=== PATIENT | female | born 1950 | race Caucasian/White ===

== ENCOUNTER → 2023-07-27 12:04 | Outpatient (REF) | payer MEDICARE, OTHER, SELFPAY | LOC: RAD 12:04 | PROVIDERS: ATTENDING PHYSICIAN Physician Assistant; FAMILY PHYSICIAN Family Medicine | DX: D35.02 Benign neoplasm of left adrenal gland (principal) | CPT/HCPCS: 74170; Q9967 ==

== ENCOUNTER 2023-10-03 14:24 | Emergency (ER) | payer MEDICARE, OTHER, SELFPAY ==
[2023-10-03 14:31] VITALS: BP 138/65
[2023-10-03 14:33] VITALS: BP 138/65
[2023-10-03 15:04] LABS: % Basophils 0.4 % (0-2); % Eosinophils 0.7 % (0-6); % Immature Granulocytes 0.2 % (0-0.5); % Lymphocytes 28.8 % (20.5-51.1); % Monocytes 6.6 % (1.7-9.3); % Neutrophils 63.3 % (42.2-75.2); Absolute Eosinophils 0.1 10^3/uL (0-0.7); Absolute Lymphocytes 2.4 10^3/uL (1.2-3.4); Absolute Monocytes 0.5 10^3/uL (0.1-0.6); Absolute Neutrophils 5.2 10^3/uL (1.4-6.5); Hemoglobin 12.2 g/dL (12.0-16.0); Mean Corp Hgb Conc. 34.9 g/dL (33.0-37.0); Mean Corpuscular Hgb 32.2 pg (27.0-31.0); Mean Corpuscular Volume 92.3 fL (81.0-99.0); Mean Platelet Volume 11.1 fL (7.4-10.4); Nucleated Red Blood Cells % 0 %; Platelet Count 282 10^3/uL (130-400); Red Blood Cell Count 3.79 10^6/uL (4.20-5.40); Red Cell Dist. Width 12.9 % (11.5-14.5); White Blood Cell Count 8.2 10^3/uL (4.8-10.8)
[2023-10-03 15:22] LABS: ALT (SGPT) 21 U/L (0-35); AST (SGOT) 21 U/L (14-36); Albumin 4.3 g/dl (3.5-5.0); Alkaline Phosphatase 92 U/L (38-126); Blood Urea Nitrogen 35 mg/dl (7-17); Calcium 10.3 mg/dl (8.4-10.2); Carbon Dioxide 22 mmol/L (22-30); Chloride 102 mmol/L (98-107); Estimated Creatinine Clearance 41 ml/min; Glucose 392 mg/dl (70-99); Potassium 4.6 mmol/L (3.5-5.1); Sodium 135 mmol/L (135-145); Total Bilirubin 0.7 mg/dl (0.2-1.3); Total Protein 6.7 g/dl (6.3-8.2); eGFR 48.09
[2023-10-03 15:31] LABS: Troponin I < 0.012 ng/ml
[2023-10-03 16:00] VITALS: BP 136/53
[2023-10-03] MEDS: NSS 1000 IV (16:57)
[2023-10-03 17:00] VITALS: BP 148/58
--- NOTE | 2023-10-03 17:24 | ED.GENMED ---
History of Present Illness
General
Chief Complaint: Weakness
Source: patient
Time Seen by Provider: 10/03/23 16:48
History of Present Illness
History of Present Illness:
73-year-old female presents to the emergency room after having a syncopal episode. Patient states she was walking into a wall while to get milk and next thing she recalls is being on the ground. Patient has had these episodes occasionally for
years. She states over the past 7 years she has had about 1 year. However recently she has had more episodes. This is her third syncopal episode in the past month. Patient had no premonition that this was about the happened. She denied any
visual changes, dizziness, chest pain or palpitations. She had a similar episode about 3 weeks ago. She was walking across the street to me that the neighbor to go to lunch when she collapsed. She similarly had no prodromal symptoms. The third
episode that she had recently was associated with the sensation that her blood sugar was low which was confirmed by her glucose monitor. Patient states that the events are not associated with any shaking or seizure-like activity. She wakes up
quickly and is not confused. She does not see a telegraph messenger.
Past History
Past History
ED Past Medical History: COPD, HTN and IDDM
ED Past Surgical History: Other (Noncontributory)
Social History
Tobacco: Smoker
Alcohol: None
Drug: None
Personal: Single
Living: alone
Employment: Not employed
Family History
Family History: Diabetes
Phy Exam
Physical Exam
Physical Exam:
General: Awake, Alert, Oriented X3. No acute distress.
Vitals: unremarkable
Head: Atraumatic
Eyes: Pupils equal, EOMI
Throat: Airway intact, no exudates
Neck: Trachea midline
Lungs: Clear and equal b/l
Heart: Regular rate, no murmurs
Abd: Soft, Nontender, No pulsatile mass
Neuro: Cranial nerves intact, muscle strength equal bilaterally, cerebellar exam normal
Skin: Warm, dry, no rash
Extremities: pulses equal b/l, no edema
Course
Orders/Labs/Results
Orders:
Orders
10/03/23 14:32
EKG [Electrocardiogram (*1)] Urgent
Reason for Study: Syncope
10/03/23 14:33
EKG- Treatment ONCE
10/03/23 14:56
Complete Blood Count/With Diff Urgent
Comprehensive Metabolic Panel Urgent
Troponin I Urgent
10/03/23 16:49
0.9% Sodium Chloride 1000 ml [Nss] 1,000 ml IV BOLUS
Abnormal Lab Results
10/03/23
14:56
RBC 3.79 L 10^6/uL
(4.20-5.40)
Hct 35.0 L %
(37.0-47.0)
MCH 32.2 H pg
(27.0-31.0)
MPV 11.1 H fL
(7.4-10.4)
BUN 35 H mg/dl
(7-17)
Creatinine 1.2 H mg/dL
(0.6-1.0)
Glucose 392 H mg/dl
(70-99)
Calcium 10.3 H mg/dl
(8.4-10.2)
10/03/23 14:56
10/03/23 14:56
Vital Signs
Initial and Last Documented VS:
Initial Vital Signs
BP
138/65
10/03/23 14:31
Last Documented Vital Signs
Temp Pulse Resp BP Pulse Ox
98.4 F 64 21 164/61 100
10/03/23 14:33 10/03/23 18:30 10/03/23 18:30 10/03/23 18:00 10/03/23 18:30
MDM/Problems Addressed
Differential Diagnosis Includes:
Vasovagal syncope, cardiac syncope, seizure activity, orthostasis
MDM/Problems Addressed:
Patient presents for syncopal episodes. She is asymptomatic at this time. Her exam is benign. Her EKG is essentially normal. She has no known cardiac history. Physical exam she does not have any murmurs. Unclear what the cause of the patient's
events over the been going on for some time and she does not have any clear risk factors for cardiac syncope. Patient does not want to stay in the hospital. We will discharge her for close outpatient follow-up.
*Pulse Oximetry
Patient hypoxic: no
*EKG
Interpreted by ED Provider?: Yes
Heart Rate: 71
Rate: normal
Rhythm: sinus
[place]: normal axis
Interval: normal interval
QRS Pattern: normal QRS
Ischemia: no ischemia
*Document Image Technician Interpretation
Rate: normal
Interpretation: normal
Rhythm: sinus
*Critical Care Note
Total Time (30-74mins, 75-104mins- exclusive of procedures): Not Applicable
ED Attending Note
-
Portions of this chart may have been created with voice recognition software.� Occasional wrong word or��sound alike� substitutions may have occurred due to the inherent limitations of voice recognition software.
Discharge Plan
Departure
Patient Disposition: Home (Routine Discharge)
Date of Disposition: 10/03/23
Time of Disposition: 18:10
Patient with high blood pressure during this ER visit?: Yes
Condition: Good
Discharge Problem:
Syncope
Instructions: Syncope (fainting), Chest Pain DCA Follow Up, BLOOD PRESSURE
Prescriptions:
No Action
rosuvastatin 10 MG tablet
10 mg PO DAILY
aspirin 81 MG tablet,chewable
81 mg PO DAILY
duloxetine 60 MG capsule,delayed release(DR/EC)
60 mg PO DAILY
Rx Instructions:
taken w/ 30mg = 90mg
insulin lispro [Humalog U-100 Insulin] 100 UNIT/ML solution
0 sliding scale dose SC MEALS
atenolol [Tenormin] 100 MG tablet
100 mg PO DAILY
minoxidil 2.5 MG tablet
2.5 mg PO DAILY
amlodipine 10 MG tablet
10 mg PO DAILY
gabapentin 100 MG capsule
200 mg PO HS
albuterol sulfate 1 PUFF HFA aerosol inhaler
2 puff inhalation R Q4HPRN PRN (Reason: sob/wheezing)
metformin 500 MG tablet extended release 24 hr
1,000 mg PO DAILY
duloxetine 30 MG capsule,delayed release(DR/EC)
30 mg PO DAILY
Rx Instructions:
taken w/ 60mg = 90mg
Anoro Ellipta 1 EACH blister with device
1 puff inhalation R DAILY
Eylea 2 mg/0.05 mL Solution
2 mg INTRAVITREAL USEASDIRECTD
Rx Instructions:
Done at [facility]. Right Eye every 2 months, Left Eye every 3 months
cyanocobalamin (vitamin B-12) [Vitamin B-12] 500 mcg tablet
500 mcg PO DAILY
lisinopril 40 mg tablet
40 mg PO DAILY
melatonin 10 mg Tablet
30 mg PO HS
Jardiance 10 mg tablet
10 mg PO DAILY
alfalfa
1 tab PO DAILY PRN (Reason: allergies)
insulin glargine [Lantus Solostar U-100 Insulin] 300 UNITS/3 ML insulin pen
26 units SC DAILY
nicotine 21 mg/24 hr Patch 24 Hour
21 mg transdermal DAILY Qty: 14 0RF
amoxicillin-pot clavulanate 875-125 mg tablet
1 tab PO Q12H Qty: 24 0RF
Referrals:
Paige Reardon DO [Family Provider] -
Mario Correa MD [Active] -
Interventions
Interventions:
*Risk Screen - Suicide Last Done: 10/03/23 14:37
*General Assessment Last Done: 10/03/23 14:37
*Neglect/Abuse Screening Last Done: 10/03/23 14:37
*ED COVID-19 Vaccine History Last Done: 10/03/23 14:37
*Nursing Disposition Last Done: 10/03/23 18:44
ED- Cardiac Assessment Last Done: 10/03/23 14:39
ED- Neurological Assessment Last Done: 10/03/23 14:39
ED- Pulmonary Assessment Last Done: 10/03/23 14:39
Discharge Date and Time
Discharge Date/Time: 10/03/23 18:45
Print Language: DIVEHI
[2023-10-03 18:00] VITALS: BP 164/61
== END 2023-10-03 18:45 | disposition home or self-care (01) ==
LOC: EMR 14:24
PROVIDERS: Emergency Medicine; EMERGENCY PHYSICIAN Emergency Medicine; FAMILY PHYSICIAN Family Medicine
DX: R55 Syncope and collapse (principal); W18.30XA Fall on same level, unspecified, initial encounter; E11.9 Type 2 diabetes mellitus without complications; I10 Essential (primary) hypertension; J44.9 Chronic obstructive pulmonary disease, unspecified; Z79.4 Long term (current) use of insulin; F17.200 Nicotine dependence, unspecified, uncomplicated; Z91.040 Latex allergy status; Z88.5 Allergy status to narcotic agent; Z88.8 Allergy status to other drugs, medicaments and biological substances; Z91.048 Other nonmedicinal substance allergy status
CPT/HCPCS: 99284; 96360; 80053; 84484; 85025; 93005

== ENCOUNTER → 2024-02-16 11:22 | Outpatient (REF) | payer MEDICARE, OTHER, SELFPAY | LOC: HWRCS 11:22 | PROVIDERS: ATTENDING PHYSICIAN Physician Assistant Medical; FAMILY PHYSICIAN Family Medicine | DX: R55 Syncope and collapse (principal); R06.09 Other forms of dyspnea | CPT/HCPCS: 93306 ==

== ENCOUNTER → 2024-07-06 06:53 | Outpatient (REF) | payer MEDICARE, OTHER, SELFPAY | LOC: RAD 06:53 | PROVIDERS: ATTENDING PHYSICIAN Physician Assistant; FAMILY PHYSICIAN Family Medicine | DX: D35.02 Benign neoplasm of left adrenal gland (principal) | CPT/HCPCS: 74170; Q9967 ==

== ENCOUNTER 2024-07-23 14:03 | Emergency (ER) | payer MEDICARE, OTHER, SELFPAY ==
[2024-07-23] VITALS (8 sets, daily range): BP systolic 112–172; BP diastolic 54–115; PULSE 71–75
[2024-07-23 14:25] LABS: % Basophils 0.4 % (0-2); % Immature Granulocytes 0.2 % (0-0.5); % Lymphocytes 23.6 % (20.5-51.1); % Neutrophils 66.8 % (42.2-75.2); Absolute Eosinophils 0.1 10^3/uL (0-0.7); Absolute Lymphocytes 2.1 10^3/uL (1.2-3.4); Absolute Monocytes 0.7 10^3/uL (0.1-0.6); Hematocrit 35.1 % (37.0-47.0); Mean Corp Hgb Conc. 34.2 g/dL (33.0-37.0); Mean Corpuscular Hgb 32.2 pg (27.0-31.0); Mean Corpuscular Volume 94.1 fL (81.0-99.0); Mean Platelet Volume 10.5 fL (7.4-10.4); Nucleated Red Blood Cells % 0 %; Platelet Count 267 10^3/uL (130-400); Red Blood Cell Count 3.73 10^6/uL (4.20-5.40); Red Cell Dist. Width 13.2 % (11.5-14.5)
--- NOTE | 2024-07-23 14:40 | ED.GENMED ---
History of Present Illness
General
Chief Complaint: Dizziness
Source: patient
Exam Limitations: none
Time Seen by Provider: 07/23/24 14:39
Nursing documentation reviewed up to this point in time: agreed with
History of Present Illness
History of Present Illness:
73-year-old female with history of neuropathy, COPD, HTN, HLD, IBS, IDDM, Tasha's thyroiditis, anemia, ADHD presents for syncope. She has had several syncopal episodes in the past, one a year for past 7 years, similar to this one. Last was on
10/03/23 when she was evaluated here and no explanation found.
States she was walking from one room to another at her PCP office and she felt lightheaded, held onto the counter and was escorted to a chair. There was no LOC.
Denies CP, SOB, abd pain.
Past History
Past History
ED Past Medical History: COPD, HTN, IDDM and Other (several episodes syncope in past 8 years.)
ED Past Surgical History: Gynecological (R oophorectomy) and Orthopedic
Social History
Tobacco: Smoker
Alcohol: None
Drug: None
Personal: Single
Living: alone
Employment: Not employed
Family History
Family History: Diabetes
Review of Systems
Review of Systems
Allergies reviewed?: Yes
All Other Systems: ROS reviewed and negative except as documented in HPI and ROS
Constitutional: Denies fever or fatigue
Respiratory: Denies trouble breathing
Cardiac: Reports syncope; Denies chest pain, diaphoresis or palpitations
ABD/GI: Denies abdominal pain, nausea, vomiting, diarrhea or anorexia
: Denies dysuria, frequency or difficulty voiding
Musculoskeletal: Reports no symptoms
Skin: Reports no symptoms
Neurological: Reports no symptoms
Phy Exam
Physical Exam
Physical Exam:
GENERAL: No acute distress. A&Ox3.
CONSTITUTIONAL: Afebrile.
EYES: clear, conjunctivae normal
ENMT: moist mucus membranes, Pharynx nl
RESPIRATORY: Regular respirations, nonlabored, lungs clear.
CARDIOVASCULAR: Regular rate and rhythm, no murmurs, no rubs.
GI: Soft, nontender, normal BS
MUSCULOSKELETAL: Moves with ease. Well perfused.No edema
SKIN: Warm, dry, pink
PSYCH: Normal mood and affect. Well kept, interactive and appropriate
NEUROLOGIC: Awake, alert and oriented. No focal neurological deficits
Course
Orders/Labs/Results
Orders:
Orders
07/23/24 14:11
EKG [Electrocardiogram (*1)] Urgent
Reason for Study: Syncope
07/23/24 14:12
EKG- Treatment ONCE
07/23/24 14:17
CXR2 [CR Chest - 2 Views ] Urgent
Comment:
Reason For Exam: 'bubbling in chest'
07/23/24 14:18
Complete Blood Count/With Diff Urgent
Comprehensive Metabolic Panel Urgent
Troponin I Urgent
07/23/24 14:41
Orthostatic VS- Treatment ONCE
07/23/24 15:02
0.9% Sodium Chloride 1000 ml [Nss] 1,000 ml IV BOLUS
07/23/24 16:07
Urinalysis Reflex To Culture Urgent
Date Specimen was Collected: 07/23/24
Time Specimen was Collected: 16:03
Urine Microscopic Reflex Cult Urgent
Urine Culture Urgent
DAWIT Source: U
Specimen Description:
Date Specimen was Collected: 07/23/24
Time Specimen was Collected: 16:03
Abnormal Lab Results
07/23/24 07/23/24
14:18 16:07
RBC 3.73 L 10^6/uL
(4.20-5.40)
Hct 35.1 L %
(37.0-47.0)
MCH 32.2 H pg
(27.0-31.0)
MPV 10.5 H fL
(7.4-10.4)
Absolute Monos (auto) 0.7 H 10^3/uL
(0.1-0.6)
Chloride 108 H mmol/L
(98-107)
BUN 28 H mg/dl
(7-17)
Creatinine 1.4 H mg/dL
(0.6-1.0)
Glucose 181 H mg/dl
(70-99)
Calcium 10.4 H mg/dl
(8.4-10.2)
Urine Ketones 2+ A
(Negative)
Leukocyte Esterase Rfl 1+ A
(Negative)
Urine Bacteria (Reflex) Moderate A
(Negative)
Urine Glucose 4+ A
(Negative)
Urine Albumin (Reflex) 1+ A
(Neg - Trace)
07/23/24 14:18
07/23/24 14:18
Vital Signs
Initial and Last Documented VS:
Initial Vital Signs
Temp Pulse Resp BP Pulse Ox
97.9 F 68 20 136/104 98
07/23/24 14:07 07/23/24 14:07 07/23/24 14:07 07/23/24 14:07 07/23/24 14:07
Last Documented Vital Signs
Temp Pulse Resp BP Pulse Ox
97.9 F 75 21 132/115 99
07/23/24 14:07 07/23/24 16:15 07/23/24 16:15 07/23/24 16:00 07/23/24 16:00
Regional Rehabilitation Director consulted with Physician
Regional Rehabilitation Director consulted with physician?: Yes
Name of Physician Consulted: Shahzad
MDM/Problems Addressed
Differential Diagnosis Includes:
dehydration, postural hypotension
MDM/Problems Addressed:
73-year-old female with history of neuropathy, COPD, HTN, HLD, IBS, IDDM, Tasha's thyroiditis, anemia, ADHD presents for syncope. She has had several syncopal episodes in the past, one a year for past 7 years, similar to this one. Last was on
10/03/23 when she was evaluated here and no explanation found.
States she was walking from one room to another at her PCP office and she felt lightheaded, held onto the counter and was escorted to a chair. There was no LOC.
Denies CP, SOB, abd pain.
Afebrile, NAD
EKG: NSR
I witnessed pt having to suddenly sit down feeling lightheaded during standing for orthostatics:
Supine 152/68, Sitting 125/62, standing 112/62 Heart rate remained stable 71-75 (Pt on beta lauren)
CBC: with no clinically significant abnormality.
CMP: Consistent with her CKD
U/A: neg
4:20 pm.
CXR: NAD
Pt states 'as long as I'm sitting down, I'm fine.'
After NSS 1 IVFs pt OOB and ambulating well. Denies dizziness, lightheadedness.
Stable for discharge
Dr. Dao gone for the day, Case discussed with Dr. Pike who agrees with assessment and plan
*EKG
EKG Intrepretation Date: 07/23/24
Interpretation: normal
Heart Rate: 68
Rate: normal
Rhythm: sinus
[place]: normal axis
Interval: normal interval
QRS Pattern: normal QRS
Ischemia: no ischemia
*Critical Care Note
Total Time (30-74mins, 75-104mins- exclusive of procedures): Not Applicable
ED Attending Note
-
Portions of this chart may have been created with voice recognition software.� Occasional wrong word or��sound alike� substitutions may have occurred due to the inherent limitations of voice recognition software.
Discharge Plan
Departure
Patient Disposition: Home (Routine Discharge)
Date of Disposition: 07/23/24
Time of Disposition: 17:12
Patient with high blood pressure during this ER visit?: No
Condition: Good
Discharge Problem:
Near syncope, Tobacco use disorder
Instructions: Near Fainting (DC)
Prescriptions:
No Action
rosuvastatin 10 MG tablet
10 mg PO DAILY
aspirin 81 MG tablet,chewable
81 mg PO DAILY
duloxetine 60 MG capsule,delayed release(DR/EC)
60 mg PO DAILY
Rx Instructions:
taken w/ 30mg = 90mg
insulin lispro [Humalog U-100 Insulin] 100 UNIT/ML solution
0 sliding scale dose SC MEALS
atenolol [Tenormin] 100 MG tablet
100 mg PO DAILY
minoxidil 2.5 MG tablet
2.5 mg PO DAILY
amlodipine 10 MG tablet
10 mg PO DAILY
gabapentin 100 MG capsule
200 mg PO HS
albuterol sulfate 1 PUFF HFA aerosol inhaler
2 puff inhalation R Q4HPRN PRN (Reason: sob/wheezing)
metformin 500 MG tablet extended release 24 hr
1,000 mg PO DAILY
duloxetine 30 MG capsule,delayed release(DR/EC)
30 mg PO DAILY
Rx Instructions:
taken w/ 60mg = 90mg
Anoro Ellipta 1 EACH blister with device
1 puff inhalation R DAILY
Eylea 2 mg/0.05 mL Solution
2 mg INTRAVITREAL USEASDIRECTD
Rx Instructions:
Done at [facility]. Right Eye every 2 months, Left Eye every 3 months
cyanocobalamin (vitamin B-12) [Vitamin B-12] 500 mcg tablet
500 mcg PO DAILY
lisinopril 40 mg tablet
40 mg PO DAILY
melatonin 10 mg Tablet
30 mg PO HS
Jardiance 10 mg tablet
10 mg PO DAILY
alfalfa
1 tab PO DAILY PRN (Reason: allergies)
insulin glargine [Lantus Solostar U-100 Insulin] 300 UNITS/3 ML insulin pen
26 units SC DAILY
nicotine 21 mg/24 hr Patch 24 Hour
21 mg transdermal DAILY Qty: 14 0RF
amoxicillin-pot clavulanate 875-125 mg tablet
1 tab PO Q12H Qty: 24 0RF
Referrals:
Magalie Shin PA-C [Family Provider] - Call in 1-3 days for appt
Activity Restrictions/Additional Instructions:
As we discussed, drink at least six 8 ounce glasses of water/fluid daily to stay hydrated.
Ceron positions slowly so you don't get dizzy.
Interventions
Interventions:
*Risk Screen - Suicide Last Done: 07/23/24 14:07
*General Assessment Last Done: 07/23/24 14:07
*Neglect/Abuse Screening Last Done: 07/23/24 14:07
*ED- Fall Risk Assessment Last Done: 07/23/24 14:07
*ED COVID-19 Vaccine History Last Done: 07/23/24 14:18
ED- Neurological Assessment Last Done: 07/23/24 14:56
Discharge Date and Time
Print Language: AZERI
[2024-07-23 14:43] LABS: ALT (SGPT) 16 U/L (0-35); AST (SGOT) 15 U/L (14-36); Albumin 4.3 g/dl (3.5-5.0); Alkaline Phosphatase 97 U/L (38-126); Blood Urea Nitrogen 28 mg/dl (7-17); Calcium 10.4 mg/dl (8.4-10.2); Carbon Dioxide 23 mmol/L (22-30); Chloride 108 mmol/L (98-107); Estimated Creatinine Clearance 36 ml/min; Glucose 181 mg/dl (70-99); Potassium 5.1 mmol/L (3.5-5.1); Sodium 136 mmol/L (135-145); Total Bilirubin 0.9 mg/dl (0.2-1.3); Total Protein 6.6 g/dl (6.3-8.2); eGFR 39.97
[2024-07-23 14:55] LABS: Troponin I < 0.012 ng/ml
--- NOTE | 2024-07-23 14:55 | EDRN ---
VOICE DATA COMMUNICATIONS ENGINEER Day @ bedside. patient unable to stand due to dizziness when obtaining orthostatic blood pressures. VOICE DATA COMMUNICATIONS ENGINEER at bedside during dizzy episode. Patient sat back down immediately. No falls, no loss of consciousness, or trauma. Patient taken via
stretcher to xray
[2024-07-23] MEDS: NSS 1000 IV (15:11)
[2024-07-23 16:34] LABS: Urine Albumin 1+ (Neg - Trace); Urine Bilirubin Negative (Negative); Urine Color Amber; Urine Glucose 4+ (Negative); Urine Ketone 2+ (Negative); Urine Leukocyte 1+ (Negative); Urine Nitrite Negative (Negative); Urine Occult Blood Negative (Negative); Urine Urobilinogen Negative (Neg - 1+)
[2024-07-23 16:38] LABS: Urine Character Slightly Cloudy (Clear)
[2024-07-23 16:59] LABS: Urine Hyaline Cast >15 /LPF (0-2)
[2024-07-23 17:01] LABS: Urine Bacteria Moderate (Negative); Urine Red Blood Cell 0-2 /HPF (0-2)
== END 2024-07-23 18:42 | disposition home or self-care (01) ==
LOC: EMR 14:03
PROVIDERS: Registered Nurse; EMERGENCY PHYSICIAN Emergency Medicine; FAMILY PHYSICIAN Physician Assistant
DX: R55 Syncope and collapse (principal); E11.40 Type 2 diabetes mellitus with diabetic neuropathy, unspecified; F17.200 Nicotine dependence, unspecified, uncomplicated; J44.9 Chronic obstructive pulmonary disease, unspecified; D64.9 Anemia, unspecified; E11.36 Type 2 diabetes mellitus with diabetic cataract; F90.9 Attention-deficit hyperactivity disorder, unspecified type; I10 Essential (primary) hypertension; E78.5 Hyperlipidemia, unspecified; E06.3 Autoimmune thyroiditis; M19.90 Unspecified osteoarthritis, unspecified site; K58.9 Irritable bowel syndrome, unspecified; Z79.4 Long term (current) use of insulin; Z79.82 Long term (current) use of aspirin; Z91.040 Latex allergy status; Z88.5 Allergy status to narcotic agent; Z88.8 Allergy status to other drugs, medicaments and biological substances; Z91.048 Other nonmedicinal substance allergy status
CPT/HCPCS: 99284; 96360; 71046; 80053; 81003; 81015; 84484; 85025; 87086; 93005

== ENCOUNTER 2024-11-16 15:13 | Observation (INO) | payer MEDICARE, OTHER, SELFPAY ==
[2024-11-16] VITALS (8 sets, daily range): BP systolic 85–180; BP diastolic 43–73; PULSE 76–78; BMI 19.2
[2024-11-16 11:42] LABS: Hematocrit 32.6 % (37.0-47.0); Hemoglobin 10.7 g/dL (12.0-16.0); Mean Corp Hgb Conc. 32.8 g/dL (33.0-37.0); Mean Corpuscular Volume 95.3 fL (81.0-99.0); Nucleated Red Blood Cells % 0 %; Platelet Count 313 10^3/uL (130-400); Red Cell Dist. Width 13.8 % (11.5-14.5)
[2024-11-16 11:55] LABS: ALT (SGPT) 18 U/L (0-35); AST (SGOT) 16 U/L (14-36); Albumin 3.8 g/dl (3.5-5.0); Alkaline Phosphatase 95 U/L (38-126); Blood Urea Nitrogen 24 mg/dl (7-17); Calcium 10.0 mg/dl (8.4-10.2); Carbon Dioxide 26 mmol/L (22-30); Chloride 107 mmol/L (98-107); Glucose 249 mg/dl (70-99); Potassium 5.3 mmol/L (3.5-5.1); Sodium 136 mmol/L (135-145); Total Protein 6.2 g/dl (6.3-8.2); eGFR 43.42
[2024-11-16 12:06] LABS: Troponin I < 0.012 ng/ml
--- NOTE | 2024-11-16 12:27 | ED.GENMED ---
History of Present Illness
General
Chief Complaint: Dizziness
Source: patient
Exam Limitations: none
Time Seen by Provider: 11/16/24 12:06
Nursing documentation reviewed up to this point in time: agreed with
History of Present Illness
History of Present Illness:
Note:
CHIEF COMPLAINT(S)
Dizziness and leg weakness.
HISTORY OF PRESENT ILLNESS
The patient is a 74-year-old female who presents with complaints of dizziness and a sensation of her legs wanting to 'give out.' She states these symptoms began approximately one year ago. The dizziness is described as a sensation that is not
necessarily vertiginous but more as a feeling of potential leg collapse. This occurs intermittently and has been managed at home by sitting down, which she feels helps improve circulation. The patient denies any associated chest pain or new
breathing difficulties. She mentioned having Chronic Obstructive Pulmonary Disease (COPD), which is not a new diagnosis. There are no new respiratory concerns today. The patient was encouraged by her primary care provider to seek further evaluation
due to her symptoms of dizziness and said leg weakness, prompting her visit to the hospital today.
ADDITIONAL HISTORY OBTAINED FROM SOURCE OTHER THAN THE PATIENT
According to the patient, during a routine appointment with her primary care doctor, she was advised to visit the emergency department for further evaluation of her symptoms.
EXTERNAL RECORDS REVIEWED
The patient refers to a prior consultation with Dr. Mullen approximately four years ago after imaging was conducted due to concerns about possible cerebral findings. She recalls the physician describing the findings as resembling a 'raisin,'
suggesting it might be benign, and advising that there was no need to worry.
CHRONIC MEDICAL CONDITIONS SIGNIFICANTLY AFFECTING CARE
Patient has a known history of Chronic Obstructive Pulmonary Disease (COPD).
SOCIAL DETERMINANTS AFFECTING HEALTH
The patient describes requiring assistance from her primary care provider to access healthcare services for her current condition.
REVIEW OF SYSTEMS
- General: Reports dizziness and leg weakness.
- Cardiovascular: Denies chest pain.
- Respiratory: Acknowledges history of Chronic Obstructive Pulmonary Disease (COPD); no new respiratory symptoms reported.
- Neurological: Describes intermittent dizziness and leg weakness; denies specific sensation of spinning.
PHYSICAL EXAM
General: Alert, no acute distress.
Skin: Warm, dry.
Head: Normocephalic, atraumatic.
Neck: Supple, trachea midline.
Eye Ears, nose, mouth and throat: Oral mucosa moist.
Cardiovascular: Normal peripheral perfusion, No edema.
Respiratory: Respirations are non-labored.
Gastrointestinal: Abdomen nondistended.
Back: Normal range of motion, Normal alignment.
Musculoskeletal: Normal ROM, normal strength.
Neurological: Alert and oriented to person, place, time, and situation, No focal neurological deficit observed.
Psychiatric: Cooperative, appropriate mood & affect.
PROBLEM LIST
Acute: Dizziness, leg weakness.
Chronic: Chronic Obstructive Pulmonary Disease (COPD).
PLAN
- Order laboratory tests for further evaluation.
- Consider a computed tomography (CT) scan of the head to investigate the dizziness and past reported cerebral findings.
DIFFERENTIAL DIAGNOSIS
The Differential Diagnosis includes, in no particular order and is not limited to:
1. Orthostatic hypotension
2. Peripheral neuropathy
3. Vestibular dysfunction
4. Transient ischemic attack
5. Anemia
6. Medication side effects
7. Cervical spondylosis
8. Dehydration
9. Electrolyte imbalance
10. Heart failure
EKG
My independent EKG interpretation is:
- Rhythm: All signs rhythm
- Heart Rate: 69 bpm
- Notable Findings: Anterior septal infarct
- Comparative Analysis: No acute changes or differences noted from prior EKG
- Other Observations: No abnormalities or relaxations observed
CARE-UPDATE
11/16/24 - 14:31
Patient admitted for observation and further evaluation of potential hemorrhagic event seen on CT scan; neurosurgery consulted and currently no surgical intervention required. Continue monitoring neurological status and symptoms of dizziness and leg
weakness. Further imaging may be needed to determine the age and significance of the hemorrhagic findings.
Disposition:
SUMMARY OF ENCOUNTER
The patient is a 74-year-old female who presented to the emergency department with a chief complaint of dizziness and leg weakness. These symptoms have persisted intermittently for about a year, often causing a sensation of potential leg collapse.
Her dizziness is not vertiginous but associated with a feeling of leg weakness. The patient manages the symptoms by sitting down, which she believes helps improve circulation. The patient has a history of Chronic Obstructive Pulmonary Disease (COPD)
and was encouraged by her primary care provider to seek further evaluation due to the persistence of her symptoms. In the emergency department, a CT scan was performed revealing a potential hemorrhagic CVA event.
DISPOSITION
Admit
MANAGEMENT OF THE PATIENTS CARE WAS DISCUSSED WITH
Neurosurgery and neurology were consulted regarding the CT findings. Neurosurgery advised that surgical intervention was not necessary at this time.
PLAN
- The patient has been admitted to the Intermediate Medical Unit (IMU) for continued observation and further evaluation.
- Monitor neurological status and symptoms carefully.
- Perform further imaging as needed to investigate hemorrhagic findings and determine their significance and age.
INDEPENDENT REVIEW OF LABS AND INTERPRETATION OF TESTS
My independent review of the CT scan shows potential hemorrhagic events, warranting consultation with neurosurgery and neurology.
MEDICAL DECISION MAKING
1. Number and Complexity of Problems Addressed:
Chronic conditions affecting care include Chronic Obstructive Pulmonary Disease (COPD).
Differential Diagnosis: Orthostatic hypotension, peripheral neuropathy, vestibular dysfunction, transient ischemic attack, anemia, medication side effects, cervical spondylosis, dehydration, electrolyte imbalance, heart failure.
2. Data:
Category 1
- A CT scan was independently reviewed to evaluate cerebral findings and assess the potential hemorrhagic event.
Category 3
- Discussion of patients management with neurosurgery and neurology regarding the CT findings.
3. Risk:
- Given the complexity and risk associated with the patients presenting complaints and CT findings, the patient was admitted to the IMU for further observation and evaluation.
Past History
Past History
ED Past Medical History: COPD, HTN, IDDM and Other (several episodes syncope in past 8 years.)
ED Past Surgical History: Gynecological (R oophorectomy) and Orthopedic
Social History
Tobacco: Smoker
Alcohol: None
Drug: None
Personal: Single
Living: alone
Employment: Not employed
Family History
Family History: Diabetes
Phy Exam
Physical Exam
Physical Exam:
.
Course
Orders/Labs/Results
Orders:
Orders
11/16/24 11:24
ECG [Electrocardiogram (*1)] Urgent
Reason for Study: Vertigo / Dizzy
11/16/24 11:25
EKG- Treatment ONCE
11/16/24 11:33
Complete Blood Count/With Diff Urgent
Comprehensive Metabolic Panel Urgent
Troponin I Urgent
11/16/24 12:37
CT Head W/o Iv Contrast Urgent
Comment:
Reason For Exam: dizziness
Abnormal Lab Results
11/16/24
11:33
RBC 3.42 L 10^6/uL
(4.20-5.40)
Hgb 10.7 L g/dL
(12.0-16.0)
Hct 32.6 L %
(37.0-47.0)
MCH 31.3 H pg
(27.0-31.0)
MCHC 32.8 L g/dL
(33.0-37.0)
Absolute Monos (auto) 0.7 H 10^3/uL
(0.1-0.6)
Lymphocytes % 20.3 L %
(20.5-51.1)
Potassium 5.3 H mmol/L
(3.5-5.1)
BUN 24 H mg/dl
(7-17)
Creatinine 1.3 H mg/dL
(0.6-1.0)
Glucose 249 H mg/dl
(70-99)
Total Protein 6.2 L g/dl
(6.3-8.2)
11/16/24 11:33
11/16/24 11:33
Vital Signs
Initial and Last Documented VS:
Initial Vital Signs
Temp Pulse Resp BP Pulse Ox
98.0 F 69 20 85/59 99
11/16/24 11:22 11/16/24 11:22 11/16/24 11:22 11/16/24 11:22 11/16/24 11:22
Last Documented Vital Signs
Temp Pulse Resp BP Pulse Ox
98.0 F 68 20 152/67 99
11/16/24 11:22 11/16/24 12:07 11/16/24 11:22 11/16/24 12:07 11/16/24 12:30
*Pulse Oximetry
SaO2: 99
Oxygen Mode of Delivery: Room air
Patient hypoxic: no
*Critical Care Note
Total Time (30-74mins, 75-104mins- exclusive of procedures): Not Applicable
ED Attending Note
-
Portions of this chart may have been created with voice recognition software.� Occasional wrong word or��sound alike� substitutions may have occurred due to the inherent limitations of voice recognition software.
Discharge Plan
Departure
Patient Disposition: Admit
Date of Disposition: 11/16/24
Time of Disposition: 14:08
Admit to: IMU
Presentation/result/management discussed w/ accepting MD/DO: Hospitalist
Patient with high blood pressure during this ER visit?: Yes
Condition: Good
Discharge Problem:
Acute hemorrhagic infarction of brain
Prescriptions:
No Action
rosuvastatin 10 MG tablet
10 mg PO DAILY
aspirin 81 MG tablet,chewable
81 mg PO DAILY
duloxetine 60 MG capsule,delayed release(DR/EC)
60 mg PO DAILY
Rx Instructions:
take w/ 30mg = 90mg
gabapentin 100 MG capsule
300 mg PO HS
duloxetine 30 MG capsule,delayed release(DR/EC)
30 mg PO DAILY
Rx Instructions:
take w/ 60mg = 90mg
cyanocobalamin (vitamin B-12) [Vitamin B-12] 500 mcg tablet
500 mcg PO DAILY
melatonin 10 mg Tablet
10 mg PO HSPRN PRN (Reason: sleep)
famotidine [Pepcid] 40 mg Tablet
40 mg PO BID
labetalol 200 mg Tablet
200 mg PO BID
lisinopril 20 mg Tablet
20 mg PO DAILY
amlodipine [Norvasc] 5 mg Tablet
5 mg PO DAILY
umeclidinium-vilanterol [Anoro Ellipta] 62.5-25 mcg/actuation Blister With Device
1 inh INHALATION R DAILY
Patient Own Insulin Pump
1 sliding scale dose SC .VIA INSULIN PUMP
Referrals:
UNKNOWN - PT DOES,NOT KNOW [Family Provider]
Interventions
Interventions:
*General Assessment Last Done: 11/16/24 11:22
Discharge Date and Time
Print Language: CYPRIOT
--- NOTE | 2024-11-16 14:09 | HPS.HSE ---
Family Physician
-
Family Physician: NOT KNOW UNKNOWN - PT DOES
Chief Complaint
-
difficulty ambulating
History of Present Illness
Patient is a 74-year-old female with past medical history significant for hypertension, hypercholesterolemia, type II diabetes, COPD, depression and chronic pericardial effusion who presented to [facility] ED for evaluation of difficulty getting around at
endocrinology office. Patient reports that she was a routine visit at endocrinology office when her doctor recommended she come to ED for evaluation r/t difficulty getting around in their office. She reports increased generalized weakness and
dizziness over the past few months to a year. She describes as intermittent and dizziness is more feeling off balance then room spinning. She reports weakness is bilateral and equal on both sides. She does believe lower extremities are weaker than
upper extremities. She denies any confusion, difficulty word finding, facial droop, headache, numbness or tingling.
Medical History
Past Medical History
Past Medical History: Reports Other
Additional Past Medical History:
hypertension
hypercholesterolemia
type II diabetes
neuropathy
COPD
depression
chronic kidney disease
chronic pericardial effusion
Past Surgical History: Reports Other
Additional Past Surgical History:
Ovarian Cystectomy
Bilateral Cataracts Extraction
Trigger Finger Release
Social History
Tobacco: Smoker (1 pack a day, approximate 50 pack year history )
Alcohol: None
Drug: Marijuana (gummies daily to help increase appetite )
Personal: Single
Living: Alone
Employment: Retired
Family History
Family History: Other (Mother: CAD; Father: CAD; Sister: ovarian cancer and congenital heart defect )
Allergies / Home Medications
Allergies reflects when Allergies were last updated in [employer].
Home Medications with original date entered in [employer]
Allergy/Medication List:
Allergies
Allergy/AdvReac Type Severity Reaction Status Date / Time
adhesive Allergy TAPE-RASH Verified 11/16/24 11:22
atorvastatin calcium (From Allergy Swelling Verified 11/16/24 11:22
Lipitor) and hives
codeine (Codeine) Allergy nausea and Verified 11/16/24 11:22
vomiting
latex (Latex) Allergy Rash,ithcy Verified 11/16/24 11:22
and burning
Home Medications
aspirin 81 mg chewable tablet 81 mg PO DAILY Blood clot prevention/tx 10/30/13
duloxetine 60 mg capsule,delayed release 60 mg PO DAILY Neurological Condition 10/30/13
rosuvastatin 10 mg tablet 10 mg PO DAILY High cholesterol 10/30/13
duloxetine 30 mg capsule,delayed release 30 mg PO DAILY Neurological Condition 03/11/21
gabapentin 100 mg capsule 300 mg PO HS Neurological Condition 03/11/21
cyanocobalamin (vitamin B-12) 500 mcg tablet (Vitamin B-12) 500 mcg PO DAILY Supplement 01/13/23
melatonin 10 mg tablet 10 mg PO HSPRN PRN sleep 01/13/23
Patient Own Insulin Pump 1 sliding scale dose SC .VIA INSULIN PUMP 11/16/24
amlodipine 5 mg tablet (Norvasc) 5 mg PO DAILY 11/16/24
famotidine 40 mg tablet (Pepcid) 40 mg PO BID 11/16/24
labetalol 200 mg tablet 200 mg PO BID 11/16/24
lisinopril 20 mg tablet 20 mg PO DAILY 11/16/24
umeclidinium 62.5 mcg-vilanterol 25 mcg/actuation powdr for inhalation (Anoro Ellipta) 1 inh inhalation R DAILY 11/16/24
Review of Systems
-
History Source: Patient
Constitutional: Denies Fever or Chills
EENT: Denies Sore Throat
Respiratory: Denies Cough or Trouble Breathing
Cardiac: Denies Chest Pain, Diaphoresis or Palpitations
Abdomen/GI: Reports Anorexia (no appetite, using marijuana gummies to help stimulate appetite ); Denies Abdominal Pain, Nausea or Vomiting
: Denies Dysuria, Frequency, Difficulty Voiding or Urgency
Musculoskeletal: Denies Muscle Pain
Skin: Denies Rash
Neurological: Reports Dizzy, Weakness and Numbness (known bilateral lower extremity neuropathy ); Denies Headache
Physical Exam
Vital Signs
Vital Signs
Temp Pulse Resp BP Pulse Ox
98.0 F 68 20 152/67 99
11/16/24 11:22 11/16/24 12:07 11/16/24 11:22 11/16/24 12:07 11/16/24 12:30
Physical Exam
General: Well Developed, Well Nourished, No Apparent Distress, Comfortable and Conversant
HEENT: NormoCephalic, Moist mucous membranes, Atraumatic, Nose Appears Normal and Ears Appear Normal
Respiratory: Clear and Non Labored Respirations
Cardiac: S1/S2 and Regular Rhythm; No Murmur, Rub or Gallop
Breast: Deferred by me
GI: Soft, Non Tender, Non Distended and Normal Bowel Sounds; No Organomegaly
Rectal: Deferred by Provider
Genito-urinary: Deferred by me
Musculoskeletal: No Clubbing, No Cyanosis and No Edema
Skin: Warm and IV/Catheter Site; No Rash
Neuro: Awake, AO x 3 and Nonfocal/grossly intact
Hematologic/Lymphatic: No Lymphadenopathy
Psych: Intact Judgment/Insight
Laboratory Results
-
11/16/24 11:33
11/16/24 11:33
Laboratory Results
Total Bilirubin 0.7 mg/dl (0.2-1.3) 11/16/24 11:33
AST 16 U/L (14-36) 11/16/24 11:33
ALT 18 U/L (0-35) 11/16/24 11:33
Alkaline Phosphatase 95 U/L (38-126) 11/16/24 11:33
Troponin I < 0.012 ng/ml 11/16/24 11:33
Data Reviewed
-
CT Scan: Report Reviewed by me (Head: There is a high attenuation focus in the left thalamus likely an area of hemorrhage, possibly hemorrhagic infarct.)
Medical Tests (Nuc Med, Echo, EKG etc): Report Reviewed by me (EKG: NORMAL SINUS RHYTHM ANTEROSEPTAL INFARCT (CITED ON OR BEFORE 11-Mar-2021))
Lab Data: Labs Reviewed by me (K+ 5.3, BUN 24, Creat 1.3, eGFR 43.42)
Impression/Plan
-
IMPRESSION/PLAN:
#dizziness/weakness 2/2 deconditioning vs. CVA/TIA vs. infectious process
EKG: NORMAL SINUS RHYTHM
ANTEROSEPTAL INFARCT (CITED ON OR BEFORE 11-Mar-2021)
Head CT: There is a high attenuation focus in the left thalamus likely an area of hemorrhage, possibly hemorrhagic infarct.
- Admit to telemetry
- Consult Neurology
- NIH and neuro checks per protocol
- MRI in morning
#hypertension
- continue amlodipine
- hold labetalol and lisinopril
#hypercholesterolemia
- continue aspirin and rosuvastatin
#type II diabetes
- AccuCheck AC & HS
- SSI
- own insulin pump
#neuropathy
- continue gabapentin
#COPD
- continue Ellipta
#chronic kidney disease
K+ 5.3, BUN 24, Creat 1.3, eGFR 43.42
- appears to be baseline
- monitor BMP
#depression
- continue duloxetine
#nicotine dependency
current pack per day smoker
approximate 50 pack year history
- nicotine patch daily
- encourage cessation
#chronic pericardial effusion
Code status: full code
DVT prophylaxis: heparin sq
--- NOTE | 2024-11-16 14:31 | CON.NEURO4 ---
Documented by User: Laura Zarate NP 11/16/24 15:36
Consultation - Neurology 4
-
CONSULTING PHYSICIAN: Asif Trujillo MD
REFERRING PHYSICIAN: ER/Dr. Galvan
DICTATED BY: ERI Stovall
DATE/TIME OF REQUEST: 11/16/24
DATE/TIME OF CONSULTATION: 11/16/24
Reason for Consultation: Abnormal CT head
History of Present Illness:
This is a 74-year-old right-handed female who has presented to the hospital with report of recurrent episodes of dizziness, legs giving out, and syncope. Patient reports that about 4 years ago at a doctor's appointment bilateral lower extremities
became weak and she passed out. She was evaluated at [facility] at that time and reports she had an MRI brain that demonstrated a 'raisin-like' abnormality. She was evaluated by neurovascular surgery at that time and reports having a repeat
MRI brain 8 weeks later that was stable, and notes they said did not require any additional follow-up. Since then she reports initially having about 2 episodes per year of passing out. Recently, it has become more frequent, almost every time she
leaves the house to do errands she get a fainting and leg weakness sensation. If she crouches over in a ball or lies down in her recliner the sensation resolves. She also notes severe lower back pain starting early in 2024 that has been progressing.
She notes years of slight issues with urinary incontinence, denies any bowel incontinence. She also notes that she has been having GI issues; pain with eating. She had a CT of her abdomen in June 2024 for follow-up on an adrenal mass, and notes that
they saw an abnormality in her esophagus. She reports that she has been undergoing a workup for this and is due to have an endoscopy. She denies any headaches, vision changes, speech difficulty, and numbness.
Past Medical History: Orthostatic hypotension, syncope, HTN, HLD, COPD, NIDDM, CAD, PAD, pericardial effusion, pulmonary nodules, adrenal tumor, Tasha's thyroiditis, anemia, ADHD
Surgical History: b/l cataract removal, ovarian cyst removal, right middle finger trigger finger release
Family History: Reviewed and noncontributory.
Social History: Current smoker 1 PPD for 50 years.
Allergies: Atorvastatin, latex, codeine, adhesive.
Home Medications: See below.
Review of Symptoms:
Patient denies any fever, headache, chest pain, shortness of breath, GI or symptoms.
�Per the HPI.�All systems are reviewed negative except above.
Physical Exam:
The patient is afebrile, abdomen is nondistended, breathing is unlabored, skin is warm and dry, no edema.
NIH Stroke Scale:
I performed the NIH stroke scale on the patient on 11/16/24 at 1445. The patient scored 1 points on the NIH stroke scale assessment, which were assigned as follows: slight left ptosis.
Neurologic Examination:
The patient is awake, alert and oriented x 3. She is able to follow commands and answer questions appropriately. There is no aphasia or dysarthria. On cranial nerve assessment, pupils are 3 mm bilateral, round and reactive to light and
accommodation. Visual de anda are full. Denies diplopia. Extraocular movements are intact. Facial sensations are intact and bilaterally symmetrical. There is slight left eye ptosis. Hearing is intact bilaterally to normal conversation volume. Tongue
palate and uvula are midline. Sternocleidomastoid strengths are full bilaterally. Motor strengths are 5/5 bilateral upper and lower extremities on medical research Alborn scale. There is no drift or involuntary movement noted. Deep tendon reflexes
are 2+ bilateral upper and lower extremities and Babinski is absent bilaterally. There was no extinction noted on double simultaneous stimulation. Coordination is intact by finger to nose bilaterally.
Lab Results: See below.
Neuro Imaging:
1. CT Head 11/16/24: There is a high attenuation focus in the left thalamus likely an area of hemorrhage, possibly hemorrhagic infarct.
Differentials for the patient's presentation include:
1. Orthostatic hypotension likely producing recurrent weakness, dizziness, and syncope. Etiology of autonomic dysfunction is concerning for paraneoplastic syndrome.
2. Left thalamic abnormality on CT head imaging is a chronic finding, possibly old hemorrhage. Not contributing to current symptomatology.
Patient has the following risk factors for their symptoms: Smoker, orthostasis
Recommendations:
-Check orthostatic vital signs as ordered.
-Abdominal binder when OOB. Increase water intake, slow position changes.
-No further imaging needed for thalamic abnormality.
-Eventual lumbar spine imaging.
-DVT prophylaxis.
-PT evaluation.
Discussed patient care with: Dr. Trujillo, the patient
Vital Signs and Labs
-
Vital Signs and Labs:
Vital Signs
Temp Pulse Resp BP Pulse Ox
98.0 F 71 20 170/59 95
11/16/24 11:22 11/16/24 13:00 11/16/24 13:00 11/16/24 13:00 11/16/24 13:00
Lab Results
11/16/24 11:33
11/16/24 11:33
Sodium 136 mmol/L (135-145) 11/16/24 11:33
Potassium 5.3 mmol/L (3.5-5.1) H 11/16/24 11:33
BUN 24 mg/dl (7-17) H 11/16/24 11:33
Glucose 249 mg/dl (70-99) H 11/16/24 11:33
Calcium 10.0 mg/dl (8.4-10.2) 11/16/24 11:33
Medications
-
Home Medications
�Medication �Instructions �Recorded
aspirin 81 mg chewable tablet 81 mg PO DAILY Blood clot 10/30/13
prevention/tx
duloxetine 60 mg capsule,delayed 60 mg PO DAILY Neurological 10/30/13
release Condition
rosuvastatin 10 mg tablet 10 mg PO DAILY High cholesterol 10/30/13
duloxetine 30 mg capsule,delayed 30 mg PO DAILY Neurological 03/11/21
release Condition
gabapentin 100 mg capsule 300 mg PO HS Neurological Condition 03/11/21
cyanocobalamin (vitamin B-12) 500 500 mcg PO DAILY Supplement 01/13/23
mcg tablet (Vitamin B-12)
melatonin 10 mg tablet 10 mg PO HSPRN PRN sleep 01/13/23
Patient Own Insulin Pump 1 sliding scale dose SC .VIA 11/16/24
INSULIN PUMP
amlodipine 5 mg tablet (Norvasc) 5 mg PO DAILY 11/16/24
famotidine 40 mg tablet (Pepcid) 40 mg PO BID 11/16/24
labetalol 200 mg tablet 200 mg PO BID 11/16/24
lisinopril 20 mg tablet 20 mg PO DAILY 11/16/24
umeclidinium 62.5 mcg-vilanterol 1 inh inhalation R DAILY 11/16/24
25 mcg/actuation powdr for
inhalation (Anoro Ellipta)
NIH Stroke Score
Subsequent NIH Scale
Date of Subsequent NIH Scale: 11/16/24
Time of Subsequent NIH Scale: 14:45
NIH Stroke Score
Level of Consciousness: 0 - Alert
LOC Questions: 0-Answers both correctly
LOC Commands: 0-Performs both correctly
Best Horizontal Gaze: 0-Normal
Visual [place]: 0=Normal, no visual loss
Facial Palsy: 1=Minor paralysis
Motor - Right Arm: 0=No drift 10 seconds
Motor - Left Arm: 0=No drift 10 seconds
Motor - Right Le-No drift 5 seconds
Motor - Left Le-No drift 5 seconds
Limb Ataxia: 0-Absent
Sensation: 0-Normal
Best Language: 0-No aphasia
Dysarthria: 0-Normal
Extinction and Inattention: 0-No abnormality
NIH Total Score:: 1
Modified [place] (mRS) Score
Modified [place] Scale (mRS): No symptoms
Score: 0

Documented by User: Asif Trujillo MD 11/16/24 15:43
NIH Stroke Score
NIH Stroke Score
NIH Total Score:: 1
Modified [place] (mRS) Score
Score: 0
--- NOTE | 2024-11-16 15:40 | W.PN.UPDATE ---
Update Note
Progress Note Update
I saw and examined the patient.
The MARINE FUEL DOCK ATTENDANT or PA's note was reviewed and I agree with the note.
Comment:
74-year-old female with past medical history of hypertension, hyperlipidemia, type 2 diabetes, COPD and active smoker, depression and chronic pericardial Effusion presents for ambulation issues. 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
office and noted to have difficulty ambulating. Physician at the office recommended her to come to the hospital. Of note has had increased generalized weakness and dizziness over the past few months. Does also acknowledge feeling more off balance
and the room spinning at times. Please lower extremities are weaker than upper extremities. Otherwise denies fever, chills, headache, word finding, aphasia, numbness or tingling. No sensorimotor neuro loss. Blood pressure 128/47, respiratory
rate 27, pulse 83, afebrile. Labs remarkable for potassium of 5.3. CT head suspected hemorrhagic infarct in the left thalamus. ED spoke to [facility] with no surgical itnervention at this time. Neuro consulted. Plan - CT head in 6 months; MRI abd; BP
parameters as per Neuro; Smoking cessation. Lipid panel, a1c.
--- NOTE | 2024-11-16 15:43 | W.PN.UPDATE ---
Update Note
Progress Note Update
Studies reviewed.
I have personally examined the patient. I reviewed and agree with the YIELD ENGINEER's Note.
My addenda:
Awake, alert, interactive. No acute distress.
Speech intact.
Follows 2-step requests w/o difficulty. No tremor.
Extra-ocular movements grossly intact.
Facial movements full and symmetric. Hearing intact to normal conversational volume.
Normal UE movements bilaterally.
Neck: full ROM.
Chest: no dyspnea
Heart: no JVD
Ext: (-) Clubbing, (-) Cyanosis, (-) Edema
IMPRESSIONS/RECOMMENDATIONS:
Abrupt onset of dizziness with longstanding history of syncope. Patient was found to have on CT of the head suggested left thalamic hemorrhagic changes
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
Check orthostatic blood pressures
Recheck CAT scan of the head 6 hours after initial testing to confirm that lesion is not expansile
Obtain records regarding patient's neoplasia or suggested neoplasia
D/W patient
All questions answered.
Will continue to follow patient.
[2024-11-16 17:48] LABS: Glucose - Point of Care 252 mg/dl (70-99)
[2024-11-16] MEDS: MELATONIN 10 MG PO (20:07)
[2024-11-16] MEDS: NEURONTIN 300 MG PO (20:07)
[2024-11-16] MEDS: TYLENOL 650 MG PO (20:08)
[2024-11-16 21:35] LABS: Glucose - Point of Care 257 mg/dl (70-99)
[2024-11-17] VITALS (9 sets, daily range): BP systolic 117–194; BP diastolic 52–89; PULSE 83; O2SAT 95–97
[2024-11-17] MEDS: CYMBALTA DELAYED RELEASE 60 MG PO (07:40)
[2024-11-17] MEDS: CYMBALTA DELAYED RELEASE 30 MG PO (07:40)
[2024-11-17] MEDS: STRIVERDI RESPIMAT 2 PUFF INH (07:40)
[2024-11-17] MEDS: CRESTOR 10 MG PO (07:40)
[2024-11-17] MEDS: SPIRIVA RESPIMAT 2.5 MCG 2 PUFF INH (07:40)
[2024-11-17] MEDS: NICODERM TRANSDERMAL 21 MG TRANSDERM (07:41)
[2024-11-17] MEDS: PEPCID 20 MG PO (07:41)
[2024-11-17] MEDS: NORVASC 5 MG PO (07:42)
[2024-11-17 08:09] LABS: Glucose - Point of Care 145 mg/dl (70-99)
[2024-11-17 08:11] LABS: Hematocrit 32.1 % (37.0-47.0); Hemoglobin 10.7 g/dL (12.0-16.0); Mean Corp Hgb Conc. 33.3 g/dL (33.0-37.0); Mean Corpuscular Volume 93.6 fL (81.0-99.0); Platelet Count 308 10^3/uL (130-400); Red Cell Dist. Width 13.7 % (11.5-14.5)
[2024-11-17] MEDS: TYLENOL 650 MG PO (08:37)
[2024-11-17 08:45] LABS: Blood Urea Nitrogen 19 mg/dl (7-17); Calcium 10.6 mg/dl (8.4-10.2); Carbon Dioxide 27 mmol/L (22-30); Chloride 109 mmol/L (98-107); Estimated Creatinine Clearance 47 ml/min; Glucose 127 mg/dl (70-99); HDL Cholesterol 47 mg/dl; LDL Cholesterol, Calculated 56 mg/dl; Potassium 4.9 mmol/L (3.5-5.1); Sodium 140 mmol/L (135-145); Very Low Density Lipoprotein 18 mg/dl (0-30); eGFR 59.49
[2024-11-17 09:29] LABS: Glycohemoglobin (HgbA1c) 7.8 % (4.0-5.6)
--- NOTE | 2024-11-17 10:01 | CM ---
Reviewed the chart notes and spoke with the patient at the bedside. The patient is admitted under observational status. The [facility] letter was provided and explained.
The patient resides alone in a mobile home with three steps to enter and a ramp. The patient reports no DME/VN/SNF in the past. The patient confirmed her pharmacy of choice is [facility]. CM continues to be available to patient/family and is
monitoring medical plan for needs at discharge.
Plan: Discharge to home when medically stable.
[2024-11-17 12:02] LABS: Glucose - Point of Care 303 mg/dl (70-99)
[2024-11-17] MEDS: NOVOLOG FLEXPEN-LOW RESISTANCE 4 UNITS SC (13:01)
--- NOTE | 2024-11-17 13:13 | W.PN.HOSP.TC ---
Today's Communication/Plan
-
PT/OT
abd binder
fluids
Resume lisinopril if needed
Assessment / Plan
Assessment / Plan
Physical Exam
General: Well Developed, Well Nourished, No Apparent Distress, Comfortable and Conversant
HEENT: NormoCephalic, Moist mucous membranes, Atraumatic, Nose Appears Normal and Ears Appear Normal
Respiratory: Clear and Non Labored Respirations
Cardiac: S1/S2 and Regular Rhythm; No Murmur, Rub or Gallop
Breast: Deferred by me
GI: Soft, Non Tender, Non Distended and Normal Bowel Sounds; No Organomegaly
Rectal: Deferred by Provider
Genito-urinary: Deferred by me
Musculoskeletal: No Clubbing, No Cyanosis and No Edema
Skin: Warm and IV/Catheter Site; No Rash
Neuro: Awake, AO x 3 and Nonfocal/grossly intact
Hematologic/Lymphatic: No Lymphadenopathy
Psych: Intact Judgment/Insight
#dizziness/weakness
#hemorrhagic infarct
-likely related to orthostatics along with less likely hemorrhagic infarct
- MRI: 8 mm focus of signal alteration in the left thalamus possible chronic
-LR bolus
-Abdominal binder
-PT/OT/ST
- Admit to telemetry
- Consult Neurology
- NIH and neuro checks per protocol
-LDL 56; A1c 7.8
#hypertension
- continue amlodipine
- hold labetalol; Can add back lisinopril if persistently hypertensive
#hypercholesterolemia
- continue aspirin and rosuvastatin
#Pain with eating
-has been going on outpt
-June 2024 for follow-up on an adrenal mass, and notes that they saw an abnormality in her esophagus.
-She reports that she has been undergoing a workup for this and is due to have an endoscopy.
#type II diabetes
- AccuCheck AC & HS
- SSI
- own insulin pump
#neuropathy
- continue gabapentin
#COPD
- continue Ellipta
#chronic kidney disease
K+ 5.3, BUN 24, Creat 1.3, eGFR 43.42
- appears to be baseline
- monitor BMP
#depression
- continue duloxetine
#nicotine dependency
current pack per day smoker
approximate 50 pack year history
- nicotine patch daily
- encourage cessation
#chronic pericardial effusion
Code status: full code
DVT prophylaxis: scd
Anticipated Discharge: Within 24 hours
Subjective/Interval History
-
Date of Service: November 17, 2024
no acute events overnight
Objective Data
-
Labs:
Laboratory Results
11/17/24
07:40
WBC 7.9
Hgb 10.7 L
Hct 32.1 L
Plt Count 308
Sodium 140
Potassium 4.9
Chloride 109 H
Carbon Dioxide 27
BUN 19 H
Creatinine 1.0
Glucose 127 H
Calcium 10.6 H
Vital Signs:
Vital Signs
Temp Pulse Resp BP Pulse Ox
98.2 F 79 16 178/74 99
11/17/24 11:48 11/17/24 11:48 11/17/24 11:48 11/17/24 11:48 11/17/24 11:48
Review of Systems
-
History Source: Patient
All other systems: Not reviewed unless documented
Data Reviewed
-
CT Scan: Report Reviewed by me
MRI: Report Reviewed by me
Labs: Labs Reviewed by me
[2024-11-17] MEDS: LR 1000 IV (14:16)
[2024-11-17] MEDS: ZESTRIL 20 MG PO (16:46)
[2024-11-17 17:04] LABS: Glucose - Point of Care 255 mg/dl (70-99)
[2024-11-17] MEDS: NOVOLOG FLEXPEN-LOW RESISTANCE 3 UNITS SC (17:17)
[2024-11-17] MEDS: APRESOLINE 10 MG IV (18:31)
--- NOTE | 2024-11-17 19:45 | PTOTSP ---
ST Acute Care Evaluation
Pt presents with clinical signs of a functional oropharyngeal swallow. Pt does not demonstrate any clinical signs of any penetration/aspiration at bedside. Please note that silent aspiration cannot be ruled out at bedside.
Pt exhibits/reports clinical signs of esophageal dysfunction characterized by discomfort with very cold liquids, discomfort with consuming a lot at once, early satiety, pain/discomfort at distal esophagus with coarse/dense foods, and symptoms of
reflux/regurgitation at least a few times a month that cause her to have to restrict her diet, all of which are likely related to her recently dx esophageal ulcer as well as her likely/suspected esophageal cancer (pt stated GI took biopsies and now
she is scheduled with oncology).
Recommendations:
- Continue regular solids (choose softer), thin liquids, meds as tolerated.
- General aspiration and reflux precautions.
- GI follow-up as an OP.
- PERSONAL LOAN SPECIALIST to sign off as no skilled services are warranted at this time.
Guidelines for Discharge:
- Choose softer, less dense/fibrous foods as able (e.g. avoid bagels and tough meat).
- Avoid acidic foods/drinks (e.g. tomato-based, orange-based, items with caffeine, items with mint).
- Avoid greasy and fried foods.
- Chew food thoroughly before swallowing; alternate bites of foods with sips of things to drink.
- Eat slowly. Take small bites and take small sips.
- Take all reflux medications as prescribed.
- Sit up for at least an hour after eating. Do not lay down fully at night - keep your head up at least 30 degrees at a gradual incline (use a wedge pillow).
- Do not over-eat. Stop eating when you are full.
- Consider eating several small meals throughout the day.
[2024-11-17] MEDS: NEURONTIN 300 MG PO (19:59)
[2024-11-17] MEDS: MELATONIN 10 MG PO (21:23)
[2024-11-17 22:15] LABS: Glucose - Point of Care 316 mg/dl (70-99)
[2024-11-18] VITALS (10 sets, daily range): BP systolic 86–186; BP diastolic 43–106; PULSE 78–88
[2024-11-18 06:08] LABS: Hematocrit 31.5 % (37.0-47.0); Hemoglobin 10.8 g/dL (12.0-16.0); Mean Corp Hgb Conc. 34.3 g/dL (33.0-37.0); Mean Corpuscular Volume 92.1 fL (81.0-99.0); Platelet Count 284 10^3/uL (130-400); Red Cell Dist. Width 13.4 % (11.5-14.5)
[2024-11-18 06:33] LABS: ALT (SGPT) 17 U/L (0-35); AST (SGOT) 17 U/L (14-36); Albumin 3.4 g/dl (3.5-5.0); Alkaline Phosphatase 87 U/L (38-126); Blood Urea Nitrogen 21 mg/dl (7-17); Calcium 9.7 mg/dl (8.4-10.2); Carbon Dioxide 24 mmol/L (22-30); Chloride 108 mmol/L (98-107); Estimated Creatinine Clearance 53 ml/min; Glucose 330 mg/dl (70-99); Potassium 4.6 mmol/L (3.5-5.1); Sodium 135 mmol/L (135-145); Total Protein 5.8 g/dl (6.3-8.2); eGFR > 60.00
[2024-11-18 07:54] LABS: Glucose - Point of Care 359 mg/dl (70-99)
[2024-11-18] MEDS: SPIRIVA RESPIMAT 2.5 MCG 2 PUFF INH (08:05)
[2024-11-18] MEDS: STRIVERDI RESPIMAT 2 PUFF INH (08:06)
[2024-11-18] MEDS: NICODERM TRANSDERMAL 21 MG TRANSDERM (09:04)
[2024-11-18] MEDS: PEPCID 20 MG PO (09:04)
[2024-11-18] MEDS: CYMBALTA DELAYED RELEASE 30 MG PO (09:04)
[2024-11-18] MEDS: CYMBALTA DELAYED RELEASE 60 MG PO (09:04)
[2024-11-18] MEDS: CRESTOR 10 MG PO (09:04)
[2024-11-18] MEDS: NOVOLOG FLEXPEN-LOW RESISTANCE 5 UNITS SC (09:05)
[2024-11-18] MEDS: NORVASC 5 MG PO (09:05)
--- NOTE | 2024-11-18 10:14 | W.PN.NEURO.1 ---
Today's Communication / Plan
-
.
Subjective/Objective
Subjective Data
Date of Service: November 18, 2024
Neurology Consultation Note.
HPI: This is a 74-year-old woman who presented to [facility] on 11/16/2024 with recurrent spells.
Ms. Ibanez reports 10-year history of intermittent spells of presyncope and syncope that have now become more frequent. The episodes are typically triggered by getting up from a seated position. She describes being able to sense when an episode is
coming on, which allows her to take preventive action.
Ms. Ibanez has had progressive bilateral action hand tremor over the last several years. There is no family history of tremor.
The patient also reports dry mouth, recent weight loss from her usual 140-145 pounds to 132-136 pounds, and states she can sweat normally.
ER VS: 85/59, 69, afebrile.
EKG:NSR, QTcB Int : 441 ms
Labs: Hemoglobin�10.7, glucose�249, LDL�56, hemoglobin A1c�7.8.
Brain MRI without mel�left thalamic calcifications.
PMH: HTN, DLP, DM, CKD, COPD, polyneuropathy, PUD, chronic pericardial effusion, MDD, insomnia
PSH: Ovarian cystectomy, bilateral cataract surgery, Trigger Finger Release
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
FH:- Father: of heart attack at age 52
- Mother: at age 71
All: Lipitor, codeine, latex.
ROS: General: Positive for weight loss.
HEENT: Positive for dry mouth, negative for dry eyes.
Cardiovascular: Positive for dizziness and episodes of passing out.
Neurological: Positive for tremors.
General: Slim in no acute distress.
Cardio: Regular rate and rhythm. Extremities are without cyanosis or edema.
Neuro:
Mental Status: Alert, oriented to person, place, and date. Normal attention and recall. Good fund of knowledge. Follows complex requests across the midline. Comprehension, naming, and repetition intact.
Cranial Nerves: Pupils are equally round, surgical. EOMs full. Visual barrera full to confrontation. Left ptosis. No nystagmus. V1-V3 intact to light touch and pinprick bilaterally, symmetric. Face symmetric. Impaired hearing AU. The palate
elevated well. SCMs and traps 5/5. Tongue midline. No dysarthria.
Motor: Normal bulk and tone. No pronator or arm drift. Strength 5/5 throughout. No clonus.
Reflexes: Trace throughout
Sensory: Absent vibration at the toes ankles and knees.
Coordination: Action bilateral hand tremor, voice tremor.
Gait: deferred
Assessment and Plan:
I. Autonomic dysfunction. Orthostatic hypotension may affect up to 20 percent of patients over the age of 65 years.
II. Chronic progressive action hand tremor
III. Distal symmetric large fiber polyneuropathy.
IV. Chronic left thalamic calcification.
V. Nicotine addiction
-Fall precautions
-Use of custom-fitted elastic stockings permits the application of graded pressure to the lower extremities and lower abdomen, to minimize peripheral blood pooling. It is essential that such stockings extend to the waist since most peripheral
pooling occurs in the splanchnic circulation.
-Drink water with meals
-Strict glycemic control
-Please check TFTs, PTH, vitamin D, phosphorus, vit B1, SPEP, ESTHER
-Titrate Neurontin by 100 mg to target dose of 300 mg 3 times daily as tolerated for symptomatic tremor relief. May consider primidone based on clinical course.
-DVT prophylaxis.
-PT
-Outpatient neurology follow-up
I personally reviewed all radiology and labs along with past medical records pertinent to current medical problems. Total time spent in patient care is 40 minutes.
Thank you for allowing us to participate in the care of this patient. Please do not hesitate to contact us with any questions or concerns.
Objective Data
Vital Signs
Temp Pulse Resp BP Pulse Ox
36.6 C 86 15 134/58 98
11/18/24 07:35 11/18/24 09:05 11/18/24 08:09 11/18/24 09:05 11/18/24 08:09
Lab Results
11/18/24 05:26
11/18/24 05:26
Sodium 135 mmol/L (135-145) 11/18/24 05:26
Potassium 4.6 mmol/L (3.5-5.1) 11/18/24 05:26
BUN 21 mg/dl (7-17) H 11/18/24 05:26
Glucose 330 mg/dl (70-99) H 11/18/24 05:26
Calcium 9.7 mg/dl (8.4-10.2) 11/18/24 05:26
LDL Cholesterol, Calc 56 mg/dl 11/17/24 07:40
Patient Allergies
adhesive Allergy (Verified 11/16/24 11:22)
TAPE-RASH
atorvastatin calcium (From Lipitor) Allergy (Verified 11/16/24 11:22)
Swelling and hives
codeine (Codeine) Allergy (Verified 11/16/24 11:22)
nausea and vomiting
latex (Latex) Allergy (Verified 11/16/24 11:22)
Rash,ithcy and burning
Vital Signs and Labs
-
Vital Signs and Labs:
Vital Signs
Temp Pulse Resp BP Pulse Ox
36.6 C 86 15 134/58 98
11/18/24 07:35 11/18/24 09:05 11/18/24 08:09 11/18/24 09:05 11/18/24 08:09
Lab Results
11/18/24 05:26
11/18/24 05:26
Sodium 135 mmol/L (135-145) 11/18/24 05:26
Potassium 4.6 mmol/L (3.5-5.1) 11/18/24 05:26
BUN 21 mg/dl (7-17) H 11/18/24 05:26
Glucose 330 mg/dl (70-99) H 11/18/24 05:26
Calcium 9.7 mg/dl (8.4-10.2) 11/18/24 05:26
LDL Cholesterol, Calc 56 mg/dl 11/17/24 07:40
Medications
-
Medications:
Generic Name Dose Route Start Last Admin
Trade Name Freq PRN Reason Stop Dose Admin
Acetaminophen 650 mg 11/16/24 17:42 11/17/24 08:37
Acetaminophen 325 Mg Tablet PO 12/14/24 17:41 650 mg
Q4HPRN PRN Administration
mild pain/PIZANO/temp> 100.4F
Amlodipine Besylate 5 mg 11/17/24 08:00 11/18/24 09:05
Amlodipine 5 Mg Tablet PO 12/15/24 07:59 5 mg
DAILY JAKUB Administration
Dextrose 12.5 grams 11/16/24 17:42
Dextrose 50% (0.5 Grams/Ml) 50 Ml Syringe IV 12/14/24 17:41
[id number] PRN
hypoglycemia
Protocol
Duloxetine HCl 60 mg 11/17/24 08:00 11/18/24 09:04
Duloxetine Delayed Release 60 Mg Capsule PO 12/15/24 07:59 60 mg
DAILY JAKUB Administration
Duloxetine HCl 30 mg 11/17/24 08:00 11/18/24 09:04
Duloxetine Delayed Release 30 Mg Capsule PO 12/15/24 07:59 30 mg
DAILY JAKUB Administration
Famotidine 20 mg 11/17/24 08:00 11/18/24 09:04
Famotidine 20 Mg Tablet PO 12/15/24 07:59 20 mg
DAILY AJKUB Administration
Gabapentin 300 mg 11/16/24 22:00 11/17/24 19:59
Gabapentin 300 Mg Capsule PO 12/14/24 21:59 300 mg
HS JAKUB Administration
Glucagon 1 mg 11/16/24 17:42
Glucagon 1 Mg Vial IM 12/14/24 17:41
PRN PRN
hypoglycemia
Protocol
Hydralazine HCl 10 mg 11/17/24 18:08 11/17/24 18:31
Hydralazine 20 Mg/Ml Vial IV 12/15/24 18:07 10 mg
Q4HPRN PRN Administration
SBP >180 OR DBP >110
Insulin Aspart 0 units 11/17/24 13:00 11/18/24 09:05
Insulin Aspart Low Resistance 300 Units/3 Ml Pen.Injctr SC 12/15/24 12:59 5 units
AC JAKUB Administration
Protocol
Melatonin 10 mg 11/16/24 17:54 11/17/24 21:23
Melatonin 5 Mg Tablet PO 12/14/24 17:53 10 mg
HSPRN PRN Administration
sleep
Nicotine 21 mg 11/17/24 08:00 11/18/24 09:04
Nicotine 21 Mg Patch TRANSDERM 12/15/24 07:59 21 mg
DAILY JAKUB Administration
Olodaterol 2 puff 11/17/24 08:00 11/18/24 08:06
Olodaterol (Striverdi Respimat) 2.5 Mcg Inhaler INH 12/15/24 07:59 2 puff
R DAILY JAKUB Administration
Rosuvastatin Calcium 10 mg 11/17/24 08:00 11/18/24 09:04
Rosuvastatin (Crestor) 10 Mg Tablet PO 12/15/24 07:59 10 mg
DAILY JAKUB Administration
Tiotropium Sabin 2 puff 11/17/24 08:00 11/18/24 08:05
Tiotropium (Spiriva Respimat) 2.5 Mcg Inhaler INH 12/15/24 07:59 2 puff
R DAILY JAKUB Administration
Home Medications
-
Home Medications
aspirin 81 mg chewable tablet 81 mg PO DAILY Blood clot prevention/tx 10/30/13
duloxetine 60 mg capsule,delayed release 60 mg PO DAILY Neurological Condition 10/30/13
rosuvastatin 10 mg tablet 10 mg PO DAILY High cholesterol 10/30/13
duloxetine 30 mg capsule,delayed release 30 mg PO DAILY Neurological Condition 03/11/21
gabapentin 100 mg capsule 300 mg PO HS Neurological Condition 03/11/21
cyanocobalamin (vitamin B-12) 500 mcg tablet (Vitamin B-12) 500 mcg PO DAILY Supplement 01/13/23
melatonin 10 mg tablet 10 mg PO HSPRN PRN sleep 01/13/23
Patient Own Insulin Pump 1 sliding scale dose SC .VIA INSULIN PUMP Diabetes 11/16/24
amlodipine 5 mg tablet (Norvasc) 5 mg PO DAILY Blood Pressure 11/16/24
famotidine 40 mg tablet (Pepcid) 40 mg PO BID Gastrointestinal Issue 11/16/24
labetalol 200 mg tablet 200 mg PO BID Blood Pressure 11/16/24
lisinopril 20 mg tablet 20 mg PO DAILY Blood Pressure 11/16/24
umeclidinium 62.5 mcg-vilanterol 25 mcg/actuation powdr for inhalation (Anoro Ellipta) 1 inh inhalation R DAILY Lung/Breathing Issues 11/16/24
[2024-11-18 11:32] LABS: Calcium 10.6 mg/dl (8.4-10.2)
[2024-11-18] MEDS: LR 1000 IV (12:01)
[2024-11-18 12:12] LABS: Glucose - Point of Care 333 mg/dl (70-99)
[2024-11-18] MEDS: NOVOLOG FLEXPEN-LOW RESISTANCE 4 UNITS SC (12:13)
[2024-11-18 12:22] LABS: Vitamin B12 825 pg/ml (239-931)
--- NOTE | 2024-11-18 12:46 | W.PN.HOSP.TC ---
Addendum entered and electronically signed by Fredo Hassan MD 11/18/24 14:44:
Still symptomatic orthostatics despite LR bolus, abdominal binder and THANH stockings. Will resume labetalol as noted hypertension and add on midodrine to assess if this blunts the orthostatic response. Will hold on discharge as patient is not
stable with orthostatic symptoms while ambulating as per PT.
Original Note:
Today's Communication/Plan
-
Orthostatic Education
PT/ot
f/u TFTs
F/u neuro, gi, onc, pcp outpt
Abd binder, SCDs
Assessment / Plan
Assessment / Plan
Physical Exam
General: Well Developed, Well Nourished, No Apparent Distress, Comfortable and Conversant
HEENT: NormoCephalic, Moist mucous membranes, Atraumatic, Nose Appears Normal and Ears Appear Normal
Respiratory: Clear and Non Labored Respirations
Cardiac: S1/S2 and Regular Rhythm; No Murmur, Rub or Gallop
Breast: Deferred by me
GI: Soft, Non Tender, Non Distended and Normal Bowel Sounds; No Organomegaly
Rectal: Deferred by Provider
Genito-urinary: Deferred by me
Musculoskeletal: No Clubbing, No Cyanosis and No Edema
Skin: Warm and IV/Catheter Site; No Rash
Neuro: Awake, AO x 3 and Nonfocal/grossly intact
Hematologic/Lymphatic: No Lymphadenopathy
Psych: Intact Judgment/Insight
#dizziness/weakness
#hemorrhagic infarct
-likely related to orthostatics along with less likely hemorrhagic infarct
-likely autonomic orthostatics
-Abd binder and SCDs placed - improvement
- MRI: 8 mm focus of signal alteration in the left thalamus possible chronic
-LR bolus
-Educated on slowly getting up
-PT/OT/ST
-F/u TFTs, PTH, vitamin D, phosphorus, vit B1, SPEP, ESTHER - can be followed up outpt
-Neurology f/u outpt
-LDL 56; A1c 7.8
#hypertension
- continue amlodipine
- labetalol; Can add back lisinopril
#hypercholesterolemia
- continue aspirin and rosuvastatin
#Pain with eating
-has been going on outpt
-June 2024 for follow-up on an adrenal mass, and notes that they saw an abnormality in her esophagus.
-She reports that she has been undergoing a workup for this and is due to have an endoscopy.
-f/u outpt
#type II diabetes
- AccuCheck AC & HS
- SSI
- own insulin pump
#neuropathy
- continue gabapentin
#COPD
- continue Ellipta
#chronic kidney disease
K+ 5.3, BUN 24, Creat 1.3, eGFR 43.42
- appears to be baseline
- monitor BMP
#depression
- continue duloxetine
#nicotine dependency
current pack per day smoker
approximate 50 pack year history
- nicotine patch daily
- cessation advised
#chronic pericardial effusion
-is hypertensive, not short of breath - no indication for worsening cardiac etiology or hemodynamic compromise
Code status: full code
DVT prophylaxis: scd
More than 30 minutes spent in discharge including
Final examination of the patient
Summarizing hospital stay
Instructions for continuing care to all relevant caregivers
Preparation of discharge records, prescriptions, and referral forms
Total time spent (in minutes): 36
Anticipated Discharge: Today
Subjective/Interval History
-
Date of Service: November 18, 2024
orthostatic - abd binder and scds placed
Objective Data
-
Labs:
Laboratory Results
11/18/24 11/18/24
05:26 10:53
WBC 9.0
Hgb 10.8 L
Hct 31.5 L
Plt Count 284
Sodium 135
Potassium 4.6
Chloride 108 H
Carbon Dioxide 24
BUN 21 H
Creatinine 0.9
Glucose 330 H
Calcium 9.7 10.6 H
Total Bilirubin 0.7
AST 17
ALT 17
Alkaline Phosphatase 87
Vital Signs:
Vital Signs
Temp Pulse Resp BP Pulse Ox
98.4 F 82 16 171/82 99
11/18/24 11:36 11/18/24 11:36 11/18/24 11:36 11/18/24 11:36 11/18/24 11:36
I&O
11/17/24 11/18/24 11/19/24
06:59 06:59 06:59
Intake Total 1660 / 1660 1000 / 1000
Balance 1660 / 1660 1000 / 1000
Review of Systems
-
History Source: Patient
All other systems: Not reviewed unless documented
Data Reviewed
-
CT Scan: Report Reviewed by me
MRI: Report Reviewed by me
Labs: Labs Reviewed by me
--- NOTE | 2024-11-18 12:52 | W.DS.TRANS ---
DC Summary - Patient Educator
-
Discharge Instructions:
Discharge Diagnosis/Procedures Orthostatic hypotension
Presyncope/syncope
Autonomic dysfunction
Diet Diabetic, Carb Controlled,Low Fat,Low
Cholesterol
Blood Work cbc and cmp in 1 week with pcp
Others Tests as per GI/Oncology/Neurology outpatient
Instructions: Orthostatic hypotension
Stand-Alone Forms:
Changes to Home Medications: Yes
Discharge Medications:
DC Medications w/original date entered in [facility]
aspirin 81 mg chewable tablet 81 mg PO DAILY Blood clot prevention/tx 10/30/13
duloxetine 60 mg capsule,delayed release 60 mg PO DAILY Neurological Condition 10/30/13
rosuvastatin 10 mg tablet 10 mg PO DAILY High cholesterol 10/30/13
duloxetine 30 mg capsule,delayed release 30 mg PO DAILY Neurological Condition 03/11/21
gabapentin 100 mg capsule 300 mg PO HS Neurological Condition 03/11/21
cyanocobalamin (vitamin B-12) 500 mcg tablet (Vitamin B-12) 500 mcg PO DAILY Supplement 01/13/23
melatonin 10 mg tablet 10 mg PO HSPRN PRN sleep 01/13/23
Patient Own Insulin Pump 1 sliding scale dose SC .VIA INSULIN PUMP Diabetes 11/16/24
amlodipine 5 mg tablet (Norvasc) 5 mg PO DAILY Blood Pressure 11/16/24
famotidine 40 mg tablet (Pepcid) 40 mg PO BID Gastrointestinal Issue 11/16/24
labetalol 200 mg tablet 200 mg PO BID Blood Pressure 11/16/24
lisinopril 20 mg tablet 20 mg PO DAILY Blood Pressure 11/16/24
umeclidinium 62.5 mcg-vilanterol 25 mcg/actuation powdr for inhalation (Anoro Ellipta) 1 inh inhalation R DAILY Lung/Breathing Issues 11/16/24
gabapentin 100 mg capsule 100 mg PO DAILY 30 days #30 caps 11/18/24
Home Medication Changes
gabapentin 100 mg capsule 100 mg PO DAILY 30 days #30 caps 11/18/24
Pending Results: No
[2024-11-18] MEDS: TRANDATE 200 MG PO (15:02)
[2024-11-18 16:30] LABS: Glucose - Point of Care 357 mg/dl (70-99)
[2024-11-18 18:40] LABS: Glucose - Point of Care 406 mg/dl (70-99)
[2024-11-18] MEDS: NOVOLOG FLEXPEN-LOW RESISTANCE SC (18:42)
--- NOTE | 2024-11-18 18:45 | PTCARENOTE ---
Pt's dinner accu check 357, checked a while before pt ate dinner. Went to recheck blood sugar, but pt had already eaten dinner. Rechecked blood sugar and accu check out of range high with glucometer. Placed stat glucose lab order, will dose insulin
on lab draw result.
[2024-11-18 19:17] LABS: Glucose 387 mg/dl (70-99)
[2024-11-18] MEDS: NEURONTIN 300 MG PO (21:03)
[2024-11-18] MEDS: MELATONIN 10 MG PO (21:30)
[2024-11-18 21:59] LABS: Glucose - Point of Care 458 mg/dl (70-99)
[2024-11-18 22:35] LABS: Glucose 410 mg/dl (70-99)
[2024-11-18] MEDS: NOVOLOG FLEXPEN 10 UNITS SC (22:44)
[2024-11-18] MEDS: NOVOLOG FLEXPEN-MODERATE RESISTANCE SC (23:08)
[2024-11-19] VITALS (8 sets, daily range): BP systolic 92–198; BP diastolic 50–87; PULSE 78–83
[2024-11-19 00:41] LABS: Glucose - Point of Care 280 mg/dl (70-99)
[2024-11-19] MEDS: TYLENOL 650 MG PO (00:43)
[2024-11-19 06:55] LABS: Glucose - Point of Care 253 mg/dl (70-99)
[2024-11-19] MEDS: STRIVERDI RESPIMAT 2 PUFF INH (07:47)
[2024-11-19] MEDS: SPIRIVA RESPIMAT 2.5 MCG 2 PUFF INH (07:47)
--- NOTE | 2024-11-19 08:21 | PN.DE.MGMTRT ---
Insulin Management
- -
11/19/2024: Diabetes Management Consult
74 year old female who presented from her Endo office with dizziness and weakness.
PMH: HTN, HLD, Neuropathy, COPD, Depression, CKD, Chronic kidney disease and T2DM, A1C 7.8%, Cr 0.9, eGFR >60. Follows with Endocrine PA- Pravin Curran. She uses a Medtronic 780G insulin pump with Guardian sensor and Humalog insulin.
Pt states that her insulin pump was taken off on Tuesday for MRI and was not able to put it back on due to lack on supplies at insulin.
She is currently on corrective insulin only and is noted for persistent Hyperglycemia, 333 to 406, premeal and 458 @ HS yesterday. FBG is 250.
Will start basal bolus regimen while in the hospital.
Give Lantus 12 units NOW and start daily. Start premeal insulin NovoLog 6 units AC.
Will monitor glucose trend and adjust insulin dose if necessary.
Discussed with Nurse. Will cont to monitor. Pt will resume her insulin pump upon arrival home.
Diabetes History
- -
Type of Diabetes: 2 requiring insulin
Pre-Admission Diabetes Regimen
Lab Results
Hemoglobin A1c 7.8 % (4.0-5.6) H 11/17/24 07:40
Insulin Pump Settings
IP Diabetes Regimen
11/18/24 11/18/24 11/18/24
12:06 16:28 18:39
Glucose
POC Glucose 333 H 357 H 406 H
11/18/24 11/18/24 11/18/24
18:51 21:58 22:16
Glucose 387 H 410 H
POC Glucose 458 H*
11/19/24 11/19/24
00:40 06:53
Glucose
POC Glucose 280 H 253 H
Patient Education
[2024-11-19 08:25] LABS: Hematocrit 31.0 % (37.0-47.0); Hemoglobin 10.5 g/dL (12.0-16.0); Mean Corp Hgb Conc. 33.9 g/dL (33.0-37.0); Mean Corpuscular Volume 91.2 fL (81.0-99.0); Platelet Count 289 10^3/uL (130-400); Red Cell Dist. Width 13.7 % (11.5-14.5)
[2024-11-19 08:55] LABS: ALT (SGPT) 16 U/L (0-35); AST (SGOT) 14 U/L (14-36); Albumin 3.6 g/dl (3.5-5.0); Alkaline Phosphatase 91 U/L (38-126); Blood Urea Nitrogen 19 mg/dl (7-17); Calcium 10.0 mg/dl (8.4-10.2); Carbon Dioxide 26 mmol/L (22-30); Chloride 110 mmol/L (98-107); Estimated Creatinine Clearance 59 ml/min; Glucose 238 mg/dl (70-99); Potassium 4.1 mmol/L (3.5-5.1); Sodium 138 mmol/L (135-145); Total Protein 6.0 g/dl (6.3-8.2); eGFR > 60.00
[2024-11-19] MEDS: CYMBALTA DELAYED RELEASE 30 MG PO (09:11)
[2024-11-19] MEDS: CRESTOR 10 MG PO (09:11)
[2024-11-19] MEDS: PEPCID 20 MG PO (09:11)
[2024-11-19] MEDS: NORVASC 5 MG PO (09:11)
[2024-11-19] MEDS: CYMBALTA DELAYED RELEASE 60 MG PO (09:11)
[2024-11-19] MEDS: NEURONTIN 100 MG PO (09:12)
[2024-11-19] MEDS: NICODERM TRANSDERMAL 21 MG TRANSDERM (09:13)
[2024-11-19] MEDS: NOVOLOG FLEXPEN-MODERATE RESISTANCE 5 UNITS SC (09:13)
--- NOTE | 2024-11-19 10:41 | W.PN.HOSP.TC ---
Today's Communication/Plan
-
see A/P
Assessment / Plan
Assessment / Plan
MRI brain:
8 mm focus of signal alteration in the left thalamus. Signal characteristics are most compatible with either subacute blood products or an isolated focus of thalamic mineralization.
No restricted diffusion to indicate an acute or subacute infarct.
A/P:
# dizziness/weakness
# MRI noted left thalamus signal, possibly chronic
per Neuro, symptoms likely related to autonomic orthostasis, less likely hemorrhagic infarct
Cont Abd binder and compression therapy. Pt states that she has compression stocking at home.
Midodrine was added, then stopped
s/p IVF bolus
Educated on slowly getting up and changing position
PT/OT eval
TSH 0.55
vit B1 level, SPEP, ESTHER were sent, can follow up outpt
Neurology on board
LDL 56; A1c 7.8
# hypertension
continue [employer] amlodipine
add back lisinopril low dose at 5 mg ([employer] 20 mg daily)
Off [employer] labetalol
# hypercholesterolemia
continue aspirin and rosuvastatin
# Pain with eating, chronic
She reports that she has been undergoing workup for esophageal mass and is due to have an endoscopy.
f/u outpt
# type II diabetes
A1c 7.8
Pt has own insulin pump
SSI
# neuropathy
continue gabapentin
# COPD
continue Ellipta
# chronic kidney disease ruled out
SCr at 0.8 today
# Depression
continue duloxetine
# nicotine dependency
current pack per day smoker, approximate 50 pack year history
nicotine patch daily
cessation advised
# chronic pericardial effusion
not short of breath, no indication of worsening cardiac etiology or hemodynamic compromise
Code status: full code
DVT prophylaxis: SCD
Anticipated Discharge: Within 24 hours
Subjective/Interval History
-
Date of Service: November 19, 2024
Objective Data
-
Labs:
Laboratory Results
11/19/24
07:19
WBC 7.6
Hgb 10.5 L
Hct 31.0 L
Plt Count 289
Sodium 138
Potassium 4.1
Chloride 110 H
Carbon Dioxide 26
BUN 19 H
Creatinine 0.8
Glucose 238 H
Calcium 10.0
Total Bilirubin 0.6
AST 14
ALT 16
Alkaline Phosphatase 91
Vital Signs:
Vital Signs
Temp Pulse Resp BP Pulse Ox
36.6 C 16 14 170/75 98
11/19/24 07:00 11/19/24 09:11 11/19/24 07:52 11/19/24 09:11 11/19/24 07:52
I&O
11/18/24 11/19/24 11/20/24
06:59 06:59 06:59
Intake Total 1660 / 1660 1720 / 1720
Balance 1660 / 1660 1720 / 1720
Review of Systems
-
History Source: Patient
All other systems: Reviewed and negative
Physical Exam
-
General: Well Developed, Well Nourished, No Apparent Distress, Comfortable and Conversant; Negative Respiratory Distress
HEENT: Normocephalic, Atraumatic, Nose Appears Normal and Ears Appear Normal; Negative Oxygen
Respiratory: Clear to Auscultation and Non Labored Respirations; Negative Accessory Resp Muscle Use
Cardiac: Regular Rhythm and S1/S2
GI: Soft, Nontender, Nondistended and Normal Bowel Sounds
Skin: Warm and Dry
Neuro: Awake and Alert
Psych: Calm and Intact Judgement/Insight
Data Reviewed
-
Labs: Labs Reviewed by me
[2024-11-19 11:39] LABS: Glucose - Point of Care 311 mg/dl (70-99)
[2024-11-19] MEDS: ZESTRIL 5 MG PO (12:14)
[2024-11-19] MEDS: LANTUS 0.12 UNITS SC (12:15)
[2024-11-19] MEDS: NOVOLOG FLEXPEN 6 UNITS SC ×2 (12:16→16:52)
[2024-11-19] MEDS: NOVOLOG FLEXPEN-MODERATE RESISTANCE 7 UNITS SC (12:17)
--- NOTE | 2024-11-19 16:07 | CM ---
Spoke with patient in her room.
She said she hopes to be dc soon. She said her sister Maddie will drive her home
She is wearing Teds stockings and binder as instructed.
Offered VN she declined need.
PLAN Home no needs .
[2024-11-19 16:29] LABS: Glucose - Point of Care 158 mg/dl (70-99)
[2024-11-19] MEDS: NOVOLOG FLEXPEN-MODERATE RESISTANCE 1 UNITS SC (16:54)
[2024-11-19] MEDS: NEURONTIN 300 MG PO (21:19)
[2024-11-19 21:54] LABS: Glucose - Point of Care 106 mg/dl (70-99)
[2024-11-20 03:01] VITALS: BP 132/84
[2024-11-20 06:53] LABS: Glucose - Point of Care 187 mg/dl (70-99)
[2024-11-20 07:00] VITALS: BP 122/69; BP 136/68; BP 156/76; PULSE 84; PULSE 85; PULSE 88
[2024-11-20] MEDS: ZESTRIL 5 MG PO (07:55)
[2024-11-20] MEDS: CYMBALTA DELAYED RELEASE 60 MG PO (07:55)
[2024-11-20] MEDS: PEPCID 20 MG PO (07:56)
[2024-11-20] MEDS: CRESTOR 10 MG PO (07:56)
[2024-11-20] MEDS: NICODERM TRANSDERMAL 21 MG TRANSDERM (07:56)
[2024-11-20] MEDS: NEURONTIN 100 MG PO (07:56)
[2024-11-20] MEDS: NORVASC 5 MG PO (07:56)
[2024-11-20] MEDS: NOVOLOG FLEXPEN-MODERATE RESISTANCE 1 UNITS SC (07:57)
[2024-11-20] MEDS: LANTUS 0.12 UNITS SC (07:57)
[2024-11-20] MEDS: NOVOLOG FLEXPEN 6 UNITS SC ×2 (07:58→13:09)
--- NOTE | 2024-11-20 08:00 | PN.DE.MGMTRT ---
Insulin Management
- -
11/20/2024: Diabetes Management Consult Follow up
Patient admitted 11/16 from her Endo office with c/o dizziness and weakness. PMH: HTN, HLD, Neuropathy, COPD, Depression, CKD, Chronic kidney disease and T2DM, A1C 7.8%, Cr 0.9, eGFR >60. Follows with Endocrine PA- Pravin Curran. She uses a
Medtronic 780G insulin pump with Guardian sensor and Humalog insulin.
Pt states that her insulin pump was taken off on Tuesday for MRI and was not able to put it back on due to lack on supplies at insulin.
Lantus 12 units daily started yesterday with 6 units NovoLog AC. Glucose improved to 156. Fasting glucose today 187.
Patient for discharge to home; will resume her insulin pump upon arrival home.
Discussed with Nurse. Will cont to monitor.
Diabetes History
- -
Pre-Admission Diabetes Regimen
11/19/24
07:19
Creatinine 0.8
Lab Results
Hemoglobin A1c 7.8 % (4.0-5.6) H 11/17/24 07:40
Insulin Pump Settings
IP Diabetes Regimen
11/19/24 11/19/24 11/19/24
07:19 11:35 16:28
Glucose 238 H
POC Glucose 311 H 158 H
11/19/24 11/20/24
21:53 06:52
Glucose
POC Glucose 106 H 187 H
Meal type: Lunch
Meal type: Breakfast
Amount consumed: 50%
Amount consumed: 50%
Patient Education
[2024-11-20] MEDS: CYMBALTA DELAYED RELEASE 30 MG PO (08:13)
[2024-11-20] MEDS: SPIRIVA RESPIMAT 2.5 MCG 2 PUFF INH (08:21)
[2024-11-20] MEDS: STRIVERDI RESPIMAT 2 PUFF INH (08:21)
--- NOTE | 2024-11-20 08:34 | W.PN.HOSP.TC ---
Today's Communication/Plan
-
DC today
Assessment / Plan
Assessment / Plan
MRI brain:
8 mm focus of signal alteration in the left thalamus. Signal characteristics are most compatible with either subacute blood products or an isolated focus of thalamic mineralization.
No restricted diffusion to indicate an acute or subacute infarct.
A/P:
# dizziness/weakness
# MRI noted left thalamus signal, possibly chronic
per Neuro, symptoms likely related to autonomic orthostasis, less likely hemorrhagic infarct
Cont Abd binder and compression therapy. Pt states that she has compression stocking at home.
Midodrine was added, then stopped
s/p IVF bolus
Educated on slowly getting up and changing position
PT/OT eval
TSH 0.55
vit B1 level, SPEP, ESTHER were sent, can follow up outpt
Neurology on board
LDL 56; A1c 7.8
# hypertension
continue [employer] amlodipine
added back lisinopril low dose at 5 mg ([employer]CHIT[employer] 20 mg daily)
Off [employer]CH[employer] labetalol
BP better controlled
# hypercholesterolemia
continue aspirin and rosuvastatin
# Pain with eating, chronic
She reports that she has been undergoing workup for esophageal mass and is due to have an endoscopy.
f/u outpt
# type II diabetes
A1c 7.8
Pt has own insulin pump
SSI
# neuropathy
continue gabapentin
# COPD
continue Ellipta
# chronic kidney disease ruled out
SCr at 0.8 today
# Depression
continue duloxetine
# nicotine dependency
current pack per day smoker, approximate 50 pack year history
nicotine patch daily
cessation advised
# chronic pericardial effusion
not short of breath, no indication of worsening cardiac etiology or hemodynamic compromise
Code status: full code
DVT prophylaxis: SCD
DW CM
Anticipated Discharge: Today
Subjective/Interval History
-
Date of Service: November 20, 2024
Objective Data
-
Vital Signs:
Vital Signs
Temp Pulse Resp BP Pulse Ox
36.6 C 85 18 136/68 97
11/20/24 07:00 11/20/24 07:55 11/20/24 07:00 11/20/24 07:55 11/20/24 07:00
I&O
11/19/24 11/20/24 11/21/24
06:59 06:59 06:59
Intake Total 1720 / 1720 480 / 480
Balance 1720 / 1720 480 / 480
Review of Systems
-
History Source: Patient
All other systems: Reviewed and negative
Physical Exam
-
General: Well Developed, Well Nourished, No Apparent Distress, Comfortable and Conversant; Negative Respiratory Distress
HEENT: Normocephalic, Atraumatic, Nose Appears Normal and Ears Appear Normal; Negative Oxygen
Respiratory: Clear to Auscultation and Non Labored Respirations; Negative Accessory Resp Muscle Use
Cardiac: Regular Rhythm and S1/S2
GI: Soft, Nontender, Nondistended and Normal Bowel Sounds
Skin: Warm and Dry
Neuro: Awake and Alert
Psych: Calm and Intact Judgement/Insight
Data Reviewed
-
Labs: Labs Reviewed by me
[2024-11-20 11:00] VITALS: BP 164/78
[2024-11-20 11:01] LABS: Glucose - Point of Care 279 mg/dl (70-99)
--- NOTE | 2024-11-20 11:23 | CM ---
Addendum entered by Layla Carlos RN 11/20/24 13:25:
Margret from [facility] visited patient prior to dc. Margret aware pt refused home care and is dc today.
Original Note:
MD entered order for discharge.
Spoke with patient in room. She said she is ready for discharge.
She said she will call [employer] at dc to take her home.
Walker issued by PT therapist.
Offered VN she declined need.
PLAN Home no needs .
[2024-11-20 11:35] VITALS: BP 136/71; PULSE 71
--- NOTE | 2024-11-20 11:43 | W.DCSUMMARY ---
Discharge Summary
Discharge Data
Date of Admission: 11/16/24
Date of Discharge: 11/20/24
Total time spent discharging patient (in min): 40
-
Pending Results: No
Hospital Course
Principal Diagnosis:
Dizziness/weakness likely autonomic orthostasis
Chronic Diagnoses:�
MRI noted left thalamus signal, likely chronic
Hypertension, continue RN [employer] amlodipine and lisinopril low dose at 5 mg (RN [employer]ATIONS 20 mg daily). Taken off labetalol this admission.
Hypercholesterolemia
Pain with eating, chronic
Type II diabetes, A1c 7.8%
Neuropathy, on gabapentin
COPD, on Ellipta
Depression, on duloxetine
Nicotine dependency
Chronic pericardial effusion
Consultations:�
Neurology
Procedures:�
None
Clinical course:�
This is a 74-year-old female, with past medical history as stated above, who presented with dizziness and weakness.
Problem 1:
Dizziness/weakness likely autonomic orthostasis.
Interestingly, her MRI brain noted left thalamus signal, which is felt likely chronic.
She has been informed to continue with abdominal binder and compression therapy for her orthostasis.
She has been educated on slowly getting up and changing body position.
Her prior to admission labetalol was discontinued.
She can continue with prior to admission Norvasc 5 mg and decreased dose of lisinopril at 5 mg daily for blood pressure control.
She was recommended by PT OT to return home with home health, however she declined home health.
Her vitamin B1 level, SPEP, ESTHER were sent, and the results of these can be followed up outpatient.
As for the rest of her medical problems, they were stable during her hospital stay.
Discharge Plan
-
Patient Disposition: Home (Routine Discharge)
Discharge Diagnosis/Procedures: Orthostatic hypotension with Presyncope/syncope;
Autonomic dysfunction
Condition: Fair
Diet: Low Fat, Low Cholesterol and Diabetic, Carb Controlled
Activity: As tolerated
Driving Restrictions: Not until seen by your Dr
Others Tests: as per GI/Oncology/Neurology outpatient
Activity Restrictions/Additional Instructions:
vit B1 level, SPEP, ESTHER were sent, can follow up outpatient
Instructions: Orthostatic hypotension
Referrals:
Primary care, provider [Other] - in less than 1 week
Gastroenterology, provider [Other] - in one to two weeks
Oncology, provider [Other] - in one to two weeks
Asif Trujillo MD [Active, Neurology] - in one to two weeks
Referral Note: Or neurologist of your preference
UNKNOWN - PT DOES,NOT KNOW [Family Provider] - in less than 1 week
Additional Discharge Medication Instructions: Continue decreased dose lisinopril at 5 mg (previously at 20 mg daily)
Stop labetalol
Prescriptions:
New
gabapentin 100 mg Capsule
100 mg PO DAILY 30 Days Qty: 30 0RF
lisinopril 5 mg Tablet
5 mg PO DAILY Qty: 30 0RF
Continued
rosuvastatin 10 MG tablet
10 mg PO DAILY
aspirin 81 MG tablet,chewable
81 mg PO DAILY
duloxetine 60 MG capsule,delayed release(DR/EC)
60 mg PO DAILY
Rx Instructions:
take w/ 30mg = 90mg
gabapentin 100 MG capsule
300 mg PO HS
duloxetine 30 MG capsule,delayed release(DR/EC)
30 mg PO DAILY
Rx Instructions:
take w/ 60mg = 90mg
cyanocobalamin (vitamin B-12) [Vitamin B-12] 500 mcg tablet
500 mcg PO DAILY
melatonin 10 mg Tablet
10 mg PO HSPRN PRN (Reason: sleep)
famotidine [Pepcid] 40 mg Tablet
40 mg PO BID
amlodipine [Norvasc] 5 mg Tablet
5 mg PO DAILY
umeclidinium-vilanterol [Anoro Ellipta] 62.5-25 mcg/actuation Blister With Device
1 inh INHALATION R DAILY
Patient Own Insulin Pump
1 sliding scale dose SC .VIA INSULIN PUMP
Patient Comments:
insulin lispro
Discontinued
labetalol 200 mg Tablet
200 mg PO BID
lisinopril 20 mg Tablet
20 mg PO DAILY
Discharge Orders:
Discharge Patient (As Directed); Ordered 11/20/24
Ordered By: Celina Cazares
Discharge Date and Time
Print Language: [place]OOK ISLAND[place]
[2024-11-20] MEDS: NOVOLOG FLEXPEN-MODERATE RESISTANCE 5 UNITS SC (13:10)
[2024-11-21 02:04] LABS: ANA, IgG Reflex to HEp-2 Detected (None Detected)
[2024-11-21 19:37] LABS: Vitamin B1, Whole Blood 87 nmol/L (70-180)
[2024-11-22 01:49] LABS: Albumin 3.56 g/dL (3.75-5.01); SPEP IFE Reflex Not Done; Total Protein-Electrophoresis 6.1 g/dL (6.3-8.2)
== END 2024-11-20 14:21 | disposition home or self-care (01) ==
LOC: 4 EAST ACU 15:13
PROVIDERS: Nurse Practitioner Family; Psychiatry & Neurology Neurology; ADMITTING PHYSICIAN Internal Medicine; ATTENDING PHYSICIAN Internal Medicine; CONSULT PHYSICIAN Psychiatry & Neurology Neurology; EMERGENCY PHYSICIAN Emergency Medicine
DX: R42 Dizziness and giddiness (principal); R53.1 Weakness; J44.9 Chronic obstructive pulmonary disease, unspecified; E11.22 Type 2 diabetes mellitus with diabetic chronic kidney disease; E11.43 Type 2 diabetes mellitus with diabetic autonomic (poly)neuropathy; I12.9 Hypertensive chronic kidney disease with stage 1 through stage 4 chronic kidney disease, or unspecified chronic kidney disease; R26.2 Difficulty in walking, not elsewhere classified; F32.A Depression, unspecified; E78.00 Pure hypercholesterolemia, unspecified; E11.649 Type 2 diabetes mellitus with hypoglycemia without coma; I31.39 Other pericardial effusion (noninflammatory); N18.9 Chronic kidney disease, unspecified; F17.210 Nicotine dependence, cigarettes, uncomplicated; I25.2 Old myocardial infarction; I95.1 Orthostatic hypotension; I25.10 Atherosclerotic heart disease of native coronary artery without angina pectoris; G89.29 Other chronic pain; E27.9 Disorder of adrenal gland, unspecified; R25.1 Tremor, unspecified; R63.4 Abnormal weight loss; R68.2 Dry mouth, unspecified; E06.3 Autoimmune thyroiditis; R94.31 Abnormal electrocardiogram [ECG] [EKG]; R91.1 Solitary pulmonary nodule; G47.00 Insomnia, unspecified; F90.9 Attention-deficit hyperactivity disorder, unspecified type; Z83.3 Family history of diabetes mellitus; Z79.82 Long term (current) use of aspirin; Z79.4 Long term (current) use of insulin; Z96.41 Presence of insulin pump (external) (internal); Z90.721 Acquired absence of ovaries, unilateral; Z98.41 Cataract extraction status, right eye; Z98.42 Cataract extraction status, left eye; Z82.49 Family history of ischemic heart disease and other diseases of the circulatory system; Z80.41 Family history of malignant neoplasm of ovary; Z91.040 Latex allergy status; Z88.5 Allergy status to narcotic agent; Z88.8 Allergy status to other drugs, medicaments and biological substances; Z91.048 Other nonmedicinal substance allergy status; Z79.899 Other long term (current) drug therapy; Z87.11 Personal history of peptic ulcer disease; Z60.2 Problems related to living alone
CPT/HCPCS: 70450; 70551; 80048; 80053; 80061; 82607; 82947; 82962; 83036; 83970; 84100; 84155; 84165; 84425; 84443; 84484; 85025; 85027; 86038; 86039; 92610; 93005; 94640; 97116; 97163; 97167; 97530; 99285; G0378

== ENCOUNTER 2024-12-20 06:05 | Day surgery (SDC) | payer MEDICARE, OTHER, SELFPAY ==
[2024-12-20 07:05] VITALS: BMI 18.4
[2024-12-20 07:10] VITALS: BP 127/62
[2024-12-20 07:15] LABS: Glucose - Point of Care 207 mg/dl (70-99)
[2024-12-20 07:29] VITALS: BMI 18.4
[2024-12-20 09:07] VITALS: BP 112/67
[2024-12-20 09:14] LABS: Glucose - Point of Care 178 mg/dl (70-99)
[2024-12-20 09:15] VITALS: BP 92/63
[2024-12-20 09:30] VITALS: BP 136/68
[2024-12-20 09:38] VITALS: BP 143/73
== END 2024-12-20 09:45 | disposition home or self-care (01) ==
LOC: SDS 06:05
PROVIDERS: ATTENDING PHYSICIAN Internal Medicine Gastroenterology
DX: C15.5 Malignant neoplasm of lower third of esophagus (principal); K22.2 Esophageal obstruction; K86.9 Disease of pancreas, unspecified; R59.0 Localized enlarged lymph nodes
CPT/HCPCS: 43259; 82962

== ENCOUNTER 2024-12-21 22:07 | Inpatient (IN) | payer MEDICARE, OTHER, SELFPAY ==
[2024-12-21 12:54] VITALS: BP 110/71
[2024-12-21 13:22] LABS: Hematocrit 36.9 % (37.0-47.0); Hemoglobin 12.0 g/dL (12.0-16.0); Mean Corp Hgb Conc. 32.5 g/dL (33.0-37.0); Mean Corpuscular Volume 96.6 fL (81.0-99.0); Nucleated Red Blood Cells % 0 %; Platelet Count 363 10^3/uL (130-400); Red Cell Dist. Width 14.0 % (11.5-14.5)
[2024-12-21 14:02] LABS: ALT (SGPT) 14 U/L (0-35); AST (SGOT) 16 U/L (14-36); Albumin 4.2 g/dl (3.5-5.0); Alkaline Phosphatase 95 U/L (38-126); Blood Urea Nitrogen 21 mg/dl (7-17); Calcium 10.7 mg/dl (8.4-10.2); Carbon Dioxide 26 mmol/L (22-30); Chloride 104 mmol/L (98-107); Glucose 149 mg/dl (70-99); Lipase 19 U/L (23-300); Potassium 4.6 mmol/L (3.5-5.1); Sodium 139 mmol/L (135-145); Total Protein 6.8 g/dl (6.3-8.2); eGFR 53.06
--- NOTE | 2024-12-21 15:11 | ED.GENMED ---
History of Present Illness
<ERI Mak - Last Filed: 12/21/24 19:36>
General
Chief Complaint: Abdominal Pain
Source: patient
Exam Limitations: none
Time Seen by Provider: 12/21/24 14:56
Nursing documentation reviewed up to this point in time: agreed with
History of Present Illness
History of Present Illness:
Patient is a 74-year-old female past medical history of COPD hypertension IDDM presents to the ER for evaluation. Patient was recently diagnosed with esophageal cancer and saw [facility] Dr. Luna in [place]. She was scheduled
for PET scan today however presents to the ER complaining of extreme weakness nausea and dry heaves. Patient complained of abdominal pain in triage however on my exam complains mostly of nausea and dry heaves. Yesterday patient had an upper
endoscopic ultrasound: Report impression shows malignant appearing esophageal stenosis no gross lesions in the stomach normal duodenal bulb a mass in the lower third of the esophagus adenocarcinoma.
Past History
<ERI Mak - Last Filed: 12/21/24 19:36>
Past History
ED Past Medical History: COPD, HTN, IDDM and Other (several episodes syncope in past 8 years.)
ED Past Surgical History: Gynecological (R oophorectomy) and Orthopedic
Social History
Tobacco: Smoker
Alcohol: None
Drug: None
Personal: Single
Living: alone
Employment: Not employed
Family History
Family History: Diabetes
Phy Exam
<ERI Mak - Last Filed: 12/21/24 19:36>
General Physical Exam
General Presentation: no apparent distress
General age: appears stated age and appears older than age
General Skin: warm and dry
General Habitus: normal
General Mental: alert
General Hydration: appears well hydrated
Cardiovascular Exam
Cardiovascular Exam: regular rate/rhythm, no murmur and normal peripheral pulses
Pulmonary Exam
Pulmonary Exam: lungs clear and no respiratory distress
Gastrointestinal Exam
Gastrointestinal Exam: soft and other (minimal epigastric tenderness )
Neurological Exam
Neurological Exam: alert and oriented x3
Musculoskeletal Exam
Musculoskeletal Exam: full ROM
Skin Exam
Skin Exam: normal color and warm/dry
Psychiatric Exam
Psychiatric Exam: normal mood/affect
Course
<ERI Mak - Last Filed: 12/21/24 19:36>
Orders/Labs/Results
Orders:
Orders
12/21/24 13:09
Complete Blood Count/With Diff Urgent
Comprehensive Metabolic Panel Urgent
Lipase Urgent
12/21/24 15:22
0.9% Sodium Chloride 1000 ml [Nss] 1,000 ml IV BOLUS
Ondansetron Injectable [Zofran] 4 mg IV NOW STA
12/21/24 16:20
CT Abd/pelvis W Iv Cont Urgent
Comment:
Reason For Exam: epigastric pain had endoscopy US yesterday
12/21/24 16:36
Chest [CR Chest - 2 Views ] Urgent
Comment:
Reason For Exam: cp
12/21/24 20:47
Admit/Transfer Patient As Directed
Co-Sign Provider:
Level of Care: Inpatient admission
Assign to:: Medical/Surgical
Physician / Group: Hospitalist
Diagnosis: Esophageal stricture
Reason for Hospitalization: Esophageal stricture
Expected length of stay greater than two midnights?: Yes
ELOS- Estimated Length of Stay in days: 3
I certify the patient meets the requirements for IP care: Yes
PRN Pain Medication Management As Directed
May give lesser potent ordered pain med per pt: Yes
preference::
Protocol:: Medication orders for pain may be administered in a
manner that supports deferring to patient preference
when the pt is:
- Requesting an ordered lesser potent pain medication.
Least to most potent pain medications are defined
as: acetaminophen < NSAID < tramadol < opioids
(morphine, oxycodone, hydromorphone).
- Requesting a lesser dose of the same medication IF
ORDERED.
- Requesting a less intrusive route of administration
if both routes are prescribed by the provider (PO <
IV).
12/21/24 20:48
Code Status As Directed
Resuscitation Status: Do not resuscitate
Reached after discussion with pt or family/Healthcare POA: Yes
Physician note:: Patient stated she had cancer and that she had a living will.
12/21/24 20:51
DNR Bracelet Application ONCE
12/21/24 21:14
HYDROmorphone [Dilaudid] 0.5 mg IV Q4HPRN PRN
12/22/24 00:03
0.9% Sodium Chloride 1000 ml [Nss] 1,000 ml IV 150 mls/hr
Acetaminophen 1000MG/100Ml [Ofirmev] 1,000 mg in 100 ml IV Q6HPRN
Acetaminophen IV Indication:: No NC & No Enteral Access
Ondansetron Injectable [Zofran] 4 mg IV Q6HPRN PRN
12/22/24 00:03
GASTROINTESTINAL CONSULT Routine
Consulting Provider: Marquez Damian
Was physician already notified: Yes
Reason for consult: esophageal stricture
Activity As Directed
Activity Level: Ambulate
Activity As Directed
Activity Level: Ambulate
INT (Intravenous Needle Therapy) As Directed
Comment: Place 2 IV catheters of the largest bore possible until stable
Orthostatic Vital Signs As Directed
Orthostatic VS Frequency: Now
Comment: then every four hours for twenty-four hours
Pneumatic Compression Sleeves As Directed
Type: Knee high
Vital Signs As Directed
Frequency: Per unit guidelines
Vital Signs As Directed
Frequency: Per unit guidelines
DX Deep Vein Thrombosis Video Routine
12/22/24 Breakfast
NPO
Allow oral meds: No
Allow clear liquids: Sips of Clears
Complete Blood Count/No Diff IN AM
Comprehensive Metabolic Panel IN AM
Abnormal Lab Results
12/21/24
13:09
RBC 3.82 L 10^6/uL
(4.20-5.40)
Hct 36.9 L %
(37.0-47.0)
MCH 31.4 H pg
(27.0-31.0)
MCHC 32.5 L g/dL
(33.0-37.0)
BUN 21 H mg/dl
(7-17)
Creatinine 1.1 H mg/dL
(0.6-1.0)
Glucose 149 H mg/dl
(70-99)
Calcium 10.7 H mg/dl
(8.4-10.2)
Lipase 19 L U/L
(23-300)
12/21/24 13:09
12/21/24 13:09
Vital Signs
Initial and Last Documented VS:
Initial Vital Signs
Temp Pulse Resp BP Pulse Ox
97.6 F 87 16 110/71 98
12/21/24 12:54 12/21/24 12:54 12/21/24 12:54 12/21/24 12:54 12/21/24 12:54
Last Documented Vital Signs
Temp Pulse Resp BP Pulse Ox
98 F 84 18 159/80 98
12/21/24 23:00 12/21/24 23:00 12/21/24 23:00 12/21/24 23:00 12/21/24 23:00
Contract Paralegal consulted with Physician
Contract Paralegal consulted with physician?: Yes
Name of Physician Consulted: Ryder
<Randy Ardon, - Last Filed: 12/22/24 01:01>
Orders/Labs/Results
Orders:
Orders
12/21/24 13:09
Complete Blood Count/With Diff Urgent
Comprehensive Metabolic Panel Urgent
Lipase Urgent
12/21/24 15:22
0.9% Sodium Chloride 1000 ml [Nss] 1,000 ml IV BOLUS
Ondansetron Injectable [Zofran] 4 mg IV NOW STA
12/21/24 16:20
CT Abd/pelvis W Iv Cont Urgent
Comment:
Reason For Exam: epigastric pain had endoscopy US yesterday
12/21/24 16:36
Chest [CR Chest - 2 Views ] Urgent
Comment:
Reason For Exam: cp
12/21/24 20:47
Admit/Transfer Patient As Directed
Co-Sign Provider:
Level of Care: Inpatient admission
Assign to:: Medical/Surgical
Physician / Group: Hospitalist
Diagnosis: Esophageal stricture
Reason for Hospitalization: Esophageal stricture
Expected length of stay greater than two midnights?: Yes
ELOS- Estimated Length of Stay in days: 3
I certify the patient meets the requirements for IP care: Yes
PRN Pain Medication Management As Directed
May give lesser potent ordered pain med per pt: Yes
preference::
Protocol:: Medication orders for pain may be administered in a
manner that supports deferring to patient preference
when the pt is:
- Requesting an ordered lesser potent pain medication.
Least to most potent pain medications are defined
as: acetaminophen < NSAID < tramadol < opioids
(morphine, oxycodone, hydromorphone).
- Requesting a lesser dose of the same medication IF
ORDERED.
- Requesting a less intrusive route of administration
if both routes are prescribed by the provider (PO <
IV).
12/21/24 20:48
Code Status As Directed
Resuscitation Status: Do not resuscitate
Reached after discussion with pt or family/Healthcare POA: Yes
Physician note:: Patient stated she had cancer and that she had a living will.
12/21/24 20:51
DNR Bracelet Application ONCE
12/21/24 21:14
HYDROmorphone [Dilaudid] 0.5 mg IV Q4HPRN PRN
12/22/24 00:03
0.9% Sodium Chloride 1000 ml [Nss] 1,000 ml IV 150 mls/hr
Acetaminophen 1000MG/100Ml [Ofirmev] 1,000 mg in 100 ml IV Q6HPRN
Acetaminophen IV Indication:: No NC & No Enteral Access
Ondansetron Injectable [Zofran] 4 mg IV Q6HPRN PRN
12/22/24 00:03
GASTROINTESTINAL CONSULT Routine
Consulting Provider: Marquez Damian
Was physician already notified: Yes
Reason for consult: esophageal stricture
Activity As Directed
Activity Level: Ambulate
Activity As Directed
Activity Level: Ambulate
INT (Intravenous Needle Therapy) As Directed
Comment: Place 2 IV catheters of the largest bore possible until stable
Orthostatic Vital Signs As Directed
Orthostatic VS Frequency: Now
Comment: then every four hours for twenty-four hours
Pneumatic Compression Sleeves As Directed
Type: Knee high
Vital Signs As Directed
Frequency: Per unit guidelines
Vital Signs As Directed
Frequency: Per unit guidelines
DX Deep Vein Thrombosis Video Routine
12/22/24 Breakfast
NPO
Allow oral meds: No
Allow clear liquids: Sips of Clears
Complete Blood Count/No Diff IN AM
Comprehensive Metabolic Panel IN AM
Abnormal Lab Results
12/21/24
13:09
RBC 3.82 L 10^6/uL
(4.20-5.40)
Hct 36.9 L %
(37.0-47.0)
MCH 31.4 H pg
(27.0-31.0)
MCHC 32.5 L g/dL
(33.0-37.0)
BUN 21 H mg/dl
(7-17)
Creatinine 1.1 H mg/dL
(0.6-1.0)
Glucose 149 H mg/dl
(70-99)
Calcium 10.7 H mg/dl
(8.4-10.2)
Lipase 19 L U/L
(23-300)
12/21/24 13:09
12/21/24 13:09
Vital Signs
Initial and Last Documented VS:
Initial Vital Signs
Temp Pulse Resp BP Pulse Ox
97.6 F 87 16 110/71 98
12/21/24 12:54 12/21/24 12:54 12/21/24 12:54 12/21/24 12:54 12/21/24 12:54
Last Documented Vital Signs
Temp Pulse Resp BP Pulse Ox
98 F 84 18 159/80 98
12/21/24 23:00 12/21/24 23:00 12/21/24 23:00 12/21/24 23:00 12/21/24 23:00
<ERI Mak - Last Filed: 12/21/24 19:36>
MDM/Problems Addressed
Differential Diagnosis Includes:
Not limited to dehydration
MDM/Problems Addressed:
74-year-old female with recent diagnosis of esophageal cancer had endoscopic ultrasound done yesterday I did review this this does show malignant appearing esophageal stenosis mass in the lower third esophagus. Patient today presents for feeling
very nauseous dry heaves weak. Mild epigastric discomfort on exam. CAT scan concerning for food material in the distal thoracic esophagus suggesting mass obstruction at the gastroesophageal junction. Patient admits to only eating half of a cookie
since her procedure. She is able to swallow her own secretions and was able to drink. I did review this with GI, Dr. Damian, does not sound like patient needs emergent procedure at this time.
Will require admission
Chronic conditions affecting care:
Smoker COPD recent diagnosis of esophageal cancer
<ERI Mak - Last Filed: 12/21/24 19:36>
*Radiology
Radiology exam reviewed: radiology read reviewed
*Pulse Oximetry
SaO2: 98
Oxygen Mode of Delivery: Room air
Patient hypoxic: no
*Critical Care Note
Total Time (30-74mins, 75-104mins- exclusive of procedures): Not Applicable
Data Reviewed
Review of Other/Old Records Reveals: Radiology Studies and Operative Reports
Source: patient
<ERI Mak - Last Filed: 12/21/24 19:36>
Patient Management
Discussion with other providers: Ore Sampler (GI DR Damian )
ED Attending Note
<ERI Mak - Last Filed: 12/21/24 19:36>
-
Portions of this chart may have been created with voice recognition software.� Occasional wrong word or��sound alike� substitutions may have occurred due to the inherent limitations of voice recognition software.
<Randy Ardon DO - Last Filed: 12/22/24 01:01>
ED Attending Note
Patient seen and examined by attending physician: Yes
I performed the substantive portion of visit, reviewed & personally made and approve the management plan that is documented in note by myself or FREIDA.: Yes
ED Attending Note:
Unfortunate history of esophageal CA. She is a smoker. Now with discomfort in her subxiphoid region. CT shows suspected foreign body versus debris. Admit. GI consultation
Discharge Plan
Departure
Patient Disposition: Admit
Date of Disposition: 12/21/24
Time of Disposition: 19:35
Admit to: Med/Surg
Admit to doctor: hospitalist
Presentation/result/management discussed w/ accepting MD/DO: Hospitalist
Patient with high blood pressure during this ER visit?: Yes
Condition: Fair
Covid-19: Not Applicable
Discharge Problem:
Nausea, Weakness, Esophageal cancer
Interventions
Interventions:
*Risk Screen - Suicide Last Done: 12/21/24 12:54
*General Assessment Last Done: 12/21/24 17:23
*Neglect/Abuse Screening Last Done: 12/21/24 12:54
*ED COVID-19 Vaccine History Last Done: 12/21/24 17:23
*ED Influenza Vaccine History Last Done: 12/21/24 17:23
*Nursing Disposition Last Done: 12/21/24 23:51
ZW-Hmeogx-Kwowwmgjwf Assessment Last Done: 12/21/24 18:20
Discharge Date and Time
Discharge Date/Time: 12/21/24 23:51
[2024-12-21 15:38] VITALS: BMI 19.2
[2024-12-21] MEDS: ZOFRAN 4 MG IV (15:38)
[2024-12-21] MEDS: NSS 1000 IV (15:39)
[2024-12-21 19:07] VITALS: BP 146/71
--- NOTE | 2024-12-21 20:24 | HPS.HSE ---
Family Physician
-
Family Physician: INTERVIEWE UNKNOWN - PT NOT
Chief Complaint
-
Weakness, nausea, dry heaves.
History of Present Illness
74-year-old woman presents to the ER for evaluation of weakness, nausea. Patient was recently diagnosed with esophageal cancer and saw [facility] Dr. Luna in [place]. She was scheduled for PET scan today but had extreme weakness
nausea and dry heaves. She also complained of abdominal pain.
Yesterday she had an upper endoscopic ultrasound:
malignant appearing esophageal stenosis,
no gross lesions in the stomach normal duodenal bulb
a mass in the lower third of the esophagus adenocarcinoma.
Virtually completely resolved pericardial effusion in comparison to prior CT.
CT today showed:
Incompletely included on this study is large volume food material seen within the distal thoracic esophagus suggesting mass/obstruction at the gastroesophageal junction.
Malignancy is the diagnosis of exclusion.
Cannot exclude some small distal periesophageal varices.
At the time of my exam she was able to speak in full sentences and was not drooling.
Medical History
Past Medical History
Past Medical History: Reports Other
Additional Past Medical History:
COPD,
essential HTN,
IDDM
several episodes syncope in past 8 years
R oophorectomy
Orthopedic surgery
Smoker
esophageal cancer
stroke
pericardial effusion
Past Surgical History: Reports Other
Additional Past Surgical History:
See above
Social History
Tobacco: Smoker
Alcohol: None
Drug: None
Family History
Family History: Not pertinent
Allergies / Home Medications
Allergies reflects when Allergies were last updated in [facility].
Home Medications with original date entered in [facility]
Allergy/Medication List:
Allergies
Allergy/AdvReac Type Severity Reaction Status Date / Time
atorvastatin calcium (From Allergy Swelling Verified 12/21/24 12:53
Lipitor) and hives
latex (Latex) Allergy Rash,ithcy Verified 12/21/24 12:53
and burning
Home Medications
aspirin 81 mg chewable tablet 81 mg PO DAILY Blood clot prevention/tx 10/30/13
duloxetine 60 mg capsule,delayed release 60 mg PO DAILY Neurological Condition 10/30/13
rosuvastatin 10 mg tablet 10 mg PO DAILY High cholesterol 10/30/13
duloxetine 30 mg capsule,delayed release 30 mg PO DAILY Neurological Condition 03/11/21
gabapentin 100 mg capsule 300 mg PO HS Neurological Condition 03/11/21
melatonin 10 mg tablet 10 mg PO HSPRN PRN sleep 01/13/23
Patient Own Insulin Pump 1 sliding scale dose SC .INSULIN LISPRO Diabetes 11/16/24
amlodipine 5 mg tablet (Norvasc) 5 mg PO DAILY Blood Pressure 11/16/24
famotidine 40 mg tablet (Pepcid) 40 mg PO BID Gastrointestinal Issue 11/16/24
umeclidinium 62.5 mcg-vilanterol 25 mcg/actuation powdr for inhalation (Anoro Ellipta) 1 inh inhalation R DAILY Lung/Breathing Issues 11/16/24
gabapentin 100 mg capsule 100 mg PO DAILY 30 days #30 caps 11/18/24
lisinopril 5 mg tablet 5 mg PO DAILY #30 tabs 11/20/24
Review of Systems
-
History Source: Patient
A 12 point ROS was completed and negative except as noted: Yes
Abdomen/GI: Reports Abdominal Pain and Nausea
Physical Exam
Vital Signs
Vital Signs
Temp Pulse Resp BP Pulse Ox
98.5 F 88 20 146/71 98
12/21/24 19:07 12/21/24 19:07 12/21/24 19:07 12/21/24 19:07 12/21/24 19:07
Physical Exam
General: Well Developed, Well Nourished, No Apparent Distress, Comfortable and Appears Chronically Ill
HEENT: NormoCephalic, Moist mucous membranes, Nose Appears Normal and Ears Appear Normal
Respiratory: Clear
Cardiac: S1/S2 and Regular Rhythm
GI: Soft and Tender
Musculoskeletal: No Clubbing, No Cyanosis and No Edema
Skin: Warm and Dry
Neuro: Awake, Alert, Oriented and AO x 3
Psych: Calm
Laboratory Results
-
12/21/24 13:09
12/21/24 13:09
Laboratory Results
Total Bilirubin 1.3 mg/dl (0.2-1.3) 12/21/24 13:09
AST 16 U/L (14-36) 12/21/24 13:09
ALT 14 U/L (0-35) 12/21/24 13:09
Alkaline Phosphatase 95 U/L (38-126) 12/21/24 13:09
Lipase 19 U/L (23-300) L 12/21/24 13:09
Data Reviewed
-
Lab Data: Labs Reviewed by me
Impression/Plan
-
IMPRESSION:
74 woman with probable throat cancer, esophageal blockage.
PLAN:
1. Esophageal stricture
NPO - hold PO meds for tonight
IVF
Nausea control
GI consult in am to review options
2. IDDM with insulin pump
Continue to use own pump
Will need lower dosages given that she is npo for now
3. Ca 10.7
IV fluids
Recehck in am
Code DNR
VCD for DVTp
[2024-12-21] MEDS: DILAUDID 0.5 MG IV (21:18)
[2024-12-21 23:00] VITALS: BP 159/80; BMI 18.6
--- NOTE | 2024-12-21 23:30 | PTCARENOTE ---
Pt arrived to floor from ed via stretcher and transferred over to bed. Pt aox3 vss. Pt drowsy and nauseous. pt oriented to room, call w/i reach. Will review chart and continue to monitor.
[2024-12-22] MEDS: ZOFRAN 4 MG IV ×3 (00:37→20:51)
[2024-12-22] MEDS: OFIRMEV 100 IV ×3 (00:38→18:42)
[2024-12-22] MEDS: NSS 1000 IV ×4 (00:39→20:58)
[2024-12-22 01:01] LABS: Glucose - Point of Care 102 mg/dl (70-99)
[2024-12-22 05:58] LABS: Glucose - Point of Care 95 mg/dl (70-99)
[2024-12-22 07:00] VITALS: BP 152/72
--- NOTE | 2024-12-22 08:29 | W.PN.HOSP.TC ---
Today's Communication/Plan
-
Clear Liquids Diet
See plan
Assessment / Plan
Assessment / Plan
Physical Exam
General: Not in acute distress
HEENT: Normocephalic, Moist mucous membranes
Respiratory: Clear to Auscultation Bilaterally
Cardiac: S1/S2 and Regular Rhythm
GI: Soft and Tender. Positive bowel sounds.
Musculoskeletal: No Cyanosis and No Edema
Skin: Warm and Dry
Neuro: Awake, Alert, Oriented and AO x 3
Psych: Calm
Assessment/Plan
74-year-old female who presented to the emergency room for evaluation of weakness and nausea. Patient was recently diagnosed with esophageal cancer and saw [facility] Dr. Luna in [place]. She was scheduled for PET scan on 12/21/24
but had extreme weakness nausea and dry heaves. She also complained of abdominal pain.
On 12/20/24, patient had an upper endoscopic ultrasound:
malignant appearing esophageal stenosis,
no gross lesions in the stomach normal duodenal bulb
a mass in the lower third of the esophagus adenocarcinoma.
Virtually completely resolved pericardial effusion in comparison to prior CT.
CT Abdomen/Pelvis showed (as per radiologist's report):
Incompletely included on this study is large volume food material seen within the distal thoracic esophagus suggesting mass/obstruction at the gastroesophageal junction. Malignancy is the diagnosis of exclusion. Cannot exclude some small distal
periesophageal varices. Findings discussed by telephone with FABY Cabello QUARRYING SPECIALIST at 1855 hours on December 21, 2024
Virtually completely resolved pericardial effusion in comparison to prior CT.
Small Simple Right Renal Cyst plus an additional subcentimeter low-attenuation right renal lesion too small to characterize
Abdominal aorta with calcific atherosclerotic changes
Moderate to large volume widespread colonic stool
Moderate to large volume stool is seen in the rectosigmoid region
Degenerative changes most prominent in the lower lumbar spine
#Chest discomfort/nausea -- likely some local irritation after endoscopic ultrasound
#Esophageal stricture
Okay to start Clear Liquids Diet as per GI
IV fluids
Nausea control
GI consult
#IDDM with insulin pump
Continue to use own Insulin pump -- pump adjust amount given based on what her sugars are
#Hypercalcemia
IV fluids
Improved
Code DNR
Lovenox DVTp
Anticipated Discharge: 24 - 48 hours
Subjective/Interval History
-
Date of Service: December 22, 2024
Patient was seen and examined. She reported no new symptoms, she is trying to eat and drink.
Objective Data
-
Labs:
Laboratory Results
12/22/24
08:00
WBC Pending
Hgb Pending
Hct Pending
Plt Count Pending
Sodium Pending
Potassium Pending
Chloride Pending
Carbon Dioxide Pending
BUN Pending
Creatinine Pending
Glucose Pending
Calcium Pending
Total Bilirubin Pending
AST Pending
ALT Pending
Alkaline Phosphatase Pending
Vital Signs:
Vital Signs
Temp Pulse Resp BP Pulse Ox
98.1 F 81 18 152/72 97
12/22/24 07:00 12/22/24 07:00 12/22/24 07:00 12/22/24 07:00 12/22/24 07:00
[2024-12-22 08:43] LABS: Hematocrit 31.5 % (37.0-47.0); Hemoglobin 10.4 g/dL (12.0-16.0); Mean Corp Hgb Conc. 33.0 g/dL (33.0-37.0); Mean Corpuscular Volume 92.9 fL (81.0-99.0); Platelet Count 299 10^3/uL (130-400); Red Cell Dist. Width 14.1 % (11.5-14.5)
[2024-12-22 09:15] LABS: ALT (SGPT) 11 U/L (0-35); AST (SGOT) 15 U/L (14-36); Albumin 3.5 g/dl (3.5-5.0); Alkaline Phosphatase 82 U/L (38-126); Blood Urea Nitrogen 17 mg/dl (7-17); Calcium 10.0 mg/dl (8.4-10.2); Carbon Dioxide 25 mmol/L (22-30); Chloride 111 mmol/L (98-107); Estimated Creatinine Clearance 45 ml/min; Glucose 79 mg/dl (70-99); Potassium 4.2 mmol/L (3.5-5.1); Sodium 138 mmol/L (135-145); Total Protein 5.9 g/dl (6.3-8.2); eGFR 59.49
--- NOTE | 2024-12-22 10:14 | CON.GI ---
Consultation
-
Date/Time Consultation Performed: 12/22/24
Performing Provider: Shakeel Damian MD
Reason for Consultation: nausea
Medical History
Chief Complaint / HPI
Chief Complaint: nausea
History of Present Illness:
The patient is a 74-year-old female past medical history as noted with nausea and chest discomfort. She has recently diagnosed esophageal cancer, and had endoscopic ultrasound for staging on December 20, which showed a 4 cm mass which was traversed,
and celiac lymphadenopathy. No biopsies or FNA was done. Since then she has been having some mild chest discomfort as well as some nausea. Upon presentation to the emergency room CT scan showed what looked like retained esophageal food contents.
She has been able to swallow her secretions without difficulty, and has had no regurgitation. She does have some discomfort when swallowing, though again no regurgitation. She denies any melena or hematochezia. After her endoscopic ultrasound
she said she had scrambled eggs and 1 bite of canned chicken though no other significant food she usually supplements with Ensure given her recent dysphagia. For me with a liquid trial she was able to tolerate with some discomfort though no
regurgitation.
Past Medical History
Past Medical History: Other (COPD, essential HTN, IDDM several episodes syncope in past 8 years R oophorectomy Orthopedic surgery Smoker esophageal cancer stroke pericardial effusion)
Past Surgical History: Other (Oophorectomy, orthopedic surgery)
Social History
Tobacco: Smoker
Alcohol: None
Family History
Family History: Reviewed & Not Pertinent
Allergies / Home Medications
Allergy/AdvReac Type Severity Reaction Status Date / Time
atorvastatin calcium (From Allergy Swelling Verified 12/21/24 12:53
Lipitor) and hives
latex (Latex) Allergy Rash,ithcy Verified 12/21/24 12:53
and burning
�Medication �Instructions �Recorded
aspirin 81 mg chewable tablet 81 mg PO DAILY Blood clot 10/30/13
prevention/tx
duloxetine 60 mg capsule,delayed 60 mg PO DAILY Neurological 10/30/13
release Condition
rosuvastatin 10 mg tablet 10 mg PO DAILY High cholesterol 10/30/13
duloxetine 30 mg capsule,delayed 30 mg PO DAILY Neurological 03/11/21
release Condition
gabapentin 100 mg capsule 300 mg PO HS Neurological Condition 03/11/21
melatonin 10 mg tablet 10 mg PO HSPRN PRN sleep 01/13/23
Patient Own Insulin Pump 1 sliding scale dose SC .INSULIN 11/16/24
LISPRO Diabetes
amlodipine 5 mg tablet (Norvasc) 5 mg PO DAILY Blood Pressure 11/16/24
famotidine 40 mg tablet (Pepcid) 40 mg PO BID Gastrointestinal Issue 11/16/24
umeclidinium 62.5 mcg-vilanterol 1 inh inhalation R DAILY 11/16/24
25 mcg/actuation powdr for Lung/Breathing Issues
inhalation (Anoro Ellipta)
gabapentin 100 mg capsule 100 mg PO DAILY 30 days #30 caps 11/18/24
lisinopril 5 mg tablet 5 mg PO DAILY #30 tabs 11/20/24
Review of Systems
-
All other systems: A 12 pt ROS was Negative except as stated above in HPI
Vital Signs
Temp Pulse Resp BP Pulse Ox
98.1 F 81 18 152/72 97
12/22/24 07:00 12/22/24 07:00 12/22/24 07:00 12/22/24 07:00 12/22/24 09:28
Physical Exam
Exam
General: NAD
HEENT: MMM, anicteric, no lymphadenopathy
Heart: Regular, no murmurs
Lungs: CTA bilaterally
Abdomen: normal bowel sounds, soft, no tenderness, no rebound or guarding, no masses, bruits or ascites
Extremeties: no edema
Skin: no rashes
Results
WBC 10.0 10^3/uL (4.8-10.8) 12/22/24 08:00
Hgb 10.4 g/dL (12.0-16.0) L 12/22/24 08:00
Hct 31.5 % (37.0-47.0) L 12/22/24 08:00
MCV 92.9 fL (81.0-99.0) 12/22/24 08:00
Plt Count 299 10^3/uL (130-400) 12/22/24 08:00
Absolute Neuts (auto) 6.4 10^3/uL (1.4-6.5) 12/21/24 13:09
Sodium 138 mmol/L (135-145) 12/22/24 08:00
Potassium 4.2 mmol/L (3.5-5.1) 12/22/24 08:00
Chloride 111 mmol/L (98-107) H 12/22/24 08:00
Carbon Dioxide 25 mmol/L (22-30) 12/22/24 08:00
BUN 17 mg/dl (7-17) 12/22/24 08:00
Creatinine 1.0 mg/dL (0.6-1.0) 12/22/24 08:00
Calcium 10.0 mg/dl (8.4-10.2) 12/22/24 08:00
Total Bilirubin 1.0 mg/dl (0.2-1.3) 12/22/24 08:00
AST 15 U/L (14-36) 12/22/24 08:00
ALT 11 U/L (0-35) 12/22/24 08:00
Alkaline Phosphatase 82 U/L (38-126) 12/22/24 08:00
Lipase 19 U/L (23-300) L 12/21/24 13:09
Diagnostic Image Results:
CT:
IMPRESSION:
Incompletely included on this study is large volume food material seen within the distal thoracic esophagus suggesting mass/obstruction at the gastroesophageal junction. Malignancy is the diagnosis of exclusion. Cannot exclude some small distal
periesophageal varices. Findings discussed by telephone with FABY Cabello EMERGENCY ROOM PHYSICIAN ASSISTANT at 1855 hours on December 21, 2024
Virtually completely resolved pericardial effusion in comparison to prior CT.
Prior GI Procedures:
EGD/EUS:
Impression:
- Malignant-appearing esophageal stenosis.
- No gross lesions in the entire stomach.
- Normal duodenal bulb, first portion of the duodenum and second
portion of the duodenum.
- A mass was found in the lower third of the esophagus. A tissue
diagnosis was obtained prior to this exam. This is of
adenocarcinoma. This was staged T3 NX by endosonographic criteria.
- Two enlarged lymph nodes were visualized in the celiac region
(level 20).
- Two enlarged lymph nodes were visualized in the lower
paraesophageal mediastinum (level 8L), adjacent to the esophageal
mass.
- Pancreatic parenchymal abnormalities consisting of hyperechoic
strands and hyperechoic foci were noted in the pancreatic body and
pancreatic tail.
- There was no evidence of significant pathology in the left lobe
of the liver and in the visualized portion of the liver.
- No specimens collected.
Colonoscopy:
Assessment / Plan
-
1. Chest discomfort/nausea: Likely some local irritation after endoscopic ultrasound. CT scan suggested significant retained food, though clinically she is able to swallow her secretions and only had scrambled eggs and 1 bite of canned chicken
after her procedure on the . On a liquid challenge for me she is able to swallow with no regurgitations does have some chest discomfort. CT scan did not show any perforation. At this point we will start a clear liquid diet and observe,
clinically again doubt food impaction though definitely has delayed transit given her significant distal esophageal mass.
-
-
Thank you for consultation and allowing me to participate in the patient's care. Please call the concrete polisher GI physician during the after hours with any questions or concerns.
[2024-12-22 11:07] VITALS: BMI 18.6
[2024-12-22] MEDS: PT'S OWN INSULIN PUMP - HumaLOG 0.5 UNIT SC (11:48)
[2024-12-22] MEDS: PT'S OWN INSULIN PUMP - HumaLOG 0.55 UNIT SC (11:53)
[2024-12-22] MEDS: PT'S OWN INSULIN PUMP - HumaLOG 0.2 UNIT SC (11:58)
[2024-12-22 12:03] LABS: Glucose - Point of Care 92 mg/dl (70-99)
[2024-12-22] MEDS: PT'S OWN INSULIN PUMP - HumaLOG 0.325 UNIT SC (13:48)
[2024-12-22] MEDS: LOW STRENGTH ASPIRIN 81 MG PO (14:20)
[2024-12-22] MEDS: PT'S OWN INSULIN PUMP - HumaLOG 0.125 UNIT SC (14:48)
[2024-12-22 15:00] VITALS: BP 169/73
--- NOTE | 2024-12-22 15:46 | CM ---
Patient seen bedside, initial assessment completed. Patient is a 74-year-old woman presents to the ER for evaluation of weakness, nausea.
Patient resides alone in a single story mobile home, 3 steps to enter. Ramp access as well, patient stated ramp was installed by previous owners.
Patient is independent w/ ambulation, no device required. Patient has a grab bar and shower chair in bathroom. Patient has inhaler. Drives (+) short distances. Denies SNF/HC hx. Patient uses [facility] if she needs assistance.
Address, point of contact and insurance verified
PCP: Magalie Rodas. Patient attempting to change back to her previous PCP
Pharmacy: [facility]
Plan: Home, no needs anticipated
[2024-12-22] MEDS: PT'S OWN INSULIN PUMP - HumaLOG 0.15 UNIT SC (16:00)
[2024-12-22 16:58] LABS: Glucose - Point of Care 97 mg/dl (70-99)
[2024-12-22] MEDS: NOVOLOG FLEXPEN-LOW RESISTANCE SC (16:59)
[2024-12-22] MEDS: LOVENOX 40 MG SC (17:21)
[2024-12-22 18:36] VITALS: BP 138/55
[2024-12-22 19:15] LABS: Hepatitis C Antibody Negative (Negative)
[2024-12-22 21:20] LABS: Glucose - Point of Care 107 mg/dl (70-99)
[2024-12-22 23:00] VITALS: BP 159/62
[2024-12-22] MEDS: NEURONTIN 300 MG PO (23:01)
[2024-12-23] VITALS (14 sets, daily range): BP systolic 125–181; BP diastolic 42–77; BMI 18.9; BMI 19.2
[2024-12-23] MEDS: NSS 1000 IV ×2 (02:16→21:32)
[2024-12-23] MEDS: ZOFRAN 4 MG IV ×2 (02:20→09:19)
[2024-12-23] MEDS: COMPAZINE 5 MG IV (04:29)
[2024-12-23] MEDS: CYMBALTA DELAYED RELEASE PO ×2 (07:39)
[2024-12-23] MEDS: LOW STRENGTH ASPIRIN PO (07:39)
[2024-12-23] MEDS: CRESTOR PO (07:39)
[2024-12-23] MEDS: NORVASC PO (07:40)
[2024-12-23] MEDS: ZESTRIL PO (07:40)
[2024-12-23] MEDS: NEURONTIN PO (07:40)
[2024-12-23] MEDS: PEPCID PO (07:40)
[2024-12-23] MEDS: SPIRIVA RESPIMAT 2.5 MCG 2 PUFF INH (07:41)
[2024-12-23] MEDS: STRIVERDI RESPIMAT 2 PUFF INH (07:41)
[2024-12-23 07:42] LABS: Hematocrit 32.0 % (37.0-47.0); Hemoglobin 10.5 g/dL (12.0-16.0); Mean Corp Hgb Conc. 32.8 g/dL (33.0-37.0); Mean Corpuscular Volume 97.0 fL (81.0-99.0); Platelet Count 296 10^3/uL (130-400); Red Cell Dist. Width 13.9 % (11.5-14.5)
[2024-12-23 07:52] LABS: Glucose - Point of Care 212 mg/dl (70-99)
[2024-12-23 08:03] LABS: Blood Urea Nitrogen 15 mg/dl (7-17); Calcium 9.5 mg/dl (8.4-10.2); Carbon Dioxide 14 mmol/L (22-30); Chloride 112 mmol/L (98-107); Estimated Creatinine Clearance 51 ml/min; Glucose 184 mg/dl (70-99); Potassium 4.0 mmol/L (3.5-5.1); Sodium 142 mmol/L (135-145); eGFR > 60.00
--- NOTE | 2024-12-23 08:25 | W.PN.HOSP.TC ---
Today's Communication/Plan
-
Transferred to ICU/IMU given DKA, starvation ketoacidosis
Given euglycemic (less than 250 mg/dL glucose) DKA, started D5 1/2 NS+Insulin Drip, repeat labs showing improvement
Continue to monitor in ICU/IMU
Continue IV fluids and monitor frequent accuchecks and BMPs
Assessment / Plan
Assessment / Plan
Physical Exam
General: Not in acute distress
HEENT: Normocephalic, Moist mucous membranes
Respiratory: Clear to Auscultation Bilaterally
Cardiac: S1/S2 and Regular Rhythm
GI: Soft and Tender. Positive bowel sounds.
Musculoskeletal: No Cyanosis and No Edema
Skin: Warm and Dry
Neuro: Awake, Alert, Oriented and AO x 3
Psych: Calm
Assessment/Plan
74-year-old female who presented to the emergency room for evaluation of weakness and nausea. Patient was recently diagnosed with esophageal cancer and saw [facility] Dr. Luna in [place]. She was scheduled for PET scan on 12/21/24
but had extreme weakness nausea and dry heaves. She also complained of abdominal pain.
On 12/20/24, patient had an upper endoscopic ultrasound:
malignant appearing esophageal stenosis,
no gross lesions in the stomach normal duodenal bulb
a mass in the lower third of the esophagus adenocarcinoma.
Virtually completely resolved pericardial effusion in comparison to prior CT.
CT Abdomen/Pelvis showed (as per radiologist's report):
Incompletely included on this study is large volume food material seen within the distal thoracic esophagus suggesting mass/obstruction at the gastroesophageal junction. Malignancy is the diagnosis of exclusion. Cannot exclude some small distal
periesophageal varices. Findings discussed by telephone with FABY Cabello NP at 1855 hours on December 21, 2024
Virtually completely resolved pericardial effusion in comparison to prior CT.
Small Simple Right Renal Cyst plus an additional subcentimeter low-attenuation right renal lesion too small to characterize
Abdominal aorta with calcific atherosclerotic changes
Moderate to large volume widespread colonic stool
Moderate to large volume stool is seen in the rectosigmoid region
Degenerative changes most prominent in the lower lumbar spine
#Chest discomfort/nausea -- likely some local irritation after endoscopic ultrasound
#Esophageal stricture
Okay to contiue Clear Liquids Diet as per GI
IV fluids
Nausea control
GI consult
#Euglycemic Diabetic Ketoacidosis and Starvation Ketoacidosis
#Anion Gap Metabolic Acidosis secondary to the above
- Lactic acid was normal
- Suspected DKA from running out of insulin in pump together with reduction in PO intake given esophageal issues above
- D5 IV fluids (given sugars in the 200s)+Insulin Drip
- Monitor in ICU/IMU
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
#IDDM with insulin pump
- Patient Insulin pump has run out of Insulin
- Diabetes [employer] consulted
#Hypercalcemia
IV fluids
Improved
Code DNR
Lovenox DVTp
Euglycemia DKA and anion gap metabolic acidosis needing Insulin Drip is a high risk encounter.
Anticipated Discharge: > 48 hours
Subjective/Interval History
-
Date of Service: December 23, 2024
Patient was seen and examined. She vomited overnight, was not feeling well.
Objective Data
-
Labs:
Laboratory Results
12/23/24 12/23/24 12/23/24
06:52 08:19 08:21
WBC 18.8 H
Hgb 10.5 L
Hct 32.0 L
Plt Count 296
HCO3 Pending
Sodium 142 Pending
Potassium 4.0 Pending
Chloride 112 H Pending
Carbon Dioxide 14 L* Pending
BUN 15 Pending
Creatinine 0.9 Pending
Glucose 184 H Pending
Calcium 9.5 Pending
Total Bilirubin Pending
AST Pending
ALT Pending
Alkaline Phosphatase Pending
Vital Signs:
Vital Signs
Temp Pulse Resp BP Pulse Ox
98.3 F 86 16 132/59 93
12/23/24 07:00 12/23/24 07:44 12/23/24 07:44 12/23/24 07:00 12/23/24 07:44
I&O
12/22/24 12/23/24 12/24/24
06:59 05:59 06:59
Intake Total 720 / 720
Balance 720 / 720
[2024-12-23 08:51] LABS: Albumin 3.5 g/dl (3.5-5.0)
[2024-12-23 09:13] LABS: ALT (SGPT) 13 U/L (0-35); AST (SGOT) 17 U/L (14-36); Albumin 3.5 g/dl (3.5-5.0); Alkaline Phosphatase 85 U/L (38-126); Blood Urea Nitrogen 16 mg/dl (7-17); Calcium 9.4 mg/dl (8.4-10.2); Carbon Dioxide 14 mmol/L (22-30); Chloride 112 mmol/L (98-107); Estimated Creatinine Clearance 51 ml/min; Glucose 210 mg/dl (70-99); Potassium 4.0 mmol/L (3.5-5.1); Sodium 139 mmol/L (135-145); Total Protein 5.8 g/dl (6.3-8.2); eGFR > 60.00
[2024-12-23] MEDS: NOVOLOG FLEXPEN-LOW RESISTANCE 2 UNITS SC (09:19)
[2024-12-23 09:20] LABS: B.E. -11.3 mmol/L; O2 Saturation % 86.7 % (94-98); O2 Therapy 90; PCO2 24 mmHg (32-35)
[2024-12-23 09:23] LABS: HCO3 12.9 mmol/L (21-28); PO2 53 mmHg (83-108)
[2024-12-23 10:47] LABS: Glucose - Point of Care 255 mg/dl (70-99)
--- NOTE | 2024-12-23 10:56 | CON.INTV ---
Consultation
Consultation Request
Date/Time Consultation Requested: 12/23
Date/Time Consultation Performed: 12/23
Reason for Consultation: Critical care
Medical History
-
History of Present Illness:
History obtained from the patient, reviewing both inpatient and outpatient records. Patient is a 74-year-old female with history of COPD, ongoing tobacco use, diabetes with insulin pump, history of syncope with falls, presents with weakness,
dysphagia, odynohasia. She was recently diagnosed with esophageal cancer via upper endoscopy involving the lower third of her esophagus. She had poor p.o. intake because of this. She was admitted to the floor, developed elevated blood sugars,
increased anion gap. She was transferred to ICU for further management for DKA, possible HHNK.
Presently she describes chronic shortness of breath which is unchanged, chronic cough. She does have a history of falls in the past, none recent. Prior records suggest falls from orthostasis and possibly hypoglycemia. She has lost about 15 pounds
over the past 6 months. She denies any fevers, diarrhea, blood in urine or stool. Unfortunately she continues to smoke at least a pack to a pack and a half a day. She lives alone in a mobile home
.
PMH: COPD, hypertension, hyperlipidemia, diabetes with insulin pump, history of renal artery stenosis, peripheral arterial disease, hypothyroidism with history of Tasha's, history of syncope secondary to hypoglycemia
Past Medical History
Past Medical History: None (See above)
Past Surgical History: None (See above)
Social History
Tobacco: Smoker ([id number], ongoing 1 pack a day)
Alcohol: None
Drug: None
Personal: Single
Living: Alone (Lives in a mobile home)
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
Family History
Family History: Other (No children. 1 sister alive)
Allergies / Home Medications
Allergies
Allergy/AdvReac Type Severity Reaction Status Date / Time
atorvastatin calcium (From Allergy Swelling Verified 12/21/24 12:53
Lipitor) and hives
latex (Latex) Allergy Rash,ithcy Verified 12/21/24 12:53
and burning
Home Medications
�Medication �Instructions �Recorded �Confirmed �Last Taken �Type
aspirin 81 mg chewable tablet 81 mg PO DAILY Blood clot 10/30/13 12/21/24 12/19/24 06:00 History
prevention/tx
duloxetine 60 mg capsule,delayed 60 mg PO DAILY Neurological 10/30/13 12/21/24 12/19/24 06:00 History
release Condition
rosuvastatin 10 mg tablet 10 mg PO DAILY High cholesterol 10/30/13 12/21/24 12/19/24 06:00 History
duloxetine 30 mg capsule,delayed 30 mg PO DAILY Neurological 03/11/21 12/21/24 12/19/24 06:00 History
release Condition
gabapentin 100 mg capsule 300 mg PO HS Neurological Condition 03/11/21 12/21/24 12/20/24 History
melatonin 10 mg tablet 10 mg PO HSPRN PRN sleep 01/13/23 12/21/24 12/19/24 15:00 History
Patient Own Insulin Pump 1 sliding scale dose SC .INSULIN 11/16/24 12/21/24 12/20/24 History
LISPRO Diabetes
amlodipine 5 mg tablet (Norvasc) 5 mg PO DAILY Blood Pressure 11/16/24 12/21/24 12/19/24 06:00 History
famotidine 40 mg tablet (Pepcid) 40 mg PO BID Gastrointestinal Issue 11/16/24 12/21/24 12/20/24 History
umeclidinium 62.5 mcg-vilanterol 1 inh inhalation R DAILY 11/16/24 12/21/24 12/19/24 History
25 mcg/actuation powdr for Lung/Breathing Issues
inhalation (Anoro Ellipta)
gabapentin 100 mg capsule 100 mg PO DAILY 30 days #30 caps 11/18/24 12/21/24 12/19/24 08:00 Rx
lisinopril 5 mg tablet 5 mg PO DAILY #30 tabs 11/20/24 12/21/24 12/19/24 06:00 Rx
Review of Systems
-
All other systems: Negative unless noted
Vitals / Labs / Diagnostic Testing
Vital Signs
Temp Pulse Resp BP Pulse Ox
98.3 F 86 16 132/59 98
12/23/24 07:00 12/23/24 07:44 12/23/24 07:44 12/23/24 07:00 12/23/24 08:54
Lab Data
12/23/24 06:52
12/23/24 08:28
Laboratory Results
12/23/24
08:56
pH 7.34 L
pCO2 24 L
pO2 53 L*
HCO3 12.9 L*
O2 Delivery Level 90
Diagnostic Testing:
Physical Exam
-
HEENT: Normocephalic and Anicteric
Cardiovascular: S1/S2, Regular Rhythm, Murmur (n), Rub (n), Peripheral Edema (n) and Calf Tenderness (n)
Respiratory: Wheeze (few), Rales (n), Rhonchi (few) and Non-Labored Respirations
GI: Soft, Non Distended and Tender (Mild midepigastric, no rebound or guarding)
Neurology: Awake, Alert and No Motor Deficits (Able to sit up without assistance)
Skin: Good Color
General: Comfortable
Assessment
-
74-year-old female with recently diagnosed esophageal cancer, with mass in the lower third of her esophagus, diabetes, presents with poor p.o. intake, weakness, nausea and abdominal discomfort. She was initially admitted to the floor, and developed
DKA/HHNK, elevated anion gap, hyperglycemia, transferred to ICU for further management 12/23
Hyperglycemia (DKA/HHNK)
Blood sugar 250
Elevated anion gap, 17
Poor p.o. intake
Dysphagia/odynophagia
Progressive
Recently diagnosed esophageal cancer, mass with obstruction of lower third of esophagus
Diabetes with insulin pump
Leukocytosis
Anemia
Respiratory insufficiency, chronic
Conditions present prior to admission
Hypertension/hyperlipidemia
History of COPD/emphysema
DLCO 50%
History of syncope
Orthostasis and evidence of hypoglycemia in the past
Peripheral arterial disease
History of pulm nodules, waxing and waning
15 pound weight loss
45+ pack-year history of smoking, ongoing
Plan/recommendations
At this time, patient appears to be stable.
Hyperglycemia, poor p.o. intake, elevated anion gap noted
Present blood sugar 255
Moving forward
Will provide IV fluids
Recent Seems to be improving
Continue with insulin coverage, may require insulin drip
Clears per GI
Patient describes chronic shortness of breath
History of COPD/emphysema. She denies any changes in her breathing
Reviewed outpatient pulmonary evaluation. DLCO around 50%
Will provide nebulized therapy [id number], hold maintenance inhaler therapy for now (Anoro)
Patient would be considered high risk for thromboembolic disease
Recommend mechanical and pharmacological DVT prophylaxis
Continue per GI recommendations
Reviewed with critical care nursing, primary service, GI
TCCT 31 min
--- NOTE | 2024-12-23 11:05 | W.PN.GI.CBS2 ---
Today's Communication / Plan
-
Please see assessment and plan for details.
Assessment / Plan
-
1. Chest discomfort/nausea: Likely some local irritation after endoscopic ultrasound. CT scan suggested significant retained food, though she has been able to tolerate her secretions some clears, doubt complete obstruction. Given her metabolic
changes today we will hold on endoscopy as she is able again to tolerate secretions and clears. Will continue close observation, okay for clears from my standpoint. If still no significant improvement and she does have improved metabolic status
possible EGD tomorrow, though we also discussed would likely require general anesthesia which given her COPD is not optimal.
Subjective
Subjective
Date of Service: December 23, 2024
Events noted, hyperglycemia with anion gap and low bicarb. She did tolerate her secretions and some clears overnight. She 1 episode of regurgitation though otherwise is feeling feeling okay with some nausea and discomfort, though again tolerating
clears.
Objective
Data Reviewed
Laboratory Data:
Laboratory Results
12/23/24 06:52
12/23/24 08:28
Laboratory Results
Phosphorus 4.2 mg/dl (2.5-4.5) 12/23/24 08:28
Total Bilirubin 1.3 mg/dl (0.2-1.3) 12/23/24 08:28
AST 17 U/L (14-36) 12/23/24 08:28
ALT 13 U/L (0-35) 12/23/24 08:28
Alkaline Phosphatase 85 U/L (38-126) 12/23/24 08:28
Lipase 19 U/L (23-300) L 12/21/24 13:09
Vital Signs and I&O:
Vital Signs
Temp Pulse Resp BP Pulse Ox
98.6 F 86 16 132/59 98
12/23/24 11:03 12/23/24 07:44 12/23/24 07:44 12/23/24 07:00 12/23/24 08:54
I&O
12/22/24 12/23/24 12/24/24
06:59 05:59 06:59
Intake Total 720 / 720
Balance 720 / 720
Physical Exam
Physical Exam
General: NAD
Abdomen: normal bowel sounds, soft, no tenderness, no masses or bruits, no ascites
[2024-12-23 11:16] LABS: Glycohemoglobin (HgbA1c) 7.7 % (4.0-5.9)
[2024-12-23] MEDS: LR 1000 IV (11:22)
--- NOTE | 2024-12-23 12:00 | PTCARENOTE ---
Transfer:
- Patient transfer from 3rd floor room 336/2 secondary to DKA. Transfer via bed.
- Awake and oriented x 3 C/o of chronic back pain
- Normal Sinus Rhythm 80; BP elevated 180/75 MAP 104 unable to swallow PO am medications per report; No edema pedal pulses palatable
- Voiding with no difficulties denies discomfort
-abdomen soft. C/o of ongoing nausea,. No vomiting no dry heaves bowel sounds present all 4 quadrants. on Clear liquid diet
-LR bolus 1L given ; Will start on D5/0.45 and Regular insulin qtt; [facility] send results pending
[2024-12-23 12:07] LABS: Blood Urea Nitrogen 17 mg/dl (7-17); Calcium 9.4 mg/dl (8.4-10.2); Carbon Dioxide 16 mmol/L (22-30); Chloride 112 mmol/L (98-107); Estimated Creatinine Clearance 52 ml/min; Glucose 222 mg/dl (70-99); Potassium 4.0 mmol/L (3.5-5.1); Sodium 138 mmol/L (135-145); eGFR > 60.00
[2024-12-23 12:20] LABS: Glucose - Point of Care 237 mg/dl (70-99)
[2024-12-23] MEDS: NOVOLIN R INSULIN INFUSION 100 IV (12:32)
[2024-12-23] MEDS: D5/0.45%NSS with KCL 20 MEQ 1000 IV (12:39)
[2024-12-23 13:33] LABS: Glucose - Point of Care 288 mg/dl (70-99)
[2024-12-23] MEDS: DILAUDID 0.5 MG IV (13:45)
[2024-12-23 14:30] LABS: Glucose - Point of Care 296 mg/dl (70-99)
[2024-12-23 15:32] LABS: Glucose - Point of Care 279 mg/dl (70-99)
[2024-12-23] MEDS: DUONEB 3 ML INH ×2 (15:38→19:14)
[2024-12-23 16:30] LABS: Glucose - Point of Care 255 mg/dl (70-99)
[2024-12-23 17:17] LABS: Blood Urea Nitrogen 19 mg/dl (7-17); Calcium 9.7 mg/dl (8.4-10.2); Carbon Dioxide 20 mmol/L (22-30); Chloride 113 mmol/L (98-107); Estimated Creatinine Clearance 52 ml/min; Glucose 211 mg/dl (70-99); Potassium 3.6 mmol/L (3.5-5.1); Sodium 138 mmol/L (135-145); eGFR > 60.00
[2024-12-23] MEDS: OFIRMEV 100 IV (17:25)
[2024-12-23] MEDS: LOVENOX 40 MG SC (17:26)
[2024-12-23 17:31] LABS: Glucose - Point of Care 201 mg/dl (70-99)
--- NOTE | 2024-12-23 17:52 | PTCARENOTE ---
BMP resulted. Anion Gap closed x 2; Dr Hardy (cross coverage ) order Lantus 12 units order. Insulin qtt will be turned off after 2 hours of Lantus adm
[2024-12-23 18:30] LABS: Glucose - Point of Care 216 mg/dl (70-99)
--- NOTE | 2024-12-23 19:01 | PTCARENOTE ---
BMP results reported to Dr Hardy. Lantus 12 units. Turn Insulin qtt off after 2 hours after Lantus administration; D/C D5 0.45% w K; Start 0.9% 75/hour. Continue to check accu check Q 2 hours. Report results to over night coverage .
[2024-12-23] MEDS: PULMICORT 0.5 MG INH (19:14)
[2024-12-23] MEDS: LANTUS 0.12 UNITS SC (19:38)
[2024-12-23 19:42] LABS: Glucose - Point of Care 195 mg/dl (70-99)
[2024-12-23 20:37] LABS: Blood Urea Nitrogen 18 mg/dl (7-17); Calcium 9.3 mg/dl (8.4-10.2); Carbon Dioxide 21 mmol/L (22-30); Chloride 114 mmol/L (98-107); Estimated Creatinine Clearance 52 ml/min; Glucose 191 mg/dl (70-99); Potassium 3.9 mmol/L (3.5-5.1); Sodium 136 mmol/L (135-145); eGFR > 60.00
[2024-12-23 20:38] LABS: Glucose - Point of Care 195 mg/dl (70-99)
[2024-12-23] MEDS: NEURONTIN 300 MG PO (21:30)
[2024-12-23] MEDS: MIRALAX 17 GRAMS PO (21:31)
--- NOTE | 2024-12-23 21:35 | PTCARENOTE ---
Report received from previous shift RN [id number]. Pt in bed, AAO3. Pt reports MEDRANO, frequent moist productive cough (clear sputum), lung sounds are decreased/coarse throughout w scattered rhonchi throughout. Pox 98% on 10L midflow O2 nasal cannula; RT
tapered O2 flow down to 6L, pox remained >95%. Telemetry rhythm reveals SR, HR 70-80's, no edema noted, palpable peripheral pulses present, knee high SCDs placed per order. +BS, abdomen soft round nontender. Pt denies current nausea, reports poor
appetite. Pt states her last bm was approx (12/20), usually has bm Q3D; pt denies current constipation discomfort. Spoke w KARLEY Quinones NP placed order for PRN Miralax, administered per order. Pt denies urge to void at this time. Skin
intact. L hand int flushed and patent, capped. L FA int received with IVF per order and Insulin infusion per order (received at 3 units/hr). Lantus ordered and received from pharmacy, administered at 1938. Will turn insulin infusion off and change
IVF solution in 2 hrs, per MD order. Call jamila and Roger within reach, safe environment maintained, bed alarm on and monitoring for pt safety. Will continue to monitor closely.
[2024-12-23 21:39] LABS: Glucose - Point of Care 186 mg/dl (70-99)
--- NOTE | 2024-12-23 23:11 | PTCARENOTE ---
Insulin infusion turned off at 2134, IVF solution changed to NSS per MD order. Complete bed bath provided, pt performed oral/denture care. Assisted pt OOB to BSC, voided yellow urine without difficulty. No change in pt assessment. Will continue to
monitor closely.
[2024-12-23 23:31] LABS: Glucose - Point of Care 231 mg/dl (70-99)
[2024-12-23] MEDS: NOVOLOG FLEXPEN 2 UNITS SC (23:56)
[2024-12-24] VITALS (10 sets, daily range): BP systolic 118–158; BP diastolic 42–75; BMI 19.4
[2024-12-24 01:49] LABS: Glucose - Point of Care 211 mg/dl (70-99)
[2024-12-24] MEDS: NOVOLOG FLEXPEN 2 UNITS SC (02:14)
--- NOTE | 2024-12-24 02:46 | PTCARENOTE ---
Pt sleeping when undisturbed. Pt turning self in bed. Titrating O2 flow between 6-8L O2 via midflow nasal cannula throughout shift; pt will occasionally desaturate into the low-mid 80's%. Encouraging pt with coughing/deep breathing as well as IS and
acapella use.
Checking pt's bedside glucose levels Q2H per MD order, discussing results w KARLEY Quinones.
No change in pt assessment. Will continue to monitor closely.
[2024-12-24 03:37] LABS: Glucose - Point of Care 228 mg/dl (70-99)
[2024-12-24 03:49] LABS: Hematocrit 28.7 % (37.0-47.0); Hemoglobin 9.2 g/dL (12.0-16.0); Mean Corp Hgb Conc. 32.1 g/dL (33.0-37.0); Mean Corpuscular Volume 97.3 fL (81.0-99.0); Platelet Count 237 10^3/uL (130-400); Red Cell Dist. Width 14.2 % (11.5-14.5)
[2024-12-24] MEDS: NOVOLOG FLEXPEN 4 UNITS SC (03:56)
[2024-12-24 04:10] LABS: Blood Urea Nitrogen 17 mg/dl (7-17); Calcium 9.3 mg/dl (8.4-10.2); Carbon Dioxide 24 mmol/L (22-30); Chloride 116 mmol/L (98-107); Estimated Creatinine Clearance 52 ml/min; Glucose 167 mg/dl (70-99); Magnesium 1.6 mg/dl (1.6-2.3); Potassium 3.5 mmol/L (3.5-5.1); Sodium 142 mmol/L (135-145); eGFR > 60.00
[2024-12-24 05:21] LABS: Glucose - Point of Care 120 mg/dl (70-99)
--- NOTE | 2024-12-24 05:42 | W.PN.GI.CBS2 ---
Today's Communication / Plan
-
Please see assessment and plan for details.
Assessment / Plan
-
1. Chest discomfort/nausea: Likely some local irritation after endoscopic ultrasound, with some retained esophageal contents though no obstruction given was tolerating her secretions and clears, now much improved. She is feeling much better today,
tolerating much more clears with less discomfort, no regurgitation. This point we will advance to full liquid diet send discussed soft diet going forward with supplementation.
We will sign off for now, please go back with any further questions.
Subjective
Subjective
Date of Service: December 24, 2024
Patient feeling much better overall, metabolically bicarb is now normal, glucose better controlled. She was tolerating clears without difficulty, feels that her swallowing is much better.
Objective
Data Reviewed
Laboratory Data:
Laboratory Results
12/24/24 03:36
12/24/24 03:36
Laboratory Results
Phosphorus 4.2 mg/dl (2.5-4.5) 12/23/24 08:28
Magnesium 1.6 mg/dl (1.6-2.3) 12/24/24 03:36
Total Bilirubin 1.3 mg/dl (0.2-1.3) 12/23/24 08:28
AST 17 U/L (14-36) 12/23/24 08:28
ALT 13 U/L (0-35) 12/23/24 08:28
Alkaline Phosphatase 85 U/L (38-126) 12/23/24 08:28
Lipase 19 U/L (23-300) L 12/21/24 13:09
Vital Signs and I&O:
Vital Signs
Temp Pulse Resp BP Pulse Ox
99.6 F 71 29 158/60 95
12/24/24 03:22 12/24/24 04:00 12/24/24 04:00 12/24/24 02:00 12/24/24 04:00
I&O
12/22/24 12/23/24 12/24/24
06:59 05:59 06:59
Intake Total 720 / 720 3049.5 / 3049.5
Output Total 600 / 600
Balance 720 / 720 2449.5 / 2449.5
Physical Exam
Physical Exam
General: NAD
Abdomen: normal bowel sounds, soft, no tenderness, no masses or bruits, no ascites
--- NOTE | 2024-12-24 07:15 | W.PN.HOSP.TC ---
Today's Communication/Plan
-
See plan
Assessment / Plan
Assessment / Plan
Physical Exam
General: Not in acute distress
HEENT: Normocephalic, Moist mucous membranes
Respiratory: Clear to Auscultation Bilaterally
Cardiac: S1/S2 and Regular Rhythm
GI: Soft and Tender. Positive bowel sounds.
Musculoskeletal: No Cyanosis and No Edema
Skin: Warm and Dry
Neuro: Awake, Alert, Oriented and AO x 3
Psych: Calm
Assessment/Plan
74-year-old female who presented to the emergency room for evaluation of weakness and nausea. Patient was recently diagnosed with esophageal cancer and saw [facility] Dr. Luna in [place]. She was scheduled for PET scan on 12/21/24
but had extreme weakness nausea and dry heaves. She also complained of abdominal pain.
On 12/20/24, patient had an upper endoscopic ultrasound:
malignant appearing esophageal stenosis,
no gross lesions in the stomach normal duodenal bulb
a mass in the lower third of the esophagus adenocarcinoma.
Virtually completely resolved pericardial effusion in comparison to prior CT.
CT Abdomen/Pelvis showed (as per radiologist's report):
Incompletely included on this study is large volume food material seen within the distal thoracic esophagus suggesting mass/obstruction at the gastroesophageal junction. Malignancy is the diagnosis of exclusion. Cannot exclude some small distal
periesophageal varices. Findings discussed by telephone with FABY Cabello NP at 1855 hours on December 21, 2024
Virtually completely resolved pericardial effusion in comparison to prior CT.
Small Simple Right Renal Cyst plus an additional subcentimeter low-attenuation right renal lesion too small to characterize
Abdominal aorta with calcific atherosclerotic changes
Moderate to large volume widespread colonic stool
Moderate to large volume stool is seen in the rectosigmoid region
Degenerative changes most prominent in the lower lumbar spine
#Acute Hypoxic Respiratory Failure developed on 12/24/24
-Developed on 12/24/24
-Suspected aspiration
-Start Antibiotics
-Pulmonary toilet, bronchodilators
-Aspiration precautions
-Continue high flow oxygen; wean as tolerated
-No meds via oral means (given issues with esophagus), but can continue clear liquids via oral means
#Chest discomfort/nausea -- likely some local irritation after endoscopic ultrasound
#Esophageal stricture from esophageal cancer
Okay to continue Clear Liquids Diet as per GI
IV fluids
Nausea control
GI consult
Oncology consulted: patient wishes to pursue treatment and would potentially still be curative depending on the level of mets. No procedures at this time given hypoxia and acuity.
#Euglycemic Diabetic Ketoacidosis and Starvation Ketoacidosis
#Anion Gap Metabolic Acidosis secondary to the above
- Lactic acid was normal
- Suspected DKA from running out of insulin in pump together with reduction in PO intake given esophageal issues above
- D5 IV fluids (given sugars in the 200s)+Insulin Drip were given
- Monitor in ICU/IMU
- Appreciate lock setter
- DKA resolved
#IDDM with insulin pump
- Patient Insulin pump has run out of Insulin
- Diabetes RELAY OPERATOR consulted
#Hypercalcemia
IV fluids
Improved
#Orthostatic hypotension, syncope,
#HTN
-Holding Lisinopril and Amlodipine as unsafe to swallow
-prn order for hydralazine 5mg Q6hprn for SBP >160
#HLD
-Rosuvastatin cannot be crushed and does not have a liquid form as per clinical pharmacist
COPD, NIDDM, CAD,
#PAD
-Continue Aspirin 300 mg rectally (since patient cannot safely swallow Aspirin 81 mg daily)
-Duloxetine cannot be crushed and does not have a liquid form as per clinical pharmacist
pericardial effusion, pulmonary nodules, adrenal tumor, Tasha's thyroiditis, anemia, ADHD
Insomnia
-Melatonin cannot be crushed and does not have a liquid form as per clinical pharmacist
Code DNR
Lovenox DVTp
No Dobhoff tube yet, as per discussion with gastroenterology
Acute Hypoxia needing high flow oxygen is a high risk encounter.
Anticipated Discharge: > 48 hours
Subjective/Interval History
-
Date of Service: December 24, 2024
Patient was seen and examined. Patient was coughing and became more hypoxic this morning.
Objective Data
-
Labs:
Laboratory Results
12/23/24 12/24/24
20:06 03:36
WBC 11.5 H
Hgb 9.2 L
Hct 28.7 L
Plt Count 237
Sodium 136 142
Potassium 3.9 3.5
Chloride 114 H 116 H
Carbon Dioxide 21 L 24
BUN 18 H 17
Creatinine 0.9 0.9
Glucose 191 H 167 H
Calcium 9.3 9.3
Vital Signs:
Vital Signs
Temp Pulse Resp BP Pulse Ox
99.6 F 71 29 158/60 95
12/24/24 03:22 12/24/24 04:00 12/24/24 04:00 12/24/24 02:00 12/24/24 04:00
I&O
12/23/24 12/24/24 12/25/24
05:59 06:59 06:59
Intake Total 720 / 720 3049.5 / 3049.5
Output Total 600 / 600
Balance 720 / 720 2449.5 / 2449.5
--- NOTE | 2024-12-24 07:24 | PN.DE.MGMTRT ---
Insulin Management
- -
12/24/2024: Diabetes Management Consult
74 year old female who lives alone in a mobile home, was recently diagnosed with esophageal cancer via upper endoscopy involving the lower third of her esophagus. PMH: HTN, HLD, Neuropathy, COPD, Depression, CKD, Chronic kidney disease syncope with
falls, and diabetes with insulin pump, A1C 7.7%, Cr 0.9, eGFR >60. Follows with Endocrine VIRGIL Curran. She uses a Medtronic 780G insulin pump with Guardian sensor and Humalog insulin, which was taken off on Tuesday when she run out of
insulin. She was admitted to the floor, developed elevated blood sugars of 255, anion gap 17, She was transferred to ICU for further management for DKA, possible HHNK.
12/23 transitioned off insulin infusion to Lantus 12 units and NovoLog 6 units AC with corrective insulin
She does not have insulin for her insulin pump or any of her pump supplies at this time.
Glucose has ranged from 211 to 231 since transitioning off insulin infusion. She has been started on full liquid diet
Will increase NovoLog to 6 units AC. Continue Lantus 12 units and low corrective with meals
Will monitor glucose trend and adjust insulin dose if necessary.
Discussed with Nurse. Will cont to monitor. Pt will resume her insulin pump upon arrival home.
Diabetes History
- -
Type of Diabetes: 2 requiring insulin
Pre-Admission Diabetes Regimen
12/23/24 12/23/24 12/23/24
06:52 08:28 11:30
Creatinine 0.9 0.9 0.9
12/23/24 12/23/24 12/24/24
16:54 20:06 03:36
Creatinine 0.9 0.9 0.9
Lab Results
Hemoglobin A1c 7.7 % (4.0-5.9) H 12/23/24 06:52
Insulin Pump Settings
IP Diabetes Regimen
12/23/24 12/23/24 12/23/24
06:52 07:51 08:28
Glucose 184 H 210 H
POC Glucose 212 H
12/23/24 12/23/24 12/23/24
10:46 11:30 12:18
Glucose 222 H
POC Glucose 255 H 237 H
12/23/24 12/23/24 12/23/24
13:31 14:28 15:31
Glucose
POC Glucose 288 H 296 H 279 H
12/23/24 12/23/24 12/23/24
16:29 16:54 17:30
Glucose 211 H
POC Glucose 255 H 201 H
12/23/24 12/23/24 12/23/24
18:29 19:30 20:06
Glucose 191 H
POC Glucose 216 H 195 H
12/23/24 12/23/24 12/23/24
20:36 21:37 23:30
Glucose
POC Glucose 195 H 186 H 231 H
12/24/24 12/24/24 12/24/24
01:47 03:35 03:36
Glucose 167 H
POC Glucose 211 H 228 H
12/24/24
05:20
Glucose
POC Glucose 120 H
Meal type: Dinner
Amount consumed: Patient refused
Patient Education
--- NOTE | 2024-12-24 07:36 | W.PN.INTV ---
Today's Communication / Plan
Recommendations
Aspiration precautions
Clear liquids
Increase FiO2
Eventual oncology evaluation
Antibiotics if aspiration pneumonia suspected
Assessment
-
74-year-old female with recently diagnosed esophageal cancer, with mass in the lower third of her esophagus, diabetes, presents with poor p.o. intake, weakness, nausea and abdominal discomfort. She was initially admitted to the floor, and developed
DKA/HHNK, elevated anion gap, hyperglycemia, transferred to ICU for further management 12/23
Hyperglycemia (DKA/HHNK)
Blood sugar 250
Elevated anion gap, 17
Poor p.o. intake
Dysphagia/odynophagia
Progressive
Recently diagnosed esophageal cancer, mass with obstruction of lower third of esophagus-able to pass liquids
Diabetes with insulin pump
Leukocytosis
Anemia
Respiratory insufficiency, chronic
Conditions present prior to admission:
Hypertension/hyperlipidemia
History of COPD/emphysema
DLCO 50%
History of syncope
Orthostasis and evidence of hypoglycemia in the past
Peripheral arterial disease
History of pulm nodules, waxing and waning
15 pound weight loss
45+ pack-year history of smoking, ongoing
Plan
Remains critically ill with significant desaturations and now on high flow oxygen and nonrebreather
Supplemental oxygen as needed-moved from nasal cannula to high flow oxygen and nonrebreather-attempt to wean
Aspiration precautions
Speech therapy evaluation
Nebulizers-hold inhalers-was on Anoro as an outpatient
Incentive spirometry
Mucus clearing devices if needed
Suspect significant COPD-has DLCO of 50%
Monitor blood sugar
Insulin supplementation as needed
Diabetic nurse practitioner consultation
A1c if not obtained recently
Intravenous fluids
Reviewed with GI-able to pass small scope beyond esophageal obstruction-okay for clear liquids
No need for gastrostomy tube at this point
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
Oncology following patient-[facility]
Performance status quite poor at this point-ideally would require chemoradiation prior to resection-currently not a resection candidate
Will need to discuss with patient the level of aggressive care she desires
Smoking cessation counseling-smoking 1-1/2 packs a day prior to admission
Nicotine patch if needed
DVT prophylaxis
GI prophylaxis per gastroenterology
Nutrition
Early mobilization
Critical care statement: A total of 45 minutes of critical care time was provided for this patient today. This includes management of unstable vital signs, evaluation of the patient at bedside, reviewing the patient�s pertinent medical records
including radiographs, microbiology, laboratory evaluations, and��discussion with primary team, consultants, pharmacy, nutrition, physical therapy, case management, charge nurse, critical care nursing, and respiratory therapy.
Patient follows with Dr. Farrell as outpatient
Subjective Dataa
Subjective Data
Date of Service:
Date of Service: December 24, 2024
Chief Complaint: Rn Iv Therapy Follow Up and Pulmonary Follow Up
Subjective:
Patient deteriorated this morning with increased hypoxemia,? Aspiration event, difficulties swallowing with retention in esophagus, currently no chest pain, shortness of breath and improved on high flow oxygen, no abdominal pain
Review of Systems
General: Other (Per HPI)
Objective Data
Data Reviewed
Vital Signs / I&O / Oxygen:
Vital Signs
Temp Pulse Resp BP Pulse Ox
99.6 F 71 29 158/60 95
12/24/24 03:22 12/24/24 04:00 12/24/24 04:00 12/24/24 02:00 12/24/24 04:00
Intake and Output
12/23/24 12/24/24 12/25/24
05:59 06:59 06:59
Intake Total 720 / 720 3049.5 / 3049.5
Output Total 600 / 600
Balance 720 / 720 2449.5 / 2449.5
SaO2 95
Nasal Cannula flow liters per 6
minute
Physical Exam
General: Respiratory Distress (n) and Comfortable
HEENT: Normocephalic, Anicteric and Moist Mucous Membranes
Cardiovascular: Regular Rhythm
Respiratory: Wheeze (n), Crackles (n), Rhonchi (n), Non-Labored Respirations, Accessory Resp Muscle Use and Stridor
GI: Soft, Non Distended and Non Tender
Neurology: Awake, Alert and No Motor Deficits
Skin: Warm, Good Color, Cyanosis (n), Jaundice and Rash (n)
Labs/Micro/Reports
Lab Data
12/24/24 03:36
12/24/24 03:36
Laboratory Results
12/23/24
08:56
pH 7.34 L
pCO2 24 L
pO2 53 L*
HCO3 12.9 L*
O2 Delivery Level 90
[2024-12-24 07:46] LABS: Glucose - Point of Care 123 mg/dl (70-99)
[2024-12-24] MEDS: PULMICORT 0.5 MG INH ×2 (07:46→19:23)
[2024-12-24] MEDS: STRIVERDI RESPIMAT INH (07:46)
[2024-12-24] MEDS: SPIRIVA RESPIMAT 2.5 MCG INH (07:46)
[2024-12-24] MEDS: DUONEB 3 ML INH ×4 (07:46→19:23)
[2024-12-24] MEDS: ZESTRIL 5 MG PO (07:54)
[2024-12-24] MEDS: CYMBALTA DELAYED RELEASE 60 MG PO (07:54)
[2024-12-24] MEDS: CYMBALTA DELAYED RELEASE 30 MG PO (07:54)
[2024-12-24] MEDS: PEPCID 20 MG PO (07:54)
[2024-12-24] MEDS: CRESTOR 10 MG PO (07:54)
[2024-12-24] MEDS: LOW STRENGTH ASPIRIN 81 MG PO (07:55)
[2024-12-24] MEDS: NORVASC 5 MG PO (07:55)
[2024-12-24] MEDS: NEURONTIN 100 MG PO (07:56)
--- NOTE | 2024-12-24 09:29 | W.PN.INTV ---
Today's Communication / Plan
Recommendations
Continue clear liquid diet
Start Ceftriaxone, azithromycin
Wean O2 as tolerated
HOLD home inhalers
Assessment
-
Assessment:
This is a 74 y/o female with pmhx of recently diagnosed esophageal cancer following with [facility] who presented to the ED on 12/21/2024 with poor PO intake, nausea and weakness, and who developed new DKA vs HHS and was subsequently
transferred to the ICU on 12/23/2024
Plan:
Acute on Chronic Respiratory Insufficiency
COPD/Emphysema
Pneumonia, concern for Aspiration vs Community-Acquired
Tobacco Use (45+ pack years, 1-1/2 ppd)
Chest X-ray 12/24 (6AM): New bibasilar airspace opacity, greater on the left, aspiration is a consideration given the change from the previous exam and the esophageal findings. This could also be related to pneumonia.
Chest X-ray 12/24 (9AM): Interval significant worsening of the right basilar consolidation.
Chest X-ray 12/21: No acute cardiopulmonary process
Increased WBC since 12/23 with new increased O2 requirements suggestive of pneumonia, onset time would favor either aspiration or community-acquired over hospital acquired
Currently patient is on high flow oxygen with nonrebreather (From nasal cannula). Wean as tolerated, keeping O2 saturation >92%
Continue aspiration precautions, keeping head of the bed >30-45 degrees
Continue nebulizers, hold home inhalers
Continue incentive spirometry
Recommend smoking cessation, may add nicotine patch if needed
Continue clear liquid diet for now, will not advance diet at this time due to concern for aspiration with new chest x-ray findings
START Ceftriaxone 1g IV daily, Azithromycin 500mg IV daily
Recommend early out of bed ambulation as tolerated
DKA vs HHS
Diabetes with Insulin Dependence
BG 250, anion gap 17, now closed
a1c 12/23/24: 7.7
Now off insulin drip and on subcutaneous insulin with clear liquid diet
Diabetic nurse practitioner is following, will appreciate their insight into this case
Dysphagia
Esophageal Cancer
Patient with recent diagnosis of esophageal adenocarcinoma with probable local lymph node involvement, with mass obstructing the lower 1/3rd of the esophagus and recent 15lb weight loss
Follows with [facility]
Gastroenterology is following, will appreciate their insight into her case
Spoke to Hematology/Oncology, who states based upon their conversations with her today that at this time she wishes to pursue treatment and would potentially still be curative depending on the level of mets. However, at this time due to acute
respiratory status and hospitalization requiring ICU-level care, she would not be able to tolerate the resection or the pre-resection chemoradiation.
Short term goals include improvement of respiratory status and addressing her nutritional needs as able
Continue clear liquid diet for now.
Subjective Dataa
Subjective Data
Date of Service:
Date of Service: December 24, 2024
Chief Complaint: Mailroom Clerk Follow Up and Pulmonary Follow Up
Subjective:
Patient was sleeping when I arrived but awoke easily to the sound of my voice. She states she is feeling much better after receiving medications for pain and nausea this morning. She is currently free of nausea, chest pain, abdominal pain, fevers or
chills. She does continue to report coughing and shortness of breath which are chronic for her. Overall she feels better today than she did yesterday.
Review of Systems
General: Fever (Denies) and Chills (Denies)
Cardiopulmonary: Dyspnea, Cough, Wheezing (Denies) and Chest Pain (Denies)
GI: Abdominal Pain (Denies) and Nausea (Denies)
Objective Data
Data Reviewed
Vital Signs / I&O / Oxygen:
Vital Signs
Temp Pulse Resp BP Pulse Ox
98.9 F 87 23 134/46 94
12/24/24 11:01 12/24/24 10:00 12/24/24 10:00 12/24/24 08:00 12/24/24 10:00
Intake and Output
12/23/24 12/24/24 12/25/24
05:59 06:59 06:59
Intake Total 720 / 720 3049.5 / 3049.5
Output Total 600 / 600 325 / 325
Balance 720 / 720 2449.5 / 2449.5 -325 / -325
SaO2 94
Nasal Cannula flow liters per 60
minute
Physical Exam
General: Comfortable and Other (Supplemental Oxygen in place)
HEENT: Normocephalic and Anicteric
Cardiovascular: S1-S2 and Regular Rhythm
Respiratory: Rhonchi (few, bilateral) and Non-Labored Respirations
GI: Soft, Non Distended and Non Tender
Neurology: Awake, Alert and Oriented
Skin: Warm and Good Color
Labs/Micro/Reports
Lab Data
12/24/24 03:36
12/24/24 03:36
[2024-12-24] MEDS: DILAUDID 0.5 MG IV (09:30)
[2024-12-24] MEDS: ZOFRAN 4 MG IV ×2 (09:31→18:27)
--- NOTE | 2024-12-24 10:18 | W.PN.UPDATE ---
Update Note
Progress Note Update
Events noted. Patient was doing well this morning, again tolerating liquids without difficulty. When she took her medications with applesauce she then had coughing and hypoxia. Again, she is still tolerating her secretions and liquids without any
difficulty and overall has been feeling much better. I did discuss with Dr. Garland, the mass was not completely obstructing was able to be passed with US scope. Given events we will continue to follow for now, hold on endoscopy for now as she is
tolerating secretions and liquids, now on high flow oxygen.
--- NOTE | 2024-12-24 10:30 | PTOTSP ---
Speech Therapy Evaluation
Pt is at an increased risk of aspiration given new abnormal airspace opacity over the bilateral lung bases (per CXR 12/24), esophageal stenosis and lower third esophagus adenocarcinoma (per 12/20 upper endoscopic ultrasound), increased oxygen needs
(15L) and PMH of COPD, pharyngeal dysphagia (following L thalamic ICH), and general weakness. Pt managed 3 sips of thins with no overt s/sx of aspiration, clear vocal quality, and no changes in respiratory status. Cannot rule out silent aspiration
at bedside. Additional trials deferred due to chest discomfort. Esophageal dysfunction > ?pharyngeal dysphagia.�
Recommendation:
1. NPO until GI re-consult. Can restart thins if cleared by GI.
2. Meds nonorally�
3. Standard aspiration and reflux precautions
4. FRANCHISE MANAGER to follow due to recent CXR findings with possible aspiration PNA
[2024-12-24] MEDS: NSS 1000 IV (10:41)
--- NOTE | 2024-12-24 11:39 | CON.ONC ---
Consultation
-
Date Consultation Requested: 12/24/24
Date Consultation Performed: 12/24/24
Requesting Provider: Dr. Neo Avina
Performing Provider: Dr. Arianne Olea
Reason for Consultation: esphageal cancer
Impression
Impression
EUS with regional esophageal cancer
20lb+ weight loss
aspiration
RLL pneumonia
smoker, stopped 1 week ago
Plan
Plan
abx per primary service
advance diet per speech/swallow recommendations -if unable to meet nutritional needs orally then would consider J tube placement
goals remain restorative -optimize nutrition and performance status in anticipation of outpatient antineoplastic therapy
DM per primary service/DM [employer]
check CT chest closer to discharge once pneumonia/pneumonitis from aspiration has improved-missed PET 12/21
Pending radiation oncology consult outpatient
smoking cessation
symptoms support with antiemetic, bowel regimen, and pain management
Has OP follow up with Dr. Nunez on 01/03/2025
Patient History
History of Present Illness
74yo F presented with nausea, abdominal pain, and weakness 12/21/2024. Her CT ab/pelvis large volume food material seen within the distal thoracic esophagus suggesting mass/obstruction at the gastroesophageal junction.
In brief, Kasey has newly diagnosed esophageal cancer for which she has been seeing Dr. Nunez. She underwent a CT of her ab/pelvis in June 2024 to follow up a left adrenal gland nodule. This imaging revealed that the left adrenal gland nodule was
stable. However, it also noted some circumferential thickening of the distal esophagus along with a 4mm focus in mayur left hepatic lobe, possibly a small shunt or flash filling hemangioma. The patent underwent EGD on 10/23/2024 that revealed 1 cratered
ulcer in the distal esophagus with necrotic debris, 30mm in largest dimension. Biopsies revealed adenocarcinoma, poorly differentiated. On 12/20, she underwent an EUS that showed a malignant appearing esophageal stenosis, a mass in the lower third
of the esophagus and [address] in the celiac region.
She is tolerating liquids without difficulty, however, taking her medications crushed in applesauce this morning caused coughing and hypoxia. She has lost a significant amount of weight, reports that prior to malignancy that she weighed
approximately 140lb. She reports chronic SOB. She denies fever, chills, vomiting, diarrhea, constipation, or abdominal pain.
Tmax 100.2F, mid flow oxygen, no hypotension
Past-Medical/Surgical History
PMH DM, peripheral neuropathies, HTN, HLD, adrenal adenoma, osteopenia, , CKD, Tasha, anxiety, anemia, COPD
PMH trigger finger, ovarian cyst removal 2009,
Social smoker, denies ETOH x 4 years or recreational drugs. Retired. Lives alone
Family Father NHL, sister ovarian cancer
Patient Medication
�Medication �Instructions �Recorded �Confirmed �Last Taken �Type
aspirin 81 mg chewable tablet 81 mg PO DAILY Blood clot 10/30/13 12/21/24 12/19/24 06:00 History
prevention/tx
duloxetine 60 mg capsule,delayed 60 mg PO DAILY Neurological 10/30/13 12/21/24 12/19/24 06:00 History
release Condition
rosuvastatin 10 mg tablet 10 mg PO DAILY High cholesterol 10/30/13 12/21/24 12/19/24 06:00 History
duloxetine 30 mg capsule,delayed 30 mg PO DAILY Neurological 03/11/21 12/21/24 12/19/24 06:00 History
release Condition
gabapentin 100 mg capsule 300 mg PO HS Neurological Condition 03/11/21 12/21/24 12/20/24 History
melatonin 10 mg tablet 10 mg PO HSPRN PRN sleep 01/13/23 12/21/24 12/19/24 15:00 History
Patient Own Insulin Pump 1 sliding scale dose SC .INSULIN 11/16/24 12/21/24 12/20/24 History
LISPRO Diabetes
amlodipine 5 mg tablet (Norvasc) 5 mg PO DAILY Blood Pressure 11/16/24 12/21/24 12/19/24 06:00 History
famotidine 40 mg tablet (Pepcid) 40 mg PO BID Gastrointestinal Issue 11/16/24 12/21/24 12/20/24 History
umeclidinium 62.5 mcg-vilanterol 1 inh inhalation R DAILY 11/16/24 12/21/24 12/19/24 History
25 mcg/actuation powdr for Lung/Breathing Issues
inhalation (Anoro Ellipta)
gabapentin 100 mg capsule 100 mg PO DAILY 30 days #30 caps 11/18/24 12/21/24 12/19/24 08:00 Rx
lisinopril 5 mg tablet 5 mg PO DAILY #30 tabs 11/20/24 12/21/24 12/19/24 06:00 Rx
Active Medications
Generic Name Dose Route Start Last Admin
Trade Name Freq PRN Reason Stop Dose Admin
Albuterol/Ipratropium 3 ml 12/23/24 16:00 12/24/24 11:26
Ipratropium 0.5/Albuterol 3 Mg (3 Ml Ampul) INH 3 ml
R QID JAKUB Administration
Protocol
Amlodipine Besylate 5 mg 12/23/24 08:00 12/24/24 07:55
Amlodipine 5 Mg Tablet PO 01/20/25 07:59 5 mg
On Hold: 12/24/24 10:46 DAILY JAKUB Administration
Aspirin 81 mg 12/22/24 14:00 12/24/24 07:55
Aspirin 81 Mg Chewable Tablet PO 01/19/25 13:59 81 mg
On Hold: 12/24/24 11:22 DAILY JAKUB Administration
Aspirin 300 mg 12/25/24 08:00
Aspirin 300 Mg Rectal Suppository RECTAL 01/22/25 07:59
DAILY JAKUB
Budesonide 0.5 mg 12/23/24 20:00 12/24/24 07:46
Budesonide (Pulmicort Respules) 0.5 Mg/2 Ml INH 0.5 mg
R BID JAKUB Administration
Protocol
Dextrose 12.5 grams 12/24/24 07:52
Dextrose 50% (0.5 Grams/Ml) 50 Ml Syringe IV 01/21/25 07:51
[id number] PRN
BLOOD GLUCOSE < 70
Duloxetine HCl 30 mg 12/23/24 08:00 12/24/24 07:54
Duloxetine Delayed Release 30 Mg Capsule PO 01/20/25 07:59 30 mg
On Hold: 12/24/24 10:46 DAILY JAKUB Administration
Duloxetine HCl 60 mg 12/23/24 08:00 12/24/24 07:54
Duloxetine Delayed Release 60 Mg Capsule PO 01/20/25 07:59 60 mg
On Hold: 12/24/24 10:46 DAILY JAKUB Administration
Enoxaparin Sodium 40 mg 12/22/24 18:00 12/23/24 17:26
Enoxaparin Sodium 40 Mg/0.4 Ml Syringe SC 01/19/25 17:59 40 mg
QPM JAKUB Administration
Famotidine 20 mg 12/25/24 08:00
Famotidine 20 Mg Iv Push Daily IV 01/22/25 07:59
DAILY JAKUB
Gabapentin 300 mg 12/22/24 22:00 12/23/24 21:30
Gabapentin Solution 600 Mg/12 Ml Cup PO 01/19/25 21:59 300 mg
HS JAKUB Administration
Gabapentin 100 mg 12/23/24 08:00 12/24/24 07:56
Gabapentin Solution 600 Mg/12 Ml Cup PO 01/20/25 07:59 100 mg
DAILY JAKUB Administration
Glucagon 1 mg 12/24/24 07:52
Glucagon 1 Mg Vial IM 01/21/25 07:51
PRN PRN
hypoglycemia
Protocol
Hydralazine HCl 5 mg 12/23/24 12:58
Hydralazine 20 Mg/Ml Vial IV 01/20/25 12:57
Q6HPRN PRN
SBP>160
Hydromorphone HCl 0.5 mg 12/21/24 21:14 12/24/24 09:30
Hydromorphone 0.5 Mg/0.5 Ml Syringe IV 01/04/25 21:13 0.5 mg
Q4HPRN PRN Administration
severe pain
Acetaminophen 1,000 mg in 100 mls @ 400 mls/hr 12/23/24 12:56 12/23/24 17:25
Ofirmev IV 12/24/24 12:55 100 mls
Q6HPRN PRN Administration
MILD TO MODERALTE pain
Protocol
Sodium Chloride 1,000 mls @ 75 mls/hr 12/23/24 18:45 12/24/24 10:41
Nss IV 1,000 mls
.[id number] JAKUB Administration
Insulin Glargine 12 units/ 0.12 mls @ 0 mls/hr 12/24/24 22:00
Device SC 01/21/25 21:59
HS JAKUB
As Directed
Insulin Aspart 6 units 12/24/24 11:30
Insulin Aspart (Novolog) 100 Units/Ml 3 Ml Flexpen SC 01/21/25 11:29
AC JAKUB
Insulin Aspart 0 units 12/24/24 11:30
Insulin Aspart Low Resistance 300 Units/3 Ml Pen.Injctr SC 01/21/25 11:29
AC JAKUB
Protocol
Lisinopril 5 mg 12/23/24 08:00 12/24/24 07:54
Lisinopril 5 Mg Tablet PO 01/20/25 07:59 5 mg
On Hold: 12/24/24 10:46 DAILY JAKUB Administration
Melatonin 10 mg 12/22/24 14:10
Melatonin 5 Mg Tablet PO 01/19/25 14:09
On Hold: 12/24/24 10:46 HSPRN PRN
sleep
Ondansetron HCl 4 mg 12/22/24 00:03 12/24/24 09:31
Ondansetron 4 Mg/2 Ml Vial IV 01/19/25 00:02 4 mg
Q6HPRN PRN Administration
nausea and vomiting
Patient Own Medication 0 unit 12/22/24 04:47 12/22/24 16:00
Insulin Pump - Patient's Own Humalog (Lispro) SC 01/19/25 04:46 0.15 unit
On Hold: 12/23/24 11:20 PRN PRN Administration
Comment: SPOKE TO LAUREN (PT'S hyperglycemia
NURSE)- PUMP IS OFF
Polyethylene Glycol 17 grams 12/23/24 20:13 12/23/24 21:31
Polyethylene Glycol Powder 17 Grams Packet PO 01/20/25 20:12 17 grams
On Hold: 12/24/24 10:46 DAILYPRN PRN Administration
constipation
Rosuvastatin Calcium 10 mg 12/23/24 08:00 12/24/24 07:54
Rosuvastatin (Crestor) 10 Mg Tablet PO 01/20/25 07:59 10 mg
On Hold: 12/24/24 10:46 DAILY JAKUB Administration
Sodium Chloride 0 flush 12/22/24 15:00
Sodium Chloride 0.9% (Flush) Syringe IV 01/19/25 14:59
PER PROTOCOL JAKUB
Sodium Chloride 8 ml 12/25/24 08:00
Nss 8 Ml Daily IV 01/22/25 07:59
DAILY JAKUB
Review of Systems
-
ROS is notable for HPI, otherwise negative
Physical Exam
-
General: No Apparent Distress
HEENT: Moist Mucous Membranes; Negative Jaundice
Pulmonary: Other (unlabored)
GI: Soft
Extremities: Pulses Present; Negative Edema
Neurology: Non Focal and Other (tremor)
Skin: Warm
Psych: Calm
Labs
Lab Results
WBC 11.5 10^3/uL (4.8-10.8) H 12/24/24 03:36
RBC 2.95 10^6/uL (4.20-5.40) L 12/24/24 03:36
Hgb 9.2 g/dL (12.0-16.0) L 12/24/24 03:36
Hct 28.7 % (37.0-47.0) L 12/24/24 03:36
MCV 97.3 fL (81.0-99.0) 12/24/24 03:36
MCH 31.2 pg (27.0-31.0) H 12/24/24 03:36
MCHC 32.1 g/dL (33.0-37.0) L 12/24/24 03:36
RDW 14.2 % (11.5-14.5) 12/24/24 03:36
Plt Count 237 10^3/uL (130-400) 12/24/24 03:36
MPV 10.7 fL (7.4-10.4) H 12/24/24 03:36
Abs Immat Gran (auto) 0.0 10^3/uL (0-0.05) 12/21/24 13:09
Absolute Neuts (auto) 6.4 10^3/uL (1.4-6.5) 12/21/24 13:09
Absolute Lymphs (auto) 2.1 10^3/uL (1.2-3.4) 12/21/24 13:09
Absolute Monos (auto) 0.6 10^3/uL (0.1-0.6) 12/21/24 13:09
Absolute Eos (auto) 0.1 10^3/uL (0-0.7) 12/21/24 13:09
Absolute Basos (auto) 0.1 10^3/uL (0-0.2) 12/21/24 13:09
Immature Gran % 0.2 % (0-0.5) 12/21/24 13:09
Neutrophils % 68.7 % (42.2-75.2) 12/21/24 13:09
Lymphocytes % 22.5 % (20.5-51.1) 12/21/24 13:09
Monocytes % 6.7 % (1.7-9.3) 12/21/24 13:09
Eosinophils % 1.3 % (0-6) 12/21/24 13:09
Basophils % 0.6 % (0-2) 12/21/24 13:09
Creatinine 0.9 mg/dL (0.6-1.0) 12/24/24 03:36
Vital Signs
Vital Signs
Temp Pulse Resp BP Pulse Ox
98.9 F 81 18 134/46 98
12/24/24 11:01 12/24/24 11:30 12/24/24 11:30 12/24/24 08:00 12/24/24 11:30
[2024-12-24 12:17] LABS: Glucose - Point of Care 175 mg/dl (70-99)
[2024-12-24] MEDS: NOVOLOG FLEXPEN-LOW RESISTANCE 1 UNITS SC (12:46)
[2024-12-24] MEDS: NOVOLOG FLEXPEN 6 UNITS SC ×2 (12:46→17:52)
[2024-12-24] MEDS: ROCEPHIN 1000 MG IV (13:44)
[2024-12-24] MEDS: ZITHROMAX INFUSION 250 IV (13:44)
--- NOTE | 2024-12-24 14:25 | PTCARENOTE ---
Patient received this am from night RN. AAOx3 reports no discomfort at that time. Lungs coarse, rhonchi and diminished. Pt currently on 6L NC. Head to toe assessment completed. Patient SPo2 80% on 6L increased to midflow 10L. Respiratory paged and
placed patient on high flow. Treatment plan discussed in great length with patient.
Within the hr, patient spo2 94%. Patient administered her morning Meds crushed in applesauce and tolerated well. 10 mins later patient calls that she if feeling N/V symptoms. Spo2 desats into 70%. Respiratory placed patient on nonrebreather and high
flow. Dilaudid given for pain and Zofran given for nausea. Dr Canchola,Dr. Damian, and Dr. Avina made aware.
--- NOTE | 2024-12-24 16:06 | CM ---
Newly diagnosed esophageal cancer, DNR, aspiration precautions, clear liquid diet, progressive dysphagia, IV/Rocephin and Zithromax, Onc Eval. Discharge PO: TBD.
[2024-12-24] MEDS: LOVENOX 40 MG SC (17:04)
[2024-12-24 17:22] LABS: Glucose - Point of Care 85 mg/dl (70-99)
[2024-12-24] MEDS: NOVOLOG FLEXPEN-LOW RESISTANCE SC (17:42)
--- NOTE | 2024-12-24 20:00 | PTCARENOTE ---
Received pt OOB and sitting in chair. While on High Flow pt began to desat to 87% pulse ox. NRB mask 15L O2 placed and ambulated pt back to bed. After treatment pt satting 99% pulse ox. Pt expresses fatigue and fell asleep after episode.
[2024-12-24 21:11] LABS: Glucose - Point of Care 139 mg/dl (70-99)
--- NOTE | 2024-12-24 21:20 | PTCARENOTE ---
NRB mask removed. Pt tolerating High Flow O2 settings and satting at 99% pulse ox. Pt resting comfortably.
[2024-12-24] MEDS: NEURONTIN PO ×2 (23:03→23:11)
[2024-12-24] MEDS: LANTUS 0.12 UNITS SC (23:03)
[2024-12-25] VITALS (18 sets, daily range): BP systolic 134–178; BP diastolic 50–134
[2024-12-25] MEDS: NSS 1000 IV (03:13)
[2024-12-25 04:25] LABS: Hematocrit 29.4 % (37.0-47.0); Hemoglobin 9.4 g/dL (12.0-16.0); Mean Corp Hgb Conc. 32.0 g/dL (33.0-37.0); Mean Corpuscular Volume 97.7 fL (81.0-99.0); Platelet Count 232 10^3/uL (130-400); Red Cell Dist. Width 14.4 % (11.5-14.5)
[2024-12-25 04:35] LABS: INR 1.03; PT 13.8 Sec (11.4-14.6)
[2024-12-25 04:36] LABS: APTT 42.4 Sec (23.4-35.0)
[2024-12-25 04:39] LABS: Blood Urea Nitrogen 16 mg/dl (7-17); Calcium 9.5 mg/dl (8.4-10.2); Carbon Dioxide 25 mmol/L (22-30); Chloride 116 mmol/L (98-107); Estimated Creatinine Clearance 52 ml/min; Glucose 85 mg/dl (70-99); Potassium 3.9 mmol/L (3.5-5.1); Sodium 146 mmol/L (135-145); eGFR > 60.00
--- NOTE | 2024-12-25 05:00 | PTCARENOTE ---
Pt c/o 8 out of 10 whole body pain. PRN dose of dilaudid administered by this RN.
[2024-12-25] MEDS: DILAUDID 0.5 MG IV ×2 (05:19→09:20)
--- NOTE | 2024-12-25 07:15 | PTCARENOTE ---
Received patient in sleep, A&Ox3, NSR, BP WNL, HFNC 50L 100%, Clear liquid diet, poor appetite, w/ Bedside commode.
--- NOTE | 2024-12-25 07:25 | W.PN.INTV ---
Today's Communication / Plan
Recommendations
Wean FiO2
Antibiotics
Nebulizers
Increase activity
Consider transferring out of ICU if able to wean FiO2 a bit-pulmonary will follow
Assessment
-
74-year-old female with recently diagnosed esophageal cancer, with mass in the lower third of her esophagus, diabetes, presents with poor p.o. intake, weakness, nausea and abdominal discomfort. She was initially admitted to the floor, and developed
DKA/HHNK, elevated anion gap, hyperglycemia, transferred to ICU for further management 12/23
Hyperglycemia (DKA/HHNK)
Blood sugar 250
Elevated anion gap, 17
Poor p.o. intake
Dysphagia/odynophagia
Progressive
Recently diagnosed esophageal cancer, mass with obstruction of lower third of esophagus-able to pass liquids
Diabetes with insulin pump
Leukocytosis
Anemia
Respiratory insufficiency, chronic
Weight loss-unintentional
Conditions present prior to admission:
Hypertension/hyperlipidemia
History of COPD/emphysema
DLCO 50%
History of syncope
Orthostasis and evidence of hypoglycemia in the past
Peripheral arterial disease
History of pulm nodules, waxing and waning
15 pound weight loss
45+ pack-year history of smoking, ongoing
Plan
Remains critically ill with significant desaturations and now on high flow oxygen and nonrebreather
Supplemental oxygen as needed-moved from nasal cannula to high flow oxygen and nonrebreather-attempt to wean
Aspiration precautions
Speech therapy evaluation
Nebulizers-hold inhalers-was on Anoro as an outpatient-currently on DuoNebs and Pulmicort
Incentive spirometry
Mucus clearing devices if needed
Suspect significant COPD-has DLCO of 50%
Monitor blood sugar
Insulin supplementation as needed
Diabetic nurse practitioner consultation appreciated
A1c if not obtained recently
Intravenous fluids
Follow cultures
Sputum culture pending
Empiric antibiotics for pneumonia-ceftriaxone and azithromycin
Reviewed with GI-able to pass small scope beyond esophageal obstruction-okay for clear liquids
Will likely need feeding tube prior to discharge
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
Oncology following [id number] reviewed
Performance status quite poor at this point-ideally would require chemoradiation prior to resection-currently not a resection candidate
The patient wishes aggressive therapy including chemoradiation and potential resection at some point
Smoking cessation counseling-smoking 1-1/2 packs a day prior to admission
Nicotine patch if needed
DVT prophylaxis
GI prophylaxis per gastroenterology
Nutrition
Early mobilization
Patient has appointment with Dr. Nunez-oncology 01/03/2025
Patient follows with Dr. Farrell as outpatient
If FiO2 able to be weaned and off pressors could be transferred to telemetry-pulmonary will continue to follow
Critical care statement: A total of 40 minutes of critical care time was provided for this patient today. This includes management of unstable vital signs, evaluation of the patient at bedside, reviewing the patient�s pertinent medical records
including radiographs, microbiology, laboratory evaluations, and��discussion with primary team, consultants, pharmacy, nutrition, physical therapy, case management, charge nurse, critical care nursing, and respiratory therapy.
Subjective Dataa
Subjective Data
Date of Service:
Date of Service: December 25, 2024
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
Subjective:
Still on high flow oxygen, no complaints of worsening shortness of breath, chest pain, abdominal pain
Review of Systems
General: Other (Per HPI)
Objective Data
Data Reviewed
Vital Signs / I&O / Oxygen:
Vital Signs
Temp Pulse Resp BP Pulse Ox
98.6 F 92 34 134/53 98
12/25/24 07:15 12/25/24 07:00 12/25/24 07:00 12/25/24 06:00 12/25/24 07:00
Intake and Output
12/24/24 12/25/24 12/26/24
06:59 06:59 06:59
Intake Total 3049.5 / 3049.5 910 / 910
Output Total 600 / 600 625 / 625
Balance 2449.5 / 2449.5 285 / 285
SaO2 98
Nasal Cannula flow liters per 50
minute
Physical Exam
General: Respiratory Distress (n), Comfortable and Other (Supplemental Oxygen in place)
HEENT: Normocephalic and Anicteric
Cardiovascular: Regular Rhythm
Respiratory: Rhonchi (few, bilateral) and Non-Labored Respirations
GI: Soft, Non Distended and Non Tender
Neurology: Awake, Alert and Oriented
Skin: Warm, Good Color, Cyanosis (n), Jaundice (n) and Rash (n)
Labs/Micro/Reports
Lab Data
12/25/24 04:01
12/25/24 04:01
Laboratory Results
12/25/24
04:01
PT 13.8
INR 1.03
APTT 42.4 H
[2024-12-25] MEDS: PULMICORT 0.5 MG INH ×2 (07:48→20:34)
[2024-12-25] MEDS: DUONEB 3 ML INH ×4 (07:48→20:34)
--- NOTE | 2024-12-25 07:50 | W.PN.INTV ---
Today's Communication / Plan
Recommendations
Added thiamine supplementation
Converted rectal aspirin to chewable to be dissolved in liquid due to patient refusal of rectal aspirin
Calorie Counts
Potential for downgrade to IMU today
Stop miralax, add scheduled senna syrup
Assessment
-
Assessment:
This is a 74 y/o female with pmhx of recently diagnosed esophageal cancer following with [facility] who presented to the ED on 12/21/2024 with poor PO intake, nausea and weakness, and who developed new DKA vs HHS and was subsequently
transferred to the ICU on 12/23/2024
Plan:
Acute on Chronic Respiratory Insufficiency
COPD/Emphysema
Pneumonia, concern for Aspiration vs Community-Acquired
Tobacco Use (45+ pack years, 1-1/2 ppd)
Chest X-ray 12/24 (6AM): New bibasilar airspace opacity, greater on the left, aspiration is a consideration given the change from the previous exam and the esophageal findings. This could also be related to pneumonia.
Chest X-ray 12/24 (9AM): Interval significant worsening of the right basilar consolidation.
Chest X-ray 12/21: No acute cardiopulmonary process
Increased WBC since 12/23 with new increased O2 requirements suggestive of pneumonia, onset time would favor either aspiration or community-acquired over hospital acquired
Currently patient is on high flow oxygen with nonrebreather (From nasal cannula). Wean as tolerated, keeping O2 saturation >92%
Continue aspiration precautions, keeping head of the bed >30-45 degrees
Continue nebulizers, hold home inhalers
Continue incentive spirometry
Recommend smoking cessation, may add nicotine patch if needed
Continue clear liquid diet for now, will consult nutrition for calorie counts
Continue Ceftriaxone 1g IV daily, Azithromycin 500mg IV daily
Recommend early out of bed ambulation as tolerated
DKA vs HHS
Diabetes with Insulin Dependence
BG 250, anion gap 17, now closed
a1c 12/23/24: 7.7
Now off insulin drip and on subcutaneous insulin with clear liquid diet
Diabetic nurse practitioner is following, will appreciate their insight into this case
Dysphagia
Esophageal Cancer
Patient with recent diagnosis of esophageal adenocarcinoma with probable local lymph node involvement, with mass obstructing the lower 1/3rd of the esophagus and recent 15lb weight loss
Follows with [facility]
Gastroenterology is following, will appreciate their insight into her case
Spoke to Hematology/Oncology, who states based upon their conversations with her today that at this time she wishes to pursue treatment and would potentially still be curative depending on the level of mets. However, at this time due to acute
respiratory status and hospitalization requiring ICU-level care, she would not be able to tolerate the resection or the pre-resection chemoradiation.
Short term goals include improvement of respiratory status and addressing her nutritional needs as able
Continue clear liquid diet for now, will consult nutrition for calorie counts
Thiamine supplementation added today
Constipation
Converted PRN miralax to scheduled senna syrup
Subjective Dataa
Subjective Data
Date of Service:
Date of Service: December 25, 2024
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
Subjective:
Patient is doing well today. She states she feels a little better than yesterday, and while taking deep breaths for my physical exam reports they came easier to her. She does have little appetite but has been able to tolerate clear liquids without
choking or coughing.
Review of Systems
General: Fever (Denies) and Chills (Denies)
Cardiopulmonary: Dyspnea, Cough and Chest Pain (Denies)
GI: Abdominal Pain (Denies), Nausea (Denies) and Constipation
Objective Data
Data Reviewed
Vital Signs / I&O / Oxygen:
Vital Signs
Temp Pulse Resp BP Pulse Ox
98.6 F 92 34 134/53 98
12/25/24 07:15 12/25/24 07:00 12/25/24 07:00 12/25/24 06:00 12/25/24 07:00
Intake and Output
12/24/24 12/25/24 12/26/24
06:59 06:59 06:59
Intake Total 3049.5 / 3049.5 910 / 910
Output Total 600 / 600 625 / 625
Balance 2449.5 / 2449.5 285 / 285
SaO2 98
Nasal Cannula flow liters per 50
minute
Physical Exam
General: Comfortable and Other (Supplemental Oxygen in place)
HEENT: Normocephalic and Anicteric
Cardiovascular: S1-S2 and Regular Rhythm
Respiratory: Clear and Non-Labored Respirations
GI: Soft, Non Distended and Non Tender
Neurology: Awake, Alert and Oriented
Skin: Warm and Good Color
Labs/Micro/Reports
Lab Data
12/25/24 04:01
12/25/24 04:01
Laboratory Results
12/25/24
04:01
PT 13.8
INR 1.03
APTT 42.4 H
--- NOTE | 2024-12-25 08:01 | W.PN.HOSP.TC ---
Today's Communication/Plan
-
See plan
Assessment / Plan
Assessment / Plan
Physical Exam
General: Not in acute distress
HEENT: Normocephalic, Moist mucous membranes
Respiratory: Clear to Auscultation Bilaterally
Cardiac: S1/S2 and Regular Rhythm
GI: Soft and Tender. Positive bowel sounds.
Musculoskeletal: No Cyanosis and No Edema
Skin: Warm and Dry
Neuro: Awake, Alert, Oriented and AO x 3
Psych: Calm
Assessment/Plan
74-year-old female who presented to the emergency room for evaluation of weakness and nausea. Patient was recently diagnosed with esophageal cancer and saw [facility] Dr. Luna in [place]. She was scheduled for PET scan on 12/21/24
but had extreme weakness nausea and dry heaves. She also complained of abdominal pain.
On 12/20/24, patient had an upper endoscopic ultrasound:
malignant appearing esophageal stenosis,
no gross lesions in the stomach normal duodenal bulb
a mass in the lower third of the esophagus adenocarcinoma.
Virtually completely resolved pericardial effusion in comparison to prior CT.
CT Abdomen/Pelvis showed (as per radiologist's report):
Incompletely included on this study is large volume food material seen within the distal thoracic esophagus suggesting mass/obstruction at the gastroesophageal junction. Malignancy is the diagnosis of exclusion. Cannot exclude some small distal
periesophageal varices. Findings discussed by telephone with FABY Cabello LAY BROTHER at 1855 hours on December 21, 2024
Virtually completely resolved pericardial effusion in comparison to prior CT.
Small Simple Right Renal Cyst plus an additional subcentimeter low-attenuation right renal lesion too small to characterize
Abdominal aorta with calcific atherosclerotic changes
Moderate to large volume widespread colonic stool
Moderate to large volume stool is seen in the rectosigmoid region
Degenerative changes most prominent in the lower lumbar spine
#Acute Hypoxic Respiratory Failure developed on 12/24/24
#COPD
#Pneumonia, concern for Aspiration vs Community-Acquired
-Developed on 12/24/24
-Suspected aspiration
-Start Antibiotics
-Pulmonary toilet, bronchodilators
-Aspiration precautions
-Continue high flow oxygen; wean as tolerated
-No meds via oral means (given issues with esophagus), but can continue clear liquids (with Ensure protein supplement) via oral means - if patient is unable to meet nutritional needs orally then would consider J tube placement
-Surgery consulted for possible J tube placement (GI said no Dobhoff tube placement)
-Calorie Counts, thiamine and multivitamin supplementation
#Chest discomfort/nausea -- likely some local irritation after endoscopic ultrasound
#Esophageal stricture from esophageal cancer
Okay to continue Clear Liquids Diet as per GI
IV fluids
Nausea control
GI consult
Oncology consulted: patient wishes to pursue treatment and would potentially still be curative depending on the level of mets. No procedures at this time given hypoxia and acuity.
Goals remain restorative - optimize nutrition and performance status in anticipation of outpatient antineoplastic therapy
Check CT chest closer to discharge once pneumonia/pneumonitis from aspiration has improved-missed PET 12/21
Pending radiation oncology consult outpatient
Smoking cessation
Patient has outpatient follow-up with Dr. Nunez on 01/03/2025
#Euglycemic Diabetic Ketoacidosis and Starvation Ketoacidosis
#Anion Gap Metabolic Acidosis secondary to the above
- Lactic acid was normal
- Suspected DKA from running out of insulin in pump together with reduction in PO intake given esophageal issues above
- D5 IV fluids (given sugars in the 200s)+Insulin Drip were given, later transitioned to subq Insulin as DKA resolved
- Monitor in ICU/IMU
- Appreciate digital strategy specialist
- DKA resolved
#IDDM with insulin pump
- Patient Insulin pump had run out of Insulin on 12/22/24-12/23/24
- Diabetes LAY BROTHER consulted
- Continue subq Insulin
#Hypercalcemia
IV fluids were given
Improved
#Orthostatic hypotension, syncope
#Hypertension
-Holding Lisinopril and Amlodipine as unsafe to swallow
-prn order for hydralazine 5mg Q6hprn for SBP >160
#Hyperlipidemia
-Rosuvastatin cannot be crushed and does not have a liquid form as per clinical pharmacist
#Coronary Artery Disease
#PAD
-Rectal Aspirin converted to chewable to be dissolved in liquid due to patient refusal of rectal aspirin
-Duloxetine cannot be crushed and does not have a liquid form as per clinical pharmacist
#History of pericardial effusion
#History of: pulmonary nodules, adrenal tumor, Tasha's thyroiditis, anemia, ADHD
#Insomnia
-Melatonin cannot be crushed and does not have a liquid form as per clinical pharmacist
Code DNR
Lovenox DVTp
Acute Hypoxia needing high flow oxygen is a high risk encounter.
Anticipated Discharge: > 48 hours
Subjective/Interval History
-
Date of Service: December 25, 2024
Patient was seen and examined. She reported feeling better and said her shortness of breath is better today.
Objective Data
-
Labs:
Laboratory Results
12/25/24
04:01
WBC 8.8
Hgb 9.4 L
Hct 29.4 L
Plt Count 232
PT 13.8
INR 1.03
APTT 42.4 H
Sodium 146 H
Potassium 3.9
Chloride 116 H
Carbon Dioxide 25
BUN 16
Creatinine 0.9
Glucose 85
Calcium 9.5
Vital Signs:
Vital Signs
Temp Pulse Resp BP Pulse Ox
98.6 F 96 20 134/53 96
12/25/24 07:15 12/25/24 07:51 12/25/24 07:51 12/25/24 06:00 12/25/24 07:51
I&O
12/24/24 12/25/24 12/26/24
06:59 06:59 06:59
Intake Total 3049.5 / 3049.5 910 / 910
Output Total 600 / 600 625 / 625
Balance 2449.5 / 2449.5 285 / 285
[2024-12-25] MEDS: PEPCID 20 MG IV (08:05)
[2024-12-25] MEDS: NSS (PRESERVATIVE FREE) 8 ML IV (08:05)
[2024-12-25] MEDS: NEURONTIN 100 MG PO (08:05)
[2024-12-25] MEDS: NOVOLOG FLEXPEN-LOW RESISTANCE SC (08:10)
[2024-12-25 08:21] LABS: Glucose - Point of Care 94 mg/dl (70-99)
[2024-12-25] MEDS: NOVOLOG FLEXPEN 3 UNITS SC ×2 (08:50→17:13)
--- NOTE | 2024-12-25 09:18 | PN.DE.MGMTRT ---
Insulin Management
- -
12/25/2024: Diabetes Management Consult Follow up
Patient admitted 12/21 with c/o nausea, abdominal pain and weakness. PMH: HTN, HLD, Neuropathy, COPD, Depression, CKD, Chronic kidney disease syncope with falls, and diabetes. Patient lives alone in a mobile home, was recently diagnosed with
esophageal cancer via upper endoscopy involving the lower third of her esophagus. Prior to admission was using a Medtronic 780G insulin pump with Guardian sensor and Humalog insulin. A1C 7.7%, Cr 0.9, eGFR >60. Follows with Endocrine VIRGIL Costello
Magdy.
Her insulin pump ran out of insulin on Friday 12/22 so was removed. She developed elevated blood sugars of 255, anion gap 17, was transferred to ICU for further management for DKA, possible HHNK.
12/23 Transitioned from insulin infusion.
12/24 Glucose range 85 to 175. Received 12 units lantus, 6 units novolog AC.
12/25 Fasting glucose 94. Patient appetite is very poor, will decrease AC novolog to 3 units and decrease HS lantus to 10 units.
Discussed with Nurse. Will cont to monitor.
Pt will resume her insulin pump upon arrival home.
Diabetes History
- -
Type of Diabetes: 2 requiring insulin
Pre-Admission Diabetes Regimen
12/25/24
04:01
Creatinine 0.9
Lab Results
Hemoglobin A1c 7.7 % (4.0-5.9) H 12/23/24 06:52
Insulin Pump Settings
IP Diabetes Regimen
12/24/24 12/24/24 12/24/24
12:06 17:21 21:09
Glucose
POC Glucose 175 H 85 139 H
12/25/24 12/25/24
04:01 08:09
Glucose 85
POC Glucose 94
Patient Education
--- NOTE | 2024-12-25 09:47 | W.PN.ONC2 ---
Today's Communication / Plan
-
.
Impression
Impression
EUS with regional esophageal cancer
20lb+ weight loss
aspiration
RLL pneumonia
smoker, stopped 1 week ago
Plan
Plan
abx per primary service
advance diet per speech/swallow recommendations -if unable to meet nutritional needs orally then would consider J tube placement
goals remain restorative -optimize nutrition and performance status in anticipation of outpatient antineoplastic therapy
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
check CT chest closer to discharge once pneumonia/pneumonitis from aspiration has improved-missed PET 12/21
Pending radiation oncology consult outpatient
smoking cessation
symptoms support with antiemetic, bowel regimen, and pain management
Has OP follow up with Dr. Nunez on 01/03/2025
Subjective/Objective
Subjective
afebrile, no hypotension, high flow supplemental O2
feels like she is able to take more deep breaths today
pushing oral ensure intake
Vital Signs:
Vital Signs
Temp Pulse Resp BP Pulse Ox
98.6 F 96 20 134/53 96
12/25/24 07:15 12/25/24 07:51 12/25/24 07:51 12/25/24 06:00 12/25/24 07:51
Lab Results:
Laboratory Data
WBC 8.8 10^3/uL (4.8-10.8) 12/25/24 04:01
Hgb 9.4 g/dL (12.0-16.0) L 12/25/24 04:01
Plt Count 232 10^3/uL (130-400) 12/25/24 04:01
PT 13.8 Sec (11.4-14.6) 12/25/24 04:01
INR 1.03 12/25/24 04:01
APTT 42.4 Sec (23.4-35.0) H 12/25/24 04:01
eGFR > 60.00 12/25/24 04:01
Physical Exam
HEENT: No Jaundice
Pulmonary: Other (high flow)
GI: Soft
Extremities: Pulses Present
Neuro: Non Focal
[2024-12-25] MEDS: NOVOLOG FLEXPEN SC (11:45)
[2024-12-25] MEDS: LOW STRENGTH ASPIRIN 81 MG PO (11:57)
[2024-12-25] MEDS: SENNA SYRUP 8.8 MG PO ×2 (11:57→21:30)
[2024-12-25] MEDS: THIAMINE INJECTION 100 MG IV (11:57)
[2024-12-25] MEDS: NOVOLOG FLEXPEN-LOW RESISTANCE 1 UNITS SC (12:02)
[2024-12-25 12:12] LABS: Glucose - Point of Care 199 mg/dl (70-99)
--- NOTE | 2024-12-25 12:30 | PTCARENOTE ---
Reassessed the patient, HFNC FiO2 down to 80%, no SOB observed, no other changes from previous assessments.
[2024-12-25] MEDS: TYLENOL ORAL SOLUTION 650 MG PO (13:55)
[2024-12-25] MEDS: ROCEPHIN 1000 MG IV (13:55)
[2024-12-25] MEDS: STERILE WATER FOR INJECTION 10 ML IV (13:56)
--- NOTE | 2024-12-25 15:03 | W.PN.GI.CBS2 ---
Today's Communication / Plan
-
continue clears with ensure
Assessment / Plan
-
Pt with regional esophageal cancer recently diagnosed
1. continue clears with ensure bid (ordered); speech recommends as well
2. oncology f/u
3. hgb stable
will sign off call with questions
Subjective
Subjective
Date of Service: December 25, 2024
pt tolerating clears, no vomiting
Objective
Data Reviewed
Laboratory Data:
Laboratory Results
12/25/24 04:01
12/25/24 04:01
Laboratory Results
PT 13.8 Sec (11.4-14.6) 12/25/24 04:01
INR 1.03 12/25/24 04:01
APTT 42.4 Sec (23.4-35.0) H 12/25/24 04:01
Phosphorus 4.2 mg/dl (2.5-4.5) 12/23/24 08:28
Magnesium 1.6 mg/dl (1.6-2.3) 12/24/24 03:36
Total Bilirubin 1.3 mg/dl (0.2-1.3) 12/23/24 08:28
AST 17 U/L (14-36) 12/23/24 08:28
ALT 13 U/L (0-35) 12/23/24 08:28
Alkaline Phosphatase 85 U/L (38-126) 12/23/24 08:28
Lipase 19 U/L (23-300) L 12/21/24 13:09
Vital Signs and I&O:
Vital Signs
Temp Pulse Resp BP Pulse Ox
98.5 F 98 16 168/67 95
12/25/24 12:00 12/25/24 14:00 12/25/24 14:00 12/25/24 14:00 12/25/24 14:00
I&O
12/24/24 12/25/24 12/26/24
06:59 06:59 06:59
Intake Total 3049.5 / 3049.5 910 / 910
Output Total 600 / 600 625 / 625 650 / 650
Balance 2449.5 / 2449.5 285 / 285 -650 / -650
Physical Exam
Physical Exam
GI: Soft and Non Distended
[2024-12-25] MEDS: APRESOLINE 5 MG IV (15:05)
--- NOTE | 2024-12-25 15:25 | PN.CDI ---
CDI
- -
CDI:
Physician Documentation Request
Admit Date: 12/21/24 22:07
Dear Doctor Kailyn,
Patient admitted with esophageal stricture.
12/22 Nutrition note, 'Pt meets criteria for severe protein calorie malnutrition of chronic illness with >7.5% weight loss x 3 months, prolonged poor intake prior to admit >75% for > 1 month, severe loss subcutaneous fat (triceps, orbital) & severe
muscle loss (buccal, clavicle).
Please provide in your progress note the diagnosis associated with the above nutritional findings and your assessment:
Severe protein calorie malnutrition of chronic illness
Other
[place] Criteria ([facility] Hospitalist 2017)
2 or more criteria must be present for either
non severe or severe malnutrition
Note that the criteria differs related to the
presence of an acute or chronic illness
Chronic Illness
Energy Intake Non Severe: <75% for >1 month
Severe: <75% for >1 month
Weight Loss Non Severe: 5% over 1 month
7.5% over 3 months
10% over 6 months
20% over 1 year
Severe: >5% over 1 month
>7.5% over 3 months
>10% over 6 months
>20% over 1 year
Body Fat Non Severe: Mild Loss
Severe: Severe Loss
Muscle Mass Non Severe: Mild Loss
Severe: Severe Loss
Fluid Accumulation Non Severe: Mild Accumulation
Severe: Moderate to severe
accumulation
Reduced Senior Managing Director Strength Non Severe: N/A
Severe: Measurably reduced
Use of terms such as suspected, likely, concern for, or probable (associated with a specific diagnosis that is being evaluated, monitored, or treated as if it exists) are acceptable and can be coded in the inpatient setting, when documented at the
time of discharge.
Thank you,
Agata YANEZN,RN,CCDS
CDI Specialist
Available via tiger text
Please use your independent medical judgment in providing your response.
--- NOTE | 2024-12-25 16:00 | PTCARENOTE ---
Reassessed the patient, vomited out small Gelatin chunks when trialed for lunch, no issues with thin liquids. Continue weaning on HFNC FiO2.
[2024-12-25] MEDS: MAGNESIUM SULFATE 50 IV (16:13)
[2024-12-25] MEDS: ZITHROMAX INFUSION 250 IV (16:23)
[2024-12-25 16:42] LABS: Glucose - Point of Care 396 mg/dl (70-99)
[2024-12-25] MEDS: LOVENOX 40 MG SC (17:13)
[2024-12-25] MEDS: NOVOLOG FLEXPEN-LOW RESISTANCE 5 UNITS SC (17:14)
[2024-12-25] MEDS: NEURONTIN 300 MG PO (21:30)
[2024-12-25] MEDS: LANTUS 0.1 UNITS SC (21:30)
[2024-12-26] VITALS (21 sets, daily range): BP systolic 134–170; BP diastolic 48–95; BMI 19.8
--- NOTE | 2024-12-26 01:12 | PTCARENOTE ---
Pt alert/oriented/cooperative. No c/o pain. Afebrile. NSR on monitor. Pulses palpable, no edema. 50L/50% high flow. Decreased at bases, no SOB reported or seen. 94%. Tolerating clear liquids. Calorie count appreciated. BSC for urination with X1
assist. Will monitor.
[2024-12-26 02:40] LABS: Hematocrit 26.6 % (37.0-47.0); Hemoglobin 9.1 g/dL (12.0-16.0); Mean Corp Hgb Conc. 34.2 g/dL (33.0-37.0); Mean Corpuscular Volume 94.0 fL (81.0-99.0); Platelet Count 213 10^3/uL (130-400); Red Cell Dist. Width 14.1 % (11.5-14.5)
[2024-12-26 03:08] LABS: Blood Urea Nitrogen 17 mg/dl (7-17); Calcium 9.5 mg/dl (8.4-10.2); Carbon Dioxide 26 mmol/L (22-30); Chloride 113 mmol/L (98-107); Estimated Creatinine Clearance 52 ml/min; Glucose 263 mg/dl (70-99); Magnesium 2.2 mg/dl (1.6-2.3); Potassium 3.2 mmol/L (3.5-5.1); Sodium 144 mmol/L (135-145); eGFR > 60.00
[2024-12-26] MEDS: KCL ELIXIR 40 MEQ PO (05:18)
[2024-12-26] MEDS: APRESOLINE 5 MG IV (05:18)
[2024-12-26] MEDS: DUONEB 3 ML INH ×4 (07:11→19:06)
[2024-12-26] MEDS: PULMICORT 0.5 MG INH ×2 (07:11→19:06)
--- NOTE | 2024-12-26 07:23 | PN.DE.MGMTRT ---
Insulin Management
- -
12/26/2024: Diabetes Management Consult Follow up
Patient admitted 12/21 with c/o nausea, abdominal pain and weakness. PMH: HTN, HLD, Neuropathy, COPD, Depression, CKD, Chronic kidney disease syncope with falls, and diabetes. Patient lives alone in a mobile home, was recently diagnosed with
esophageal cancer via upper endoscopy involving the lower third of her esophagus. Prior to admission was using a Medtronic 780G insulin pump with Guardian sensor and Humalog insulin. A1C 7.7%, Cr 0.9, eGFR >60. Follows with Endocrine VIRGIL Costello
Magdy.
Her insulin pump ran out of insulin on Friday 12/22 so was removed. She developed elevated blood sugars of 255, anion gap 17, was transferred to ICU for further management for DKA, possible HHNK.
12/23 Transitioned from insulin infusion.
12/24 Glucose range 85 to 175. Received 12 units lantus, 6 units novolog AC.
12/25 Fasting glucose 94. Patient appetite is very poor, will decrease AC novolog to 3 units and decrease HS lantus to 10 units.
12/26 Fasting glucose 333. Will increase HS lantus to 12 units. Yesterday appetite improved, able to take Ensure and clear liquids, glucose trended up to 396 pre dinner. Overnight PULP GRINDER AND BLENDER resumed 6 units novolog AC. Will continue current regimen.
Discussed with Nurse. Will cont to monitor.
Pt will resume her insulin pump upon arrival home.
Diabetes History
- -
Type of Diabetes: 2 requiring insulin
Pre-Admission Diabetes Regimen
12/26/24
02:32
Creatinine 0.9
Lab Results
Hemoglobin A1c 7.7 % (4.0-5.9) H 12/23/24 06:52
Insulin Pump Settings
IP Diabetes Regimen
12/25/24 12/25/24 12/25/24
08:09 12:01 16:41
Glucose
POC Glucose 94 199 H 396 H
12/26/24
02:32
Glucose 263 H
POC Glucose
Meal type: Dinner
Meal type: Lunch
Meal type: Breakfast
Amount consumed: 100%
Amount consumed: 25%
Amount consumed: 50%
Patient Education
[2024-12-26] MEDS: ZOFRAN 4 MG IV ×2 (07:25→23:06)
[2024-12-26] MEDS: THIAMINE INJECTION 100 MG IV (07:26)
[2024-12-26] MEDS: NEURONTIN 100 MG PO (07:26)
[2024-12-26] MEDS: PEPCID 20 MG IV (07:26)
[2024-12-26] MEDS: NSS (PRESERVATIVE FREE) 8 ML IV (07:26)
--- NOTE | 2024-12-26 07:26 | W.PN.INTV ---
Today's Communication / Plan
Recommendations
Wean FiO2
Increase activity
Finite course of antibiotics
Transfer out of ICU-recreational sports director will sign off-pulmonary will continue to follow
Assessment
-
74-year-old female with recently diagnosed esophageal cancer, with mass in the lower third of her esophagus, diabetes, presents with poor p.o. intake, weakness, nausea and abdominal discomfort. She was initially admitted to the floor, and developed
DKA/HHNK, elevated anion gap, hyperglycemia, transferred to ICU for further management 12/23
Hyperglycemia (DKA/HHNK)
Blood sugar 250
Elevated anion gap, 17
Poor p.o. intake
Dysphagia/odynophagia
Progressive
Recently diagnosed esophageal cancer, mass with obstruction of lower third of esophagus-able to pass liquids
Diabetes with insulin pump
Leukocytosis
Anemia
Respiratory insufficiency, chronic
Weight loss-unintentional
Conditions present prior to admission:
Hypertension/hyperlipidemia
History of COPD/emphysema
DLCO 50%
History of syncope
Orthostasis and evidence of hypoglycemia in the past
Peripheral arterial disease
History of pulm nodules, waxing and waning
15 pound weight loss
45+ pack-year history of smoking, ongoing
Plan
Remains critically ill with significant desaturations and now on high flow oxygen
Supplemental oxygen as needed-moved from nasal cannula to high flow oxygen and nonrebreather-attempt to wean
Aspiration precautions
Speech therapy evaluation
Nebulizers-hold inhalers-was on Anoro as an outpatient-currently on DuoNebs and Pulmicort
Incentive spirometry
Mucus clearing devices if needed
Has significant COPD-has DLCO of 50%
Consider steroids if does not improve
Monitor blood sugar
Insulin supplementation as needed
Diabetic nurse practitioner consultation appreciated
A1c if not obtained recently
Intravenous fluids
Follow cultures
Sputum culture pending-unable to produce
Empiric antibiotics for pneumonia-ceftriaxone and azithromycin-finite course
Reviewed with GI-able to pass small scope beyond esophageal obstruction-okay for clear liquids
Will likely need feeding tube prior to discharge
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
Oncology following [id number] reviewed
Performance status quite poor at this point-ideally would require chemoradiation prior to resection-currently not a resection candidate
The patient wishes aggressive therapy including chemoradiation and potential resection at some point
Smoking cessation counseling ongoing-smoking 1-1/2 packs a day prior to admission
Nicotine patch if needed
DVT prophylaxis
GI prophylaxis per gastroenterology
Nutrition
Early mobilization
Patient has appointment with Dr. Nunez-oncology 01/03/2025
Patient follows with Dr. Farrell as outpatient
Patient stable to be transferred out of ICU to IMU-pulmonary will continue to follow
Reviewed the patient�s pertinent medical records including radiographs, microbiology, laboratory evaluations, and��discussion with primary team, consultants, pharmacy, nutrition, physical therapy, case management, charge nurse, critical care
nursing, and respiratory therapy.
Subjective Dataa
Subjective Data
Date of Service:
Date of Service: December 26, 2024
Chief Complaint: Muskrat Trapper Follow Up and Pulmonary Follow Up
Subjective:
Still tenuous respiratory status, overall feels better, still has some mild chest congestion, minimal cough, no chest pain, pleurisy, abdominal pain or leg swelling
Review of Systems
General: Other (Per HPI)
Objective Data
Data Reviewed
Vital Signs / I&O / Oxygen:
Vital Signs
Temp Pulse Resp BP Pulse Ox
99.1 F 92 18 155/65 92
12/26/24 03:09 12/26/24 07:12 12/26/24 07:12 12/26/24 06:00 12/26/24 07:15
Intake and Output
12/25/24 12/26/24 12/27/24
06:59 06:59 06:59
Intake Total 910 / 910 2069
Output Total 625 / 625 1625 / 1625
Balance 285 / 285 445 / 445
SaO2 92
Nasal Cannula flow liters per 50
minute
Physical Exam
General: Respiratory Distress (n), Comfortable and Other (Supplemental Oxygen in place)
HEENT: Normocephalic and Anicteric
Cardiovascular: Regular Rhythm
Respiratory: Clear and Non-Labored Respirations
GI: Soft, Non Distended and Non Tender
Neurology: Awake, Alert and Oriented
Skin: Warm, Good Color, Cyanosis (n), Jaundice (n) and Rash (n)
Labs/Micro/Reports
Lab Data
12/26/24 02:32
12/26/24 02:32
[2024-12-26] MEDS: SENNA SYRUP 8.8 MG PO ×2 (07:27→19:57)
[2024-12-26] MEDS: NOVOLOG FLEXPEN-LOW RESISTANCE 4 UNITS SC ×2 (08:02→17:24)
[2024-12-26] MEDS: NOVOLOG FLEXPEN 6 UNITS SC (08:03)
[2024-12-26 08:04] LABS: Glucose - Point of Care 333 mg/dl (70-99)
[2024-12-26] MEDS: LOW STRENGTH ASPIRIN 81 MG PO (08:11)
--- NOTE | 2024-12-26 08:15 | W.PN.INTV ---
Today's Communication / Plan
Recommendations
Continue calorie counts
Resume home meds, crushed
Set end dates for antibiotics
Downgrade to IMU
Add docusate syrup
Assessment
-
Assessment:
This is a 74 y/o female with pmhx of recently diagnosed esophageal cancer following with [facility] who presented to the ED on 12/21/2024 with poor PO intake, nausea and weakness, and who developed new DKA vs HHS and was subsequently
transferred to the ICU on 12/23/2024
Plan:
Acute on Chronic Respiratory Insufficiency
COPD/Emphysema
Pneumonia, concern for Aspiration vs Community-Acquired
Tobacco Use (45+ pack years, 1-1/2 ppd)
Chest X-ray 12/24 (6AM): New bibasilar airspace opacity, greater on the left, aspiration is a consideration given the change from the previous exam and the esophageal findings. This could also be related to pneumonia.
Chest X-ray 12/24 (9AM): Interval significant worsening of the right basilar consolidation.
Chest X-ray 12/21: No acute cardiopulmonary process
Increased WBC since 12/23 with new increased O2 requirements suggestive of pneumonia, onset time would favor either aspiration or community-acquired over hospital acquired
Currently patient is on high flow oxygen with nonrebreather (From nasal cannula). Wean as tolerated, keeping O2 saturation >92%
Continue aspiration precautions, keeping head of the bed >30-45 degrees
Continue nebulizers, hold home inhalers
Continue incentive spirometry
Recommend smoking cessation, may add nicotine patch if needed
Continue clear liquid diet for now, continue calorie counts
Continue Ceftriaxone 1g IV daily (5 days total), Azithromycin 500mg IV daily (3 days total)
Recommend early out of bed ambulation as tolerated
DKA vs HHS
Diabetes with Insulin Dependence
BG 250, anion gap 17, now closed
a1c 12/23/24: 7.7
Now off insulin drip and on subcutaneous insulin with clear liquid diet
Diabetic nurse practitioner is following, will appreciate their insight into this case
Dysphagia
Esophageal Cancer
Patient with recent diagnosis of esophageal adenocarcinoma with probable local lymph node involvement, with mass obstructing the lower 1/3rd of the esophagus and recent 15lb weight loss
Follows with [facility]
Gastroenterology is following, will appreciate their insight into her case
Spoke to Hematology/Oncology, who states based upon their conversations with her today that at this time she wishes to pursue treatment and would potentially still be curative depending on the level of mets. However, at this time due to acute
respiratory status and hospitalization requiring ICU-level care, she would not be able to tolerate the resection or the pre-resection chemoradiation.
Short term goals include improvement of respiratory status and addressing her nutritional needs as able
Continue clear liquid diet for now, will consult nutrition for calorie counts
Thiamine supplementation added today
Constipation
Continue senna syrup
Start docusate syrup
Essential Hypertension
Hyperlipidemia
Neuropathy
Resumed home meds (Rosuvastatin, amlodipine, lisinopril, duloxetine), crushed
Subjective Dataa
Subjective Data
Date of Service:
Date of Service: December 26, 2024
Chief Complaint: Enterprise Architect Follow Up and Pulmonary Follow Up
Subjective:
Patient reports feeling well today. She still has a cough and unchanged shortness of breath. She continues to take ensure for dietary needs. By staff report, she has not consumed many of them since yesterday as it can take her some time to drink all
of them. She is currently free of pain, though notes she occasionally feels some tight groin pain when she coughs deeply.
Review of Systems
General: Fever (Denies) and Pain (Denies)
Cardiopulmonary: Dyspnea, Cough and Chest Pain (Denies)
GI: Abdominal Pain (Denies), Nausea (Denies) and Vomiting (Denies)
Objective Data
Data Reviewed
Vital Signs / I&O / Oxygen:
Vital Signs
Temp Pulse Resp BP Pulse Ox
99.5 F 98 35 150/55 92
12/26/24 07:36 12/26/24 08:05 12/26/24 08:05 12/26/24 08:05 12/26/24 08:05
Intake and Output
12/25/24 12/26/24 12/27/24
06:59 06:59 06:59
Intake Total 910 / 910 2070 / 0 120 / 120
Output Total 625 / 625 1625 / 1625
Balance 285 / 285 445 / 445 120 / 120
SaO2 92
Nasal Cannula flow liters per 50
minute
Physical Exam
General: Comfortable and Other (Supplemental Oxygen in place)
HEENT: Normocephalic and Anicteric
Cardiovascular: Regular Rhythm
Respiratory: Rhonchi (Trace bilaterally, L>R) and Non-Labored Respirations
GI: Soft, Non Distended and Non Tender
Neurology: Awake, Alert and Oriented
Skin: Warm and Good Color
Labs/Micro/Reports
Lab Data
12/26/24 02:32
12/26/24 02:32
--- NOTE | 2024-12-26 08:39 | PTCARENOTE ---
Pt rec'd from night RN, AOx3, pleasant and cooperative, complains of mild nausea. Medicated with PRN Zofran with good effect. Assisted oob to chair with x1 and RW. Hi flow 02 at 50L/50% with sat stable 88-92%, minimal desat with activity...quickly
recovered. Lungs coarse/dim with scatt rhonchi. +BS, no BM, but poor intake. Pt on calorie count x5 days. Pt only able to drink clear liquids, very small sips at a time. Took meds with few sips orange juice this am. Ensure clear ordered and given,
pt taking slowly-she stated it usually takes her all day to drink. Gen surgery MD Dr. Lees in room to see pt and discuss possibility of J tube placement. Magnetometer Operator, resident, and attending also rounded on pt. Pt verbalized understanding of
plan. Oral care provided, linens changed. Pt for possible downgrade to IMU today.Call marino in reach.
--- NOTE | 2024-12-26 10:13 | PTCARENOTE ---
Hi flow weaned. pt maintaining sat in 90s. Pt stood to reposition, use bsc, washed with bathing cloths. Pericare and back rub provided. Pt returned to chair, laying back, sleeping at this time. No complaints. Orders rec'd for downgrade to IMU level
of care. Call marino in hand.
--- NOTE | 2024-12-26 11:26 | W.PN.ONC2 ---
Today's Communication / Plan
-
Cont supportive care.
Impression
Impression
EUS with regional esophageal cancer
20lb+ weight loss
aspiration
RLL pneumonia
smoker, stopped 1 week ago
Plan
Plan
abx per primary service
advance diet per speech/swallow recommendations -if unable to meet nutritional needs orally then would consider J tube placement
Pending radiation oncology consult outpatient
Has OP follow up with Dr. Nunez on 01/03/2025
Subjective/Objective
Chief Complaint
ACS Heme Onc
Subjective
Breathing improved. Resting in bedside chair.
Vital Signs:
Vital Signs
Temp Pulse Resp BP Pulse Ox
99.5 F 89 18 154/60 91
12/26/24 07:36 12/26/24 11:18 12/26/24 11:18 12/26/24 10:00 12/26/24 11:21
Lab Results:
Laboratory Data
WBC 9.5 10^3/uL (4.8-10.8) 12/26/24 02:32
Hgb 9.1 g/dL (12.0-16.0) L 12/26/24 02:32
Plt Count 213 10^3/uL (130-400) 12/26/24 02:32
PT 13.8 Sec (11.4-14.6) 12/25/24 04:01
INR 1.03 12/25/24 04:01
APTT 42.4 Sec (23.4-35.0) H 12/25/24 04:01
eGFR > 60.00 12/26/24 02:32
Physical Exam
High flow O2
Cardiology: S1 and S2
Pulmonary: Clear
[2024-12-26 11:47] LABS: Glucose - Point of Care 384 mg/dl (70-99)
[2024-12-26] MEDS: NOVOLOG FLEXPEN SC (11:58)
[2024-12-26] MEDS: CYMBALTA DELAYED RELEASE 90 MG PO (12:02)
[2024-12-26] MEDS: COLACE LIQUID 100 MG PO ×2 (12:02→19:57)
--- NOTE | 2024-12-26 12:03 | CON.GS ---
Consultation
-
Date/Time Consultation Requested: 12/25/2024 5 PM
Date/Time Consultation Performed: 12/25/2024 9 AM
Requesting Provider: Hospitalist
Performing Provider: Dr. Oakes
Reason for Consultation: Enteral access
Medical History
-
Chief Complaint: Nausea vomiting
History of Present Illness:
This is a 74-year-old female smoker who presents with nausea vomiting abdominal pain on 12/21/[address] imaging with a bolus of food in the distal esophagus secondary to a known biopsy-proven esophageal adenocarcinoma. She was due for a PET scan
to complete staging but has not had that yet as far as I can tell. As of now, she can tolerate clear liquids only and has difficulty with even things like soup or full liquids. She is tolerating clear Ensure but this takes her several hours to
finish. She is currently on a calorie count with speech. She endorses a significant weight loss over the past several months. She has quit smoking. She is currently in the ICU for what appears to be aspiration pneumonitis likely secondary to her
GE junction obstruction. General surgery has been consulted for enteral access.
Past Medical History
Past Medical History: Other (Diabetes, hypertension, hyperlipidemia, adrenal adenoma, osteopenia, CKD, COPD)
Past Surgical History: Reviewed & Noncontributory
Social History
Tobacco: Smoker
Alcohol: None
Drug: None
Personal: Single
Living: Alone
Family History
Family History: Reviewed & Not Pertinent
Allergies / Home Medications
Allergy/AdvReac Type Severity Reaction Status Date / Time
atorvastatin calcium (From Allergy Swelling Verified 12/21/24 12:53
Lipitor) and hives
latex (Latex) Allergy Rash,ithcy Verified 12/21/24 12:53
and burning
�Medication �Instructions �Recorded �Confirmed �Type
aspirin 81 mg chewable tablet 81 mg PO DAILY Blood clot 10/30/13 12/21/24 History
prevention/tx
duloxetine 60 mg capsule,delayed 60 mg PO DAILY Neurological 10/30/13 12/21/24 History
release Condition
rosuvastatin 10 mg tablet 10 mg PO DAILY High cholesterol 10/30/13 12/21/24 History
duloxetine 30 mg capsule,delayed 30 mg PO DAILY Neurological 03/11/21 12/21/24 History
release Condition
gabapentin 100 mg capsule 300 mg PO HS Neurological Condition 03/11/21 12/21/24 History
melatonin 10 mg tablet 10 mg PO HSPRN PRN sleep 01/13/23 12/21/24 History
Patient Own Insulin Pump 1 sliding scale dose SC .INSULIN 11/16/24 12/21/24 History
LISPRO Diabetes
amlodipine 5 mg tablet (Norvasc) 5 mg PO DAILY Blood Pressure 11/16/24 12/21/24 History
famotidine 40 mg tablet (Pepcid) 40 mg PO BID Gastrointestinal Issue 11/16/24 12/21/24 History
umeclidinium 62.5 mcg-vilanterol 1 inh inhalation R DAILY 11/16/24 12/21/24 History
25 mcg/actuation powdr for Lung/Breathing Issues
inhalation (Anoro Ellipta)
gabapentin 100 mg capsule 100 mg PO DAILY 30 days #30 caps 11/18/24 12/21/24 Rx
lisinopril 5 mg tablet 5 mg PO DAILY #30 tabs 11/20/24 12/21/24 Rx
Review of Systems
-
All other systems: Negative unless noted
A 10 point review of systems was completed, and was negative except as per HPI.
Physical Exam
Vital Signs
Temp Pulse Resp BP Pulse Ox
98.1 F 89 18 154/60 91
12/26/24 11:33 12/26/24 11:18 12/26/24 11:18 12/26/24 10:00 12/26/24 11:21
12/25/24 12/26/24 12/27/24
06:59 06:59 06:59
Actual Weight 60.8 kg
Body Mass Index (BMI) 19.8
Lab Results
12/26/24 02:32
12/26/24 02:32
WBC 9.5 10^3/uL (4.8-10.8) 12/26/24 02:32
Hgb 9.1 g/dL (12.0-16.0) L 12/26/24 02:32
Hct 26.6 % (37.0-47.0) L 12/26/24 02:32
Plt Count 213 10^3/uL (130-400) 12/26/24 02:32
Abs Immat Gran (auto) 0.0 10^3/uL (0-0.05) 12/21/24 13:09
Neutrophils % 68.7 % (42.2-75.2) 12/21/24 13:09
Physical Exam
General: Well Developed and Comfortable
Respiratory: Other (Requiring supplemental oxygen.)
GI: Soft and Non Tender
Data Reviewed
-
CT Scan: Image Personally Visualized and interpreted, Report Reviewed by me, Discussed with Physician and Discussed with Patient
Labs: Labs Reviewed by me
Total Time Spent with Patient (in minutes): 20
Assessment / Plan
-
This is a 74-year-old female with recently diagnosed biopsy-proven esophageal adenocarcinoma with narrowing at the GE junction, currently in the ICU for respiratory support in the setting of aspiration pneumonia in the setting of underlying COPD.
General surgery consulted for enteral access. Generally would favor a G-tube if there is evidence of metastatic disease and surgical resection unlikely but if surgical resection is an option for her, happy to move forward with a laparoscopic J-tube
placement next week, to allow further time for her lungs to heal before general anesthesia.
Reasonable to move forward with calorie count for now but I have a low suspicion that she will be able to hit 1800 peng/day. Could consider TPN as well.
General surgery will follow peripherally. Please call with any questions or concerns.
[2024-12-26] MEDS: NOVOLOG FLEXPEN-LOW RESISTANCE 5 UNITS SC (12:04)
[2024-12-26] MEDS: NORVASC 5 MG PO (12:08)
[2024-12-26] MEDS: CRESTOR 10 MG PO (12:09)
[2024-12-26] MEDS: ZESTRIL 5 MG PO (12:10)
[2024-12-26] MEDS: NOVOLOG FLEXPEN 15 UNITS SC ×2 (12:10→17:24)
[2024-12-26] MEDS: ZITHROMAX INFUSION 250 IV (12:56)
--- NOTE | 2024-12-26 13:05 | PTCARENOTE ---
Pt tolerated sitting in chair for approx 5 hours. Back in bed at this time. Pt had a water ice for lunch along with iced tea. Also finished first ensure clear avila flavor and is working now on drinking second one. Calorie count ongoing. Safe
environment continues.
[2024-12-26] MEDS: STERILE WATER FOR INJECTION 10 ML IV (14:06)
[2024-12-26] MEDS: ROCEPHIN 1000 MG IV (14:06)
--- NOTE | 2024-12-26 14:09 | W.PN.HOSP.TC ---
Today's Communication/Plan
-
See plan
Assessment / Plan
Assessment / Plan
Physical Exam
General: Not in acute distress
HEENT: Normocephalic, Moist mucous membranes
Respiratory: Clear to Auscultation Bilaterally
Cardiac: S1/S2 and Regular Rhythm
GI: Soft and Tender. Positive bowel sounds.
Musculoskeletal: No Cyanosis and No Edema
Skin: Warm and Dry
Neuro: Awake, Alert, Oriented and AO x 3
Psych: Calm
Assessment/Plan
74-year-old female who presented to the emergency room for evaluation of weakness and nausea. Patient was recently diagnosed with esophageal cancer and saw [facility] Dr. Luna in [place]. She was scheduled for PET scan on 12/21/24
but had extreme weakness nausea and dry heaves. She also complained of abdominal pain.
On 12/20/24, patient had an upper endoscopic ultrasound:
malignant appearing esophageal stenosis,
no gross lesions in the stomach normal duodenal bulb
a mass in the lower third of the esophagus adenocarcinoma.
Virtually completely resolved pericardial effusion in comparison to prior CT.
CT Abdomen/Pelvis showed (as per radiologist's report):
Incompletely included on this study is large volume food material seen within the distal thoracic esophagus suggesting mass/obstruction at the gastroesophageal junction. Malignancy is the diagnosis of exclusion. Cannot exclude some small distal
periesophageal varices. Findings discussed by telephone with FABY Cabello BLOW UP OPERATOR at 1855 hours on December 21, 2024
Virtually completely resolved pericardial effusion in comparison to prior CT.
Small Simple Right Renal Cyst plus an additional subcentimeter low-attenuation right renal lesion too small to characterize
Abdominal aorta with calcific atherosclerotic changes
Moderate to large volume widespread colonic stool
Moderate to large volume stool is seen in the rectosigmoid region
Degenerative changes most prominent in the lower lumbar spine
#Acute Hypoxic Respiratory Failure developed on 12/24/24
#COPD
#Pneumonia, concern for Aspiration vs Community-Acquired
-Developed on 12/24/24
-Suspected aspiration
-Completed 3 days of Azithromycin
-Has been getting Ceftriaxone
-Pulmonary toilet, bronchodilators
-Aspiration precautions
-Continue high flow oxygen; wean as tolerated
-No meds via oral means (given issues with esophagus), but can continue clear liquids (with Ensure protein supplement) via oral means - if patient is unable to meet nutritional needs orally then would consider J tube placement
-Surgery consulted for possible J tube placement (GI said no Dobhoff tube placement): move forward with a laparoscopic J-tube placement next week, to allow further time for her lungs to heal before general anesthesia
-Discussed TPN with patient and possible associated adverse effects, but at this time, patient has declined TPN
-Calorie Counts, thiamine and multivitamin supplementation
#Fever on 12/24/24 and 12/26/24
- Blood cultures x2
- Check COVID, Influenza tests
- Change antibiotics from Ceftriaxone to Unasyn
- If patient continues to have fevers, may need to broaden antibiotics
#Chest discomfort/nausea -- likely some local irritation after endoscopic ultrasound
#Esophageal stricture from esophageal cancer
Okay to continue Clear Liquids Diet as per GI
Thiamine supplementation
IV fluids
Nausea control
GI consult
Oncology consulted: patient wishes to pursue treatment and would potentially still be curative depending on the level of mets. No procedures at this time given hypoxia and acuity.
Goals remain restorative - optimize nutrition and performance status in anticipation of outpatient antineoplastic therapy
Check CT chest closer to discharge once pneumonia/pneumonitis from aspiration has improved-missed PET 12/21
Pending radiation oncology consult outpatient
Smoking cessation
Patient has outpatient follow-up with Dr. Nunez on 01/03/2025
#Euglycemic Diabetic Ketoacidosis and Starvation Ketoacidosis
#Anion Gap Metabolic Acidosis secondary to the above
- Lactic acid was normal
- Suspected DKA from running out of insulin in pump together with reduction in PO intake given esophageal issues above
- D5 IV fluids (given sugars in the 200s)+Insulin Drip were given, later transitioned to subq Insulin as DKA resolved
- Monitor in ICU/IMU
- Appreciate electronic system engineer
- DKA resolved
#IDDM with insulin pump
- Patient Insulin pump had run out of Insulin on 12/22/24-12/23/24
- Diabetes BLOW UP OPERATOR consulted
- Continue subq Insulin -- has been increased due to high blood sugars overnight
#Hypercalcemia
IV fluids were given
Improved
#Orthostatic hypotension, syncope
#Hypertension
-Holding Lisinopril and Amlodipine as unsafe to swallow
-prn order for hydralazine 5mg Q6hprn for SBP >160
#Hyperlipidemia
-Rosuvastatin cannot be crushed and does not have a liquid form as per clinical pharmacist
#Coronary Artery Disease
#PAD
-Rectal Aspirin converted to chewable to be dissolved in liquid due to patient refusal of rectal aspirin
-Duloxetine cannot be crushed and does not have a liquid form as per clinical pharmacist
#History of pericardial effusion
#History of: pulmonary nodules, adrenal tumor, Tasha's thyroiditis, anemia, ADHD
#Insomnia
-Melatonin cannot be crushed and does not have a liquid form as per clinical pharmacist
#Severe protein calorie malnutrition of chronic illness
Code DNR
Lovenox DVTp
Acute Hypoxia needing high flow oxygen is a high risk encounter.
Anticipated Discharge: > 48 hours
Subjective/Interval History
-
Date of Service: December 26, 2024
Patient was seen and examined. She reported feeling better today, she still has shortness of breath but overall she feels better.
Objective Data
-
Labs:
Laboratory Results
12/26/24
02:32
WBC 9.5
Hgb 9.1 L
Hct 26.6 L
Plt Count 213
Sodium 144
Potassium 3.2 L
Chloride 113 H
Carbon Dioxide 26
BUN 17
Creatinine 0.9
Glucose 263 H
Calcium 9.5
Vital Signs:
Vital Signs
Temp Pulse Resp BP Pulse Ox
98.1 F 92 26 151/60 91
12/26/24 11:33 12/26/24 13:01 12/26/24 13:01 12/26/24 13:01 12/26/24 13:01
I&O
12/25/24 12/26/24 12/27/24
06:59 06:59 06:59
Intake Total 910 / 910 2069 / 0 1450 / 1450
Output Total 625 / 625 1625 / 1625 350 / 350
Balance 285 / 285 445 / 445 1100 / 1100
[2024-12-26] MEDS: LOVENOX 40 MG SC (16:25)
[2024-12-26] MEDS: TYLENOL ORAL SOLUTION 650 MG PO (16:26)
--- NOTE | 2024-12-26 16:47 | CM ---
Wean FiO2, IV/Rocephin, speech increased diet, calorie count, if does not meet nutritional requirements consider peg, surgical consult for peg, aspiration precautions, RLL PNA. Discharge POC: Await therapy eval. Follow up with Oncology and
Radiology as outpatient.
[2024-12-26 17:28] LABS: Glucose - Point of Care 318 mg/dl (70-99)
[2024-12-26 18:56] LABS: COVID-19 Antigen Negative (Negative)
[2024-12-26] MEDS: NEURONTIN 300 MG PO (19:57)
[2024-12-26] MEDS: UNASYN IV (19:57)
[2024-12-26 21:50] LABS: Glucose - Point of Care 94 mg/dl (70-99)
--- NOTE | 2024-12-26 22:38 | PTCARENOTE ---
patient blood glucose at 1700 was 318. 2100 blood glucose was 94. TT MARKETING PRODUCTION MANAGER about holding 2200 lantus 12 units for patient. MARKETING PRODUCTION MANAGER agreed to hold. continuing to monitor. call marino in reach.
[2024-12-27] VITALS (14 sets, daily range): BP systolic 142–184; BP diastolic 54–71; BMI 20.3
[2024-12-27] MEDS: UNASYN IV ×5 (01:46→23:35)
[2024-12-27] MEDS: ZOFRAN 4 MG IV ×3 (05:27→23:35)
[2024-12-27 05:48] LABS: Hematocrit 24.8 % (37.0-47.0); Hemoglobin 8.6 g/dL (12.0-16.0); Mean Corp Hgb Conc. 34.7 g/dL (33.0-37.0); Mean Corpuscular Volume 91.9 fL (81.0-99.0); Platelet Count 237 10^3/uL (130-400); Red Cell Dist. Width 13.8 % (11.5-14.5)
[2024-12-27] MEDS: APRESOLINE 5 MG IV (06:04)
[2024-12-27 06:11] LABS: Blood Urea Nitrogen 15 mg/dl (7-17); Calcium 9.3 mg/dl (8.4-10.2); Carbon Dioxide 24 mmol/L (22-30); Chloride 110 mmol/L (98-107); Estimated Creatinine Clearance 61 ml/min; Glucose 253 mg/dl (70-99); Magnesium 1.9 mg/dl (1.6-2.3); Potassium 3.5 mmol/L (3.5-5.1); Sodium 136 mmol/L (135-145); eGFR > 60.00
[2024-12-27] MEDS: PULMICORT 0.5 MG INH ×2 (07:36→19:14)
[2024-12-27] MEDS: DUONEB 3 ML INH ×4 (07:36→19:14)
[2024-12-27 08:12] LABS: Glucose - Point of Care 328 mg/dl (70-99)
--- NOTE | 2024-12-27 08:24 | PTCARENOTE ---
Patient is complaining of nausea at this time. Zofran administered at 0530. Unable to take oral mediations at this time. Will discuss insulin dose with hospitalist.
[2024-12-27] MEDS: NOVOLOG FLEXPEN SC ×2 (08:47→18:00)
[2024-12-27] MEDS: NOVOLOG FLEXPEN-LOW RESISTANCE 4 UNITS SC (08:53)
[2024-12-27] MEDS: LANTUS 0.15 UNITS SC (08:53)
[2024-12-27] MEDS: THIAMINE INJECTION 100 MG IV (08:55)
--- NOTE | 2024-12-27 09:53 | W.PN.PUL3 ---
Today's Communication / Plan
-
Continue oxygen supplementation-mid flow 12 L-high flow discontinued
Continue antibiotics-Unasyn
Follow cultures-so far negative
Follow fever curve
Chest x-ray as needed depending on clinical situation
Aspiration precaution
Nutritional support
Will follow
Assessment
-
This is a 74 y/o female with pmhx of recently diagnosed esophageal cancer following with [facility] who presented to the ED on 12/21/2024 with poor PO intake, nausea and weakness, and who developed new DKA vs HHS and was subsequently
transferred to the ICU on 12/23/2024
Pulmonary following 12/27/2024 regarding pneumonia and respiratory failure.
Plan:
Acute hypoxemic respiratory failure: High flow oxygen has been discontinued-currently on mid flow 12 L - 99% at rest per
Mild respiratory distress without activity-
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 Not bronchospastic on exam.
Tobacco Use (45+ pack years, 1-1/2 ppd)
Pneumonia, concern for Aspiration vs Community-Acquired
-
Leukocytosis noted/last fever 12/26/2024
Continue to monitor
Chest X-ray 12/24 (6AM): New bibasilar airspace opacity, greater on the left, aspiration is a consideration given the change from the previous exam and the esophageal findings. This could also be related to pneumonia.
Chest X-ray 12/24 (9AM): Interval significant worsening of the right basilar consolidation.
Chest X-ray 12/21: No acute cardiopulmonary process
Continue Unasyn-given esophageal issues aspiration a possibility also location in the right lower lobe
Continue aspiration precautions, keeping head of the bed >30-45 degrees
Continue nebulizers-DuoNebs/Pulmicort, hold home inhalers--> no indication for systemic corticosteroids.
Continue incentive spirometry-encourage p.o.
Recommend smoking cessation--encourage.
--Aspiration precautions
Continue clear liquid diet for now, continue calorie counts
Recommend early out of bed ambulation as tolerated
-
DKA vs HHS-resolved
Continue diabetes management per primary team
-
Dysphagia
Esophageal Cancer
Patient with recent diagnosis of esophageal adenocarcinoma with probable local lymph node involvement, with mass obstructing the lower 1/3rd of the esophagus and recent 15lb weight loss
Follows with [facility]
Gastroenterology is following, will appreciate their insight into her case
Spoke to Hematology/Oncology, who states based upon their conversations with her today that at this time she wishes to pursue treatment and would potentially still be curative depending on the level of mets. However, at this time due to acute
respiratory status and hospitalization requiring ICU-level care, she would not be able to tolerate the resection or the pre-resection chemoradiation.
Short term goals include improvement of respiratory status and addressing her nutritional needs as able
Other medical problems:
Essential Hypertension
Hyperlipidemia
Neuropathy
Resumed home meds (Rosuvastatin, amlodipine, lisinopril, duloxetine), crushed
Subjective Data
-
Date of Service:
Date of Service: December 27, 2024
Chief Complaint: Pulmonary Follow Up (Pneumonia/likely aspiration-hypoxemic respiratory failure)
Subjective:
Shortness of breath with activity
Currently resting comfortably almost flat in bed
Remains on mid flow oxygen-12 L
Denies hemoptysis
Denies chest
Review of Systems
General: Fever (n)
Cardiopulmonary: Dyspnea, Dyspnea on Exertion and Cough
Objective Data
Data Reviewed
Vital Signs / I&O / Oxygen:
Vital Signs
Temp Pulse Resp BP Pulse Ox
99.5 F 90 20 184/70 92
12/27/24 07:12 12/27/24 07:38 12/27/24 07:38 12/27/24 06:04 12/27/24 08:28
Intake and Output
12/26/24 12/27/24 12/28/24
06:59 06:59 06:59
Intake Total 2069 193 / 193
Output Total 1625 / 1625 350 / 350
Balance 445 / 445 1580 / 1580
SaO2 92
Nasal Cannula flow liters per 15
minute
Physical Exam
General: Respiratory Distress (mild at rest)
HEENT: Normocephalic
Cardiovascular: S1-S2
Respiratory: Crackles (right base)
GI: Soft and Non Distended
Neurology: Awake and Alert
Skin: Warm
Labs/Micro/Reports
Lab Data
12/27/24 05:24
12/27/24 05:24
Microbiology
12/26/24 18:07 Nasal Swab Influenza Types A & B (AMANDA) - Final
Negative for Influenza A & B, NAAT
Negative results must be combined with clinical observations
and patient history.
Nucleic Acid Amplification test (NAAT)performed on the
[employer] NOW platform.
[2024-12-27] MEDS: PEPCID IV (10:43)
[2024-12-27] MEDS: NSS (PRESERVATIVE FREE) IV (10:43)
--- NOTE | 2024-12-27 10:52 | W.PN.ONC2 ---
Today's Communication / Plan
-
consult surgery for jtube placement
Impression
Impression
EUS with regional esophageal cancer
20lb+ weight loss
aspiration
RLL pneumonia
smoker, stopped 1 week ago
Plan
Plan
abx per primary service
advance diet per speech/swallow recommendations -if unable to meet nutritional needs orally then would consider J tube placement
Pending radiation oncology consult outpatient
Has OP follow up with Dr. Nunez on 01/03/2025
Subjective/Objective
Subjective
poor oral intake
nausea
denies pain or bleeding
Vital Signs:
Vital Signs
Temp Pulse Resp BP Pulse Ox
99.5 F 90 20 184/70 92
12/27/24 07:12 12/27/24 07:38 12/27/24 07:38 12/27/24 06:04 12/27/24 08:28
Lab Results:
Laboratory Data
WBC 13.5 10^3/uL (4.8-10.8) H 12/27/24 05:24
Hgb 8.6 g/dL (12.0-16.0) L 12/27/24 05:24
Plt Count 237 10^3/uL (130-400) 12/27/24 05:24
PT 13.8 Sec (11.4-14.6) 12/25/24 04:01
INR 1.03 12/25/24 04:01
APTT 42.4 Sec (23.4-35.0) H 12/25/24 04:01
eGFR > 60.00 12/27/24 05:24
Physical Exam
HEENT: Moist Mucous Membranes; No Jaundice
Pulmonary: Other (unlabored)
GI: Soft
Extremities: Pulses Present
Neuro: Non Focal
--- NOTE | 2024-12-27 11:15 | PTCARENOTE ---
Received report and assumed care. Chart, labs and orders reviewed. See assessment rn charted on worklist flowsheet. Denies pain but c/o nausea. Zofran given prn, see MAR. Pedal pulses diminished with trace pedal edema. Hypoactive bowel sounds with
positive flatus. Refuses am oral meds at this time due to nausea. BBS clear but diminished t/o and right base crackles. On 8L midflow oxygen. Tachypneic but denies SOB. Poor eye contact, minimally conversational, withdrawn. Emotional support and
encouragement given. Refuses to get OOB. Bed in low and locked position, call marino within reach.
--- NOTE | 2024-12-27 11:50 | PN.DE.MGMTRT ---
Insulin Management
- -
12/27/2024: Diabetes Management Consult Follow up
Patient admitted 12/21 with c/o nausea, abdominal pain and weakness. PMH: HTN, HLD, Neuropathy, COPD, Depression, CKD, Chronic kidney disease syncope with falls, and diabetes. Patient lives alone in a mobile home, was recently diagnosed with
esophageal cancer via upper endoscopy involving the lower third of her esophagus. Prior to admission was using a Medtronic 780G insulin pump with Guardian sensor and Humalog insulin. A1C 7.7%, Cr 0.9, eGFR >60. Follows with Endocrine VIRGIL Costello
[facility].
Her insulin pump ran out of insulin on Friday 12/22 so was removed. She developed elevated blood sugars of 255, anion gap 17, was transferred to ICU for further management for DKA, possible HHNK.
12/23 Transitioned from insulin infusion.
12/24 Glucose range 85 to 175. Received 12 units lantus, 6 units novolog AC.
12/25 Fasting glucose 94. Patient appetite is very poor, will decrease AC novolog to 3 units and decrease HS lantus to 10 units.
12/26 Fasting glucose 333. Will increase HS lantus to 12 units. Yesterday appetite improved, able to take Ensure and clear liquids, glucose trended up to 396 pre dinner. Overnight MASK DESIGN ENGINEER resumed 6 units novolog AC. Will continue current regimen.
12/27 Yesterday glucose range 318 to 384 then 94 @ HS. Patient received no lantus - HELD. Fasting glucose this AM 253. Will give lantus 15 units this AM and continue daily moving forward. Patient had nausea and is unable to take liquids.
Discussed with nurse to give corrective insulin only. If able to take liquids will resume AC novolog with corrective insulin.
Discussed with Nurse. Will cont to monitor.
Pt will resume her insulin pump upon arrival home.
Diabetes History
- -
Type of Diabetes: 2 requiring insulin
Pre-Admission Diabetes Regimen
12/27/24
05:24
Creatinine 0.8
Lab Results
Hemoglobin A1c 7.7 % (4.0-5.9) H 12/23/24 06:52
Insulin Pump Settings
IP Diabetes Regimen
12/26/24 12/26/24 12/27/24
17:16 21:37 05:24
Glucose 253 H
POC Glucose 318 H 94
12/27/24
08:00
Glucose
POC Glucose 328 H
Meal type: Lunch
Amount consumed: 100%
Patient Education
[2024-12-27] MEDS: NOVOLOG FLEXPEN 15 UNITS SC (12:31)
[2024-12-27] MEDS: NOVOLOG FLEXPEN-LOW RESISTANCE SC ×2 (12:31→18:00)
[2024-12-27 12:33] LABS: Glucose - Point of Care 281 mg/dl (70-99)
--- NOTE | 2024-12-27 13:09 | W.PN.HOSP.TC ---
Today's Communication/Plan
-
See plan
Assessment / Plan
Assessment / Plan
Physical Exam
General: Not in acute distress
HEENT: Normocephalic, Moist mucous membranes
Respiratory: Clear to Auscultation Bilaterally
Cardiac: S1/S2 and Regular Rhythm
GI: Soft and Tender. Positive bowel sounds.
Musculoskeletal: No Cyanosis and No Edema
Skin: Warm and Dry
Neuro: Awake, Alert, Oriented and AO x 3
Psych: Calm
Assessment/Plan
74-year-old female who presented to the emergency room for evaluation of weakness and nausea. Patient was recently diagnosed with esophageal cancer and saw [facility] Dr. Luna in [place]. She was scheduled for PET scan on 12/21/24
but had extreme weakness nausea and dry heaves. She also complained of abdominal pain.
On 12/20/24, patient had an upper endoscopic ultrasound:
malignant appearing esophageal stenosis,
no gross lesions in the stomach normal duodenal bulb
a mass in the lower third of the esophagus adenocarcinoma.
Virtually completely resolved pericardial effusion in comparison to prior CT.
CT Abdomen/Pelvis showed (as per radiologist's report):
Incompletely included on this study is large volume food material seen within the distal thoracic esophagus suggesting mass/obstruction at the gastroesophageal junction. Malignancy is the diagnosis of exclusion. Cannot exclude some small distal
periesophageal varices. Findings discussed by telephone with FABY Cabello SHOE STITCHER ODD at 1855 hours on December 21, 2024
Virtually completely resolved pericardial effusion in comparison to prior CT.
Small Simple Right Renal Cyst plus an additional subcentimeter low-attenuation right renal lesion too small to characterize
Abdominal aorta with calcific atherosclerotic changes
Moderate to large volume widespread colonic stool
Moderate to large volume stool is seen in the rectosigmoid region
Degenerative changes most prominent in the lower lumbar spine
#Acute Hypoxic Respiratory Failure developed on 12/24/24
#COPD
#Pneumonia, concern for Aspiration vs Community-Acquired
-Developed on 12/24/24
-Suspected aspiration
-Completed 3 days of Azithromycin
-Has been getting Ceftriaxone
-Pulmonary toilet, bronchodilators
-Aspiration precautions
-Continue high flow oxygen; wean as tolerated
-No meds via oral means (given issues with esophagus), but can continue clear liquids (with Ensure protein supplement) via oral means - if patient is unable to meet nutritional needs orally then would consider J tube placement
-Surgery consulted for possible J tube placement (GI said no Dobhoff tube placement): move forward with a laparoscopic J-tube placement next week, to allow further time for her lungs to heal before general anesthesia
-Discussed TPN with patient and possible associated adverse effects, but at this time, patient has declined TPN
-Calorie Counts, thiamine and multivitamin supplementation
#Fever on 12/24/24 and 12/26/24
- Blood cultures x2
- COVID, Influenza tests, Strep Pneumo and Legionella all negative
- Changed antibiotics from Ceftriaxone to Unasyn on 12/27/24
- If patient continues to have fevers, may need to broaden antibiotics
#Chest discomfort/nausea -- likely some local irritation after endoscopic ultrasound
#Esophageal stricture from esophageal cancer
Okay to continue Clear Liquids Diet as per GI
Thiamine supplementation
IV fluids
Nausea control
GI consult
Oncology consulted: patient wishes to pursue treatment and would potentially still be curative depending on the level of mets. No procedures at this time given hypoxia and acuity.
Goals remain restorative - optimize nutrition and performance status in anticipation of outpatient antineoplastic therapy
Check CT chest closer to discharge once pneumonia/pneumonitis from aspiration has improved-missed PET 12/21
Pending radiation oncology consult outpatient
Smoking cessation
Patient has outpatient follow-up with Dr. Nunez on 01/03/2025
Unasyn antibiotics may also be contributing to nausea
Check abdominal x-ray given increased nausea
#Euglycemic Diabetic Ketoacidosis and Starvation Ketoacidosis
#Anion Gap Metabolic Acidosis secondary to the above
- Lactic acid was normal
- Suspected DKA from running out of insulin in pump together with reduction in PO intake given esophageal issues above
- D5 IV fluids (given sugars in the 200s)+Insulin Drip were given, later transitioned to subq Insulin as DKA resolved
- Monitor in ICU/IMU
- Appreciate nursing coordinator
- DKA resolved
#IDDM with insulin pump
- Patient Insulin pump had run out of Insulin on 12/22/24-12/23/24
- Diabetes SHOE STITCHER ODD consulted
- Continue subq Insulin -- has been increased due to high blood sugars overnight
#Hypercalcemia
IV fluids were given
Improved
#Orthostatic hypotension, syncope
#Hypertension
-Holding Lisinopril and Amlodipine as unsafe to swallow
-prn order for hydralazine 5mg Q6hprn for SBP >160
#Hyperlipidemia
-Rosuvastatin cannot be crushed and does not have a liquid form as per clinical pharmacist
#Coronary Artery Disease
#PAD
-Rectal Aspirin converted to chewable to be dissolved in liquid due to patient refusal of rectal aspirin
-Duloxetine cannot be crushed and does not have a liquid form as per clinical pharmacist
#History of pericardial effusion
#History of: pulmonary nodules, adrenal tumor, Tasha's thyroiditis, anemia, ADHD
#Insomnia
-Melatonin cannot be crushed and does not have a liquid form as per clinical pharmacist
#Severe protein calorie malnutrition of chronic illness
Code DNR
Lovenox DVTp
Acute Hypoxia needing midflow oxygen, and nausea is a high risk encounter.
Anticipated Discharge: > 48 hours
Subjective/Interval History
-
Date of Service: December 27, 2024
Patient was seen and examined. She reported nausea.
Objective Data
-
Labs:
Laboratory Results
12/27/24
05:24
WBC 13.5 H
Hgb 8.6 L
Hct 24.8 L
Plt Count 237
Sodium 136 D
Potassium 3.5
Chloride 110 H
Carbon Dioxide 24
BUN 15
Creatinine 0.8
Glucose 253 H
Calcium 9.3
Vital Signs:
Vital Signs
Temp Pulse Resp BP Pulse Ox
99.5 F 91 36 149/65 94
12/27/24 11:05 12/27/24 12:06 12/27/24 12:06 12/27/24 12:06 12/27/24 12:06
I&O
12/26/24 12/27/24 12/28/24
06:59 06:59 06:59
Intake Total 2069 / 1929
Output Total 1625 / 1625 350 / 350
Balance 445 / 445 1580 / 1580
[2024-12-27] MEDS: COLACE LIQUID PO (15:29)
[2024-12-27] MEDS: CYMBALTA DELAYED RELEASE PO ×2 (15:29)
[2024-12-27] MEDS: CRESTOR PO (15:29)
[2024-12-27] MEDS: SENNA SYRUP PO (15:30)
[2024-12-27] MEDS: NEURONTIN PO ×2 (15:30→20:21)
[2024-12-27] MEDS: NORVASC PO (15:30)
[2024-12-27] MEDS: LOW STRENGTH ASPIRIN PO (15:30)
[2024-12-27] MEDS: ZESTRIL PO (15:30)
[2024-12-27] MEDS: DILAUDID 0.25 MG IV (16:04)
[2024-12-27 17:51] LABS: Glucose - Point of Care 137 mg/dl (70-99)
[2024-12-27] MEDS: NEUTRA-PHOS POWDER PACKET PO (18:03)
[2024-12-27] MEDS: D5LR 1000 IV (18:05)
[2024-12-27] MEDS: LOVENOX 40 MG SC (18:06)
--- NOTE | 2024-12-27 19:07 | PTCARENOTE ---
Report given verbally to oncoming shift, Sandra WILLIAMSON. Bedside rounds completed. Questions answered.
[2024-12-27] MEDS: COLACE LIQUID 100 MG PO (20:21)
[2024-12-27] MEDS: SENNA SYRUP 8.8 MG PO (20:21)
[2024-12-27] MEDS: NEUTRA-PHOS POWDER PACKET 250 MG PO (20:25)
[2024-12-27 21:22] LABS: Glucose - Point of Care 251 mg/dl (70-99)
[2024-12-28] VITALS (13 sets, daily range): BP systolic 132–177; BP diastolic 57–126; BMI 20.4
[2024-12-28 01:34] LABS: Blood Urea Nitrogen 15 mg/dl (7-17); Calcium 9.3 mg/dl (8.4-10.2); Chloride 110 mmol/L (98-107); Estimated Creatinine Clearance 55 ml/min; Glucose 236 mg/dl (70-99); Potassium 3.4 mmol/L (3.5-5.1); Sodium 139 mmol/L (135-145); eGFR > 60.00
[2024-12-28 01:45] LABS: Carbon Dioxide 27 mmol/L (22-30)
[2024-12-28] MEDS: COMPAZINE 5 MG IV (03:20)
[2024-12-28 04:49] LABS: Hematocrit 24.4 % (37.0-47.0); Hemoglobin 8.4 g/dL (12.0-16.0); Mean Corp Hgb Conc. 34.4 g/dL (33.0-37.0); Mean Corpuscular Volume 92.8 fL (81.0-99.0); Platelet Count 245 10^3/uL (130-400); Red Cell Dist. Width 13.7 % (11.5-14.5)
[2024-12-28 05:12] LABS: Blood Urea Nitrogen 15 mg/dl (7-17); Calcium 9.1 mg/dl (8.4-10.2); Carbon Dioxide 26 mmol/L (22-30); Chloride 110 mmol/L (98-107); Estimated Creatinine Clearance 62 ml/min; Glucose 261 mg/dl (70-99); Potassium 3.4 mmol/L (3.5-5.1); Sodium 139 mmol/L (135-145); eGFR > 60.00
[2024-12-28] MEDS: UNASYN IV ×3 (06:13→17:04)
[2024-12-28] MEDS: D5LR 1000 IV ×2 (06:14→22:25)
--- NOTE | 2024-12-28 06:35 | PTCARENOTE ---
Caring for pt overnight. aaox3, pleasant. Seems tired but did not complain about pain or SOB. Increased to 12LMF overnight for desating, lowest to 82% when awake and talking. Now on 10LMF. OOB to BSCX1. NSR. Continues on clear liquids, able to take
liquid medications. K 3.4 this morning but due for oral supp in am. afebrile overnight. VSS. Will monitor.
[2024-12-28] MEDS: DUONEB 3 ML INH ×3 (07:13→19:59)
[2024-12-28] MEDS: PULMICORT 0.5 MG INH ×2 (07:17→19:59)
--- NOTE | 2024-12-28 07:46 | PN.DE.MGMTRT ---
Insulin Management
- -
12/28/2024: Diabetes Management Follow up
Patient admitted 12/21 with c/o nausea, abdominal pain and weakness. PMH: HTN, HLD, Neuropathy, COPD, Depression, CKD, Chronic kidney disease syncope with falls, and diabetes. Patient lives alone in a mobile home, was recently diagnosed with
esophageal cancer via upper endoscopy involving the lower third of her esophagus. Prior to admission was using a Medtronic 780G insulin pump with Guardian sensor and Humalog insulin. A1C 7.7%, Cr 0.9, eGFR >60. Follows with Endocrine VIRGIL Costello
[facility].
Her insulin pump ran out of insulin on Friday 12/22 so was removed. She developed elevated blood sugars of 255, anion gap 17, was transferred to ICU for further management for DKA, possible HHNK.
Pt awake, alert, oriented, sitting up in chair, about to got to CT, offers no complaints.
12/23 Transitioned from insulin infusion to Lantus and NovoLog AC. Noted for poor appetite which has now improved
12/27 pre-dinner glucose was 137, pt received no dinner time NovoLog- was HELD. HS glucose up to 251 and fasting 333 today
Currently NPO for tests. Nurse HELD breakfast NovoLog dose, adm corrective 4 units for glucose of 333
Will continue current regimen Lantus 15 units in AM and AC NovoLog 15 units with corrective insulin.
Discussed with Nurse. Will cont to monitor.
Pt will resume her insulin pump upon arrival home.
Diabetes History
- -
Type of Diabetes: 2 requiring insulin
Pre-Admission Diabetes Regimen
12/28/24 12/28/24
00:55 04:35
Creatinine 0.9 0.8
Lab Results
Hemoglobin A1c 7.7 % (4.0-5.9) H 12/23/24 06:52
Insulin Pump Settings
IP Diabetes Regimen
12/27/24 12/27/24 12/27/24
08:00 12:22 17:40
Glucose
POC Glucose 328 H 281 H 137 H
12/27/24 12/28/24 12/28/24
21:10 00:55 04:35
Glucose 236 H 261 H
POC Glucose 251 H
Meal type: Breakfast
Amount consumed: Patient refused
Patient Education
--- NOTE | 2024-12-28 07:48 | W.PN.HOSP.TC ---
Today's Communication/Plan
-
SEE CDI
Assessment / Plan
Assessment / Plan
Physical Exam
General: Not in acute distress
HEENT: Normocephalic, Moist mucous membranes
Respiratory: Clear to Auscultation Bilaterally
Cardiac: S1/S2 and Regular Rhythm
GI: Soft and Tender. Positive bowel sounds.
Musculoskeletal: No Cyanosis and No Edema
Skin: Warm and Dry
Neuro: Awake, Alert, Oriented and AO x 3
Psych: Calm
Assessment/Plan
74-year-old female who presented to the emergency room for evaluation of weakness and nausea. Patient was recently diagnosed with esophageal cancer and saw [facility] Dr. Luna in [place]. She was scheduled for PET scan on 12/21/24
but had extreme weakness nausea and dry heaves. She also complained of abdominal pain.
On 12/20/24, patient had an upper endoscopic ultrasound:
malignant appearing esophageal stenosis,
no gross lesions in the stomach normal duodenal bulb
a mass in the lower third of the esophagus adenocarcinoma.
Virtually completely resolved pericardial effusion in comparison to prior CT.
CT Abdomen/Pelvis showed (as per radiologist's report):
Incompletely included on this study is large volume food material seen within the distal thoracic esophagus suggesting mass/obstruction at the gastroesophageal junction. Malignancy is the diagnosis of exclusion. Cannot exclude some small distal
periesophageal varices. Findings discussed by telephone with FABY Cabello NUCLEAR POWERPLANT SUPERVISOR at 1855 hours on December 21, 2024
Virtually completely resolved pericardial effusion in comparison to prior CT.
Small Simple Right Renal Cyst plus an additional subcentimeter low-attenuation right renal lesion too small to characterize
Abdominal aorta with calcific atherosclerotic changes
Moderate to large volume widespread colonic stool
Moderate to large volume stool is seen in the rectosigmoid region
Degenerative changes most prominent in the lower lumbar spine
#Acute Hypoxic Respiratory Failure developed on 12/24/24
#COPD
#Pneumonia, concern for Aspiration vs Community-Acquired
#Bilateral Pleural Effusions (moderate right and small left)
-Developed on 12/24/24, CT Chest done later in hospitalization on 12/28/24 confirmed Multifocal Pneumonia
-Suspected aspiration
-Completed 3 days of Azithromycin
-Has been getting Ceftriaxone
-Pulmonary toilet, bronchodilators
-Aspiration precautions
-Continue high flow oxygen; wean as tolerated
-No meds via oral means (given issues with esophagus), but can continue clear liquids (with Ensure protein supplement) via oral means - if patient is unable to meet nutritional needs orally then would consider J tube placement
-Surgery consulted for possible J tube placement (GI said no Dobhoff tube placement): move forward with a laparoscopic J-tube placement next week, to allow further time for her lungs to heal before general anesthesia
-Discussed TPN with patient and possible associated adverse effects, but at this time, patient has declined TPN
-Calorie Counts, thiamine and multivitamin supplementation
-Patient will need IR consult for right-sided thoracentesis
#Fever on 12/24/24 and 12/26/24
- Blood cultures x2
- COVID, Influenza tests, Strep Pneumo and Legionella all negative
- Changed antibiotics from Ceftriaxone to Unasyn on 12/27/24
- If patient continues to have fevers, may need to broaden antibiotics
- Last fever of 101.1 F was on 12/26/24
#Chest discomfort/nausea -- likely some local irritation after endoscopic ultrasound
#Esophageal stricture from esophageal cancer
Okay to continue Clear Liquids Diet as per GI
Thiamine supplementation
IV fluids
Nausea control
GI consult
Oncology consulted: patient wishes to pursue treatment and would potentially still be curative depending on the level of mets. No procedures at this time given hypoxia and acuity.
Goals remain restorative - optimize nutrition and performance status in anticipation of outpatient antineoplastic therapy
CT Chest done for staging purposes showed esophageal carcinoma with circumferential wall thickening again noted at the gastroesophageal junction; mild bilateral hilar and subcarinal lymphadenopathy, which may be
reactive or metastatic.
Pending radiation oncology consult outpatient
Smoking cessation
Patient has outpatient follow-up with Dr. Nunez on 01/03/2025
Unasyn antibiotics may also be contributing to nausea
Abdominal X-ray 12/28/24 with large volume colonic stool suggesting constipation --> this could certainly be contributing to nausea
#Poor to minimal PO intake given nausea and esophageal obstruction
- Patient added on for laparoscopic feeding tube placement on Tuesday12/31/24 -- once oncology looks at CT Chest and confirms no metastases, then J tube would be preferred (but if metastasis, then
PEG tube) -- high risk for prolonged post-op intubation but she isn't eating or drinking anything so she really may need it.
- Consider TPN if patient not meeting her calorie needs -- Dr. Oakes said surgery team is happy to start TPN if that is in the patient's wishes
#Large Volume Colonic Stool/Constipation
- Patient was having nausea 12/27/24 and 12/28/24 after Unasyn antibiotics started, abdominal x-ray was done on 12/28/24, showed significant constipation
- Since patient is having a hard time tolerating PO, ordered Dulcolax suppository
- Will also consider ordering an enema
#Euglycemic Diabetic Ketoacidosis and Starvation Ketoacidosis
#Anion Gap Metabolic Acidosis secondary to the above
- Lactic acid was normal
- Suspected DKA from running out of insulin in pump together with reduction in PO intake given esophageal issues above
- D5 IV fluids (given sugars in the 200s)+Insulin Drip were given, later transitioned to subq Insulin as DKA resolved
- Monitor in ICU/IMU
- Appreciate load planner
- DKA resolved
#IDDM with insulin pump
- Patient Insulin pump had run out of Insulin on 12/22/24-12/23/24
- Diabetes NUCLEAR POWERPLANT SUPERVISOR consulted
- Continue subq Insulin -- has been increased due to high blood sugars overnight
#Hypercalcemia
IV fluids were given
Improved
#Orthostatic hypotension, syncope
#Hypertension
-Holding Lisinopril and Amlodipine as unsafe to swallow
-prn order for hydralazine 5mg Q6hprn for SBP >160
#Hyperlipidemia
-Rosuvastatin cannot be crushed and does not have a liquid form as per clinical pharmacist
#Coronary Artery Disease
#PAD
-Rectal Aspirin converted to chewable to be dissolved in liquid due to patient refusal of rectal aspirin
-Duloxetine cannot be crushed and does not have a liquid form as per clinical pharmacist
#History of pericardial effusion
#History of: pulmonary nodules, adrenal tumor, Tasha's thyroiditis, anemia, ADHD
#Bilateral pleural effusions, right greater than left
#Insomnia
-Melatonin cannot be crushed and does not have a liquid form as per clinical pharmacist
#Severe protein calorie malnutrition of chronic illness
Code DNR. PATIENT TO BE INTUBATED TEMPORARILY IF NEEDED.
Lovenox DVTp
Acute Hypoxia needing midflow oxygen, and nausea is a high risk encounter.
On 12/28/24, since patient needed help obtaining her Living Will, I spoke with patient's sister Maddie to find out more about patient's Living Will (i.e. to see if I could start TPN) and I updated her, and answered all of her questions and concerns
to satisfaction.
I discussed patient's case with nurse today.
Anticipated Discharge: > 48 hours
Subjective/Interval History
-
Date of Service: December 28, 2024
Patient was seen and examined. She reported still having significant nausea.
Objective Data
-
Labs:
Laboratory Results
12/28/24 12/28/24
00:55 04:35
WBC 11.4 H
Hgb 8.4 L
Hct 24.4 L
Plt Count 245
Sodium 139 139
Potassium 3.4 L 3.4 L
Chloride 110 H 110 H
Carbon Dioxide 27 26
BUN 15 15
Creatinine 0.9 0.8
Glucose 236 H 261 H
Calcium 9.3 9.1
Vital Signs:
Vital Signs
Temp Pulse Resp BP Pulse Ox
98.1 F 83 20 157/63 93
12/28/24 06:43 12/28/24 07:16 12/28/24 07:16 12/28/24 06:00 12/28/24 07:16
I&O
12/27/24 12/28/24 12/29/24
06:59 06:59 06:59
Intake Total 1930 / 1929 375 / 375
Output Total 350 / 350 400 / 400
Balance 1580 / 158 -
[2024-12-28 07:56] LABS: Glucose - Point of Care 333 mg/dl (70-99)
--- NOTE | 2024-12-28 07:59 | W.PN.UPDATE ---
Update Note
Progress Note Update
Brief General Surgery update note:
Patient added on for laparoscopic feeding tube placement on Tuesday.
Consider TPN if patient not meeting her calorie needs.
Will discuss with hospitalist/oncology regarding ordering a CT chest with IV contrast to complete staging
[2024-12-28] MEDS: NOVOLOG FLEXPEN-LOW RESISTANCE 4 UNITS SC ×2 (08:11→13:08)
[2024-12-28] MEDS: NEUTRA-PHOS POWDER PACKET 250 MG PO ×2 (08:12→13:09)
[2024-12-28] MEDS: SENNA SYRUP 8.8 MG PO (08:12)
[2024-12-28] MEDS: THIAMINE INJECTION 100 MG IV (08:12)
[2024-12-28] MEDS: COLACE LIQUID 100 MG PO (08:12)
[2024-12-28] MEDS: KCL 260 MEQ IV (08:54)
--- NOTE | 2024-12-28 09:23 | W.PN.ONC2 ---
Documented by User: ERI Fink 12/28/24 12:02
Today's Communication / Plan
-
would consider J tube placement, appreciate surgery input
Impression
Impression
EUS with regional esophageal cancer
malnutrition
aspiration
pneumonia
smoker, stopped 1 week ago
Plan
Plan
abx per primary service
speech/swallow and nutrition following
CT chest with IVC to complete staging since missed OP PET
Pending radiation oncology consult outpatient
OP follow up with Dr. Nunez upon hospital recovery
Subjective/Objective
Subjective
on midflow O2, afebrile, no hypotension
denies pain, last pain meds yesterday
having some nausea, has not taken any antiemetics today
continues with cough
continues with poor oral intake
Vital Signs:
Vital Signs
Temp Pulse Resp BP Pulse Ox
98.1 F 83 20 157/63 93
12/28/24 06:43 12/28/24 07:16 12/28/24 07:16 12/28/24 06:00 12/28/24 07:16
Lab Results:
Laboratory Data
WBC 11.4 10^3/uL (4.8-10.8) H 12/28/24 04:35
Hgb 8.4 g/dL (12.0-16.0) L 12/28/24 04:35
Plt Count 245 10^3/uL (130-400) 12/28/24 04:35
PT 13.8 Sec (11.4-14.6) 12/25/24 04:01
INR 1.03 12/25/24 04:01
APTT 42.4 Sec (23.4-35.0) H 12/25/24 04:01
eGFR > 60.00 12/28/24 04:35
Physical Exam
HEENT: Moist Mucous Membranes; No Jaundice
Pulmonary: unlabored
GI: Soft
Extremities: Pulses Present
Neuro: Non Focal

Documented by User: Marquez Nunez MD 12/28/24 14:48
Plan
Plan
abx per primary service
speech/swallow and nutrition following
CT chest with IVC to complete staging since missed OP PET
Pending radiation oncology consult outpatient
OP follow up with Dr. Nunez upon hospital recovery
Oncology Addendum:
Patient seen and evaluated and agree w/ FLY WINDER note and plan as outlined
-CT chest w/ multifocal pneumonia, bilateral pleural effusions, moderate right and small left, circumferential wall thickening again noted at EG junction, along w/ mild bilateral hilar and subcarinal lymphadenopathy
-w/ ongoing pneumonia - unclear if hilar/ mediastinal adenopathy is reactive or malignant in nature
-w/o definitive evidence for metastatic disease - would consider J-tube as a better option at this time
-surgery is following w/ planned J-tube placement procedure - Tuesday
-optimize nutrition
-outpt PET - pending recovery from ongoing illness w/ f/u for further discussion of treatment plan
-outpt f/u w/ XRT
Will continue to follow with you.
--- NOTE | 2024-12-28 10:33 | W.PN.PUL3 ---
Today's Communication / Plan
-
Continue oxygen supplementation-continue to wean down as able currently on mid flow 10 L
Continue antibiotics for aspiration pneumonia
Incentive spirometry as able
Nutritional support
Patient to get GI access-surgery following.
Assessment
-
This is a 74 y/o female with pmhx of recently diagnosed esophageal cancer following with [facility] who presented to the ED on 12/21/2024 with poor PO intake, nausea and weakness, and who developed new DKA vs HHS and was subsequently
transferred to the ICU on 12/23/2024
Pulmonary following 12/27/2024 regarding pneumonia and respiratory failure.
Plan:
Acute hypoxemic respiratory failure: High flow oxygen has been discontinued-currently on mid flow 12 L - 99% at rest.
Hypoxemia likely due to pneumonia/aspiration-extensive infiltrate of the right lower lobe which is new compared to prior and most recent chest x-ray 11/23/2024.
-
Down to 10 L nasal cannula-pulse ox 93%. Continue to wean down as able. 12/28/2024
Mild respiratory distress at rest. Not worsening.
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 Not bronchospastic on exam.
Tobacco Use (45+ pack years, 1-1/2 ppd)
Pneumonia, concern for Aspiration vs Community-Acquired
-
No longer febrile
Leukocytosis trending lower
Continue to monitor
Chest X-ray 12/24 (6AM): New bibasilar airspace opacity, greater on the left, aspiration is a consideration given the change from the previous exam and the esophageal findings. This could also be related to pneumonia.
Chest X-ray 12/21: No acute cardiopulmonary process
Continue Unasyn-given esophageal issues aspiration a possibility also location in the right lower lobe
Continue aspiration precautions, keeping head of the bed >30-45 degrees
-
Continue nebulizers-DuoNebs/Pulmicort, hold home inhalers--> no indication for systemic corticosteroids.
Continue incentive spirometry-encourage p.o.
Recommend smoking cessation--encourage.
--Aspiration precautions
Continue clear liquid diet for now, continue calorie counts
Recommend early out of bed ambulation as tolerated
-
DKA vs HHS-resolved
Continue diabetes management per primary team
-
Dysphagia
Esophageal Cancer
Patient with recent diagnosis of esophageal adenocarcinoma with probable local lymph node involvement, with mass obstructing the lower 1/3rd of the esophagus and recent 15lb weight loss
Follows with [facility].
Hematology/Oncology, who states based upon their conversations with her today that at this time she wishes to pursue treatment and would potentially still be curative depending on the level of mets. However, at this time due to acute respiratory
status and hospitalization requiring ICU-level care, she would not be able to tolerate the resection or the pre-resection chemoradiation.
-
Dysphagia/aspiration risk: Surgery evaluating patient for GI access
Other medical problems:
Essential Hypertension
Hyperlipidemia
Neuropathy
Subjective Data
-
Date of Service:
Date of Service: December 28, 2024
Chief Complaint: Pulmonary Follow Up (Pneumonia/likely aspiration-hypoxemic respiratory failure)
Subjective:
Patient feels fatigue
Denies shortness of breath at rest
Remains on oxygen supplementation 10 L mid flow
Review of Systems
General: Fever (n)
Cardiopulmonary: Dyspnea and Cough
Objective Data
Data Reviewed
Vital Signs / I&O / Oxygen:
Vital Signs
Temp Pulse Resp BP Pulse Ox
98.1 F 83 20 157/63 93
12/28/24 06:43 12/28/24 07:16 12/28/24 07:16 12/28/24 06:00 12/28/24 07:16
Intake and Output
12/27/24 12/28/24 12/29/24
06:59 06:59 06:59
Intake Total 1930 / 1930 375 / 375
Output Total 350 / 350 400 / 400
Balance 1580 / 1580 -25 / 25
SaO2 93
Nasal Cannula flow liters per 6
minute
Physical Exam
General: Respiratory Distress (mild at rest)
HEENT: Normocephalic
Cardiovascular: S1-S2
Respiratory: Crackles (right base)
GI: Soft and Non Distended
Neurology: Awake and Alert
Skin: Warm
Labs/Micro/Reports
Lab Data
12/28/24 04:35
12/28/24 04:35
Microbiology
12/26/24 18:07 Nose MRSA Screen - Final
No Methicillin Resistant Staphylococcus aureus isolated.
12/26/24 18:17 Blood/Venous Blood Culture - Preliminary
No Growth in 24 hours- Final report to follow
12/26/24 18:18 Blood/Venous Blood Culture - Preliminary
No Growth in 24 hours- Final report to follow
12/27/24 15:59 Urine Legionella Urinary Antigen - Final
Negative for Legionella pneumophila Serogroup 1 antigen.
A negative result does not rule out the possiblity of
Legionella infection due to other serogroups or species of
Legionella. Clinical correlation is recommended.
12/27/24 15:59 Urine Streptococcus pneumoniae Antigen (M - Final
Negative for Streptococcus pneumoniae antigen.
A negative result does not exclude infection with
Streptococcus pneumoniae. Clinical correlation is
recommended.
12/26/24 18:07 Nasal Swab Influenza Types A & B (AMANDA) - Final
Negative for Influenza A & B, NAAT
Negative results must be combined with clinical observations
and patient history.
Nucleic Acid Amplification test (NAAT)performed on the
[employer] platform.
[2024-12-28] MEDS: LANTUS 0.15 UNITS SC (10:36)
[2024-12-28] MEDS: NOVOLOG FLEXPEN SC ×3 (10:45→17:06)
[2024-12-28] MEDS: CYMBALTA DELAYED RELEASE PO ×2 (10:46→10:47)
[2024-12-28] MEDS: CRESTOR PO (10:46)
[2024-12-28] MEDS: NORVASC PO (10:47)
[2024-12-28] MEDS: LOW STRENGTH ASPIRIN PO (10:47)
[2024-12-28] MEDS: ZESTRIL PO (10:47)
[2024-12-28] MEDS: NEURONTIN PO (10:47)
--- NOTE | 2024-12-28 11:14 | PTCARENOTE ---
Assumed care of patient at beginning of this shift from previous RN; POx fluctuating between 84-88% on 10L midflow. Oxygen increased to 12L with POx 91-94%. OOB to commode and chair x1 assist; POx maintained 91-93% with activity. Currently off unit
for CT and CXR; RN accompanied d/t patient with increased oxygen demand. Transferred with 15L as oxygen tank only has option for 15L after 8L.
Dr Avina up to see patient; reviewed with him that po meds are still ordered but patient NPO, no meds and sips of clears. He stated to hold po meds and he will adjust orders. She was able to take liquid meds without difficulty.
Accu check this morning 333; patient received SSI coverage as per order and lantus but mealtime insulin held and patient did not want breakfast.
K+ 3.2; potassium infusion ordered and given.
Patient Ox3 but states she feels 'mixed up' at times and requested physician speak with her sister. Dr Avina stated he did call patient's sister this morning.
See worklist for full assessment and vital signs.
[2024-12-28] MEDS: DUONEB INH (11:28)
[2024-12-28 11:51] LABS: Glucose - Point of Care 309 mg/dl (70-99)
[2024-12-28] MEDS: DILAUDID 0.5 MG IV ×2 (12:45→22:24)
--- NOTE | 2024-12-28 13:20 | PN.CDI ---
CDI
- -
CDI:
Physician Documentation Request
Admit Date: 12/21/24 22:[address] Avina,
Patient was admitted pneumonia.
12/28 PN, 'Acute Hypoxic Respiratory Failure developed on 12/24/24....Pneumonia...Changed antibiotics from Ceftriaxone to Unasyn on 12/27/24.'
12/23 WBC 18.8
[facility] is using an adapted version of the 2016 Third International Consensus Definitions for Sepsis and Septic Shock (Sepsis-3) where sepsis is defined as life threatening organ dysfunction caused by a deregulated host response to infection.
Please reference the official [facility] Sepsis Recognition Tool for further information, which can be found on the Intranet under Infection Prevention.
Based on your medical judgment, can you please clarify whether or not the above organ dysfunction is related to or due to sepsis?
-- Sepsis due to pneumonia with organ dysfunction of acute hypoxic respiratory failure
-- Pneumonia only
-- Other
Use of terms such as suspected, likely, concern for, or probable (associated with a specific diagnosis that is being evaluated, monitored, or treated as if it exists) are acceptable and can be coded in the inpatient setting when documented at the
time of discharge.
Please use your independent medical judgement in providing your response.
Thank you,
Agata YANEZN,RN,CCDS
CDI Specialist
Available via tiger text
--- NOTE | 2024-12-28 15:40 | PTCARENOTE ---
Patient with episode of afib vs svt vs tachycardia. EKG ordered prior to episode; completed just after. Patient stated she did feel her heart race during episode. EKG printed interpretation showed normal sinus rhythm. Picture of EKG and telemetry
strip sent to Dr Avina via TT.
[2024-12-28] MEDS: DULCOLAX 10 MG RECTAL (16:51)
[2024-12-28] MEDS: NOVOLOG FLEXPEN-LOW RESISTANCE 2 UNITS SC (16:58)
[2024-12-28] MEDS: LOVENOX 40 MG SC (17:00)
[2024-12-28 17:08] LABS: Glucose - Point of Care 245 mg/dl (70-99)
--- NOTE | 2024-12-28 18:21 | CM ---
F/U: Patient may need surgery so will follow for DC needs. PLAN: Anticipte SNF vs. Home PT.
[2024-12-28] MEDS: ZOFRAN 4 MG IV (18:34)
[2024-12-28] MEDS: DILAUDID 0.25 MG IV (21:00)
[2024-12-28 22:17] LABS: Glucose - Point of Care 204 mg/dl (70-99)
[2024-12-29] VITALS (19 sets, daily range): BP systolic 115–180; BP diastolic 52–87; BMI 20.9
[2024-12-29] MEDS: UNASYN IV ×5 (00:01→23:59)
--- NOTE | 2024-12-29 00:42 | PTCARENOTE ---
Pt AOOx3. Pt currently on 12L midflow spo2 92% respiration even unlabored. Pt states she does not feel sob at this time. Pt has repeat labs due, Pt requesting to do all in the morning. Assessment care and vitals as charted.
[2024-12-29 04:17] LABS: Hematocrit 23.5 % (37.0-47.0); Hemoglobin 7.8 g/dL (12.0-16.0); Mean Corp Hgb Conc. 33.2 g/dL (33.0-37.0); Mean Corpuscular Volume 91.4 fL (81.0-99.0); Nucleated Red Blood Cells % 0 %; Platelet Count 263 10^3/uL (130-400); Red Cell Dist. Width 13.9 % (11.5-14.5)
[2024-12-29] MEDS: DUONEB 3 ML INH ×5 (04:18→20:07)
[2024-12-29 04:38] LABS: Blood Urea Nitrogen 13 mg/dl (7-17); Calcium 9.2 mg/dl (8.4-10.2); Carbon Dioxide 28 mmol/L (22-30); Chloride 111 mmol/L (98-107); Estimated Creatinine Clearance 55 ml/min; Glucose 192 mg/dl (70-99); Potassium 3.2 mmol/L (3.5-5.1); Sodium 143 mmol/L (135-145); eGFR > 60.00
[2024-12-29] MEDS: DILAUDID 0.5 MG IV ×3 (04:42→17:46)
--- NOTE | 2024-12-29 04:47 | PTCARENOTE ---
Addendum entered by Jaycee Colón RN 12/29/24 06:17:
Pt continued to be sob. CXR ordered.
Original Note:
Pt feeling sob this morning. RT to bed side, CENTRAL OFFICE EQUIPMENT ENGINEER made aware order for neb placed. spo2 88% on 12L. Now 94% on 14L. Lung sounds course and diminished through out B/L. Pain medication given per order.
[2024-12-29] MEDS: KCL 270 MEQ IV (05:56)
[2024-12-29] MEDS: APRESOLINE 5 MG IV (05:57)
--- NOTE | 2024-12-29 06:44 | W.PN.UPDATE ---
Update Note
Progress Note Update
Patient with increased SOB with wheeze. PRN duoneb given overnight. PCXR this am. Will add dose morphine iv and Lasix 20 mg IV for now. Likely will need high flow NC had been tapered down to midflow yesterday.
[2024-12-29] MEDS: MORPHINE SULFATE 1 MG IV (06:48)
[2024-12-29] MEDS: LASIX 20 MG IV (06:48)
--- NOTE | 2024-12-29 07:24 | W.PN.HOSP.TC ---
Today's Communication/Plan
-
Continue to monitor in IMU
Continue antibiotics
Right Sided Thoracentesis today
Intubate if needed
TPN started
Assessment / Plan
Assessment / Plan
Physical Exam
General: Not in acute distress
HEENT: Normocephalic, Moist mucous membranes
Respiratory: Clear to Auscultation Bilaterally
Cardiac: S1/S2 and Regular Rhythm
GI: Soft and Tender. Positive bowel sounds.
Musculoskeletal: No Cyanosis and No Edema
Skin: Warm and Dry
Neuro: Awake, Alert, Oriented and AO x 3
Psych: Calm
Assessment/Plan
74-year-old female who presented to the emergency room for evaluation of weakness and nausea. Patient was recently diagnosed with esophageal cancer and saw [facility] Dr. Luna in [place]. She was scheduled for PET scan on 12/21/24
but had extreme weakness nausea and dry heaves. She also complained of abdominal pain.
On 12/20/24, patient had an upper endoscopic ultrasound:
malignant appearing esophageal stenosis,
no gross lesions in the stomach normal duodenal bulb
a mass in the lower third of the esophagus adenocarcinoma.
Virtually completely resolved pericardial effusion in comparison to prior CT.
CT Abdomen/Pelvis showed (as per radiologist's report):
Incompletely included on this study is large volume food material seen within the distal thoracic esophagus suggesting mass/obstruction at the gastroesophageal junction. Malignancy is the diagnosis of exclusion. Cannot exclude some small distal
periesophageal varices. Findings discussed by telephone with FABY Cabello PREFORMING MACHINE OPERATOR at 1855 hours on December 21, 2024
Virtually completely resolved pericardial effusion in comparison to prior CT.
Small Simple Right Renal Cyst plus an additional subcentimeter low-attenuation right renal lesion too small to characterize
Abdominal aorta with calcific atherosclerotic changes
Moderate to large volume widespread colonic stool
Moderate to large volume stool is seen in the rectosigmoid region
Degenerative changes most prominent in the lower lumbar spine
#Acute Hypoxic Respiratory Failure developed on 12/24/24
#COPD
#Pneumonia, concern for Aspiration vs Community-Acquired
#Bilateral Pleural Effusions (moderate right and small left)
-Developed on 12/24/24, CT Chest done later in hospitalization on 12/28/24 confirmed Multifocal Pneumonia
-Suspected aspiration
-Completed 3 days of Azithromycin
-Has been getting Ceftriaxone
-Pulmonary toilet, bronchodilators
-Aspiration precautions
-Continue high flow oxygen; wean as tolerated
-No meds via oral means (given issues with esophagus), but can continue clear liquids (with Ensure protein supplement) via oral means - if patient is unable to meet nutritional needs orally then would consider J tube placement
-Surgery consulted for possible J tube placement (GI said no Dobhoff tube placement): move forward with a laparoscopic J-tube placement next week, to allow further time for her lungs to heal before general anesthesia
-Discussed TPN with patient and possible associated adverse effects, patient would like TPN -- surgery ordered TPN on 12/29/24
-Calorie Counts, thiamine and multivitamin supplementation
-Shortness of breath with wheezing overnight 12/28/24 to 12/29/24 -- suspected further aspiration -- CXR showed B/L pleural effusions (R>L) and multifocal pneumonia
-Patient got right-sided thoracentesis on 12/29/24 with return 1350 cc straw colored pleural fluid -- exudative
#Fever on 12/24/24 and 12/26/24
- Blood cultures x2
- COVID, Influenza tests, Strep Pneumo and Legionella all negative
- Changed antibiotics from Ceftriaxone to Unasyn on 12/27/24
- If patient continues to have fevers, may need to broaden antibiotics
- Last fever of 101.1 F was on 12/26/24
#Chest discomfort/nausea -- likely some local irritation after endoscopic ultrasound
#Esophageal stricture from esophageal cancer
Okay to continue Clear Liquids Diet as per GI
Thiamine supplementation
IV fluids
Nausea control
GI consult
Oncology consulted: patient wishes to pursue treatment and would potentially still be curative depending on the level of mets. No procedures at this time given hypoxia and acuity.
Goals remain restorative - optimize nutrition and performance status in anticipation of outpatient antineoplastic therapy
CT Chest done for staging purposes showed esophageal carcinoma with circumferential wall thickening again noted at the gastroesophageal junction; mild bilateral hilar and subcarinal lymphadenopathy, which may be
reactive or metastatic.
Pending radiation oncology consult outpatient
Smoking cessation
Patient has outpatient follow-up with Dr. Nunez on 01/03/2025
Abdominal X-ray 12/28/24 with large volume colonic stool suggesting constipation --> this could certainly be contributing to nausea, (treatment as below)
#Poor to minimal PO intake given nausea and esophageal obstruction
- Patient added on for laparoscopic feeding tube placement on Tuesday12/31/24 -- once oncology looks at CT Chest and confirms no metastases, then J tube would be preferred (but if metastasis, then
PEG tube) -- high risk for prolonged post-op intubation but she isn't eating or drinking anything so she really may need it.
- TPN started on 12/29/24
#Large Volume Colonic Stool/Constipation
- Patient was having nausea 12/27/24 and 12/28/24 after Unasyn antibiotics started, abdominal x-ray was done on 12/28/24, showed significant constipation
- Since patient is having a hard time tolerating PO, ordered Dulcolax suppository -- no BM yet as of 12/29/24 morning
- Will also consider ordering an enema
#Euglycemic Diabetic Ketoacidosis and Starvation Ketoacidosis
#Anion Gap Metabolic Acidosis secondary to the above
- Lactic acid was normal
- Suspected DKA from running out of insulin in pump together with reduction in PO intake given esophageal issues above
- D5 IV fluids (given sugars in the 200s)+Insulin Drip were given, later transitioned to subq Insulin as DKA resolved
- Monitor in ICU/IMU
- Appreciate software design engineer
- DKA resolved
#Anemia
- Hgb drop to 7.8 on 12/29/24
- Appreciate hem/onc evaluation (they are already involved for patient's esophageal cancer)
#IDDM with insulin pump
- Patient Insulin pump had run out of Insulin on 12/22/24-12/23/24
- Diabetes PREFORMING MACHINE OPERATOR consulted
- Continue subq Insulin -- will likely need to be increased further depending on glucose trends now that patient is on TPN
#Hypercalcemia
IV fluids were given
Improved
#Orthostatic hypotension, syncope
#Hypertension
-Holding Lisinopril and Amlodipine as unsafe to swallow
-prn order for hydralazine increased to 10 mg from 5 mg for better IV blood pressure control
#Hyperlipidemia
-Rosuvastatin cannot be crushed and does not have a liquid form as per clinical pharmacist
#Coronary Artery Disease
#PAD
-Rectal Aspirin converted to chewable to be dissolved in liquid due to patient refusal of rectal aspirin
-Duloxetine cannot be crushed and does not have a liquid form as per clinical pharmacist
#History of pericardial effusion
#History of: pulmonary nodules, adrenal tumor, Tasha's thyroiditis, anemia, ADHD
#Bilateral pleural effusions, right greater than left
#Insomnia
-Melatonin cannot be crushed and does not have a liquid form as per clinical pharmacist
#Severe protein calorie malnutrition of chronic illness
Code DNR. PATIENT TO BE INTUBATED TEMPORARILY IF NEEDED.
Lovenox DVTp
Acute Hypoxia needing midflow oxygen, and nausea is a high risk encounter.
On 12/28/24, since patient needed help obtaining her Living Will, I spoke with patient's sister Maddie as well.
I discussed patient's case with nurse today.
Anticipated Discharge: > 48 hours
Subjective/Interval History
-
Date of Service: December 29, 2024
Patient was seen and examined. Her shortness of breath is better than it was last night. She denied any chest pain. She denied any abdominal pain except when she coughs (which is when she gets abdominal wall pain).
Objective Data
-
Labs:
Laboratory Results
12/29/24 12/29/24
03:25 03:35
WBC 12.1 H
Hgb 7.8 L
Hct 23.5 L
Plt Count 263
Sodium 143
Potassium 3.2 L
Chloride 111 H
Carbon Dioxide 28
BUN 13
Creatinine 0.9
Glucose 192 H
Calcium 9.2
Vital Signs:
Vital Signs
Temp Pulse Resp BP Pulse Ox
98.4 F 89 20 179/65 92
12/29/24 03:34 12/29/24 06:48 12/29/24 06:18 12/29/24 06:48 12/29/24 06:18
I&O
12/28/24 12/29/24 12/30/24
06:59 06:59 06:59
Intake Total 375 / 375 1015 / 1015
Output Total 400 / 400 750 / 750
Balance - 265 / 265
[2024-12-29] MEDS: PULMICORT 0.5 MG INH ×2 (07:39→20:07)
[2024-12-29] MEDS: NOVOLOG FLEXPEN SC ×3 (07:47→15:24)
[2024-12-29 08:05] LABS: Glucose - Point of Care 282 mg/dl (70-99)
[2024-12-29] MEDS: LOW STRENGTH ASPIRIN 81 MG PO (08:56)
[2024-12-29] MEDS: NOVOLOG FLEXPEN-LOW RESISTANCE 3 UNITS SC ×2 (08:56→11:32)
[2024-12-29] MEDS: THIAMINE INJECTION 100 MG IV (08:56)
[2024-12-29] MEDS: LANTUS 0.15 UNITS SC (08:58)
[2024-12-29] MEDS: CYMBALTA DELAYED RELEASE PO (08:58)
--- NOTE | 2024-12-29 09:32 | W.PN.PUL.V3 ---
Today's Communication / Plan
-
Aspiration suspected
Chest x-ray with probable moderate right pleural effusion
Right sided thoracentesis
Wean FiO2
Antibiotics
TPN
Tentative 1 day laparoscopic jejunostomy tube placement
Assessment
-
74-year-old female with recently diagnosed esophageal cancer, with mass in the lower third of her esophagus, diabetes, presents with poor p.o. intake, weakness, nausea and abdominal discomfort. She was initially admitted to the floor, and developed
DKA/HHNK, elevated anion gap, hyperglycemia, transferred to ICU for further management 12/23
Hyperglycemia (DKA/HHNK)
Blood sugar 250
Elevated anion gap, 17
Poor p.o. intake
Dysphagia/odynophagia
Aspiration pneumonia
Recently diagnosed esophageal cancer, mass with obstruction of lower third of esophagus-able to pass liquids
Diabetes with insulin pump
Leukocytosis
Anemia
Respiratory insufficiency, chronic
Weight loss-unintentional
Right pleural effusion
Conditions present prior to admission:
Hypertension/hyperlipidemia
History of COPD/emphysema
DLCO 50%
History of syncope
Orthostasis and evidence of hypoglycemia in the past
Peripheral arterial disease
History of pulm nodules, waxing and waning
15 pound weight loss
45+ pack-year history of smoking, ongoing
Plan
Respiratory status remains tenuous-suspected repeat aspiration
Supplemental oxygen as needed-currently on high flow
Aspiration precautions
Speech therapy following
Nebulizers
Incentive spirometry
Chest x-ray with probable moderate right pleural effusion-IR consulted for thoracentesis
Monitor blood sugar
Insulin supplementation as needed
Diabetic nurse practitioner was following
Follow cultures
Sputum culture pending-unable to produce
Empiric antibiotics for pneumonia-ceftriaxone and azithromycin initially-currently on ampicillin/sulbactam
Reviewed with GI-able to pass small scope beyond esophageal obstruction-okay for clear liquids
Surgery consulted-tentative Tuesday12/31/2024 laparoscopic jejunostomy tube placement
TPN with
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
Oncology following [id number] reviewed
Performance status quite poor at this point-ideally would require chemoradiation prior to resection-currently not a resection candidate
The patient wishes aggressive therapy including chemoradiation and potential resection at some point
Smoking cessation counseling ongoing-smoking 1-1/2 packs a day prior to admission
Nicotine patch if needed
DVT prophylaxis-on Lovenox
GI prophylaxis per gastroenterology
Nutrition
PT/OT
Patient has appointment with Dr. Nunez-oncology 01/03/2025
Patient follows with Dr. Farrlel as outpatient
Reviewed with primary team and nursing
Subjective Data
-
Date of Service:
Date of Service: December 29, 2024
Chief Complaint: Pulmonary Follow Up (Pneumonia/likely aspiration-hypoxemic respiratory failure)
Subjective:
Complains of increased shortness of breath, had some emesis and possible aspiration, no chest pain, has some abdominal pain
Review of Systems
General: Other (Per HPI)
Objective Data
Data Reviewed
Vital Signs / I&O:
Vital Signs
Temp Pulse Resp BP Pulse Ox
98.5 F 89 28 167/58 91
12/29/24 07:00 12/29/24 08:53 12/29/24 08:53 12/29/24 08:53 12/29/24 08:53
Intake and Output
12/28/24 12/29/24 12/30/24
06:59 06:59 06:59
Intake Total 375 / 375 1015 / 1015
Output Total 400 / 400 750 / 750 260 / 260
Balance - 265 / 265 -260 / -260
SaO2: 91
Nasal Cannula flow liters per minute: 6
Physical Exam
General: Respiratory Distress (mild at rest)
HEENT: Normocephalic and Anicteric
Cardiovascular: Regular Rhythm
Respiratory: Wheeze (Few expiratory), Crackles (Bilateral right greater than left base), Rhonchi ( expiratory), Non-Labored Respirations, Accessory Resp Muscle Use (n) and Stridor (n)
GI: Soft and Non Distended
Neurology: Awake, Alert and No Motor Deficits
Skin: Warm, Good Color, Cyanosis (n) and Jaundice (n)
Labs/Micro/Reports
Lab Data
12/29/24 03:35
12/29/24 03:25
Microbiology
12/26/24 18:18 Blood/Venous Blood Culture - Preliminary
No Growth in 48 hours- Final report to follow
12/26/24 18:17 Blood/Venous Blood Culture - Preliminary
No Growth in 48 hours- Final report to follow
12/26/24 18:07 Nose MRSA Screen - Final
No Methicillin Resistant Staphylococcus aureus isolated.
12/27/24 15:59 Urine Legionella Urinary Antigen - Final
Negative for Legionella pneumophila Serogroup 1 antigen.
A negative result does not rule out the possiblity of
Legionella infection due to other serogroups or species of
Legionella. Clinical correlation is recommended.
12/27/24 15:59 Urine Streptococcus pneumoniae Antigen (M - Final
Negative for Streptococcus pneumoniae antigen.
A negative result does not exclude infection with
Streptococcus pneumoniae. Clinical correlation is
recommended.
12/26/24 18:07 Nasal Swab Influenza Types A & B (AMANDA) - Final
Negative for Influenza A & B, NAAT
Negative results must be combined with clinical observations
and patient history.
Nucleic Acid Amplification test (NAAT)performed on the
[employer] platform.
--- NOTE | 2024-12-29 09:34 | PTCARENOTE ---
Assumed care of patient at beginning of this shift from previous RN with O2 12L midflow in use. Patient given morphine and lasix just prior to start of this shift and had CXR. On initial rounds patient stated she was still feeling a little SOB; POx
92% on 12L. RT in to give resp treatment. Dr Avina sent TT to Dr Mancia with this RN copied in to request TPN. Dr Avina stated patient appeared to be aspirating and changed order to NPO but that patient can have aspirin. He stated via TT
he spoke with pharmacist and was instructed that aspirin is chewable and can be dissolved for her to take. Patient was able to take without difficulty. Instructed patient she is NPO. Dr Avina and Dr Canchola in to see patient. Currently she
states she feels her SOB has improved; POx 90-91%. See worklist for full assessment and vital signs.
--- NOTE | 2024-12-29 10:44 | PTCARENOTE ---
Order entered by Dr Avina for labs and IRAD consult for thoracentesis. Confirmed with Dr Quispe via TT that blood work is to be completed post-procedure.
[2024-12-29 11:34] LABS: Glucose - Point of Care 299 mg/dl (70-99)
--- NOTE | 2024-12-29 11:38 | PTCARENOTE ---
IRAD at bedside to do thoracentesis.
--- NOTE | 2024-12-29 12:51 | W.PN.IRAD.PR ---
Procedure Note
-
R thoracentesis performed with return 1350cc straw colored pleural fluid. Sent for analysis. CXR shows no ptx.
--- NOTE | 2024-12-29 12:56 | W.PN.ONC2 ---
Today's Communication / Plan
-
- now NPO, starting TPN for ongoing aspiration events.
- IR for thoracentesis of right effusion, send cyto.
- worsening anemia work-up ordered
Impression
Impression
EUS with regional esophageal cancer
malnutrition
aspiration
pneumonia
smoker, stopped 1 week ago
Plan
Plan
abx per primary service
speech/swallow and nutrition following
-CT chest w/ multifocal pneumonia, bilateral pleural effusions, moderate right and small left, circumferential wall thickening again noted at EG junction, along w/ mild bilateral hilar and subcarinal lymphadenopathy
-w/ ongoing pneumonia - unclear if hilar/ mediastinal adenopathy is reactive or malignant in nature
- increased O2 requirements with worsening infiltrates today. agree with NPO now, TPN for nutrition. Once stable favor J tube placement for enteral nutrition through cancer tx. tentatively scheduled for tuesday.
- Ir consulted for thoracentesis today. please send fluid for cell counts, cytology however suspect reactive.
- worsening anemia throughout hospital stay, down to 7.8 g/dl. suspect element dilutional with IV fluids. check retic count, iron studies, stool hemoccult, hapto. transfuse for hgb < 7.0 g/dl.
Will continue to follow with you.
Subjective/Objective
Chief Complaint
esophageal cancer, aspiration PNA
Subjective
pt with no new complaints however had increased O2 needs overnight. CXR this am with worsening R> L infiltrates concerning for recurrent aspiration events. Pt now NPO with plan to start TPN. Denies fevers, chills, productive cough, chest pain.
Vital Signs:
Vital Signs
Temp Pulse Resp BP Pulse Ox
98.0 F 85 19 162/66 93
12/29/24 11:00 12/29/24 11:30 12/29/24 11:30 12/29/24 10:00 12/29/24 11:47
Lab Results:
Laboratory Data
WBC 12.1 10^3/uL (4.8-10.8) H 12/29/24 03:35
Hgb 7.8 g/dL (12.0-16.0) L 12/29/24 03:35
Plt Count 263 10^3/uL (130-400) 12/29/24 03:35
PT 13.8 Sec (11.4-14.6) 12/25/24 04:01
INR 1.03 12/25/24 04:01
APTT 42.4 Sec (23.4-35.0) H 12/25/24 04:01
eGFR > 60.00 12/29/24 03:25
Physical Exam
HEENT: No Jaundice
Cardiology: Normal Sinus Rhythm
Pulmonary: Rhonchi
GI: Soft; No Distended
Extremities: No Edema
Neuro: Non Focal
Review of Systems
Review of Systems
Constitutional: Reports Fatigue; Denies Fever
Respiratory: Reports Dyspnea and Cough
Cardiovascular: Denies Chest Pain
Gastrointestinal: Reports Nausea/Vomiting
Genitourinary: Denies Hematuria
[2024-12-29 13:11] LABS: Body Fluid Second Tech EF
[2024-12-29 13:30] LABS: Reticulocyte Count 1.3 % (0.4-2.8)
[2024-12-29 14:00] LABS: LDH 230 U/L (120-246); Total Protein 4.8 g/dl (6.3-8.2)
[2024-12-29 14:10] LABS: Total Iron Binding Capacity 149 ug/dl (265-497)
[2024-12-29 14:37] LABS: Ferritin 176.0 ng/ml (11.1-264.0)
--- NOTE | 2024-12-29 14:49 | PTCARENOTE ---
Patient had bedside thoracentesis; 1350 off per documentation. Able to wean to 8L midflow; current POx 94%. Patient states she feels much better and breathing easier.
[2024-12-29] MEDS: LOVENOX 40 MG SC (17:16)
[2024-12-29] MEDS: NOVOLOG FLEXPEN-LOW RESISTANCE 2 UNITS SC (17:16)
[2024-12-29 17:26] LABS: Glucose - Point of Care 241 mg/dl (70-99)
[2024-12-29] MEDS: APRESOLINE 10 MG IV (17:45)
--- NOTE | 2024-12-29 17:56 | PTCARENOTE ---
Addendum entered by Irena Dotson RN 12/29/24 18:25:
Per pharmacist concentration of TPN requires central line. Dr Adair contacted via TT to order PICC. MIMA RN up to place at this time.
Original Note:
Patient to start TPN tonight; no order was entered for PICC. TT sent to Dr Avina as well as Dr Adair who is cross-coverage. MIMA RN aware. Pharmacist contacted and made aware patient does not have central line. She is checking concentration of
TPN order to see if it can be administered peripherally tonight. Await responses.
[2024-12-29] MEDS: D5LR IV (18:58)
[2024-12-29] MEDS: Parenteral Nutrition, Central 850 IV (20:55)
[2024-12-29] MEDS: DILAUDID 0.25 MG IV (21:15)
[2024-12-29] MEDS: ZOFRAN 4 MG IV (23:59)
[2024-12-30] VITALS (14 sets, daily range): BP systolic 141–182; BP diastolic 45–72; BMI 20.7
[2024-12-30 00:05] LABS: Glucose - Point of Care 266 mg/dl (70-99)
[2024-12-30] MEDS: APRESOLINE 10 MG IV ×2 (02:08→08:49)
[2024-12-30] MEDS: DILAUDID 0.5 MG IV ×4 (02:37→20:18)
--- NOTE | 2024-12-30 04:20 | PTCARENOTE ---
Pt had PICC placed. Night MOLD UNLOADER verifying good to use. TPN started as ordered. Pt needing hydralazine over night for sys over 160 as ordered. Pt having complaints of pain at times see mar for emergency medicine physician assistant. Pt remain on midflow 6-8L. spo2 90-93%.
Respirations even unlabored at this time.
[2024-12-30] MEDS: UNASYN IV ×4 (05:13→23:41)
[2024-12-30] MEDS: NOVOLOG FLEXPEN-LOW RESISTANCE 3 UNITS SC ×2 (05:14)
[2024-12-30] MEDS: DILAUDID 0.25 MG IV ×2 (05:15→15:42)
[2024-12-30 05:24] LABS: Glucose - Point of Care 293 mg/dl (70-99)
[2024-12-30 05:30] LABS: Hematocrit 23.2 % (37.0-47.0); Hemoglobin 7.5 g/dL (12.0-16.0); Mean Corp Hgb Conc. 32.3 g/dL (33.0-37.0); Mean Corpuscular Volume 95.1 fL (81.0-99.0); Platelet Count 307 10^3/uL (130-400); Red Cell Dist. Width 14.2 % (11.5-14.5)
[2024-12-30 05:54] LABS: Blood Urea Nitrogen 18 mg/dl (7-17); Calcium 9.3 mg/dl (8.4-10.2); Carbon Dioxide 26 mmol/L (22-30); Chloride 114 mmol/L (98-107); Estimated Creatinine Clearance 42 ml/min; Glucose 323 mg/dl (70-99); Magnesium 2.0 mg/dl (1.6-2.3); Sodium 145 mmol/L (135-145); eGFR 47.80
[2024-12-30 05:58] LABS: Potassium 3.5 mmol/L (3.5-5.1)
[2024-12-30] MEDS: DUONEB 3 ML INH ×4 (07:34→19:45)
[2024-12-30] MEDS: PULMICORT 0.5 MG INH ×2 (07:34→19:45)
--- NOTE | 2024-12-30 07:39 | W.PN.HOSP.TC ---
Today's Communication/Plan
-
Monitor closely for any signs or symptoms of Refeeding Syndrome, or any associated complications (patient has not had good PO intake for weeks, and is now on TPN)
If necessary, intubate patient as per discussion with patient and her family, but patient is DNR as well
Surgery to place feeding tube tomorrow
Continue antibiotics
Continue to monitor in IMU
Assessment / Plan
Assessment / Plan
Physical Exam
General: Not in acute distress
HEENT: Normocephalic, Moist mucous membranes
Respiratory: Clear to Auscultation Bilaterally
Cardiac: S1/S2 and Regular Rhythm
GI: Soft and Tender. Positive bowel sounds.
Musculoskeletal: No Cyanosis and No Edema
Skin: Warm and Dry
Neuro: Awake, Alert, Oriented and AO x 3
Psych: Calm
Assessment/Plan
74-year-old female who presented to the emergency room for evaluation of weakness and nausea. Patient was recently diagnosed with esophageal cancer and saw [facility] Dr. Luna in [place]. She was scheduled for PET scan on 12/21/24
but had extreme weakness nausea and dry heaves. She also complained of abdominal pain.
On 12/20/24, patient had an upper endoscopic ultrasound:
malignant appearing esophageal stenosis,
no gross lesions in the stomach normal duodenal bulb
a mass in the lower third of the esophagus adenocarcinoma.
Virtually completely resolved pericardial effusion in comparison to prior CT.
CT Abdomen/Pelvis showed (as per radiologist's report):
Incompletely included on this study is large volume food material seen within the distal thoracic esophagus suggesting mass/obstruction at the gastroesophageal junction. Malignancy is the diagnosis of exclusion. Cannot exclude some small distal
periesophageal varices. Findings discussed by telephone with FABY Cabello BARREL ROLLER OPERATOR at 1855 hours on December 21, 2024
Virtually completely resolved pericardial effusion in comparison to prior CT.
Small Simple Right Renal Cyst plus an additional subcentimeter low-attenuation right renal lesion too small to characterize
Abdominal aorta with calcific atherosclerotic changes
Moderate to large volume widespread colonic stool
Moderate to large volume stool is seen in the rectosigmoid region
Degenerative changes most prominent in the lower lumbar spine

#Acute Hypoxic Respiratory Failure developed on 12/24/24
#COPD
#Pneumonia, concern for Aspiration vs Community-Acquired
#Bilateral Pleural Effusions (moderate right and small left)
#Sepsis due to pneumonia with organ dysfunction of acute hypoxic respiratory failure
-Developed on 12/24/24, CT Chest done later in hospitalization on 12/28/24 confirmed Multifocal Pneumonia
-Suspected aspiration
-Completed 3 days of Azithromycin and also got a few days of Ceftriaxone -- now on Unasyn (see below)
-Pulmonary toilet, bronchodilators
-Aspiration precautions
-Was on high flow oxygen several days ago --> now remains on midflow oxygen with fluctuating requirements (today down to 8 L from 12 L yesterday) -- aspiration seems to be an ongoing issue
-No meds via oral means (given issues with esophagus), but can continue Full Liquids (with Ensure protein supplement) via oral means
-Surgery consulted for possible J tube placement (GI said no Dobhoff tube placement): move forward with a laparoscopic feeding tube placement on 12/31/24
-Discussed TPN with patient and possible associated adverse effects, patient and her sister would like patient to get TPN -- surgery ordered TPN on 12/29/24, appreciate surgery
-Carefully monitor patient for Refeeding Syndrome and for associated complications
-Calorie Counts, thiamine and multivitamin supplementation
-Patient got right-sided thoracentesis on 12/29/24 with return 1350 cc straw colored pleural fluid -- exudative -- I called lab to ask why cytology was not done yet -- they said pathology department is
closed on weekend -- but cytology was ordered
#Fever on 12/24/24 and 12/26/24
- Currently no other possible source of infection other than pneumonia i.e. she has no new joint swelling, mental status is good, neck supple, no UTI symptoms, no new skin rash/redness
- Blood cultures x2 with NGTD
- COVID, Influenza tests, Strep Pneumo and Legionella all negative
- Changed antibiotics from Ceftriaxone to Unasyn on 12/27/24 -- continue Unasyn
- May need to repeat blood cultures and broaden antibiotics if patient develops new fever
- Last fever of 101.1 F was on 12/26/24
#Chest discomfort/nausea -- likely some local irritation after endoscopic ultrasound
#Esophageal stricture from esophageal cancer
Okay to continue Clear Liquids Diet as per GI -- diet has been changed from clears to NPO (given suspected worsening aspiration) to Full Liquids as per speech recs on 12/30/24
Nausea control
GI consult
Oncology consulted: patient wishes to pursue treatment and would potentially still be curative depending on the level of mets. No procedures at this time given hypoxia and acuity.
Goals remain restorative - optimize nutrition and performance status in anticipation of outpatient antineoplastic therapy
CT Chest done for staging purposes showed esophageal carcinoma with circumferential wall thickening again noted at the gastroesophageal junction; mild bilateral hilar and subcarinal lymphadenopathy, which may be
reactive or metastatic.
Pending radiation oncology consult outpatient
Smoking cessation
Patient has outpatient follow-up with Dr. Nunez on 01/03/2025
Abdominal X-ray 12/28/24 with large volume colonic stool suggesting constipation --> this could certainly be contributing to nausea, (treatment as below)
#Poor to minimal PO intake given nausea and esophageal obstruction
- Patient added on for laparoscopic feeding tube placement on Tuesday12/31/24 -- once oncology looks at CT Chest and confirms no metastases, then J tube would be preferred (but if metastasis, then
PEG tube)
- High risk for prolonged post-op intubation but she isn't eating or drinking anything so she really may need it.
- TPN started on 12/29/24, monitor closely for Refeeding Syndrome and associated complications
#Large Volume Colonic Stool/Constipation
- Patient was having nausea 12/27/24 and 12/28/24 after Unasyn antibiotics started, abdominal x-ray was done on 12/28/24, showed significant constipation
- Since patient is having a hard time tolerating PO, ordered Dulcolax suppository -- no BM yet as of 12/30/24 morning
- Consider enema
- Repeat AXR does not show a large amount of stool
#Euglycemic Diabetic Ketoacidosis and Starvation Ketoacidosis
#Anion Gap Metabolic Acidosis secondary to the above
- Lactic acid was normal
- Suspected DKA from running out of insulin in pump together with reduction in PO intake given esophageal issues above
- D5 IV fluids (given sugars in the 200s)+Insulin Drip were given, later transitioned to subq Insulin as DKA resolved
- Monitor in IMU given oxygen requirements
- DKA resolved
- On TPN now, adjusting Insulin
#Anemia
- Hgb drop to 7.8 on 12/29/24 and then to 7.5 on 12/30/24
- Appreciate hem/onc evaluation (they are already involved for patient's esophageal cancer)
- Check stool occult test
- Avoid IV iron given pneumonia/infection
#IDDM with insulin pump
- Patient Insulin pump had run out of Insulin on 12/22/24-12/23/24
- Diabetes BARREL ROLLER OPERATOR consulted
- Continue subq Insulin increased long-acting to 20 units, and also increased short-acting to 20 units Q6H
#Hypercalcemia
IV fluids were given
Resolved
#Orthostatic hypotension, history of syncope
#Hypertension
-Holding Lisinopril and Amlodipine as unsafe to swallow
-prn order for hydralazine increased to 10 mg from 5 mg for better IV blood pressure control
#Hyperlipidemia
-Rosuvastatin cannot be crushed and does not have a liquid form as per clinical pharmacist
#Coronary Artery Disease
#PAD
-Rectal Aspirin converted to chewable to be dissolved in liquid due to patient refusal of rectal aspirin
-Duloxetine cannot be crushed and does not have a liquid form as per clinical pharmacist
#History of pericardial effusion
#History of: pulmonary nodules, adrenal tumor, Tasha's thyroiditis, anemia, ADHD
#Bilateral pleural effusions, right greater than left
#Insomnia
-Melatonin cannot be crushed and does not have a liquid form as per clinical pharmacist
#Severe protein calorie malnutrition of chronic illness
Code DNR. PATIENT TO BE INTUBATED TEMPORARILY IF NEEDED.
Lovenox for DVT Prophylaxis
TPN and Acute Hypoxia needing midflow oxygen is a high risk encounter.
I discussed patient's case with nurse today.
Anticipated Discharge: > 48 hours
Subjective/Interval History
-
Date of Service: December 30, 2024
Patient was seen and examined. She reported feeling overall tired, wants to eat, but is NPO as of this morning.
Objective Data
-
Labs:
Laboratory Results
12/30/24
05:13
WBC 13.9 H
Hgb 7.5 L
Hct 23.2 L
Plt Count 307
Sodium 145
Potassium 3.5
Chloride 114 H
Carbon Dioxide 26
BUN 18 H
Creatinine 1.2 H
Glucose 323 H
Calcium 9.3
Vital Signs:
Vital Signs
Temp Pulse Resp BP Pulse Ox
97.7 F 96 19 169/64 93
12/30/24 04:26 12/30/24 07:37 12/30/24 07:37 12/30/24 06:15 12/30/24 07:37
I&O
12/29/24 12/30/24 12/31/24
06:59 06:59 06:59
Intake Total 1015 / 1015 590 / 590
Output Total 750 / 750 860 / 860
Balance 265 / 265 -270 / -270
[2024-12-30] MEDS: NOVOLOG FLEXPEN SC ×2 (08:04→17:58)
[2024-12-30 08:26] LABS: Glucose - Point of Care 391 mg/dl (70-99)
[2024-12-30] MEDS: CYMBALTA DELAYED RELEASE PO (08:46)
[2024-12-30] MEDS: ZOFRAN 4 MG IV ×2 (08:48→20:18)
[2024-12-30] MEDS: LANTUS 0.2 UNITS SC (08:51)
[2024-12-30] MEDS: THIAMINE INJECTION 100 MG IV (08:52)
[2024-12-30] MEDS: NOVOLOG FLEXPEN 20 UNITS SC ×2 (08:53→12:23)
[2024-12-30] MEDS: LOW STRENGTH ASPIRIN 81 MG PO (08:54)
--- NOTE | 2024-12-30 11:11 | W.PN.PUL.V3 ---
Today's Communication / Plan
-
Antibiotics
Wean oxygen
Improved after thoracentesis
TPN
Possible jejunostomy tube placement
Assessment
-
74-year-old female with recently diagnosed esophageal cancer, with mass in the lower third of her esophagus, diabetes, presents with poor p.o. intake, weakness, nausea and abdominal discomfort. She was initially admitted to the floor, and developed
DKA/HHNK, elevated anion gap, hyperglycemia, transferred to ICU for further management 12/23
Hyperglycemia (DKA/HHNK)
Blood sugar 250
Elevated anion gap, 17
Poor p.o. intake
Dysphagia/odynophagia
Aspiration pneumonia
Recently diagnosed esophageal cancer, mass with obstruction of lower third of esophagus-able to pass liquids
Diabetes with insulin pump
Leukocytosis
Anemia
Respiratory insufficiency, chronic
Weight loss-unintentional
Right pleural effusion
Conditions present prior to admission:
Hypertension/hyperlipidemia
History of COPD/emphysema
DLCO 50%
History of syncope
Orthostasis and evidence of hypoglycemia in the past
Peripheral arterial disease
History of pulm nodules, waxing and waning
15 pound weight loss
45+ pack-year history of smoking, ongoing
Plan
Respiratory status remains tenuous-suspected repeat aspiration events
Overall becoming discouraged-felt better after thoracentesis 12/29/2024
Supplemental oxygen as needed-currently on high flow-attempt to wean
Aspiration precautions
Speech therapy following
Nebulizers-Pulmicort and DuoNebs
Incentive spirometry encouraged
Chest x-ray with probable moderate right pleural effusion-IR consulted for thoracentesis and performed 12/29/24--1350 mL liter-transudate, cultures no growth
Monitor blood sugar
Insulin supplementation as needed
Diabetic nurse practitioner was following
Follow cultures
Sputum culture pending-unable to produce
Empiric antibiotics for pneumonia-ceftriaxone and azithromycin initially-currently on ampicillin/sulbactam
Reviewed with GI-able to pass small scope beyond esophageal obstruction-okay for clear liquids
Surgery consulted-tentative Tuesday12/31/2024 laparoscopic jejunostomy tube placement
TPN initiated 12/29/2024 per surgery
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
Oncology following [id number]-vpcnhyarkvreqs reviewed
Performance status quite poor at this point-ideally would require chemoradiation prior to resection-currently not a resection candidate
The patient wishes aggressive therapy including chemoradiation and potential resection at some point
Smoking cessation counseling ongoing-smoking 1-1/2 packs a day prior to admission
Nicotine patch if needed
DVT prophylaxis-on Lovenox
GI prophylaxis per gastroenterology
Nutrition
PT/OT
Patient has appointment with Dr. Nunez-oncology 01/03/2025
Patient follows with Dr. Farrell as outpatient
Reviewed with primary team and nursing
Subjective Data
-
Date of Service:
Date of Service: December 30, 2024
Chief Complaint: Pulmonary Follow Up (Pneumonia/likely aspiration-hypoxemic respiratory failure) and Dyspnea Follow Up
Subjective:
Starting become discouraged, has shortness of breath, pain without change
Review of Systems
General: Other ( per HPI)
Objective Data
Data Reviewed
Vital Signs / I&O:
Vital Signs
Temp Pulse Resp BP Pulse Ox
98 F 92 30 141/45 94
12/30/24 07:00 12/30/24 10:00 12/30/24 10:00 12/30/24 10:00 12/30/24 10:00
Intake and Output
12/29/24 12/30/24 12/31/24
06:59 06:59 06:59
Intake Total 1015 / 1015 590 / 590
Output Total 750 / 750 860 / 860
Balance 265 / 265 -270 / -270
SaO2: 94
Nasal Cannula flow liters per minute: 6
Physical Exam
General: Respiratory Distress (mild at rest)
HEENT: Normocephalic and Anicteric
Cardiovascular: Regular Rhythm
Respiratory: Wheeze (Few expiratory), Crackles (Bilateral right greater than left base), Rhonchi ( expiratory), Non-Labored Respirations, Accessory Resp Muscle Use (n) and Stridor (n)
GI: Soft and Non Distended
Neurology: Awake, Alert and No Motor Deficits
Skin: Warm, Good Color, Cyanosis (n) and Jaundice (n)
Labs/Micro/Reports
Lab Data
12/30/24 05:13
12/30/24 05:13
Microbiology
12/29/24 12:11 Pleural Fluid Body Fluid Culture - Preliminary
No Growth After 18-24 Hours
12/29/24 12:11 Pleural Fluid Gram Stain - Preliminary
12/26/24 18:17 Blood/Venous Blood Culture - Preliminary
No Growth in 72 hours- Final report to follow
12/26/24 18:18 Blood/Venous Blood Culture - Preliminary
No Growth in 72 hours- Final report to follow
12/26/24 18:07 Nose MRSA Screen - Final
No Methicillin Resistant Staphylococcus aureus isolated.
12/27/24 15:59 Urine Legionella Urinary Antigen - Final
Negative for Legionella pneumophila Serogroup 1 antigen.
A negative result does not rule out the possiblity of
Legionella infection due to other serogroups or species of
Legionella. Clinical correlation is recommended.
12/27/24 15:59 Urine Streptococcus pneumoniae Antigen (M - Final
Negative for Streptococcus pneumoniae antigen.
A negative result does not exclude infection with
Streptococcus pneumoniae. Clinical correlation is
recommended.
--- NOTE | 2024-12-30 11:40 | W.PN.ONC2 ---
Today's Communication / Plan
-
- continue to wean O2 as tolerated
- strict NPO now, receiving TPN to prevent recurrent aspiration events and further lung insult.
Impression
Impression
EUS with regional esophageal cancer
malnutrition
aspiration
pneumonia
smoker, stopped 1 week ago
Plan
Plan
abx per primary service
speech/swallow and nutrition following
-CT chest w/ multifocal pneumonia, bilateral pleural effusions, moderate right and small left, circumferential wall thickening again noted at EG junction, along w/ mild bilateral hilar and subcarinal lymphadenopathy
-w/ ongoing pneumonia - unclear if hilar/ mediastinal adenopathy is reactive or malignant in nature
- increased O2 requirements with worsening infiltrates 12/29. agree with NPO now, TPN started for nutrition. Once stable favor J tube placement for enteral nutrition through cancer tx. tentatively scheduled for tuesday.
- Ir consulted s/p thoracentesis 12/29 w/ removal of 1.35 L. please send fluid for cell counts, cytology however suspect reactive.
- worsening anemia throughout hospital stay, down to 7-8 g/dl. suspect element dilutional with IV fluids. check retic count 1.3%, iron studies with ferritin 176 ng/ml which could reflect low iron stores as would expect this to be high w/ infection,
malignancy. will hold off on IV iron however with infection. stool hemoccult, hapto pending. transfuse for hgb < 7.0 g/dl.
Will continue to follow with you.
Subjective/Objective
Chief Complaint
esophageal cancer, aspiration PNA
Subjective
she underwent thoracentesis yesterday with removal of 1.35 liters. She notes mild improvement in SOB. She remains on hi-iván with slight decrease in O2 needs. Denies fevers. She was started on TPN yesterday, now strict NPO.
Vital Signs:
Vital Signs
Temp Pulse Resp BP Pulse Ox
98 F 89 24 141/45 94
12/30/24 07:00 12/30/24 11:38 12/30/24 11:38 12/30/24 10:00 12/30/24 11:38
Lab Results:
Laboratory Data
WBC 13.9 10^3/uL (4.8-10.8) H 12/30/24 05:13
Hgb 7.5 g/dL (12.0-16.0) L 12/30/24 05:13
Plt Count 307 10^3/uL (130-400) 12/30/24 05:13
PT 13.8 Sec (11.4-14.6) 12/25/24 04:01
INR 1.03 12/25/24 04:01
APTT 42.4 Sec (23.4-35.0) H 12/25/24 04:01
eGFR 47.80 12/30/24 05:13
Physical Exam
HEENT: No Jaundice
Cardiology: Normal Sinus Rhythm
Pulmonary: Rales (bilaterally )
GI: Soft; No Normal Bowel Sounds (decreased bowel sounds )
Extremities: No Edema
Neuro: Non Focal
Review of Systems
Review of Systems
Constitutional: Reports Fatigue; Denies Fever
Respiratory: Reports Dyspnea and Cough
Gastrointestinal: Reports Other (constipation )
Orders
Orders
Orders From Last 24 Hours
12/29/24 12:58
Stool for occult blood [Hemetest Stools] As Directed
12/29/24 13:20
Ferritin Routine
Haptoglobin [S] Routine
Reticulocyte Count Routine
Total Iron Binding Routine
[2024-12-30 12:11] LABS: Glucose - Point of Care 244 mg/dl (70-99)
[2024-12-30] MEDS: NOVOLOG FLEXPEN-MODERATE RESISTANCE 3 UNITS SC (12:24)
--- NOTE | 2024-12-30 12:45 | PTCARENOTE ---
Patient reports feeling depressed today, of note, cymbalta has been held due to inability to tolerate swallowing meds. HOUSE FATHER eval placed. 93% on 7L midflow, no complaints. See mar for pain management. TPN infusing per protocol. Encouraging IS use and
getting out of bed but patient lacking motivation today. VSS. Will continue to closely monitor.
[2024-12-30] MEDS: NSS 1000 IV (14:30)
[2024-12-30 17:16] LABS: Glucose - Point of Care 93 mg/dl (70-99)
[2024-12-30] MEDS: NOVOLOG FLEXPEN-MODERATE RESISTANCE SC (17:25)
[2024-12-30] MEDS: LOVENOX 40 MG SC (18:01)
[2024-12-30] MEDS: Parenteral Nutrition, Central 1680 IV (20:25)
--- NOTE | 2024-12-30 21:16 | PTCARENOTE ---
Pee Pt and Dr. Avina 'If necessary, intubate patient as per discussion with patient and her family, but patient is DNR as well. Night HOME HEALTH PROVIDER made aware of note and Pt wish. New order placed, purple dnr band off Pt. Education given to Pt. In
anticipation for possible Jtube placement Pt will be made NPO at midnight. Education and emotional support given to Pt.
[2024-12-30 22:05] LABS: Glucose - Point of Care 227 mg/dl (70-99)
[2024-12-31] VITALS (8 sets, daily range): BP systolic 142–158; BP diastolic 53–78; BMI 21.2
[2024-12-31] MEDS: NOVOLOG FLEXPEN-MODERATE RESISTANCE 7 UNITS SC (01:33)
[2024-12-31] MEDS: NOVOLOG FLEXPEN SC ×2 (01:36→05:41)
[2024-12-31] MEDS: DILAUDID 0.5 MG IV ×2 (01:42→23:52)
[2024-12-31 01:43] LABS: Glucose - Point of Care 315 mg/dl (70-99)
[2024-12-31] MEDS: MORPHINE SULFATE 1 MG IV ×2 (02:07→06:50)
[2024-12-31] MEDS: NOVOLOG FLEXPEN-MODERATE RESISTANCE 9 UNITS SC ×2 (05:01→14:02)
[2024-12-31] MEDS: DILAUDID 0.25 MG IV ×2 (05:04→19:48)
[2024-12-31] MEDS: ZOFRAN 4 MG IV ×2 (05:04→11:34)
[2024-12-31] MEDS: UNASYN IV ×2 (05:06→11:35)
--- NOTE | 2024-12-31 05:29 | PTCARENOTE ---
Pt having periods of nausea and pain over night. PRN medications given, see MAR. Education given to Pt about [employer]. NPO since midnight.
[2024-12-31 05:40] LABS: Hematocrit 21.1 % (37.0-47.0); Hemoglobin 7.1 g/dL (12.0-16.0); Mean Corp Hgb Conc. 33.6 g/dL (33.0-37.0); Mean Corpuscular Volume 94.6 fL (81.0-99.0); Platelet Count 319 10^3/uL (130-400); Red Cell Dist. Width 14.5 % (11.5-14.5)
[2024-12-31 06:01] LABS: ALT (SGPT) 57 U/L (0-35); AST (SGOT) 46 U/L (14-36); Albumin 2.4 g/dl (3.5-5.0); Alkaline Phosphatase 85 U/L (38-126); Blood Urea Nitrogen 27 mg/dl (7-17); Calcium 9.9 mg/dl (8.4-10.2); Carbon Dioxide 27 mmol/L (22-30); Chloride 115 mmol/L (98-107); Estimated Creatinine Clearance 40 ml/min; Glucose 321 mg/dl (70-99); Magnesium 2.3 mg/dl (1.6-2.3); Potassium 4.0 mmol/L (3.5-5.1); Sodium 143 mmol/L (135-145); Total Protein 4.8 g/dl (6.3-8.2); Triglycerides 111 mg/dl (10-149); eGFR 43.42
[2024-12-31] MEDS: APRESOLINE 10 MG IV (06:06)
--- NOTE | 2024-12-31 07:24 | PN.DE.MGMTRT ---
Insulin Management
- -
12/31/2024: Diabetes Management Follow up
Patient admitted 12/21 with c/o nausea, abdominal pain and weakness. PMH: HTN, HLD, Neuropathy, COPD, Depression, CKD, Chronic kidney disease syncope with falls, and diabetes. Patient lives alone in a mobile home, was recently diagnosed with
esophageal cancer via upper endoscopy involving the lower third of her esophagus. Prior to admission was using a Medtronic 780G insulin pump with Guardian sensor and Humalog insulin. A1C 7.7%, Cr 0.9, eGFR >60. Follows with Endocrine VIRGIL Costello
[facility].
Her insulin pump ran out of insulin on Friday 12/22 so was removed. She developed elevated blood sugars of 255, anion gap 17, was transferred to ICU for further management for DKA, possible HHNK.
Pt awake, alert, oriented, sitting up in bed, offers no complaints, able to discuss diabetes care plan.
12/23 Transitioned from insulin infusion to Lantus and NovoLog AC. 12/29 Noted for poor appetite, stated on TPN contributing to hyperglycemia as high as 391.
Dr. Avina increased insulin dose; Lantus to 20 units and NovoLog 20 units Q6 hrs.
Plan is for PEG tube placement today NPO. Will continue current regimen Lantus 20 units in AM and NovoLog 20 units Q6 hrs with corrective insulin.
Discussed with Nurse. Will cont to monitor.
Pt will resume her insulin pump upon arrival home.
Diabetes History
- -
Type of Diabetes: 2 requiring insulin
Pre-Admission Diabetes Regimen
12/31/24
04:56
Creatinine 1.3 H
Lab Results
Hemoglobin A1c 7.7 % (4.0-5.9) H 12/23/24 06:52
Insulin Pump Settings
IP Diabetes Regimen
12/30/24 12/30/24 12/30/24
08:15 12:00 17:04
Glucose
POC Glucose 391 H 244 H 93
12/30/24 12/31/24 12/31/24
21:51 01:32 04:56
Glucose 321 H
POC Glucose 227 H 315 H
Meal type: Dinner
Amount consumed: 10%
Patient Education
[2024-12-31] MEDS: DUONEB 3 ML INH ×4 (08:03→19:36)
[2024-12-31] MEDS: PULMICORT 0.5 MG INH ×2 (08:03→19:37)
[2024-12-31] MEDS: LOW STRENGTH ASPIRIN PO (08:05)
[2024-12-31] MEDS: CYMBALTA DELAYED RELEASE PO (08:05)
[2024-12-31] MEDS: THIAMINE INJECTION 100 MG IV (08:06)
[2024-12-31] MEDS: LANTUS 0.2 UNITS SC (08:10)
[2024-12-31 08:21] LABS: Glucose - Point of Care 257 mg/dl (70-99)
--- NOTE | 2024-12-31 10:37 | W.PN.HOSP.TC ---
Addendum entered and electronically signed by Caitlin Wild MD 12/31/24 15:08:
Attending�addendum:
I saw and evaluated the patient. I reviewed the resident�s note and agree with findings and plan as documented in the resident�s note.��patient seen and examined at bedside, later spoke to sister at bedside, patient still coughing and still
complaining of nausea and vomiting.
Physical�exam:
GENERAL : Patient looks under distress
HEENT: Nonicteric sclerae, PERRLA, EOMI. Oropharynx clear. Moist mucous membranes. Conjunctivae appear well perfused.
CHEST: Bilateral rales.
HEART: Regular rate and rhythm without murmurs.
LUNGS: Clear to auscultation bilaterally.
ABDOMEN: Soft, positive bowel sounds, nontender, no organomegaly.
RECTAL: Deferred.
MUSCLES/EXTREMITIES: No abnormal range of motion, no swelling.SKIN: No rash, no excessive bruising, petechiae, or purpura.
NEUROLOGIC: Cranial nerves II-XII intact without motor/sensory deficit.
�
Assessment/plan:
Acute hypoxic respiratory failure.
Sepsis secondary to pneumonia with acute hypoxic respiratory failure.
Underlying COPD.
Completed antibiotics.
Appreciate pulmonology input
Esophageal stricture from esophageal cancer.
Continue TPN for now.
Strict NPO.
PEG tube once respiratory status improves
Constipation.
If no improvement consider enema
CODE STATUS:DNR
DVT prophylaxis: Lovenox
Diet: Strict n.p.o.
Family communication: Discussed with sister at bedside
Disposition: May need PEG tube once respiratory status improved
�
Total time spent on today�s encounter was 60 minutes which included time spent in counseling the patient/family regarding diagnosis and treatment plan as listed above, goals of care, and symptom management. Case was discussed with nursing staff,
specialists, and care coordinators/case management. All labs and imaging personally reviewed by me. Remainder the time spent in detailed review of previous records, lab data, imaging, and other medical provider documentation.
Original Note:
Today's Communication/Plan
-
GI/Hem-Onc/Gen Surg following- appreciate input
Hem-Onc rec holding feeding tube placement until lung cytology is resulted
GI and Gen Surg OK with push peg tube
Assessment / Plan
Assessment / Plan
Assessment:
A 74-year-old female who presented to the emergency room for evaluation of weakness and nausea. Patient was recently diagnosed with esophageal cancer and saw [facility] Dr. Luna in [place]. She was scheduled for PET scan on
12/21/24 but had extreme weakness nausea and dry heaves. She also complained of abdominal pain.��
Upper endoscopic ultrasound 12/20/24 - malignant appearing esophageal stenosis,
no gross lesions in the stomach normal duodenal bulb
a mass in the lower third of the esophagus adenocarcinoma.
Virtually completely resolved pericardial effusion in comparison to prior CT.
CT A/P 12/21/24: large volume food material seen within the distal thoracic esophagus suggesting mass/obstruction at the gastroesophageal junction.
PLAN:
# Acute hypoxemic respiratory failure
# Sepsis due to pneumonia with acute hypoxic respiratory failure
# Bilateral pleural effusions
# Fever
# COPD
CT chest 12/28/24 showed multifocal pneumonia, suspect aspiration PNA
S/p 3 days Azithromycin, few days Ceftriaxone. Continue Unasyn now.
O2 supplementation- 6 L, decreased from 12 L.
12/29/24 R sided thoracentesis performed: 1350 cc of straw colored fluid: exudative, awaiting cytology
Blood cultures x2 NGTD. COVID, flu, strep pneumo, Legionella negative
Continue Unasyn- started on 12/27/24
If new fever, consider repeat blood cultures and broaden abx. Last fever 101.1 F on 12/26/24
TPN started 12/29/24
Monitor for refeeding syndrome/ complications of increased nutrition. K/Mg/Phosphorus normal today 12/31/24.
Considering comfort care pending GI/Hematology Oncology input
# Acute kidney injury
# CKD stage 3b
Cr 1.3, increased from 0.9 on 12/29
GFR 43.42
# Chest discomfort/nausea likely due to endoscopic ultrasound
# Esophageal stricture from esophageal cancer�
# Poor to minimal PO intake- likely due to nausea and esophageal obstruction
Full liquids per speech recs 12/30/24
Continue Zofran PRN
GI and General surgery consulted.
Plan was to optimize nutrition and performance status in anticipation of outpatient antineoplastic therapy.
Oncology consulted: patient initially wished to pursue treatment as she was told potentially curative depending on level of mets. Appreciate recs.
# Large volume colonic stool
# Constipation
XR abd 12/28 showed large volume stool suggesting constipation
S/p Dulcolax suppository
Consider enema
# Euglycemic Diabetic Ketoacidosis and Starvation Ketoacidosis
# Anion Gap Metabolic Acidosis secondary to the above
Lactic acid was normal
Suspected DKA likely due to running out of insulin/pump + decreased oral intake
S/p D5 IV fluids, Insulin Drip were given, later transitioned to subq Insulin as DKA resolved
On TPN now, adjusting Insulin
# Anemia
Hgb drop to 7.8 on 12/29/24, 7.5 on 12/30/24, 7.1 on 12/31/24
Hematology-Oncology suspects element dilutional with IV fluids, reticulocyte count 1.3%, iron studies with ferritin 176 ng/ml which could reflect low iron stores as would suspect this to be high with infection, malignancy.
Avoid IV iron given pneumonia/infection
Transfuse for Hgb <7.0
# Insulin-dependent diabetes mellitus with insulin pump
Patient Insulin pump had run out of Insulin on 12/22/24-12/23/24
Diabetes REACTOR SERVICE OPERATOR following
Continue subq Insulin increased long-acting to 20 units, and also increased short-acting to 20 units Q6H
# Hypercalcemia- resolved�
IV fluids were given
Monitor
# Hypertension
Hold Lisinopril and Amlodipine as unsafe to swallow
PRN hydralazine increased to 10 mg from 5 mg for better IV blood pressure control
# Hyperlipidemia
Hold Rosuvastatin- cannot be crushed and does not have a liquid form as per clinical pharmacist
# Coronary Artery Disease
# Peripheral arterial disease
Rectal Aspirin converted to chewable to be dissolved in liquid due to patient refusal of rectal aspirin
Duloxetine cannot be crushed and does not have a liquid form as per clinical pharmacist
# Insomnia
Melatonin cannot be crushed and does not have a liquid form as per clinical pharmacist
# History of pericardial effusion
# History of: pulmonary nodules, adrenal tumor, Tasha's thyroiditis, anemia, ADHD
# Bilateral pleural effusions, right greater than left
# Orthostatic hypotension, history of syncope
# Severe protein calorie malnutrition of chronic illness
Code DNR.
PATIENT TO BE INTUBATED TEMPORARILY IF NEEDED.
Lovenox for DVT Prophylaxis
Anticipated Discharge: > 48 hours
Subjective/Interval History
-
Date of Service: December 31, 2024
Patient evaluated bedside this morning. She states she ' feels take to her stomach.' Patient is having nausea, no vomiting. Patient seen with pudding in her hands when I walked into the room.
Objective Data
-
Labs:
Laboratory Results
12/31/24
04:56
WBC 14.7 H
Hgb 7.1 L
Hct 21.1 L
Plt Count 319
Sodium 143
Potassium 4.0
Chloride 115 H
Carbon Dioxide 27
BUN 27 H
Creatinine 1.3 H
Glucose 321 H
Calcium 9.9
Total Bilirubin 0.6
AST 46 H
ALT 57 H
Alkaline Phosphatase 85
Vital Signs:
Vital Signs
Temp Pulse Resp BP Pulse Ox
97.9 F 86 22 150/55 90
12/31/24 08:08 12/31/24 08:05 12/31/24 08:05 12/31/24 06:15 12/31/24 09:29
I&O
12/30/24 12/31/24 01/01/25
06:59 06:59 06:59
Intake Total 590 / 590 1000 / 1000
Output Total 860 / 860 500 / 500
Balance -270 / -270 500 / 500
Review of Systems
-
History Source: Patient
Constitutional: Reports Fatigue
EENT: Reports No Symptoms Reported
Abdomen/GI: Reports Nausea
Breast: Reports No Symptoms
Genitourinary: Reports No Symptoms
Skin: Reports No Symptoms
Neuro: Reports No Symptoms
Endocrine: Reports No Symptoms
Hematologic / Lymphatic: Reports No Symptoms
Allergy / Immunology: Reports No Symptoms
Physical Exam
-
General: Well Developed, Well Nourished, Appears in Distress and Appears Chronically Ill
HEENT: Normocephalic, Atraumatic, Moist Mucous Membranes and Anicteric
Respiratory: Wheezes, Rhonchi (Expiratory), Crackles, Non Labored Respirations and Accessory Resp Muscle Use
Cardiac: Regular Rhythm and S1/S2
GI: Soft, Nontender and Nondistended
Musculoskeletal: No Clubbing, No Cyanosis and No Edema
Skin: Warm
Neuro: Awake and AO x 3
Psych: Calm and Intact Judgement/Insight
Data Reviewed
-
Labs: Labs Reviewed by me, Discussed with Physician, Discussed with Nurse and Discussed with Patient
Old Records: Reviewed
--- NOTE | 2024-12-31 11:37 | W.PN.ONC2 ---
Today's Communication / Plan
-
Would hold off on feeding tube placement until lung cytology is resulted, pathology received sample today so may have results tomorrow
Pt is unsure if she would like to pursue any feeding tube, we discussed that TPN is not a good chcf solution for her malnutrtion. She would like to discuss with her sister prior to making a decision.
Impression
Impression
EUS with regional esophageal cancer
malnutrition
aspiration
pneumonia
smoker, stopped 1 week ago
Plan
Plan
abx per primary service
speech/swallow and nutrition following
-CT chest w/ multifocal pneumonia, bilateral pleural effusions, moderate right and small left, circumferential wall thickening again noted at EG junction, along w/ mild bilateral hilar and subcarinal lymphadenopathy
-w/ ongoing pneumonia - unclear if hilar/ mediastinal adenopathy is reactive or malignant in nature
- increased O2 requirements with worsening infiltrates 12/29. agree with NPO now, TPN started for nutrition. Once stable favor J tube placement for enteral nutrition through cancer tx. tentatively scheduled for tuesday.
- Ir consulted s/p thoracentesis 12/29 w/ removal of 1.35 L. please send fluid for cell counts, cytology however suspect reactive.
- worsening anemia throughout hospital stay, down to 7-8 g/dl. suspect element dilutional with IV fluids. check retic count 1.3%, iron studies with ferritin 176 ng/ml which could reflect low iron stores as would expect this to be high w/ infection,
malignancy. will hold off on IV iron however with infection. stool hemoccult, hapto pending. transfuse for hgb < 7.0 g/dl.
Subjective/Objective
Subjective
denies pain or bleeding
tolerating chocholate milk but otherwise little PO calorie intake
Vital Signs:
Vital Signs
Temp Pulse Resp BP Pulse Ox
98.4 F 87 19 150/55 99
12/31/24 11:21 12/31/24 11:12 12/31/24 11:12 12/31/24 06:15 12/31/24 11:12
Lab Results:
Laboratory Data
WBC 14.7 10^3/uL (4.8-10.8) H 12/31/24 04:56
Hgb 7.1 g/dL (12.0-16.0) L 12/31/24 04:56
Plt Count 319 10^3/uL (130-400) 12/31/24 04:56
PT 13.8 Sec (11.4-14.6) 12/25/24 04:01
INR 1.03 12/25/24 04:01
APTT 42.4 Sec (23.4-35.0) H 12/25/24 04:01
eGFR 43.42 12/31/24 04:56
Physical Exam
HEENT: No Jaundice
Pulmonary: Other (unlabored)
GI: Soft
Extremities: Pulses Present
Neuro: Non Focal
--- NOTE | 2024-12-31 11:55 | PTCARENOTE ---
Pt informed this RN she does not want to proceed with feeding tube, and asks to 'be kept comfortable and out of pain.' Discussed hospice/comfort with pt and she states she would like to pursue these measures. 's Yamilet Wild and Clif
notified via TT. Pt requests her sister come to see her if able, sister Maddie called and and states she will come over. Pt also asking if hospital would allow a visit with her dog. Dr. Wild in agreement with pet visit. Pastoral care offered, pt
declined at this time. Emotional support provided.
[2024-12-31 12:40] LABS: Glucose - Point of Care 379 mg/dl (70-99)
--- NOTE | 2024-12-31 13:07 | W.PN.GS2 ---
Today's Communication / Plan
-
Will hold off on enteral access for now until respiratory status improves and goals of care better established.
Assessment / Plan
-
This is a 74-year-old female smoker, recent diagnosis of esophageal cancer at her [facility] with corresponding poor p.o. intolerance and weight loss. General surgery consulted for enteral access.
Very poor respiratory status, it is very likely that laparoscopic J or G-tube at this moment would require a prolonged postoperative intubation which is against the patient's wishes.
We did discuss endoscopic options such as a push PEG under sedation which I discussed briefly with Dr. Garland (GI).
In discussion with the patient this afternoon, she would rather focus on quality of life and is not interested in surgery/any procedure at this moment.
Would be reasonable to engage palliative care and discuss goals of care.
General surgery will follow peripherally, TPN reordered.
Time Spent
Total Time Spent with Patient (in minutes): 30
Subjective Data
-
Date of Service: December 31, 2024
Worsening respiratory status, with thoracentesis for 1.3 L over the weekend. Worsening anemia. CT chest demonstrates multifocal pneumonia, bilateral pleural effusions with hilar and subcarinal lymphadenopathy concerning for possible metastatic
spread
Objective Data
-
Intake and Output
12/30/24 12/31/24 01/01/25
06:59 06:59 06:59
Intake Total 590 / 590 1000 / 1000
Output Total 860 / 860 500 / 500
Balance -270 / -270 500 / 500
Intake:
Oral fluids 60 / 60
IV piggybacks 240 / 240 240 / 240
TPN/PPN 350 / 350 700 / 700
Output:
Urine, Voided 860 / 860 500 / 500
Vital Signs
Temp Pulse Resp BP Pulse Ox
98.4 F 87 19 150/55 99
12/31/24 11:21 12/31/24 11:12 12/31/24 11:12 12/31/24 06:15 12/31/24 11:12
Lab Results
12/31/24 04:56
12/31/24 04:56
Calcium 9.9 mg/dl (8.4-10.2) 12/31/24 04:56
Phosphorus 4.0 mg/dl (2.5-4.5) 12/31/24 04:56
Magnesium 2.3 mg/dl (1.6-2.3) 12/31/24 04:56
Total Bilirubin 0.6 mg/dl (0.2-1.3) 12/31/24 04:56
AST 46 U/L (14-36) H 12/31/24 04:56
ALT 57 U/L (0-35) H 12/31/24 04:56
Alkaline Phosphatase 85 U/L (38-126) 12/31/24 04:56
Total Protein 4.8 g/dl (6.3-8.2) L 12/31/24 04:56
Albumin 2.4 g/dl (3.5-5.0) L 12/31/24 04:56
Physical Exam
-
GENERAL/NEURO: Awake, but tired and in distress
CHEST: Labored breathing on high flow
ABDOMEN: Soft, Non-Tender, Non-Distended
Patient has a sewell catheter: No
Patient has a central line: Yes
--- NOTE | 2024-12-31 13:22 | PTCARENOTE ---
Pt's sister at bedside along Dr Wild. Pt and sister wishing to hear from GI, surgery and oncology before deciding on comfort care. Team notified by Dr. Wild.
--- NOTE | 2024-12-31 13:24 | W.PN.PUL3 ---
Today's Communication / Plan
-
- D/c Unasyn
- Continue to wean O2 as tolerated
- Chest X ray in AM
- Goals of care discussions
Assessment
-
74-year-old female with recently diagnosed esophageal cancer, with mass in the lower third of her esophagus, diabetes, presents with poor p.o. intake, weakness, nausea and abdominal discomfort. She was initially admitted to the floor, and developed
DKA/HHNK, elevated anion gap, hyperglycemia, transferred to ICU for further management 12/23
#1. Acute hypoxic respiratory failure with aspiration pneumonia/pneumonitis
- Clinically improving, patient is afebrile now
- Had been on IV Unasyn, discontinue antibiotics
#2. H/o COPD with emphysema
- Noted emphysema on CT chest, also longstanding history of smoking
- Patient had been on Anoro prior to admission
- Currently DuoNeb 4 times daily scheduled along with twice daily budesonide, continue
- No wheezing on exam, hold off oral or IV steroids for now
#3. Bilateral pleural effusions, R>L
- S/p thoracentesis, right side, 12/29
- Pleural fluid appears to be primarily transudative, pleural fluid protein less than 2 with serum protein 4.8, ratio less than 0.5. LDH ratio is borderline at 0.66 with pleural fluid LDH 152.
- ? Hypoalbuminemia contributing. Parapneumonic effusion also in differential diagnosis however fluid does not appear to be frankly exudative.
- Pleural fluid cultures have stayed negative, cytology pending
#4. 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
- Suspect related to underlying malignancy, new diagnosis of esophageal cancer
- Likely has advanced COPD/emphysema, could have a component of pulmonary cachexia as well
- Currently on TPN. Patient undecided about enteral access for tube feeding
- Ongoing goals of care discussions
#5. Mediastinal and hilar lymphadenopathy
- CT chest reviewed, enlarged lymph nodes noted. Differential diagnosis include reactive due to infection versus metastatic with known history of esophageal cancer
- Await pleural fluid cytology for now
- Depending upon her clinical course, will need a follow-up imaging in coming weeks to months, if persistent lymphadenopathy, will need to consider EBUS-TBNA
Other medical diagnoses:
Hyperglycemia (DKA/HHNK)
Poor p.o. intake
Dysphagia/odynophagia
Aspiration pneumonia
Recently diagnosed esophageal cancer, mass with obstruction of lower third of esophagus-able to pass liquids
Diabetes with insulin pump
Leukocytosis
Anemia
Respiratory insufficiency, chronic
Weight loss-unintentional
Right pleural effusion
Hypertension/hyperlipidemia
History of COPD/emphysema
DLCO 50%
History of syncope
Orthostasis and evidence of hypoglycemia in the past
Peripheral arterial disease
History of pulm nodules, waxing and waning
15 pound weight loss
45+ pack-year history of smoking, ongoing
Total time spent on this consultation/encounter __45__ minutes which includes review of history, physical exam, medications, laboratory data, personal review of imaging, extensive review of outpatient records, discussion with care team and
respiratory therapy.
Subjective Data
-
Date of Service:
Date of Service: December 31, 2024
Chief Complaint: Pulmonary Follow Up (Pneumonia/likely aspiration-hypoxemic respiratory failure) and Dyspnea Follow Up
Subjective:
Patient comfortably lying in bed in no acute distress.
Review of Systems
Genitourinary: Other (No new symptoms reported.)
Objective Data
Data Reviewed
Vital Signs / I&O / Oxygen:
Vital Signs
Temp Pulse Resp BP Pulse Ox
98.4 F 87 19 150/55 99
12/31/24 11:21 12/31/24 11:12 12/31/24 11:12 12/31/24 06:15 12/31/24 11:12
Intake and Output
12/30/24 12/31/24 01/01/25
06:59 06:59 06:59
Intake Total 590 / 590 1000 / 1000
Output Total 860 / 860 500 / 500
Balance -270 / -270 500 / 500
SaO2 99
Nasal Cannula flow liters per 6
minute
Physical Exam
General: Respiratory Distress (Blood)
HEENT: Normocephalic and Anicteric
Cardiovascular: Regular Rhythm
Respiratory: Wheeze (No wheezing on exam), Crackles (Few basilar crackles), Rhonchi (None), Non-Labored Respirations, Accessory Resp Muscle Use (n) and Stridor (n)
GI: Soft and Non Distended
Neurology: Awake and Alert
Skin: Warm, Good Color, Cyanosis (n) and Jaundice (n)
Labs/Micro/Reports
Lab Data
12/31/24 04:56
12/31/24 04:56
Microbiology
12/29/24 12:11 Pleural Fluid Body Fluid Culture - Preliminary
No Growth After 48 Hours
12/29/24 12:11 Pleural Fluid Gram Stain - Preliminary
12/26/24 18:17 Blood/Venous Blood Culture - Preliminary
No Growth in 4 days- Final report to follow
12/26/24 18:18 Blood/Venous Blood Culture - Preliminary
No Growth in 4 days- Final report to follow
[2024-12-31] MEDS: NOVOLOG FLEXPEN 20 UNITS SC ×3 (14:02→23:51)
--- NOTE | 2024-12-31 14:13 | PTCARENOTE ---
Per DM educator Rosy, okay to give insulin as ordered while pt is NPO and has TPN running.
--- NOTE | 2024-12-31 15:54 | CM ---
F/U: Patient is deciding between feeding tube vs. comfort care/ hospice, Case Management to follow. PLAN: TBD.
[2024-12-31] MEDS: NOVOLOG FLEXPEN-MODERATE RESISTANCE 3 UNITS SC ×2 (17:50→23:52)
[2024-12-31] MEDS: LOVENOX 40 MG SC (17:50)
[2024-12-31 17:53] LABS: Glucose - Point of Care 239 mg/dl (70-99)
[2024-12-31] MEDS: REGLAN 10 MG IV (19:49)
[2024-12-31] MEDS: Parenteral Nutrition, Central 1680 IV (21:29)
[2025-01-01] VITALS (7 sets, daily range): BP systolic 128–172; BP diastolic 49–79; BMI 21.6
[2025-01-01 00:02] LABS: Glucose - Point of Care 223 mg/dl (70-99)
[2025-01-01] MEDS: REGLAN 10 MG IV (05:37)
[2025-01-01 05:46] LABS: Glucose - Point of Care 95 mg/dl (70-99)
[2025-01-01 05:56] LABS: Hematocrit 22.2 % (37.0-47.0); Hemoglobin 7.0 g/dL (12.0-16.0); Mean Corp Hgb Conc. 31.5 g/dL (33.0-37.0); Mean Corpuscular Volume 98.7 fL (81.0-99.0); Platelet Count 341 10^3/uL (130-400); Red Cell Dist. Width 14.9 % (11.5-14.5)
[2025-01-01] MEDS: NOVOLOG FLEXPEN SC ×2 (05:56→13:02)
[2025-01-01] MEDS: NOVOLOG FLEXPEN-MODERATE RESISTANCE SC ×2 (05:57→13:03)
[2025-01-01 06:22] LABS: Blood Urea Nitrogen 34 mg/dl (7-17); Calcium 9.7 mg/dl (8.4-10.2); Carbon Dioxide 28 mmol/L (22-30); Chloride 119 mmol/L (98-107); Estimated Creatinine Clearance 37 ml/min; Glucose 78 mg/dl (70-99); Magnesium 2.4 mg/dl (1.6-2.3); Potassium 3.8 mmol/L (3.5-5.1); Sodium 149 mmol/L (135-145); eGFR 39.73
[2025-01-01] MEDS: DUONEB 3 ML INH ×3 (07:23→15:22)
[2025-01-01] MEDS: PULMICORT 0.5 MG INH (07:23)
--- NOTE | 2025-01-01 07:28 | W.PN.HOSP.TC ---
Addendum entered and electronically signed by Caitlin Wild MD 01/01/25 12:48:
Attending�addendum:
I saw and evaluated the patient. I reviewed the resident�s note and agree with findings and plan as documented in the resident�s note.��patient seen and examined at bedside, updated the patient's sister, patient elected comfort measures only on
hospice.
Discussed with oil field caser, hospice consulted.
Will start comfort measures today.
Physical�exam:
GENERAL : Patient looks under distress
HEENT: Nonicteric sclerae, PERRLA, EOMI. Oropharynx clear. Moist mucous membranes. Conjunctivae appear well perfused.
CHEST: Bilateral rales.
HEART: Regular rate and rhythm without murmurs.
LUNGS: Clear to auscultation bilaterally.
ABDOMEN: Soft, positive bowel sounds, nontender, no organomegaly.
RECTAL: Deferred.
MUSCLES/EXTREMITIES: No abnormal range of motion, no swelling.SKIN: No rash, no excessive bruising, petechiae, or purpura.
NEUROLOGIC: Cranial nerves II-XII intact without motor/sensory deficit.
�
Assessment/plan:
Acute hypoxic respiratory failure.
Esophageal stricture from esophageal cancer.
Constipation.
plan:
Start comfort measures only
CODE STATUS:DNR
DVT prophylaxis: Lovenox
Diet: Strict n.p.o.
Family communication: Discussed with sister.
Disposition: Start comfort measures only
�
Total time spent on today�s encounter was 60 minutes which included time spent in counseling the patient/family regarding diagnosis and treatment plan as listed above, goals of care, and symptom management. Case was discussed with nursing staff,
specialists, and care coordinators/case management. All labs and imaging personally reviewed by me. Remainder the time spent in detailed review of previous records, lab data, imaging, and other medical provider documentation.
Original Note:
Today's Communication/Plan
-
Hospice consult
Enema
Assessment / Plan
Assessment / Plan
Assessment:
A 74-year-old female who presented to the emergency room for evaluation of weakness and nausea. Patient was recently diagnosed with esophageal cancer and saw [facility] Dr. Luna in [place]. She was scheduled for PET scan on
12/21/24 but had extreme weakness nausea and dry heaves. She also complained of abdominal pain.��
Upper endoscopic ultrasound 12/20/24 - malignant appearing esophageal stenosis,
no gross lesions in the stomach normal duodenal bulb
a mass in the lower third of the esophagus adenocarcinoma.
Virtually completely resolved pericardial effusion in comparison to prior CT.
CT A/P 12/21/24: large volume food material seen within the distal thoracic esophagus suggesting mass/obstruction at the gastroesophageal junction.
PLAN:
# Acute hypoxemic respiratory failure
# Sepsis due to pneumonia with acute hypoxic respiratory failure
# Bilateral pleural effusions
# Fever
# COPD
CT chest 12/28/24 showed multifocal pneumonia, suspect aspiration PNA
S/p 3 days Azithromycin, few days Ceftriaxone.
O2 supplementation- weaning oxygen from 12 L.
12/29/24 R sided thoracentesis performed: 1350 cc of straw colored fluid: exudative, awaiting cytology
Blood cultures x2 NGTD. COVID, flu, strep pneumo, Legionella negative
Unasyn discontinued 01/01/25 - started on 12/27/24
If new fever, consider repeat blood cultures and broaden antibiotics. Last fever 101.1 F on 12/26/24
TPN started 12/29/24
Monitor for refeeding syndrome/ complications of increased nutrition. K/Mg/Phosphorus normal today 12/31/24.
Hospice consult today 01/01
# Acute kidney injury
# CKD stage 3b
Cr 1.4, increased from 0.9 on 12/29.
GFR 43.42 --> 37 on 01/01/25
# Chest discomfort/nausea likely due to endoscopic ultrasound
# Esophageal stricture from esophageal cancer�
# Poor to minimal PO intake- likely due to nausea and esophageal obstruction
Full liquids per speech recs 12/30/24
Continue Zofran PRN
GI and General surgery consulted.
Oncology consulted: patient initially wished to pursue treatment as she was told potentially curative depending on level of mets.
Plan was to optimize nutrition and performance status in anticipation of outpatient antineoplastic therapy. Patient now opting for hospice.
# Large volume colonic stool
# Constipation
XR abd 12/28 showed large volume stool suggesting constipation
S/p Dulcolax suppository.
No bowel movement in 7 days, enema given today 01/01
# Euglycemic Diabetic Ketoacidosis and Starvation Ketoacidosis
# Anion Gap Metabolic Acidosis secondary to the above
Lactic acid was normal
Suspected DKA likely due to running out of insulin/pump + decreased oral intake
S/p D5 IV fluids, Insulin Drip were given, later transitioned to subq Insulin as DKA resolved
On TPN now, adjusting Insulin
# Anemia
Hgb drop to 7.8 on 12/29/24, 7.1 on 12/31/24 and 7.0 on 01/01/25
Hematology-Oncology suspects element dilutional with IV fluids, reticulocyte count 1.3%, iron studies with ferritin 176 ng/ml which could reflect low iron stores as would suspect this to be high with infection, malignancy.
Avoid IV iron given pneumonia/infection
Transfuse for Hgb <7.0
# Insulin-dependent diabetes mellitus with insulin pump
Patient Insulin pump had run out of Insulin on 12/22/24-12/23/24
Diabetes BARBER INSTRUCTOR following
Continue subq Insulin increased long-acting to 20 units, and also increased short-acting to 20 units Q6H
# Hypercalcemia- resolved�
IV fluids were given
Monitor
# Hypertension
Hold Lisinopril and Amlodipine as unsafe to swallow
PRN hydralazine increased to 10 mg from 5 mg for better IV blood pressure control
# Hyperlipidemia
Hold Rosuvastatin- cannot be crushed and does not have a liquid form as per clinical pharmacist
# Coronary Artery Disease
# Peripheral arterial disease
Rectal Aspirin converted to chewable to be dissolved in liquid due to patient refusal of rectal aspirin
Duloxetine cannot be crushed and does not have a liquid form as per clinical pharmacist
# Insomnia
Melatonin cannot be crushed and does not have a liquid form as per clinical pharmacist
# History of pericardial effusion
# History of: pulmonary nodules, adrenal tumor, Tasha's thyroiditis, anemia, ADHD
# Bilateral pleural effusions, right greater than left
# Orthostatic hypotension, history of syncope
# Severe protein calorie malnutrition of chronic illness
Code DNR.
PATIENT TO BE INTUBATED TEMPORARILY IF NEEDED.
Lovenox for DVT Prophylaxis
Anticipated Discharge: > 48 hours
Subjective/Interval History
-
Date of Service: January 01, 2025
Patient evaluated at bedside this morning. She states she feels extremely weak and is in pain. Patient would like to eat everything, and is fine with opting for hospice at this time.
Objective Data
-
Labs:
Laboratory Results
01/01/25
05:42
WBC 18.1 H
Hgb 7.0 L
Hct 22.2 L
Plt Count 341
Sodium 149 H
Potassium 3.8
Chloride 119 H
Carbon Dioxide 28
BUN 34 H
Creatinine 1.4 H
Glucose 78
Calcium 9.7
Vital Signs:
Vital Signs
Temp Pulse Resp BP Pulse Ox
97.6 F 86 20 166/63 96
01/01/25 03:00 01/01/25 07:25 01/01/25 07:25 01/01/25 06:00 01/01/25 07:25
I&O
12/31/24 01/01/25 01/02/25
06:59 06:59 06:59
Intake Total 1000 / 1000
Output Total 500 / 500 400 / 400
Balance 500 / 500 -400 / -400
Review of Systems
-
History Source: Patient
Constitutional: Reports Fatigue
EENT: Reports No Symptoms Reported
Respiratory: Reports Trouble Breathing
Breast: Reports No Symptoms
Genitourinary: Reports No Symptoms
Musculoskeletal: Reports No Symptoms
Skin: Reports No Symptoms
Neuro: Reports No Symptoms
Endocrine: Reports No Symptoms
Hematologic / Lymphatic: Reports No Symptoms
Allergy / Immunology: Reports No Symptoms
Physical Exam
-
General: Well Developed, Appears in Distress and Appears Chronically Ill
HEENT: Normocephalic, Atraumatic and Moist Mucous Membranes
Respiratory: Wheezes, Rhonchi, Crackles and Accessory Resp Muscle Use
Cardiac: Regular Rhythm and S1/S2
GI: Soft and Nondistended
Musculoskeletal: No Clubbing and No Cyanosis
Skin: Warm
Neuro: Awake
Psych: Calm
Data Reviewed
-
Labs: Labs Reviewed by me, Discussed with Physician and Discussed with Patient
Old Records: Reviewed
[2025-01-01] MEDS: THIAMINE INJECTION 100 MG IV (08:35)
[2025-01-01] MEDS: LOW STRENGTH ASPIRIN PO (08:36)
[2025-01-01] MEDS: CYMBALTA DELAYED RELEASE PO (08:36)
--- NOTE | 2025-01-01 08:41 | PTCARENOTE ---
Assumed care of patient at beginning of this shift from previous RN with 11L midflow in use. Patient c/o nausea and was given reglan at 05:37. Still c/of nausea on initial rounds. Still with no bm. Per documentation, last bm was 12/18. Patient was
given dulcolax suppository on 12/28. Dr Wild made aware via TT.
--- NOTE | 2025-01-01 08:50 | PTCARENOTE ---
Patient due for lantus 20 units this morning. Blood chemistry at 05:42 shows glucose 78; accu check 95 at 05:35. Scheduled 20 units novolog held at 0600 per shift report. TPN infusing at 70ml/hr. Reviewed all in TT sent to Colleen Bennett to verify if
lantus should be given this morning. Await further instructions.
--- NOTE | 2025-01-01 08:53 | PTCARENOTE ---
POx dropped to 77% while patient was sleeping. Midflow increased to 15L but not improved; NRB placed on patient. She then coughed what sounded like thick sputum and POx improved; currently 98% on 15L midflow, will attempt to wean. Patent stated she
was not able to bring up sputum.
--- NOTE | 2025-01-01 09:36 | W.PN.SURGUPD ---
Surgical Update
Surgical Update
Chart and labs reviewed. TPN reordered.
[2025-01-01] MEDS: LANTUS 0.15 UNITS SC (09:56)
[2025-01-01] MEDS: LANTUS SC (09:56)
[2025-01-01] MEDS: FLEET MINERAL OIL ENEMA 133 ML RECTAL (10:12)
--- NOTE | 2025-01-01 11:26 | W.PN.PUL3 ---
Today's Communication / Plan
-
- Tenuous respiratory status, high risk of decompensation
- Agree with hospice consult, patient expressing wishes to pursue palliative care
- Can use morphine IV as needed for air hunger
- Pulmonary team available as needed
Assessment
-
74-year-old female with recently diagnosed esophageal cancer, with mass in the lower third of her esophagus, diabetes, presents with poor p.o. intake, weakness, nausea and abdominal discomfort. She was initially admitted to the floor, and developed
DKA/HHNK, elevated anion gap, hyperglycemia, transferred to ICU for further management 12/23
#1. Acute hypoxic respiratory failure with aspiration pneumonia/pneumonitis
- 01/01, patient appears to have slightly increased work of breathing, requiring 10 L, saturating 90 to 91%
- Had been on IV Unasyn, discontinued antibiotics on 12/31
- Concern for ongoing aspiration
- Patient expressed wanting to pursue more palliative approach to treatment. Agree with hospice consult, discussed with primary team. Can use morphine on an as-needed basis for air hunger.
#2. H/o COPD with emphysema
- Noted emphysema on CT chest, also longstanding history of smoking
- Patient had been on Anoro prior to admission
- Currently DuoNeb 4 times daily scheduled along with twice daily budesonide, continue
- No wheezing on exam, hold off oral or IV steroids for now
#3. Bilateral pleural effusions, R>L
- S/p thoracentesis, right side, 12/29
- Pleural fluid appears to be primarily transudative, pleural fluid protein less than 2 with serum protein 4.8, ratio less than 0.5. LDH ratio is borderline at 0.66 with pleural fluid LDH 152.
- ? Hypoalbuminemia contributing. Parapneumonic effusion also in differential diagnosis however fluid does not appear to be frankly exudative.
- Pleural fluid cultures have stayed negative, cytology pending
#4. 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
- Suspect related to underlying malignancy, new diagnosis of esophageal cancer
- Likely has advanced COPD/emphysema, could have a component of pulmonary cachexia as well
- Currently on TPN. Patient does not want to pursue additional intervention and is inclining towards more palliative approach.
- Ongoing goals of care discussions. Hospice evaluation pending
#5. Mediastinal and hilar lymphadenopathy
- CT chest reviewed, enlarged lymph nodes noted. Differential diagnosis include reactive due to infection versus metastatic with known history of esophageal cancer
- Await pleural fluid cytology for now
- Await goals of care discussions and hospice consult before further recommendations.
Other medical diagnoses:
Hyperglycemia (DKA/HHNK)
Poor p.o. intake
Dysphagia/odynophagia
Aspiration pneumonia
Recently diagnosed esophageal cancer, mass with obstruction of lower third of esophagus-able to pass liquids
Diabetes with insulin pump
Leukocytosis
Anemia
Respiratory insufficiency, chronic
Weight loss-unintentional
Right pleural effusion
Hypertension/hyperlipidemia
History of COPD/emphysema
DLCO 50%
History of syncope
Orthostasis and evidence of hypoglycemia in the past
Peripheral arterial disease
History of pulm nodules, waxing and waning
15 pound weight loss
45+ pack-year history of smoking, ongoing
Total time spent on this consultation/encounter __43__ minutes which includes review of history, physical exam, medications, laboratory data, personal review of imaging, extensive review of outpatient records, discussion with care team and
respiratory therapy.
Subjective Data
-
Date of Service:
Date of Service: January 01, 2025
Chief Complaint: Pulmonary Follow Up (Pneumonia/likely aspiration-hypoxemic respiratory failure) and Dyspnea Follow Up
Subjective:
Mildly increased work of breathing noted, requiring 10 L, saturating 90 to 91% with tachypnea
Review of Systems
Genitourinary: Other (Reports more shortness of breath.)
Objective Data
Data Reviewed
Vital Signs / I&O / Oxygen:
Vital Signs
Temp Pulse Resp BP Pulse Ox
98.1 F 86 20 166/63 96
01/01/25 08:00 01/01/25 07:25 01/01/25 07:25 01/01/25 06:00 01/01/25 07:25
Intake and Output
12/31/24 01/01/25 01/02/25
06:59 06:59 06:59
Intake Total 1000 / 1000
Output Total 500 / 500 400 / 400
Balance 500 / 500 -400 / -400
SaO2 96
Nasal Cannula flow liters per 10
minute
Physical Exam
General: Respiratory Distress (Appears to have increased work of breathing)
HEENT: Normocephalic and Anicteric
Cardiovascular: Regular Rhythm
Respiratory: Wheeze (No wheezing on exam), Crackles (Few basilar crackles), Rhonchi (Right greater than left), Non-Labored Respirations, Accessory Resp Muscle Use (n) and Stridor (n)
GI: Soft and Non Distended
Neurology: Awake and Alert
Skin: Warm, Good Color, Cyanosis (n) and Jaundice (n)
Labs/Micro/Reports
Lab Data
01/01/25 05:42
01/01/25 05:42
Microbiology
12/29/24 12:11 Pleural Fluid Body Fluid Culture - Final
No Growth After 72 Hours
12/29/24 12:11 Pleural Fluid Gram Stain - Final
12/26/24 18:17 Blood/Venous Blood Culture - Final
No Growth - Final Report
12/26/24 18:18 Blood/Venous Blood Culture - Final
No Growth - Final Report
--- NOTE | 2025-01-01 11:34 | HOSPNOTE ---
Spoke with sister and the plan is to try to wean down oxygen and pursue palliative care, however the sister and patient are realistic and understand that hospice may be needed and the patient would need to remain inpatient hospice. I will follow
daily and continue with goals of care discussion.
--- NOTE | 2025-01-01 12:06 | PTCARENOTE ---
Administered mineral oil fleets enema; no results yet.
--- NOTE | 2025-01-01 12:06 | PTCARENOTE ---
Patient pulled off oxygen and stated she does not want this anymore; she states she would like something to drink. She is requesting to speak with physician alone to tell him his wishes. This nurse was speaking with CM after leaving room; he went in
to speak with patient and stated hospice nurse will be in to speak with her alone. Patient stated agreed to that.
--- NOTE | 2025-01-01 12:31 | PN.DE.MGMTRT ---
Insulin Management
- -
01/01/2025: Diabetes Management Follow up
Patient admitted 12/21 with c/o nausea, abdominal pain and weakness. PMH: HTN, HLD, Neuropathy, COPD, Depression, CKD, Chronic kidney disease syncope with falls, and diabetes. Patient lives alone in a mobile home, was recently diagnosed with
esophageal cancer via upper endoscopy involving the lower third of her esophagus. Prior to admission was using a Medtronic 780G insulin pump with Guardian sensor and Humalog insulin. A1C 7.7%, Cr 0.9, eGFR >60. Follows with Endocrine VIRGIL Costello
[facility].
Her insulin pump ran out of insulin on Friday 12/22 so was removed. She developed elevated blood sugars of 255, anion gap 17, was transferred to ICU for further management for DKA, possible HHNK.
Pt is sleeping this AM, not disturbed, I spoke with patient nurse, patient considering palliative care vs hospice.
01/01/2025 Received 20 units lantus yesterday, glucose 223 to 379. Fasting glucose today 95. Continues with TPN @ 70 ml per hour. Due to glucose 95, lantus reduced to 15 units. Nurse did not give AM novolog. Will assess pre lunch glucose to
determine dose for Q6 hour novolog
Discussed with Nurse. Will cont to monitor.
Diabetes History
- -
Type of Diabetes: 2 requiring insulin
Pre-Admission Diabetes Regimen
01/01/25
05:42
Creatinine 1.4 H
Lab Results
Hemoglobin A1c 7.7 % (4.0-5.9) H 12/23/24 06:52
Insulin Pump Settings
IP Diabetes Regimen
12/31/24 12/31/24 12/31/24
12:29 17:42 23:51
Glucose
POC Glucose 379 H 239 H 223 H
01/01/25 01/01/25
05:35 05:42
Glucose 78
POC Glucose 95
Patient Education
--- NOTE | 2025-01-01 12:37 | HOSPNOTE ---
Spoke to patient and she will be made comfort measures today she asked me to call sister and explain, patient is a DNR and patient wants no further treatments or testing. Patient asked me to call the sister and explain. We will admit inpatient
hospice tomorrow. Attending and CM aware.
--- NOTE | 2025-01-01 12:43 | PTCARENOTE ---
Patient spoke with Mallory from hospice. Dr Wild to enter orders for comfort as per Mallory. Colleen Bennett made aware.
[2025-01-01] MEDS: MORPHINE SULFATE 1 MG IV ×4 (13:12→23:33)
--- NOTE | 2025-01-01 14:45 | PTCARENOTE ---
TPN d/c'd at 13:[address] Wild.
--- NOTE | 2025-01-01 15:45 | CM ---
F/U: EDUARD Du saw consult for Hospice, spoke to Hospitalist who wanted call to [facility] ([facility]). EDUARD Du spoke to the patient who wanted to speak to [facility] liaison herself first then can call sister. EDUARD Du then spoke to the sister who is
agreeable that her sister is requesting information about Hospice.
Mallory follow up after meeting the patient, the plan is Inpatient Hospice tomorrow and Mallory will talk to the sister today. PLAN: Inpatient Hospice tomorrow.
[2025-01-01] MEDS: ZOFRAN 4 MG IV ×2 (17:48→23:54)
[2025-01-01] MEDS: DUONEB INH (19:46)
[2025-01-01] MEDS: PULMICORT INH (19:46)
--- NOTE | 2025-01-02 02:10 | PTCARENOTE ---
patient's sister at bedside, staying overnight. Patient aaox3 and making needs known. PRN morphine and Zofran as ordered. call marino in reach.
[2025-01-02] MEDS: MORPHINE SULFATE 1 MG IV ×5 (02:46→09:41)
[2025-01-02] MEDS: DUONEB 3 ML INH (07:14)
[2025-01-02] MEDS: PULMICORT 0.5 MG INH (07:15)
--- NOTE | 2025-01-02 08:05 | W.PN.UPDATE ---
Update Note
Progress Note Update
D/w Hospitalist. No further TPN. Pls call with ?s
--- NOTE | 2025-01-02 08:50 | CM ---
F/U: Patient moving to Hospice. PLAN: Inpatient Hospice Today.
--- NOTE | 2025-01-02 09:12 | HOSPNOTE ---
Spoke with patient and consents are signed and patient will be admitted inpatient hospice. Admissions was called and hospice chart will be started. Attending aware.
--- NOTE | 2025-01-02 09:52 | W.PN.HOSP.TC ---
Addendum entered and electronically signed by Caitlin Wild MD 01/02/25 11:45:
Attending�addendum:
I saw and evaluated the patient. I reviewed the resident�s note and agree with findings and plan as documented in the resident�s note.��patient seen and examined at bedside, updated the patient's sister, patient elected comfort measures only on
hospice.
Discussed with patient case coordinator, hospice consulted.
Will start comfort measures today.
Physical�exam:
GENERAL : Patient looks under distress
HEENT: Nonicteric sclerae, PERRLA, EOMI. Oropharynx clear. Moist mucous membranes. Conjunctivae appear well perfused.
CHEST: Bilateral rales.
HEART: Regular rate and rhythm without murmurs.
LUNGS: Clear to auscultation bilaterally.
ABDOMEN: Soft, positive bowel sounds, nontender, no organomegaly.
RECTAL: Deferred.
MUSCLES/EXTREMITIES: No abnormal range of motion, no swelling.SKIN: No rash, no excessive bruising, petechiae, or purpura.
NEUROLOGIC: Cranial nerves II-XII intact without motor/sensory deficit.
�
Assessment/plan:
Acute hypoxic respiratory failure.
Esophageal stricture from esophageal cancer.
Constipation.
plan:
Start comfort measures only
CODE STATUS:DNR
Diet: Regular
Family communication: Discussed with sister.
Disposition: Discharge, to be admitted under inpatient hospice
�
Total time spent on today�s encounter was 55 minutes which included time spent in counseling the patient/family regarding diagnosis and treatment plan as listed above, goals of care, and symptom management. Case was discussed with nursing staff,
specialists, and care coordinators/case management. All labs and imaging personally reviewed by me. Remainder the time spent in detailed review of previous records, lab data, imaging, and other medical provider documentation.
Original Note:
Today's Communication/Plan
-
DC to inpatient hospice
Assessment / Plan
Assessment / Plan
Assessment:
A 74-year-old female who presented to the emergency room for evaluation of weakness and nausea. Patient was recently diagnosed with esophageal cancer and saw [facility] Dr. Luna in [place]. She was scheduled for PET scan on
12/21/24 but had extreme weakness nausea and dry heaves. She also complained of abdominal pain.��
Upper endoscopic ultrasound 12/20/24 - malignant appearing esophageal stenosis,
no gross lesions in the stomach normal duodenal bulb
a mass in the lower third of the esophagus adenocarcinoma.
Virtually completely resolved pericardial effusion in comparison to prior CT.
CT A/P 12/21/24: large volume food material seen within the distal thoracic esophagus suggesting mass/obstruction at the gastroesophageal junction.
PLAN:
# Acute hypoxemic respiratory failure
# Sepsis due to pneumonia with acute hypoxic respiratory failure
# Bilateral pleural effusions
# Fever
# COPD
CT chest 12/28/24 showed multifocal pneumonia, suspect aspiration PNA
S/p 3 days Azithromycin, few days Ceftriaxone.
O2 supplementation- weaning oxygen from 12 L.
12/29/24 R sided thoracentesis performed: 1350 cc of straw colored fluid: exudative, awaiting cytology
Blood cultures x2 NGTD. COVID, flu, strep pneumo, Legionella negative
Unasyn discontinued 01/01/25 - started on 12/27/24
If new fever, consider repeat blood cultures and broaden antibiotics. Last fever 101.1 F on 12/26/24
TPN started 12/29/24, discontinued 01/01- patient opting for hospice
Monitor for refeeding syndrome/ complications of increased nutrition. K/Mg/Phosphorus normal today 12/31/24.
Inpatient hospice today 01/02/25
# Acute kidney injury
# CKD stage 3b
Cr 1.4, increased from 0.9 on 12/29.
GFR 43.42 --> 37 on 01/01/25
# Chest discomfort/nausea likely due to endoscopic ultrasound
# Esophageal stricture from esophageal cancer�
# Poor to minimal PO intake- likely due to nausea and esophageal obstruction
Full liquids per speech recs 12/30/24
Continue Zofran PRN
GI and General surgery consulted.
Oncology consulted: patient initially wished to pursue treatment as she was told potentially curative depending on level of mets.
Plan was to optimize nutrition and performance status in anticipation of outpatient antineoplastic therapy. Patient now opting for hospice.
# Large volume colonic stool
# Constipation
XR abd 12/28 showed large volume stool suggesting constipation
S/p Dulcolax suppository.
No bowel movement in 7 days, enema given today 01/01
# Euglycemic Diabetic Ketoacidosis and Starvation Ketoacidosis
# Anion Gap Metabolic Acidosis secondary to the above
Lactic acid was normal
Suspected DKA likely due to running out of insulin/pump + decreased oral intake
S/p D5 IV fluids, Insulin Drip were given, later transitioned to subq Insulin as DKA resolved
# Anemia
Hgb drop to 7.8 on 12/29/24, 7.1 on 12/31/24 and 7.0 on 01/01/25
Hematology-Oncology suspects element dilutional with IV fluids, reticulocyte count 1.3%, iron studies with ferritin 176 ng/ml which could reflect low iron stores as would suspect this to be high with infection, malignancy.
Avoid IV iron given pneumonia/infection
Transfuse for Hgb <7.0
# Insulin-dependent diabetes mellitus with insulin pump
Patient Insulin pump had run out of Insulin on 12/22/24-12/23/24
Diabetes QUICK TECHNICIAN following
Continued subq Insulin increased long-acting to 20 units, and also increased short-acting to 20 units Q6H
# Hypercalcemia- resolved�
IV fluids were given
Monitor
# Hypertension
Hold Lisinopril and Amlodipine as unsafe to swallow
PRN hydralazine increased to 10 mg from 5 mg for better IV blood pressure control
# Hyperlipidemia
Hold Rosuvastatin- cannot be crushed and does not have a liquid form as per clinical pharmacist
# Coronary Artery Disease
# Peripheral arterial disease
Rectal Aspirin converted to chewable to be dissolved in liquid due to patient refusal of rectal aspirin
Duloxetine cannot be crushed and does not have a liquid form as per clinical pharmacist
# Insomnia
Melatonin cannot be crushed and does not have a liquid form as per clinical pharmacist
# History of pericardial effusion
# History of: pulmonary nodules, adrenal tumor, Tasha's thyroiditis, anemia, ADHD
# Bilateral pleural effusions, right greater than left
# Orthostatic hypotension, history of syncope
# Severe protein calorie malnutrition of chronic illness
Code DNR.
PATIENT TO BE INTUBATED TEMPORARILY IF NEEDED.
Lovenox for DVT Prophylaxis
Anticipated Discharge: Today
Subjective/Interval History
-
Date of Service: January 02, 2025
Patient evaluated at bedside this morning with sister present. She states the gingerale has been helping her with GI symptoms. Patient did not pass a bowel movement yesterday with the enema, and does not want more. No new complaints.
Objective Data
-
Vital Signs:
Vital Signs
Temp Pulse Resp BP Pulse Ox
97.5 F 84 29 172/65 95
01/02/25 07:58 01/02/25 07:15 01/01/25 16:00 01/01/25 12:00 01/01/25 21:23
I&O
01/01/25 01/02/25 01/03/25
06:59 06:59 06:59
Output Total 400 / 400 800 / 800
Balance -400 / -400 -800 / -800
Review of Systems
-
History Source: Patient and Family
Constitutional: Reports Fatigue
EENT: Reports No Symptoms Reported
Respiratory: Reports No Symptoms
Cardiac: Reports No Symptoms
Abdomen/GI: Reports Nausea and Constipated
Breast: Reports No Symptoms
Genitourinary: Reports No Symptoms
Endocrine: Reports No Symptoms
Hematologic / Lymphatic: Reports No Symptoms
Physical Exam
-
General: Well Developed, Appears in Distress (moderate), Conversant and Appears Chronically Ill
HEENT: Normocephalic and Atraumatic
Respiratory: Rales
Cardiac: Regular Rhythm and S1/S2
GI: Soft, Nontender and Nondistended
Musculoskeletal: No Clubbing, No Cyanosis and No Edema
Neuro: Awake and AO x 3
Psych: Intact Judgement/Insight
--- NOTE | 2025-01-02 10:27 | W.PN.ONC2 ---
Today's Communication / Plan
-
For inpatient hospice. Will sign off.
Impression
Impression
EUS with regional esophageal cancer
malnutrition
aspiration
pneumonia
smoker, stopped 1 week ago
Plan
Plan
For inpatient hospice. Will sign off.
Subjective/Objective
Chief Complaint
ACS Heme Onc
Subjective
Patient has transitioned to inpatient comfort care
Vital Signs:
Vital Signs
Temp Pulse Resp BP Pulse Ox
97.5 F 84 29 172/65 95
01/02/25 07:58 01/02/25 07:15 01/01/25 16:00 01/01/25 12:00 01/01/25 21:23
Lab Results:
Laboratory Data
WBC 18.1 10^3/uL (4.8-10.8) H 01/01/25 05:42
Hgb 7.0 g/dL (12.0-16.0) L 01/01/25 05:42
Plt Count 341 10^3/uL (130-400) 01/01/25 05:42
PT 13.8 Sec (11.4-14.6) 12/25/24 04:01
INR 1.03 12/25/24 04:01
APTT 42.4 Sec (23.4-35.0) H 12/25/24 04:01
eGFR 39.73 01/01/25 05:42
[2025-01-02] MEDS: DUONEB INH (11:16)
--- NOTE | 2025-01-02 11:37 | W.DCSUMMARY ---
Addendum entered and electronically signed by Caitlin Wild MD 01/02/25 13:10:
Attending�addendum:
I saw and evaluated the patient. I reviewed the resident�s note and agree with findings and plan as documented in the resident�s note.��patient seen and examined at bedside, updated the patient's sister, patient elected comfort measures only on
hospice.
Will be admitted under hospice care
Physical�exam:
GENERAL : Patient looks under distress
HEENT: Nonicteric sclerae, PERRLA, EOMI. Oropharynx clear. Moist mucous membranes. Conjunctivae appear well perfused.
CHEST: Bilateral rales.
HEART: Regular rate and rhythm without murmurs.
LUNGS: Clear to auscultation bilaterally.
ABDOMEN: Soft, positive bowel sounds, nontender, no organomegaly.
RECTAL: Deferred.
MUSCLES/EXTREMITIES: No abnormal range of motion, no swelling.SKIN: No rash, no excessive bruising, petechiae, or purpura.
NEUROLOGIC: Cranial nerves II-XII intact without motor/sensory deficit.
�
Assessment/plan:
Acute hypoxic respiratory failure.
Esophageal stricture from esophageal cancer.
Constipation.
plan:
Inpatient hospice admit
CODE STATUS:DNR
Diet: Regular
Family communication: Discussed with sister.
Disposition: Inpatient hospice admit
�
Total time spent on today�s encounter was 40 minutes which included time spent in counseling the patient/family regarding diagnosis and treatment plan as listed above, goals of care, and symptom management. Case was discussed with nursing staff,
specialists, and care coordinators/case management. All labs and imaging personally reviewed by me. Remainder the time spent in detailed review of previous records, lab data, imaging, and other medical provider documentation
Original Note:
Documented by User: Celso Woodard MD, Resident 01/02/25 11:53
Discharge Summary
Discharge Data
Date of Admission: 12/21/24
Date of Discharge: 01/02/25
-
Pending Results: No
Hospital Course
Discharging Physician : Dr. Caitlin Wild and Dr. Celso Woodard
Disposition : Inpatient Hospice
Principal Discharge diagnosis : Esophageal cancer, acute hypoxemic respiratory failure, sepsis dude to pneumonia and acute respiratory failure, Bilateral pleural effusions, PATTIE
Chronic Discharge diagnosis : History of COPD, Hyperlipidemia, HTN
Hospital Course : The patient is a 74 year old female with esophageal cancer who was admitted for nausea, weakness and abdominal pain. CT abdomen showed food retention in the distal esophagus concerning for obstruction of GE junction due to her
known malignancy. Her course was complicated by acute hypoxic respiratory failure from multifocal aspiration pneumonia, requiring O2 supplementation and antibiotic therapy with Azithromycin, ceftriaxone and unasyn. Thoracentesis on 12/29/24 removed
1350 cc of exudative pleural fluid. She also developed euglycemia DKA, likely from interruption of insulin pump use, managed with D5 fluids, insulin drip, and transition to subcutaneous insulin once resolved. PATTIE (Cr 0.9 to 1.4) developed during
admission, GFR dropped to 37 meeting criteria for Stage 3b CKD.
The patient was started on TPN for poor intake but discontinued after she opted for hospice care. She experienced progressive anemia (Hgb 7) which which IV iron was deferred due to ongoing pneumonia/infection. Hypercalcemia improved with IV fluids.
Amlodipine and lisinopril were held due to safety concerns with swallowing. PRN hydralazine was increased from 5 mg to 10 mg for BP control. Speech therapy recommended full liquids, and GI/oncology/general surgery were consulted. The patient
ultimately being transitioned to inpatient hospice on 01/02 for comfort focused management.
Discharge Plan
-
Patient Disposition: Hospice - Inpatient
Discharge Diagnosis/Procedures: Acute hypoxemic respiratory failure
Sepsis due to pneumonia with acute hypoxic respiratory failure
Bilateral pleural effusions
Referrals:
UNKNOWN - PT NOT,INTERVIEWE [Family Provider]
Prescriptions:
New
docusate sodium 50 mg/5 mL Liquid
100 mg PO BID Qty: 0 0RF
lorazepam [Ativan] 2 mg/mL Solution
1 mg IV Q2HPRN PRN (Reason: anxiety) Qty: 0 0RF
ipratropium-albuterol 0.5 mg-3 mg(2.5 mg base)/3 mL Solution For Nebulization
3 ml inhalation R Q4HPRN PRN (Reason: sob/wheeze) Qty: 0 0RF
alum-mag hydroxide-simeth [Mag-Al Plus] 200-200-20 mg/5 mL Suspension
30 ml PO Q6HPRN PRN (Reason: heartburn) Qty: 0 0RF
morphine 2 mg/mL Syringe
1 mg IV Q1HPRN PRN (Reason: moderate-severe pain / dyspnea) Qty: 0 0RF
ondansetron HCl (PF) 4 mg/2 mL Solution
4 mg IV Q6HPRN PRN (Reason: nausea/vomiting) Qty: 0 0RF
Discontinued
rosuvastatin 10 MG tablet
10 mg PO DAILY
aspirin 81 MG tablet,chewable
81 mg PO DAILY
duloxetine 60 MG capsule,delayed release(DR/EC)
60 mg PO DAILY
Rx Instructions:
take w/ 30mg = 90mg
gabapentin 100 MG capsule
300 mg PO HS
duloxetine 30 MG capsule,delayed release(DR/EC)
30 mg PO DAILY
Rx Instructions:
take w/ 60mg = 90mg
melatonin 10 mg Tablet
10 mg PO HSPRN PRN (Reason: sleep)
famotidine [Pepcid] 40 mg Tablet
40 mg PO BID
amlodipine [Norvasc] 5 mg Tablet
5 mg PO DAILY
umeclidinium-vilanterol [Anoro Ellipta] 62.5-25 mcg/actuation Blister With Device
1 inh INHALATION R DAILY
Patient Own Insulin Pump
1 sliding scale dose SC .INSULIN LISPRO
gabapentin 100 mg Capsule
100 mg PO DAILY 30 Days Qty: 30 0RF
lisinopril 5 mg Tablet
5 mg PO DAILY Qty: 30 0RF
Discharge Orders:
Discharge Patient (As Directed); Ordered 01/02/25
Ordered By: Caitlin Wild
Discharge Date and Time
Discharge Date/Time: 01/02/25 11:25
Print Language: GERMAN

Documented by User: Caitlin Wild MD 01/02/25 13:10
Discharge Summary
Discharge Data
Date of Admission: 12/21/24
Date of Discharge: 01/02/25
Discharge Plan
-
Patient Disposition: Hospice - Inpatient
Discharge Diagnosis/Procedures: Acute hypoxemic respiratory failure
Sepsis due to pneumonia with acute hypoxic respiratory failure
Bilateral pleural effusions
Referrals:
UNKNOWN - PT NOT,INTERVIEWE [Family Provider]
Prescriptions:
New
docusate sodium 50 mg/5 mL Liquid
100 mg PO BID Qty: 0 0RF
lorazepam [Ativan] 2 mg/mL Solution
1 mg IV Q2HPRN PRN (Reason: anxiety) Qty: 0 0RF
ipratropium-albuterol 0.5 mg-3 mg(2.5 mg base)/3 mL Solution For Nebulization
3 ml inhalation R Q4HPRN PRN (Reason: sob/wheeze) Qty: 0 0RF
alum-mag hydroxide-simeth [Mag-Al Plus] 200-200-20 mg/5 mL Suspension
30 ml PO Q6HPRN PRN (Reason: heartburn) Qty: 0 0RF
morphine 2 mg/mL Syringe
1 mg IV Q1HPRN PRN (Reason: moderate-severe pain / dyspnea) Qty: 0 0RF
ondansetron HCl (PF) 4 mg/2 mL Solution
4 mg IV Q6HPRN PRN (Reason: nausea/vomiting) Qty: 0 0RF
Discontinued
rosuvastatin 10 MG tablet
10 mg PO DAILY
aspirin 81 MG tablet,chewable
81 mg PO DAILY
duloxetine 60 MG capsule,delayed release(DR/EC)
60 mg PO DAILY
Rx Instructions:
take w/ 30mg = 90mg
gabapentin 100 MG capsule
300 mg PO HS
duloxetine 30 MG capsule,delayed release(DR/EC)
30 mg PO DAILY
Rx Instructions:
take w/ 60mg = 90mg
melatonin 10 mg Tablet
10 mg PO HSPRN PRN (Reason: sleep)
famotidine [Pepcid] 40 mg Tablet
40 mg PO BID
amlodipine [Norvasc] 5 mg Tablet
5 mg PO DAILY
umeclidinium-vilanterol [Anoro Ellipta] 62.5-25 mcg/actuation Blister With Device
1 inh INHALATION R DAILY
Patient Own Insulin Pump
1 sliding scale dose SC .INSULIN LISPRO
gabapentin 100 mg Capsule
100 mg PO DAILY 30 Days Qty: 30 0RF
lisinopril 5 mg Tablet
5 mg PO DAILY Qty: 30 0RF
Discharge Orders:
Discharge Patient (As Directed); Ordered 01/02/25
Ordered By: Caitlin Wild
Discharge Date and Time
Discharge Date/Time: 01/02/25 11:25
Print Language: GERMAN
--- NOTE | 2025-01-02 12:57 | PTCARENOTE ---
Assumed care of patient at beginning of this shift from previous RN with 12L midflow in use. Patient Ox3, more talkative today. Eating/drinking for comfort. Patient's sister at bedside this morning. Dr Wild in to see patient and ordered hospice.
Patient transferred to 2130 with all belongings; report given. This chart discharged; see new hospice chart.
== END 2025-01-02 11:25 | disposition hospice, inpatient (51) | DRG 871 ==
LOC: IMU 22:07
PROVIDERS: Emergency Medicine; Hospitalist; Internal Medicine Hematology & Oncology; Nurse Practitioner Family; Nurse Practitioner Primary Care; Radiology Vascular & Interventional Radiology; Registered Nurse; Surgery; ADMITTING PHYSICIAN Internal Medicine; ATTENDING PHYSICIAN General Practice; CONSULT PHYSICIAN Internal Medicine Critical Care Medicine; CONSULT PHYSICIAN Internal Medicine Gastroenterology; EMERGENCY PHYSICIAN Emergency Medicine; OTHER PHYSICIAN Internal Medicine Hematology & Oncology; OTHER PHYSICIAN Surgery
PROC: 0W993ZZ Drainage of Right Pleural Cavity, Percutaneous Approach (ICD-10-PCS; 2024-12-31)
DX: A41.9 Sepsis, unspecified organism (principal); E11.10 Type 2 diabetes mellitus with ketoacidosis without coma; J96.01 Acute respiratory failure with hypoxia; E43 Unspecified severe protein-calorie malnutrition; J69.0 Pneumonitis due to inhalation of food and vomit; C15.9 Malignant neoplasm of esophagus, unspecified; J44.0 Chronic obstructive pulmonary disease with (acute) lower respiratory infection; J90 Pleural effusion, not elsewhere classified; N17.9 Acute kidney failure, unspecified; F17.210 Nicotine dependence, cigarettes, uncomplicated; K22.2 Esophageal obstruction; Z66 Do not resuscitate; E11.22 Type 2 diabetes mellitus with diabetic chronic kidney disease; Z79.4 Long term (current) use of insulin; Z96.41 Presence of insulin pump (external) (internal); Z51.5 Encounter for palliative care; K59.00 Constipation, unspecified; N18.32 Chronic kidney disease, stage 3b; Z68.21 Body mass index [BMI] 21.0-21.9, adult; R65.20 Severe sepsis without septic shock; I12.9 Hypertensive chronic kidney disease with stage 1 through stage 4 chronic kidney disease, or unspecified chronic kidney disease; Z79.82 Long term (current) use of aspirin; Z79.899 Other long term (current) drug therapy; Z11.52 Encounter for screening for COVID-19
CPT/HCPCS: 32555; 36600; 71045; 71046; 71260; 74019; 74177; 80048; 80053; 82010; 82040; 82728; 82805; 82945; 82962; 83010; 83036; 83550; 83605; 83615; 83690; 83735; 83986; 84100; 84155; 84157; 84478; 85025; 85027; 85045; 85610; 85730; 86803; 86850; 86900; 86901; 87015; 87040; 87070; 87205; 87449; 87502; 87811; 87899; 88112; 88305; 88341; 88342; 89051; 92526; 92610; 93005; 93970; 94640; 96361; 96374; 99285; 99406; Q9967

== ENCOUNTER 2025-01-02 11:39 | Inpatient (IN) | payer OTHER, SELFPAY ==
[2025-01-02 11:43] VITALS: BP 172/71
--- NOTE | 2025-01-02 11:54 | HPS.HSE ---
Addendum entered and electronically signed by Caitlin Wild MD 01/02/25 13:09:
Attending�addendum:
I saw and evaluated the patient. I reviewed the resident�s note and agree with findings and plan as documented in the resident�s note.��patient seen and examined at bedside, updated the patient's sister, patient elected comfort measures only on
hospice.
Will be admitted under hospice care
Physical�exam:
GENERAL : Patient looks under distress
HEENT: Nonicteric sclerae, PERRLA, EOMI. Oropharynx clear. Moist mucous membranes. Conjunctivae appear well perfused.
CHEST: Bilateral rales.
HEART: Regular rate and rhythm without murmurs.
LUNGS: Clear to auscultation bilaterally.
ABDOMEN: Soft, positive bowel sounds, nontender, no organomegaly.
RECTAL: Deferred.
MUSCLES/EXTREMITIES: No abnormal range of motion, no swelling.SKIN: No rash, no excessive bruising, petechiae, or purpura.
NEUROLOGIC: Cranial nerves II-XII intact without motor/sensory deficit.
�
Assessment/plan:
Acute hypoxic respiratory failure.
Esophageal stricture from esophageal cancer.
Constipation.
plan:
Inpatient hospice admit
CODE STATUS:DNR
Diet: Regular
Family communication: Discussed with sister.
Disposition: Inpatient hospice admit
�
Total time spent on today�s encounter was 75 minutes which included time spent in counseling the patient/family regarding diagnosis and treatment plan as listed above, goals of care, and symptom management. Case was discussed with nursing staff,
specialists, and care coordinators/case management. All labs and imaging personally reviewed by me. Remainder the time spent in detailed review of previous records, lab data, imaging, and other medical provider documentation.
Original Note:
Family Physician
-
Family Physician: NO INTERVIEW UNKNOWN
Chief Complaint
-
Shortness of breath, dysphagia - hospice
History of Present Illness
74 year old female with PMH of COPD, T2DM, HTN, hyperlipidemia esophageal cancer who was hospitalized for weakness, nausea, vomiting and abdominal pain. Imaging revealed food retention and obstruction at the gastroesophageal junction consistent with
progression of her malignancy. Her course was complicated with aspiration pneumonia with acute hypoxic respiratory failure, bilateral pleural effusions and euglycemic DKA likely due to interruption of her insulin pump. She required antibiotics, O2
support, thoracentesis and insulin therapy. Despite medical management, she experienced progressive functional decline, poor oral intake, persistent dysphagia and declining respiratory status. After multidisciplinary discussions with GI, oncology
and general surgery, patient elected for comfort-focused care and has been transitioned to inpatient hospice.
Medical History
Past Medical History
Past Medical History: Reports COPD, HTN and Hypercholesterolemia
Additional Past Medical History:
Esophageal cancer
Past Surgical History: Reports Other (right sided oophrectomy)
Social History
Tobacco: Smoker
Alcohol: None
Drug: None
Family History
Family History: Not pertinent
Allergies / Home Medications
Allergies reflects when Allergies were last updated in [facility].
Home Medications with original date entered in [facility]
Allergy/Medication List:
Allergies
Allergy/AdvReac Type Severity Reaction Status Date / Time
atorvastatin calcium (From Allergy Swelling Verified 12/21/24 12:53
Lipitor) and hives
latex (Latex) Allergy Rash,ithcy Verified 12/21/24 12:53
and burning
Home Medications
aluminum-mag hydroxide-simethicone 200 mg-200 mg-20 mg/5 mL oral susp (Mag-Al Plus) 30 ml PO Q6HPRN PRN heartburn #0 mL 01/02/25
docusate sodium 50 mg/5 mL oral liquid 100 mg (10 mL) PO BID #0 mL 01/02/25
ipratropium 0.5 mg-albuterol 3 mg (2.5 mg base)/3 mL nebulization soln 3 ml inhalation R Q4HPRN PRN sob/wheeze #0 mL 01/02/25
lorazepam 2 mg/mL injection solution (Ativan) 1 mg (0.5 mL) IV Q2HPRN PRN anxiety #0 mL 01/02/25
morphine 2 mg/mL injection syringe 1 mg (0.5 mL) IV Q1HPRN PRN moderate-severe pain / dyspnea #0 mL 01/02/25
ondansetron HCl (PF) 4 mg/2 mL injection solution 4 mg (2 mL) IV Q6HPRN PRN nausea/vomiting #0 mL 01/02/25
Review of Systems
-
History Source: Patient
A 12 point ROS was completed and negative except as noted: Yes
Constitutional: Reports Fatigue
EENT: Reports No Symptoms
Respiratory: Reports Trouble Breathing
Cardiac: Reports No Symptoms
Abdomen/GI: Reports Nausea and Constipated
: Reports No Symptoms
Musculoskeletal: Reports No Symptoms
Skin: Reports No Symptoms
Neurological: Reports No Symptoms
Endocrine: Reports No Symptoms
Hematologic/Lymphatic: Reports No Symptoms
Physical Exam
Vital Signs
Vital Signs
Temp Pulse BP Pulse Ox
97.7 F 77 172/71 99
01/02/25 11:43 01/02/25 11:43 01/02/25 11:43 01/02/25 11:43
Physical Exam
General: Well Nourished, Respiratory Distress, Appears in Distress and Appears Chronically Ill
HEENT: NormoCephalic, Anicteric and Atraumatic
Respiratory: Rales (bilaterally)
GI: Soft and Non Distended
Musculoskeletal: No Clubbing, No Cyanosis and No Edema
Skin: Warm
Neuro: Awake and AO x 3
Psych: Calm and Intact Judgment/Insight
Data Reviewed
-
Old Records: Reviewed
Impression/Plan
-
IMPRESSION:
A 74 year old female with esophageal cancer with imaging revealing food retention and obstruction at gastroesophageal junction consistent with progression of malignancy admitted for inpatient hospice.
PLAN:
# Esophageal stricture from Esophageal cancer
# Acute respiratory failure
# Poor oral intake
# Constipation
Continue Dilaudid, Tylenol for pain control
Continue Zofran as needed
Continue Hyoscyamine sulfate
Continue Ativan as needed
Patient denying enema. S/p enema 01/01 without bowel movement. Last bowel movement >7 days ago.
DNR
HOSPICE
[2025-01-02] MEDS: DILAUDID 1 MG IV ×6 (12:43→22:14)
--- NOTE | 2025-01-02 13:06 | HOSPNOTE ---
Patient is inpatient hospice for management of shortness of breath. Patient will be seen daily and oxygen will be weaned down and patient will be medicated appropriately.
[2025-01-02] MEDS: ATIVAN 1 MG IV (21:55)
[2025-01-02] MEDS: DILAUDID 50 IV (22:55)
[2025-01-02 23:11] VITALS: BP 164/75
[2025-01-03 07:25] VITALS: BP 147/58
--- NOTE | 2025-01-03 08:47 | W.PN.HOSP.TC ---
Addendum entered and electronically signed by Caitlin Wild MD 01/03/25 10:58:
Attending�addendum:
I saw and evaluated the patient. I reviewed the resident�s note and agree with findings and plan as documented in the resident�s note.��patient seen and examined at bedside, updated the patient's sister at bedside, admitted under hospice care, on
comfort measures only.
Physical�exam:
GENERAL : lethergic
HEENT: Nonicteric sclerae, PERRLA, EOMI. Oropharynx clear. Moist mucous membranes. Conjunctivae appear well perfused.
CHEST: Bilateral rales.
HEART: Regular rate and rhythm without murmurs.
LUNGS: rales bilaterally.
ABDOMEN: Soft, positive bowel sounds, nontender, no organomegaly.
RECTAL: Deferred.
MUSCLES/EXTREMITIES: No abnormal range of motion, no swelling.SKIN: No rash, no excessive bruising, petechiae, or purpura.
NEUROLOGIC: lethargic
�
Assessment/plan:
Acute hypoxic respiratory failure.
Esophageal stricture from esophageal cancer.
Constipation.
plan:
Inpatient hospice admit
1ST PRESSMAN
CODE STATUS:DNR
Diet: Regular
Family communication: Discussed with sister.
Disposition: continue 1ST PRESSMAN
�
Total time spent on today�s encounter was 55 minutes which included time spent in counseling the patient/family regarding diagnosis and treatment plan as listed above, goals of care, and symptom management. Case was discussed with nursing staff,
specialists, and care coordinators/case management. All labs and imaging personally reviewed by me. Remainder the time spent in detailed review of previous records, lab data, imaging, and other medical provider documentation.
Original Note:
Today's Communication/Plan
-
Hospice
Assessment / Plan
Assessment / Plan
A 74 year old female with esophageal cancer with imaging revealing food retention and obstruction at gastroesophageal junction consistent with progression of malignancy admitted for inpatient hospice.
PLAN:
# Esophageal stricture from Esophageal cancer
# Acute respiratory failure
# Poor oral intake
# Constipation
Continue Dilaudid, Tylenol for pain control
Continue Zofran as needed
Continue Hyoscyamine sulfate
Continue Ativan as needed
DNR
HOSPICE
Anticipated Discharge: > 48 hours
Subjective/Interval History
-
Date of Service: January 03, 2025
Patient evaluated a bedside this morning with sister present. She is sedated, and not responding to questions. Sister states patient felt happy after seeing the hospital therapy dogs (Jori and [place]) yesterday. Other family members are coming in
from [place] today.
Objective Data
-
Vital Signs:
Vital Signs
Temp Pulse Resp BP Pulse Ox
98.9 F 81 16 147/58 90
01/03/25 07:25 01/03/25 07:25 01/03/25 07:25 01/03/25 07:25 01/03/25 07:25
I&O
01/02/25 01/03/25 01/04/25
06:59 06:59 06:59
Intake Total 1559 / 156
Balance 1560 / 1560
Review of Systems
-
Unable to obtain full review of systems at this time due to: Other (Sedated)
History Source: Family
Physical Exam
-
General: Appears Chronically Ill
HEENT: Normocephalic and Atraumatic
Respiratory: Rales and Accessory Resp Muscle Use
Cardiac: Regular Rhythm and S1/S2
GI: Soft and Nondistended
Skin: Warm
Neuro: Sedated
--- NOTE | 2025-01-03 12:44 | HOSPNOTE ---
Automation And Controls Manager visited Kasey Ibanez at [facility] in room 2131. Patient was resting in peace and comfort and Sister was by her side. Sister reported that she was not in pain today and her neices were in route from [place] to say their
goodbyes. Neices did make it to the visit as clinical nursing intern was completing notes. Her sister reported that she belonged to a [facility] [place] but was not active for sometime. She never and took care of her mother. As reported by family, the patient only
reported being sick for a month but she was very private and could have been suffering a longer time. 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 Sister is very emotional and clinical nursing intern provided emotional and
spiritual support through presence, touch and prayer.
[2025-01-03] MEDS: DILAUDID 1 MG IV ×4 (15:55→21:20)
--- NOTE | 2025-01-03 18:04 | HOSPNOTE ---
Patient is inpatient hospice appropriate for the management of pain and anxiety that could not be managed in the outpatient setting. Patient is on a Dilaudid drip at 1 mg/hr and needed 1 breakthrough dose thus far. Patient also required 1 dose of iv
Ativan for anxiety in the last 24hs. Informal report with TERI Ivory, agreeable with plan of care. Hospice will visit daily.
[2025-01-03] MEDS: ROBINUL 0.2 MG IV (19:57)
[2025-01-03] MEDS: ATIVAN 1 MG IV (21:14)
--- NOTE | 2025-01-03 21:35 | PTCARENOTE ---
Family members at beside. Pt appeared to pass and [employer] communication center operator notify. Dilaudid gtt stopped.
--- NOTE | 2025-01-03 21:50 | W.PN.DEATH ---
Pronouncement of
-
Called to see patient to pronounce.
No spontaneous heart tones or respirations noted.
Patient not responsive to verbal stimuli.
Patient is pronounced .
Time of : 21:09
Date of : 01/03/25
Cause of : Acute hypoxic respiratory failure
Family Notified: Yes (family present in room at time of , malnutrition, esophageal stricture)
--- NOTE | 2025-01-03 22:30 | PTCARENOTE ---
Postmortem care provided and give of life notified.
--- NOTE | 2025-01-04 08:53 | W.DCSUMMARY ---
Discharge Summary
Discharge Data
Date of Admission: 01/02/25
Date of Discharge: 01/03/25
-
Pending Results: No
Hospital Course
Disposition :
Principal Discharge diagnosis : Acute hypoxemic respiratory failure, esophageal stricture due to esophageal cancer
Hospital Course : A 74 year old female with PMH of COPD, T2DM, HTN, hyperlipidemia esophageal cancer who was hospitalized for weakness, nausea, vomiting and abdominal pain. Imaging revealed food retention and obstruction at the gastroesophageal
junction consistent with progression of her malignancy. Her course was complicated with aspiration pneumonia with acute hypoxic respiratory failure, bilateral pleural effusions and euglycemic DKA likely due to interruption of her insulin pump. She
required antibiotics, O2 support, thoracentesis and insulin therapy. Despite medical management, she experienced progressive functional decline, poor oral intake, persistent dysphagia and declining respiratory status. After multidisciplinary
discussions with GI, oncology and general surgery, patient elected for comfort-focused care and has been transitioned to inpatient hospice. Patient on 01/03/2025 at 9:09 PM due to acute hypoxic respiratory failure. Family was present in
room at the time of .
Discharge Plan
-
Patient Disposition:
Date/Time
Date/Time: 01/03/25 21:29
Discharge Date and Time
Discharge Date/Time: 01/03/25 21:29
Print Language: SENEGALESE
== END 2025-01-03 21:29 | disposition expired | DRG 951 ==
LOC: 2 NORTH 11:39
PROVIDERS: ADMITTING PHYSICIAN General Practice
DX: Z51.5 Encounter for palliative care (principal); E11.10 Type 2 diabetes mellitus with ketoacidosis without coma; J96.01 Acute respiratory failure with hypoxia; J69.0 Pneumonitis due to inhalation of food and vomit; C15.9 Malignant neoplasm of esophagus, unspecified; E46 Unspecified protein-calorie malnutrition; J90 Pleural effusion, not elsewhere classified; Z66 Do not resuscitate; K22.2 Esophageal obstruction; K59.00 Constipation, unspecified; J44.9 Chronic obstructive pulmonary disease, unspecified; I10 Essential (primary) hypertension; E78.00 Pure hypercholesterolemia, unspecified; F17.200 Nicotine dependence, unspecified, uncomplicated; Z85.01 Personal history of malignant neoplasm of esophagus